=== PATIENT | male | born 1950 | race Caucasian/White ===

== ENCOUNTER 2023-08-11 09:40 | Outpatient (AMB) | payer MEDICARE, SELFPAY ==
--- NOTE | 2023-08-11 09:42 | MHC.PC.OV ---
Vital Signs 08/11/23 09:43 Height 5 ft 4 in Weight 174 lb BMI 29.9 BP 114/66 Blood Pressure Location Rt brachial Position Sitting Pulse 67 Pulse Source Pulse Oximeter Pulse Oximetry (%) 95 Oxygen Delivery Method Room Air Intake Visit Reasons: 3m follow up Intake Note: Pt is here today for 3 months follow up visit on lab results. Allergies No Known Allergies Allergy (Verified 08/11/23 09:54) Medication List - Last Reconciled 08/11/23 by Mónica Dawkins MD amlodipine 7.5 mg (1.5 x 5 mg) PO DAILY aspirin (Adult Aspirin Regimen) 81 mg PO DAILY blood sugar diagnostic (FreeStyle Lite Strips) test blood sugar once a day calcitriol 0 mcg PO cinacalcet 0 mg PO dulaglutide (Trulicity) 0.75 mg (0.5 mL) subcut QWEEK empagliflozin (Jardiance) 10 mg PO DAILY finasteride 5 mg PO DAILY furosemide 20 mg PO DAILY glipizide ER 5 mg PO BID hydrocortisone 2.5% (Proctosol HC) 1 appl [place] BID-QID PRN hydrocortisone acetate (Proctocort) 30 mg [place] BID lancets (FreeStyle Lancets) test blood sugar once a day metformin ER 750 mg PO QPM metoprolol tartrate 25 mg PO BID mycophenolate mofetil 500 mg PO BID omeprazole 40 mg PO DAILY pravastatin 40 mg PO DAILY tacrolimus 1 mg PO BID tacrolimus 0.5 mg PO 3 times a week at nighttime; tamsulosin 0.4 mg PO DAILY warfarin 4 mg PO DAILY warfarin 9 mg PO Q OTHER DAY PRN Tobacco use date assessed: 05/12/23 Dental Screening Dental Screen Date: 08/11/23 Did you have a dental visit in the last 12 months?: Yes Did you have a dental problem in the last 6 months where you did not have access to dental care?: No Was dental information given to patient?: Patient has dentist HPI 3m follow up HPI Details Pt presents for f/u DM 2, HTN, hyperlipid, stable on meds. Patient stays Jardiance massey is very high and he cannot afford it. [facility] Medical History (Updated 08/11/23 @ 10:35 by Mónica Dawkins MD) Tendinitis Vitamin D deficiency Carpal tunnel syndrome on both sides Diabetic eye exam Paroxysmal A-fib Osteoarthritis of knee BPH (benign prostatic hyperplasia) Polycystic kidney, unspecified type Diabetes (~12/22/20) HTN (hypertension) Surgical History (Updated 02/09/23 @ 10:36 by Mónica Dawkins MD) History of esophagogastroduodenoscopy (EGD) History of colonoscopy Status post parathyroidectomy S/P CABG x 2 Family History Father Prostate CA Mother Polycystic kidney disease Social History Housing: House Alcohol intake: current Alcohol intake frequency: does not drink Patient Tobacco Use Status: Never used Tobacco e-Cigarette/Vaping Use: Never Used Current occupational status: retired Cognitive needs: No Hearing needs: No Vision needs: No Questionnaire Thrive Questionnaire Date Thrive assessed: 01/10/23 TRISH-7 AMB Questionnaire TRISH-7 Date TRISH - 7 assessed: 01/10/23 Source: Developed by Drs. Everett Gorman, Chasity Nascimento, Narayan Garza and colleagues, with an educational jesus from [employer]. Review of Systems Const All systems reviewed & are unremarkable except as noted in HPI and below Reports no additional complaints Eyes Reports no additional complaints ENT Reports no additional complaints Card Reports no additional complaints Resp Reports no additional complaints GI Reports no additional complaints Reports no additional complaints Physical exam (Primary Care) Vital Signs: Last Vital Signs Pulse 67 08/11/23 09:43 BP 114/66 08/11/23 09:43 Pulse Ox 95 08/11/23 09:43 Oxygen Delivery Method Room Air 08/11/23 09:43 BMI result Body Mass Index 29.9 Tobacco/Smoking Status: Tobacco use Status Tobacco use date assessed 05/12/23 08/11/23 09:43 Patient Tobacco Use Status Never used Tobacco 08/11/23 09:43 e-Cigarette/Vaping Use Never Used 08/11/23 09:43 Thrive Assessment: Date of Thrive Assessment Date Thrive assessed 01/10/23 08/11/23 09:43 Const General: no acute distress HENMT Head: Yes normal to inspection Ears: hearing grossly normal bilaterally Mouth: Normal oral and palatal mucosa present Neck Neck: Yes supple Resp Effort & Inspection: normal respiratory effort Auscultation: clear to auscultation bilaterally Cardio Rhythm: regular rhythm Heart sounds: S1 normal heart sound present and S2 normal heart sound present GI Inspection: Yes normal to inspection Palpation (GI): Soft to palpation Percussion: Yes normal to percussion Auscultation: normal bowel sounds Assessment and Plan Assessment & Plan (1) Diabetes: Onset Date: ~12/22/20 Comment: goal A1C < 7.5, pt cannot afford Jardiance Code(s): E11.9 - Type 2 diabetes mellitus without complications Plan: A1C is 6.4, patient will stop Jardiance and increase Trulicity to 1.5 mg weekly. Patient will continue the rest of his medications, he diet increase physical activity weight loss discussed with the patient. (2) Paroxysmal A-fib: Comment: on Warfarin checks INR at [facility], [place] [facility] [place] Code(s): I48.0 - Paroxysmal atrial fibrillation Plan: Continue current medications (3) HTN (hypertension): Comment: BP < 130/80 Code(s): I10 - Essential (primary) hypertension Plan: Continue current medications , return in 4 months with a fasting labs before Orders: Orders Comprehensive [place]. Panel Fast 4 Months E11.9 - Type 2 diabetes mellitus without complications, I10 - Essential (primary) hypertension, I48.0 - Paroxysmal atrial fibrillation Lipid Panel 4 Months E11.9 - Type 2 diabetes mellitus without complications, I10 - Essential (primary) hypertension, I48.0 - Paroxysmal atrial fibrillation Hemoglobin A1c 4 Months E11.9 - Type 2 diabetes mellitus without complications, I10 - Essential (primary) hypertension, I48.0 - Paroxysmal atrial fibrillation Complete Blood Count Auto Diff 4 Months E11.9 - Type 2 diabetes mellitus without complications, I10 - Essential (primary) hypertension, I48.0 - Paroxysmal atrial fibrillation Microalbumin, Random (w Creat) 4 Months E11.9 - Type 2 diabetes mellitus without complications, I10 - Essential (primary) hypertension, I48.0 - Paroxysmal atrial fibrillation RT home sleep study Today G47.30 - Sleep apnea, unspecified Medications: New dulaglutide (Trulicity) 1.5 mg (0.5 mL) subcut QWEEK 6 mL 2RF Discontinued dulaglutide (Trulicity) Discontinued Reason: Doctor's Order 0.75 mg (0.5 mL) subcut QWEEK 2 mL 2RF Coding Level of Care Code Est Pt Level 4 (98385) Diagnoses Diabetes E11.9 Paroxysmal A-fib I48.0 HTN (hypertension) I10
[2023-08-11 09:43] VITALS: BP 114/66; PULSE 67; O2SAT 95; BMI 29.9
== END 2023-08-11 11:50 | disposition home or self-care (01) ==
PROVIDERS: PCP Internal Medicine; Visit Provider Internal Medicine
DX: E11.9 Type 2 diabetes mellitus without complications (principal); I48.0 Paroxysmal atrial fibrillation; I10 Essential (primary) hypertension
CPT/HCPCS: 99214

== ENCOUNTER 2023-12-14 10:22 | Outpatient (AMB) | payer MEDICARE, SELFPAY ==
[2023-12-14 10:23] VITALS: BP 110/68; PULSE 62; O2SAT 96
--- NOTE | 2023-12-14 10:23 | A.OFFVIS_ITS ---
Intake Vital Signs 12/14/23 10:23 Height 5 ft 4 in Weight 175 lb BMI 30.0 BP 110/68 Blood Pressure Location Rt brachial Position Sitting Pulse 62 Pulse Source Pulse Oximeter Pulse Oximetry (%) 96 Oxygen Delivery Method Room Air Intake Visit Reasons: SWV [id number] Allergies No Known Allergies Allergy (Verified 12/14/23 10:27) Medication List - Last Reconciled 12/14/23 by Mónica Dawkins MD amlodipine 7.5 mg (1.5 x 5 mg) PO DAILY aspirin (Adult Aspirin Regimen) 81 mg PO DAILY blood sugar diagnostic (FreeStyle Lite Strips) test blood sugar once a day calcitriol 0 mcg PO cinacalcet 0 mg PO dulaglutide (Trulicity) 1.5 mg (0.5 mL) subcut QWEEK empagliflozin (Jardiance) 10 mg PO DAILY finasteride 5 mg PO DAILY furosemide 20 mg PO DAILY glipizide ER 5 mg PO BID hydrocortisone 2.5% (Proctosol HC) 1 appl [place] BID-QID PRN hydrocortisone acetate (Proctocort) 30 mg [place] BID lancets (FreeStyle Lancets) test blood sugar once a day metformin ER 750 mg PO QPM metoprolol tartrate 25 mg PO BID mycophenolate mofetil 500 mg PO BID omeprazole 40 mg PO DAILY pravastatin 40 mg PO DAILY tacrolimus 1 mg PO BID tacrolimus 0.5 mg PO 3 times a week at nighttime; tamsulosin 0.4 mg PO DAILY warfarin 4 mg PO DAILY warfarin 9 mg PO Q OTHER DAY PRN HPI [facility] G0439 HPI Details Initiated the conversation about Advanced Directives. Advanced Directives help? patients prepare for current and future decisions about their medical treatment? and place of care. Discussed with patient that it is a process where a patients? current condition and prognosis are reviewed, their wishes for information? regarding their illness are elicited, and likely medical dilemmas are presented? and options discussed. The form can be amended as needed, reviewed yearly and? make changes as needed IPPE/AWV ? year old presents? for her ? Annual? Wellness Visit, initial visit.? Medical / Social History Reviewed? Past Medical History ?Yes? . ? [place]? of Care / Care Team list updated ?Yes . ? Surgical/Hospitalization? History ?Yes . ? Current Medications? (including OTC and supplements) ?Yes . ? Family History ?Yes? . ? Tobacco? Control form ?Yes . ? AUDIT-C (Alcohol use) form? ?Yes . ? Illicit drug use in Social? History ?Yes . ? Current diagnosis of? depression? ?No ? Appropriate PHQ2/PHQ9? completed ?Yes . ? Data entered by ?Medical? Public Policy Associate and reviewed by provider ? Fall Risk ? Fall? History? Have you had any falls with? injury in the past year? ?No . ? Have you had two or more? falls in the past year? ?No . ? Fall Risk Assessment: ?No? falls in the past year . ? HRA filled out by? the patient, reviewed by Provider and scanned. ? IPPE/AWV ? Balance? [place]? ?Yes . ? Tandem? walk ?Yes . ? Walk and? Turn ?Yes . ? Rise from? sit to stand ?Yes . ?Vision? Corrective? lens ?Yes ? Vision? screen ? Up-to-date, has an appointment [] for vision? screening and glaucoma screening ?Hearing? Whisper? test ?pass .? Initiated the conversation about Advanced Directives. Advanced Directives help? patients prepare for current and future decisions about their medical treatment? and place of care. Discussed with patient that it is a process where a patients? current condition and prognosis are reviewed, their wishes for inf ormation? regarding their illness are elicited, and likely medical dilemmas are presented? and options discussed. The form can be amended as needed, reviewed yearly and? make changes as needed Written? Plan?Completed. See Patient? Documents. [facility] Medical History (Updated 12/14/23 @ 11:13 by Mónica Dawkins MD) BPH (benign prostatic hyperplasia) Tendinitis Vitamin D deficiency Carpal tunnel syndrome on both sides Diabetic eye exam Paroxysmal A-fib Osteoarthritis of knee Polycystic kidney, unspecified type Diabetes (~12/22/20) HTN (hypertension) Surgical History (Updated 12/14/23 @ 11:19 by Mónica Dawkins MD) History of esophagogastroduodenoscopy (EGD) History of colonoscopy Status post parathyroidectomy S/P CABG x 2 Family History Father Prostate CA Mother Polycystic kidney disease Social History Housing: House Alcohol intake: current Alcohol intake frequency: does not drink Patient Tobacco Use Status: Never used Tobacco e-Cigarette/Vaping Use: Never Used Current occupational status: retired Cognitive needs: No Hearing needs: No Vision needs: No Questionnaire Medicare Wellness Checkup [age] What gender do you identify with?: male During the past 4 weeks, how much have you been bothered by emotional problems such as feeling anxious, depressed, irritable, sad or downhearted, and blue?: slightly During the past 4 weeks, has your physical & emotional health limited your social activities with family, friends, neighbors, or groups?: not at all During the past 4 weeks, how much bodily pain have you generally had?: very mild pain During the past 4 weeks, was someone available to help you if you needed & wanted help?: yes, quite a bit During the past 4 weeks, what was the hardest physical activity you could do for at least 2 minutes?: moderate Can you get to places out of walking distance without help? (For eg., can you travel alone on buses, taxis or drive your car?): Yes Can you go shopping for groceries or clothes without someone's help?: Yes Can you prepare your own meals?: Yes Can you do your housework without help?: Yes Because of any health problems, do you need the help of another person with your personal care needs such as eating, bathing, dressing or getting around the house?: No Can you handle your own money without help?: Yes During the past 4 weeks, how would you rate your health in general?: good During the past 4 weeks how have things been going for you?: pretty well Are you having difficulties driving your car?: yes, often Do you always fasten your seat belt when you are in a car?: yes, usually During past 4 weeks, have you been bothered by the following: never: Sexual prob lems?, Trouble eating well?, Teeth or denture problems? and Problems using the telephone? and sometimes: Falling or dizzy when standing up and Tiredness or fatigue? Have you fallen 2 or more times in the past year?: Yes Are you afraid of falling?: No Are you a smoker?: no During the past 4 weeks, how many drinks of wine, beer, or other alcoholic beverages did you have?: no alcohol at all Do you exercise for about 20 minutes 3 or more times a week?: yes, some of the time Have you been given information to help with the following?: yes: Keeping track of your medications? and no: Hazards in your house that might hurt you? How often do you have trouble taking medicines the way you have been told to take them?: I always take medicine as prescribed How confident are you that you can control & manage most of your health problems?: somewhat confident What is your race?: White Mini Mental State Exam (MMSE) Orientation What is the (year) (season) (date) (day) (month)?: year, season, date, day and month Where are we (state) (county) (town or city) (hospital) (floor)?: state, county, town or city, hospital/clinic and floor Registration Name of 3 unrelated objects clearly and slowly, then ask patient to repeat all 3 of them. (1st repeat determines score. Make sure they can repeat all three): object 1, object 2 and object 3 Attention & Calculation (CHOOSE ONE) Spell WORLD backwards (DLROW): 5 letters Recall Ask patient to repeat the 3 items from question #3.: object 1, object 2 and object 3 Language Show patient a wristwatch & ask what it is. Repeat for pencil.: watch and pencil Ask the patient to repeat the phrase 'No ifs, ands, or buts' after you.: correct Ask the patient to 'take a piece of paper with their right hand' 'fold paper in half' 'place paper on floor': take paper in right hand, fold paper in half and place paper on floor Print the sentence 'CLOSE YOUR EYES' on a piece. If patient actually closes eyes then score.: followed written direction Give patient a blank piece of paper & ask to write a sentence. Score if it contains a noun & verb.: sentence contains subject and verb Score Score: 29 Activity of Daily Living Bathing - sponge bath, tub bath or shower: receives no assistance (gets in/out by self, if usual bathing means Dressing - getting clothes from closets & drawers, including inner/outer garments & fasteners.: gets clothes & gets completely dressed without help Toileting - going to the 'toilet room' for urine/bowel elimination & cleaning self/arranging clothes: goes to toilet room, cleans self, arranges clothes without help Transfer: moves in & out of bed and chair without help (may use support object) Continence: controls urination/bowel movements completely by self Feeding: feeds self without help Total Score: 0 Information obtained from: patient Using telephone: independent Traveling: independent Shopping: independent Preparing meals: independent Housework: independent Taking medicine: independent Managing money: independent PHQ-9 Over the last 2 weeks, how often have you been bothered by any of the following problems? 1. Little interest or pleasure in doing things: several days 2. Feeling down, depressed, or hopeless: not at all 3. Trouble falling or staying asleep, or sleeping too much: not at all 4. Feeling tired or having little energy: several days 5. Poor appetite or overeating: several days 6. Feeling bad about yourself - or that you are a failure or have let yourself or your family down: not at all 7. Trouble concentrating on things, such as reading the newspaper or watching television: several days 8. Moving or speaking so slowly that other people could have noticed. Or the opposite - being so fidgety or restless that you have been moving around a lot more than usual: several days 9. Thoughts that you would be better off or of hurting yourself in some way: not at all Total score: 5 Depression Screening Interpretation: Negative Depression Screening Done: Yes Source: Developed by Drs. Everett Gorman, Chasity Nascimento, Narayan Garza and colleagues, with an educational jesus from [employer]. Physical Exam Vital Signs: Last Vital Signs Pulse 62 12/14/23 10:23 BP 110/68 12/14/23 10:23 Pulse Ox 96 12/14/23 10:23 Oxygen Delivery Method Room Air 12/14/23 10:23 BMI result Body Mass Index 30.0 Const General: no acute distress HEENT Head: Yes normal to inspection Ears: hearing grossly normal bilaterally Eyes General: appearance normal, both eyes and all related structures Neck Neck: Yes no lymphadenopathy and Yes supple Resp Effort & Inspection: normal respiratory effort Auscultation: clear to auscultation bilaterally Cardio Rhythm: regular rhythm Heart sounds: S1 normal heart sound present and S2 normal heart sound present GI Inspection: Yes normal to inspection Palpation (GI): Soft to palpation Percussion: Yes normal to percussion Extrem General: Yes no clubbing, cyanosis or edema Assessment & Plan Assessment & Plan (1) Paroxysmal A-fib: Comment: on Warfarin checks INR at [facility], regulated by [facility] [place] Code(s): I48.0 - Paroxysmal atrial fibrillation Plan: Continue Coumadin and Metoprolol (2) Diabetes: Onset Date: ~12/22/20 Comment: goal A1C < 7.5, pt cannot afford Jardiance Code(s): E11.9 - Type 2 diabetes mellitus without complications Plan: A1c is 6.4, continue current medications ADA diet increase physical activity and weight loss discussed with the patient. Follow-up in 4 months (3) HTN (hypertension): Comment: BP < 130/80 Code(s): I10 - Essential (primary) hypertension Plan: Continue current medications (4) BPH (benign prostatic hyperplasia): Comment: follow up urologist at [facility] [place] Code(s): N40.0 - Benign prostatic hyperplasia without lower urinary tract symptoms Plan: Monitor PSA (5) Sleep apnea: Comment: 09/18 moderate sleep apnea, referred to [facility] 12/20 Code(s): G47.30 - Sleep apnea, unspecified Plan: Patient was diagnosed with moderate sleep apnea and will be referred to [facility] to discuss starting CPAP. Weight loss discussed with the patient Orders: Orders Complete Blood Count Auto Diff 4 Months E11.9 - Type 2 diabetes mellitus without complications, I10 - Essential (primary) hypertension, I48.0 - Paroxysmal atrial fibrillation, N40.0 - Benign prostatic hyperplasia without lower urinary tract symptoms Microalbumin, Random (w Creat) 4 Months E11.9 - Type 2 diabetes mellitus without complications, I10 - Essential (primary) hypertension, I48.0 - Paroxysmal atrial fibrillation, N40.0 - Benign prostatic hyperplasia without lower urinary tract symptoms PSA,Total (Free>4and<10) 4 Months E11.9 - Type 2 diabetes mellitus without complications, I10 - Essential (primary) hypertension, I48.0 - Paroxysmal atrial fibrillation, N40.0 - Benign prostatic hyperplasia without lower urinary tract symptoms Comprehensive [place]. Panel Fast 4 Months E11.9 - Type 2 diabetes mellitus without complications, I10 - Essential (primary) hypertension, I48.0 - Paroxysmal atrial fibrillation, N40.0 - Benign prostatic hyperplasia without lower urinary tract symptoms Lipid Panel 4 Months E11.9 - Type 2 diabetes mellitus without complications, I10 - Essential (primary) hypertension, I48.0 - Paroxysmal atrial fibrillation, N40.0 - Benign prostatic hyperplasia without lower urinary tract symptoms Hemoglobin A1c 4 Months E11.9 - Type 2 diabetes mellitus without complications, I10 - Essential (primary) hypertension, I48.0 - Paroxysmal atrial fibrillation, N40.0 - Benign prostatic hyperplasia without lower urinary tract symptoms Referrals Sleep Medicine Referral G47.30 - Sleep apnea, unspecified Medications: Discontinued empagliflozin (Jardiance) Discontinued Reason: Doctor's Order 10 mg PO DAILY 90 tabs 0RF Quality Reporting (2019) Depression/Bipolar (159/160/161/177) PHQ-9: Total score: 5 Coding Level of Care Code Medicare Subsequent (G0439) Diagnoses Paroxysmal A-fib I48.0 Diabetes E11.9 HTN (hypertension) I10 BPH (benign prostatic hyperplasia) N40.0 Sleep apnea G47.30 CPT Codes Advance Care Planning - Time spent: 1-15 minutes, not on file ([id number]) Advance Care Planning Advance Care Planning discussion: Exists, not on file Forms completed: Health Care Proxy Time spent: 1-15 minutes, not on file
== END 2023-12-14 11:23 | disposition home or self-care (01) ==
PROVIDERS: PCP Internal Medicine; Visit Provider Internal Medicine
DX: I48.0 Paroxysmal atrial fibrillation (principal); E11.9 Type 2 diabetes mellitus without complications; I10 Essential (primary) hypertension; N40.0 Benign prostatic hyperplasia without lower urinary tract symptoms; G47.30 Sleep apnea, unspecified; Z00.00 Encounter for general adult medical examination without abnormal findings
CPT/HCPCS: 1124F; G0439

== ENCOUNTER 2024-04-19 09:28 | Outpatient (AMB) | payer MEDICARE, SELFPAY ==
[2024-04-19 09:39] VITALS: BP 120/66; PULSE 75; O2SAT 95; BMI 29.3
--- NOTE | 2024-04-19 09:39 | A.OFFPC_ITS ---
Vital Signs 04/19/24 09:39 Height 5 ft 4 in Weight 171 lb BMI 29.3 BP 120/66 Blood Pressure Location Rt brachial Position Sitting Pulse 75 Pulse Source Pulse Oximeter Pulse Oximetry (%) 95 Oxygen Delivery Method Room Air Intake Visit Reasons: 4 month fu Intake Note: Pt is here today for 4 months follow up visit. Allergies No Known Allergies Allergy (Verified 04/19/24 09:39) Medication List - Last Reconciled 04/19/24 by Mónica Dawkins MD amlodipine 7.5 mg (1.5 x 5 mg) PO DAILY aspirin (Adult Aspirin Regimen) 81 mg PO DAILY blood sugar diagnostic (FreeStyle Lite Strips) test blood sugar once a day calcitriol 0 mcg PO cinacalcet 0 mg PO dulaglutide (Trulicity) 1.5 mg (0.5 mL) subcut QWEEK finasteride 5 mg PO DAILY furosemide 20 mg PO DAILY glipizide ER 5 mg PO BID hydrocortisone 2.5% (Proctosol HC) 1 appl [place] BID-QID PRN hydrocortisone acetate (Proctocort) 30 mg [place] BID lancets (FreeStyle Lancets) test blood sugar once a day metformin ER 750 mg PO QPM metoprolol tartrate 25 mg PO BID mycophenolate mofetil 500 mg PO BID omeprazole 40 mg PO DAILY pravastatin 40 mg PO DAILY tacrolimus 1 mg PO BID tacrolimus 0.5 mg PO 3 times a week at nighttime; tamsulosin 0.4 mg PO DAILY warfarin 4 mg PO DAILY warfarin 9 mg PO Q OTHER DAY PRN Tobacco use date assessed: 04/19/24 Fall risk assessment: No Falls in past year Last assessed Fall Risk: 04/19/24 Dental Screening Dental Screen Date: 04/19/24 Did you have a dental visit in the last 12 months?: Yes Did you have a dental problem in the last 6 months where you did not have access to dental care?: No Was dental information given to patient?: Patient has dentist HPI 4 month fu HPI Details Patient presents for the follow-up of type 2 diabetes hypertension hyperlipidemia paroxysmal AFib status post renal transplant. [facility] Medical History BPH (benign prostatic hyperplasia) Tendinitis Vitamin D deficiency Carpal tunnel syndrome on both sides Diabetic eye exam Paroxysmal A-fib Osteoarthritis of knee Polycystic kidney, unspecified type Diabetes (~12/22/20) HTN (hypertension) Surgical History History of esophagogastroduodenoscopy (EGD) History of colonoscopy Status post parathyroidectomy S/P CABG x 2 Family History Father Prostate CA Mother Polycystic kidney disease Social History Housing: House Alcohol intake: current Alcohol intake frequency: does not drink Patient Tobacco Use Status: Never used Tobacco e-Cigarette/Vaping Use: Never Used service: No Current occupational status: retired Cognitive needs: No Hearing needs: No Vision needs: No Questionnaire Thrive Questionnaire Date Thrive assessed: 01/10/23 AUDIT C Alcohol Use Questionnaire (AUDIT-C) 1. How often do you have a drink containing alcohol?: Never 3. How often do you have six or more drinks on one occasion?: Never Total Score: 0 TRISH-7 AMB Questionnaire TRISH-7 Date TRISH - 7 assessed: 01/10/23 Source: Developed by Drs. Everett Gorman, Chasity Nascimento, Narayan Garza and colleagues, with an educational jesus from [facility] [employer]. Review of Systems Const All systems reviewed & are unremarkable except as noted in HPI and below Reports no additional complaints Eyes Reports no additional complaints ENT Reports no additional complaints Card Reports no additional complaints Resp Reports no additional complaints GI Reports no additional complaints Reports no additional complaints Physical exam (Primary Care) Vital Signs: Last Vital Signs Pulse 75 04/19/24 09:39 BP 120/66 04/19/24 09:39 Pulse Ox 95 04/19/24 09:39 Oxygen Delivery Method Room Air 04/19/24 09:39 BMI result Body Mass Index 29.3 Tobacco/Smoking Status: Tobacco use Status Tobacco use date assessed 04/19/24 04/19/24 09:45 Patient Tobacco Use Status Never used Tobacco 04/19/24 09:45 e-Cigarette/Vaping Use Never Used 04/19/24 09:39 Thrive Assessment: Date of Thrive Assessment Date Thrive assessed 01/10/23 04/19/24 09:39 Const General: no acute distress HENMT Head: Yes normal to inspection Face and sinus: Yes normal facial exam Eyes General: appearance normal, both eyes and all related structures Neck Neck: Yes supple Resp Effort & Inspection: normal respiratory effort Auscultation: clear to auscultation bilaterally Cardio Rhythm: regular rhythm Heart sounds: S1 normal heart sound present and S2 normal heart sound present GI Inspection: Yes normal to inspection Palpation (GI): Soft to palpation Percussion: Yes normal to percussion Auscultation: normal bowel sounds Assessment and Plan Assessment & Plan (1) Diabetes: Onset Date: ~12/22/20 Comment: goal A1C < 7.5, pt cannot afford Jardiance Code(s): E11.9 - Type 2 diabetes mellitus without complications Plan: A1c is 6.1, ADA diet regular physical activity discussed with the patient he was advised to decrease glipizide to 5 mg once a day only and continue Trulicity and metformin. Follow-up in 3 months with a fasting labs before (2) HTN (hypertension): Comment: BP < 130/80 Code(s): I10 - Essential (primary) hypertension Plan: Continue current medications (3) Paroxysmal A-fib: Comment: on Warfarin checks INR at [facility], regulated by [facility] [place]R 2-3 Code(s): I48.0 - Paroxysmal atrial fibrillation Plan: Controlled on metoprolol anticoagulated on warfarin (4) Polycystic kidney, unspecified type: Comment: s/p renal transplant F/u Dr. Jackson Martin, [facility] Code(s): Q61.3 - Polycystic kidney, unspecified Plan: Follow-up every 6 months with [facility], continue current medications Orders: Orders Comprehensive [place]. Panel Fast 3 Months E11.9 - Type 2 diabetes mellitus without complications, I10 - Essential (primary) hypertension, I48.0 - Paroxysmal atrial fibrillation Complete Blood Count Auto Diff 3 Months E11.9 - Type 2 diabetes mellitus without complications, I10 - Essential (primary) hypertension, I48.0 - Paroxysmal atrial fibrillation Hemoglobin A1c 3 Months E11.9 - Type 2 diabetes mellitus without complications, I10 - Essential (primary) hypertension, I48.0 - Paroxysmal atrial fibrillation Lipid Panel 3 Months E11.9 - Type 2 diabetes mellitus without complications, I10 - Essential (primary) hypertension, I48.0 - Paroxysmal atrial fibrillation Microalbumin, Random (w Creat) 3 Months E11.9 - Type 2 diabetes mellitus without complications, I10 - Essential (primary) hypertension, I48.0 - Paroxysmal atrial fibrillation Coding Level of Care Code Est Pt Level 4 (12897) Diagnoses Diabetes E11.9 HTN (hypertension) I10 Paroxysmal A-fib I48.0 Polycystic kidney, unspecified type Q61.3
== END 2024-04-19 10:27 | disposition home or self-care (01) ==
PROVIDERS: PCP Internal Medicine; Visit Provider Internal Medicine
DX: E11.9 Type 2 diabetes mellitus without complications (principal); I10 Essential (primary) hypertension; I48.0 Paroxysmal atrial fibrillation; Q61.3 Polycystic kidney, unspecified
CPT/HCPCS: 99214

== ENCOUNTER 2024-08-05 10:20 | Outpatient (AMB) | payer MEDICARE, SELFPAY ==
[2024-08-05 10:37] VITALS: BP 124/66; PULSE 66; O2SAT 95; BMI 29.7
--- NOTE | 2024-08-05 10:37 | MHC.PC.OV ---
Vital Signs 08/05/24 10:37 Height 5 ft 4 in Weight 173 lb BMI 29.7 BP 124/66 Blood Pressure Location Rt brachial Position Sitting Pulse 66 Pulse Source Pulse Oximeter Pulse Oximetry (%) 95 Oxygen Delivery Method Room Air Intake Visit Reasons: 4 month fu - see comments Allergies No Known Allergies Allergy (Verified 08/05/24 10:39) Medication List - Last Reconciled 08/05/24 by Mónica Dawkins MD amlodipine 7.5 mg (1.5 x 5 mg) PO DAILY aspirin (Adult Aspirin Regimen) 81 mg PO DAILY blood sugar diagnostic (FreeStyle Lite Strips) test blood sugar once a day calcitriol 0 mcg PO cinacalcet 0 mg PO dulaglutide (Trulicity) 1.5 mg (0.5 mL) subcut QWEEK finasteride 5 mg PO DAILY furosemide 20 mg PO DAILY glipizide ER 5 mg PO BID hydrocortisone 2.5% (Proctosol HC) 1 appl [place] BID-QID PRN hydrocortisone acetate (Proctocort) 30 mg [place] BID lancets (FreeStyle Lancets) test blood sugar once a day metformin ER 750 mg PO QPM metoprolol tartrate 25 mg PO BID mycophenolate mofetil 500 mg PO BID omeprazole 40 mg PO DAILY pravastatin 40 mg PO DAILY tacrolimus 1 mg PO BID tacrolimus 0.5 mg PO 3 times a week at nighttime; tamsulosin 0.4 mg PO DAILY warfarin 4 mg PO DAILY warfarin 9 mg PO Q OTHER DAY PRN Tobacco use date assessed: 04/19/24 Fall risk assessment: No Falls in past year Last assessed Fall Risk: 08/05/24 Dental Screening Dental Screen Date: 04/19/24 HPI 4 month fu - see comments HPI Details Patient presents for the follow-up on hypertension hyperlipidemia type 2 diabetes. He had an episode of gout of the right 1st toe for 2 weeks. [facility] Medical History BPH (benign prostatic hyperplasia) Tendinitis Vitamin D deficiency Carpal tunnel syndrome on both sides Diabetic eye exam Paroxysmal A-fib Osteoarthritis of knee Polycystic kidney, unspecified type Diabetes (~12/22/20) HTN (hypertension) Surgical History History of esophagogastroduodenoscopy (EGD) History of colonoscopy Status post parathyroidectomy S/P CABG x 2 Family History Father Prostate CA Mother Polycystic kidney disease Social History Housing: House Alcohol intake: current Alcohol intake frequency: does not drink Patient Tobacco Use Status: Never used Tobacco e-Cigarette/Vaping Use: Never Used service: No Current occupational status: retired Cognitive needs: No Hearing needs: No Vision needs: No Questionnaire Thrive Questionnaire Date Thrive assessed: 01/10/23 TRISH-7 AMB Questionnaire TRISH-7 Date TRISH - 7 assessed: 01/10/23 Source: Developed by Drs. Everett Gorman, Chasity Nascimento, Narayan Garza and colleagues, with an educational jesus from [employer]. Review of Systems Const All systems reviewed & are unremarkable except as noted in HPI and below Eyes Reports no additional complaints ENT Reports no additional complaints Card Reports no additional complaints Resp Reports no additional complaints GI Reports no additional complaints Reports no additional complaints Physical exam (Primary Care) Vital Signs: Last Vital Signs Pulse 66 08/05/24 10:37 BP 124/66 08/05/24 10:37 Pulse Ox 95 08/05/24 10:37 Oxygen Delivery Method Room Air 08/05/24 10:37 BMI result Body Mass Index 29.7 Tobacco/Smoking Status: Tobacco use Status Tobacco use date assessed 04/19/24 08/05/24 10:40 Patient Tobacco Use Status Never used Tobacco 08/05/24 10:40 e-Cigarette/Vaping Use Never Used 08/05/24 10:40 Thrive Assessment: Date of Thrive Assessment Date Thrive assessed 01/10/23 08/05/24 10:40 Const General: no acute distress HENMT Ears: hearing grossly normal bilaterally Eyes General: appearance normal, both eyes and all related structures Neck Neck: Yes supple Resp Effort & Inspection: normal respiratory effort Auscultation: clear to auscultation bilaterally Cardio Rhythm: regular rhythm Heart sounds: S1 normal heart sound present and S2 normal heart sound present GI Inspection: Yes normal to inspection Palpation (GI): Soft to palpation Percussion: Yes normal to percussion Auscultation: normal bowel sounds Assessment and Plan Assessment & Plan (1) HTN (hypertension): Comment: BP < 130/80 Code(s): I10 - Essential (primary) hypertension Plan: cont meds (2) Diabetes: Onset Date: ~12/22/20 Comment: goal A1C < 7.5, pt cannot afford Jardiance Code(s): E11.9 - Type 2 diabetes mellitus without complications Plan: A1C is 6.6, ADA diet increase exercise weight loss discussed with the patient. Trulicity will be increased to 3 mg weekly and patient will continue metformin follow-up in 4 months with a fasting labs before (3) Paroxysmal A-fib: Comment: on Warfarin checks INR at [facility], regulated by [facility] INR 2-3 Code(s): I48.0 - Paroxysmal atrial fibrillation Plan: Continue metoprolol and warfarin (4) Polycystic kidney, unspecified type: Comment: s/p renal transplant F/u Dr. Jackson Martin, [facility] Code(s): Q61.3 - Polycystic kidney, unspecified Plan: Follow-up with nephrology Orders: Orders Uric Acid 4 Months E11.9 - Type 2 diabetes mellitus without complications, I10 - Essential (primary) hypertension, I48.0 - Paroxysmal atrial fibrillation Lipid Panel 4 Months E11.9 - Type 2 diabetes mellitus without complications, I10 - Essential (primary) hypertension, I48.0 - Paroxysmal atrial fibrillation Comprehensive [place]. Panel Fast 4 Months E11.9 - Type 2 diabetes mellitus without complications, I10 - Essential (primary) hypertension, I48.0 - Paroxysmal atrial fibrillation Hemoglobin A1c 4 Months E11.9 - Type 2 diabetes mellitus without complications, I10 - Essential (primary) hypertension, I48.0 - Paroxysmal atrial fibrillation Microalbumin, Random (w Creat) 4 Months E11.9 - Type 2 diabetes mellitus without complications, I10 - Essential (primary) hypertension, I48.0 - Paroxysmal atrial fibrillation Complete Blood Count Auto Diff 4 Months E11.9 - Type 2 diabetes mellitus without complications, I10 - Essential (primary) hypertension, I48.0 - Paroxysmal atrial fibrillation Medications: New Trulicity (dulaglutide) 3 mg (0.5 mL) subcut QWEEK 6 mL 2RF NS Discontinued dulaglutide (Trulicity) Discontinued Reason: Doctor's Order 1.5 mg (0.5 mL) subcut QWEEK 6 mL 2RF Coding Level of Care Code Est Pt Level 4 (98351) Diagnoses HTN (hypertension) I10 Diabetes E11.9 Paroxysmal A-fib I48.0 Polycystic kidney, unspecified type Q61.3
== END 2024-08-05 11:12 | disposition home or self-care (01) ==
PROVIDERS: PCP Internal Medicine; Visit Provider Internal Medicine
DX: I10 Essential (primary) hypertension (principal); E11.9 Type 2 diabetes mellitus without complications; I48.0 Paroxysmal atrial fibrillation; Q61.3 Polycystic kidney, unspecified
CPT/HCPCS: 99214

== ENCOUNTER 2024-11-05 09:44 | Outpatient (AMB) | payer MEDICARE, SELFPAY ==
[2024-11-05 09:47] VITALS: BP 118/66; PULSE 70; O2SAT 96; BMI 29.7
--- NOTE | 2024-11-05 09:47 | MHC.PC.OV ---
Vital Signs 11/05/24 09:47 Height 5 ft 4 in Weight 173 lb BMI 29.7 BP 118/66 Blood Pressure Location Rt brachial Position Sitting Pulse 70 Pulse Source Pulse Oximeter Pulse Oximetry (%) 96 Oxygen Delivery Method Room Air Intake Visit Reasons: Office visit - see comments Intake Note: Pt is here today for a follow up visit on DM and labs. Pt states that he was at [facility] ER due to hemorrhoid problem. Allergies No Known Allergies Allergy (Verified 11/05/24 09:54) Medication List - Last Reconciled 11/05/24 by Mónica Dawkins MD amlodipine 7.5 mg (1.5 x 5 mg) PO DAILY aspirin (Adult Aspirin Regimen) 81 mg PO DAILY blood sugar diagnostic (FreeStyle Lite Strips) test blood sugar once a day calcitriol 0 mcg PO cinacalcet 0 mg PO finasteride 5 mg PO DAILY furosemide 20 mg PO DAILY glipizide ER 5 mg PO BID hydrocortisone 2.5% (Proctosol HC) 1 appl [place] BID-QID PRN hydrocortisone acetate (Proctocort) 30 mg [place] BID lancets (FreeStyle Lancets) test blood sugar once a day metformin ER 750 mg PO QPM metoprolol tartrate 25 mg PO BID mycophenolate mofetil 500 mg PO BID omeprazole 40 mg PO DAILY pravastatin 40 mg PO DAILY tacrolimus 1 mg PO BID tacrolimus 0.5 mg PO 3 times a week at nighttime; tamsulosin 0.4 mg PO DAILY Trulicity (dulaglutide) 3 mg (0.5 mL) subcut QWEEK NS warfarin 4 mg PO DAILY warfarin 9 mg PO Q OTHER DAY PRN Tobacco use date assessed: 11/05/24 Fall risk assessment: No Falls in past year Last assessed Fall Risk: 11/05/24 Dental Screening Dental Screen Date: 04/19/24 HPI Office visit - see comments HPI Details PATIENT PRESENTS FOR THE FOLLOW-UP ON HYPERTENSION HYPERLIPIDEMIA TYPE 2 DIABETES STABLE ON CURRENT MEDICATIONS [facility] Medical History BPH (benign prostatic hyperplasia) Tendinitis Vitamin D deficiency Carpal tunnel syndrome on both sides Diabetic eye exam Paroxysmal A-fib Osteoarthritis of knee Polycystic kidney, unspecified type Diabetes (~12/22/20) HTN (hypertension) Surgical History History of esophagogastroduodenoscopy (EGD) History of colonoscopy Status post parathyroidectomy S/P CABG x 2 Family History Father Prostate CA Mother Polycystic kidney disease Social History Housing: House Alcohol intake: current Alcohol intake frequency: does not drink Patient Tobacco Use Status: Never used Tobacco e-Cigarette/Vaping Use: Never Used service: No Current occupational status: retired Cognitive needs: No Hearing needs: No Vision needs: No Questionnaire Thrive Questionnaire Date Thrive assessed: 01/10/23 I am a: Patient What is your living situation today?: I choose not to answer this question Within the past 12 months, did the food you bought not last and you didn't have the money to get more?: I choose not to answer this question Within the past 12 months, did you worry whether your food would run out before you got money to buy more?: I choose not to answer this question Do you have trouble paying for medicines?: I choose not to answer this question Do you have trouble getting transportation to medical appointments?: I choose not to answer this question Do you have trouble paying your heating and electricity bill?: I choose not to answer this question Do you have trouble taking care of your child, family member or friend?: I choose not to answer this question Do you have trouble with day-to-day activities such as bathing, preparing meals, shopping, managing finances, etc.?: I choose not to answer this question Are you currently unemployed and looking for a job?: I choose not to answer this question Are you interested in more education?: I choose not to answer this question Please select the resources that you would like help with: None Currently or been in a relationship where the following occur: I choose not to answer THRIVE Score: 0 AUDIT C Alcohol Use Questionnaire (AUDIT-C) 1. How often do you have a drink containing alcohol?: Never Total Score: 0 TRISH-7 AMB Questionnaire TRISH-7 Date TRISH - 7 assessed: 01/10/23 Feeling nervous, anxious, or on edge: 0 = Not at all Not being able to stop or control worryin = Not at all Worrying too much about different things: 0 = Not at all Trouble relaxin = Not at all Source: Developed by Drs. Everett Gorman, Chasity Nascimento, Narayan Garza and colleagues, with an educational jesus from [employer]. Review of Systems Const All systems reviewed & are unremarkable except as noted in HPI and below Reports no additional complaints Eyes Reports no additional complaints ENT Reports no additional complaints Card Reports no additional complaints Resp Reports no additional complaints GI Reports no additional complaints Reports no additional complaints Physical exam (Primary Care) Vital Signs: Last Vital Signs Pulse 70 11/05/24 09:47 BP 118/66 11/05/24 09:47 Pulse Ox 96 11/05/24 09:47 Oxygen Delivery Method Room Air 11/05/24 09:47 BMI result Body Mass Index 29.7 Tobacco/Smoking Status: Tobacco use Status Tobacco use date assessed 11/05/24 11/05/24 09:55 Patient Tobacco Use Status Never used Tobacco 11/05/24 09:51 e-Cigarette/Vaping Use Never Used 11/05/24 09:51 Thrive Assessment: Date of Thrive Assessment Date Thrive assessed 01/10/23 11/05/24 09:51 Currently or been in a relationship where the following occur: I choose not to answer Const General: no acute distress HENMT Head: Yes normal to inspection Face and sinus: Yes normal facial exam Eyes General: appearance normal, both eyes and all related structures Resp Effort & Inspection: normal respiratory effort Auscultation: clear to auscultation bilaterally Cardio Rhythm: regular rhythm Heart sounds: S1 normal heart sound present and S2 normal heart sound present GI Inspection: Yes normal to inspection Palpation (GI): Soft to palpation Percussion: Yes normal to percussion Auscultation: normal bowel sounds Coding Level of Care Code Est Pt Level 4 (00365) Complex EM visit Add On [id number] Diagnoses HTN (hypertension) I10 Diabetes E11.9 Paroxysmal A-fib I48.0 Assessment & Plan Assessment & Plan (1) HTN (hypertension): Comment: BP < 130/80 Code(s): I10 - Essential (primary) hypertension Category: Medical Plan: Continue current medications (2) Diabetes: Onset Date: ~12/22/20 Comment: goal A1C < 7.5, pt cannot afford Jardiance Code(s): E11.9 - Type 2 diabetes mellitus without complications Category: Medical Plan: A1c is down to 6.4. ADA diet increase physical activity discussed with the patient continue current medications return in 4 months for physical (3) Paroxysmal A-fib: Comment: on Warfarin checks INR at [facility], regulated by [facility] [place]R 2-3 Code(s): I48.0 - Paroxysmal atrial fibrillation Category: Medical Plan: Continue current medications follow-up with Cardiology Orders: Orders Comprehensive [place]. Panel Fast 4 Months E11.9 - Type 2 diabetes mellitus without complications, I10 - Essential (primary) hypertension, I48.0 - Paroxysmal atrial fibrillation Hemoglobin A1c 4 Months E11.9 - Type 2 diabetes mellitus without complications, I10 - Essential (primary) hypertension, I48.0 - Paroxysmal atrial fibrillation Microalbumin, Random (w Creat) 4 Months E11.9 - Type 2 diabetes mellitus without complications, I10 - Essential (primary) hypertension, I48.0 - Paroxysmal atrial fibrillation Lipid Panel 4 Months E11.9 - Type 2 diabetes mellitus without complications, I10 - Essential (primary) hypertension, I48.0 - Paroxysmal atrial fibrillation Complete Blood Count Auto Diff 4 Months E11.9 - Type 2 diabetes mellitus without complications, I10 - Essential (primary) hypertension, I48.0 - Paroxysmal atrial fibrillation Medications: New metoprolol tartrate 25 mg PO BID 180 tabs 3RF finasteride 5 mg PO DAILY 90 tabs 3RF tamsulosin 0.4 mg PO DAILY 90 caps 3RF Refilled glipizide ER 5 mg PO BID 180 tabs 3RF metformin ER 750 mg PO QPM 90 tabs 3RF blood sugar diagnostic (FreeStyle Lite Strips) test blood sugar once a day 100 ea 3RF E11.9 - Type 2 diabetes mellitus without complications lancets (FreeStyle Lancets) test blood sugar once a day 100 ea 3RF E11.9 - Type 2 diabetes mellitus without complications Trulicity (dulaglutide) 3 mg (0.5 mL) subcut QWEEK 6 mL 3RF NS amlodipine 7.5 mg (1.5 x 5 mg) PO DAILY 135 tabs 3RF pravastatin 40 mg PO DAILY 30 tabs 3RF
== END 2024-11-05 11:06 | disposition home or self-care (01) ==
PROVIDERS: PCP Internal Medicine; Visit Provider Internal Medicine
DX: I10 Essential (primary) hypertension (principal); E11.9 Type 2 diabetes mellitus without complications; I48.0 Paroxysmal atrial fibrillation

== ENCOUNTER → 2024-11-05 09:44 | Outpatient (BNVA) | payer MEDICARE, SELFPAY | PROVIDERS: PCP Internal Medicine; Visit Provider Internal Medicine | DX: I10 Essential (primary) hypertension (principal); I48.0 Paroxysmal atrial fibrillation; E11.9 Type 2 diabetes mellitus without complications | CPT/HCPCS: 99212 ==

== ENCOUNTER 2025-03-25 11:09 | Outpatient (AMB) | payer MEDICARE, SELFPAY ==
--- NOTE | 2025-03-25 11:13 | A.OFFPC_ITS ---
Vital Signs 03/25/25 11:16 Height 5 ft 4 in Weight 174 lb BMI 29.9 BP 114/70 Blood Pressure Location Rt brachial Position Sitting Respiration 18 Pulse 65 Pulse Source Pulse Oximeter Temp 97.7 F Temp Source Oral Pulse Oximetry (%) 95 Oxygen Delivery Method Room Air Intake Visit Reasons: follow up Intake Note: Pt is here today for a follow up visit on DM. Allergies No Known Allergies Allergy (Verified 03/25/25 11:14) Medication List - Last Reconciled 03/25/25 by Mónica Dawkins MD amlodipine 7.5 mg (1.5 x 5 mg) PO DAILY aspirin (Adult Aspirin Regimen) 81 mg PO DAILY blood sugar diagnostic (FreeStyle Lite Strips) test blood sugar once a day calcitriol 0 mcg PO cinacalcet 0 mg PO finasteride 5 mg PO DAILY furosemide 20 mg PO DAILY glipizide ER 5 mg PO BID hydrocortisone 2.5% (Proctosol HC) 1 appl ME BID-QID PRN hydrocortisone acetate (Proctocort) 30 mg ME BID lancets (FreeStyle Lancets) test blood sugar once a day metformin ER 750 mg PO QPM metoprolol tartrate 25 mg PO BID mycophenolate mofetil 500 mg PO BID omeprazole 40 mg PO DAILY pravastatin 40 mg PO DAILY tacrolimus 1 mg PO BID tacrolimus 0.5 mg PO 3 times a week at nighttime; tamsulosin 0.4 mg PO DAILY Trulicity (dulaglutide) 3 mg (0.5 mL) subcut QWEEK NS warfarin 4 mg PO DAILY warfarin 9 mg PO Q OTHER DAY PRN Tobacco use date assessed: 03/25/25 Fall risk assessment: No Falls in past year Last assessed Fall Risk: 03/25/25 Dental Screening Dental Screen Date: 03/25/25 Did you have a dental visit in the last 12 months?: Yes Did you have a dental problem in the last 6 months where you did not have access to dental care?: No Was dental information given to patient?: Patient has dentist HPI follow up HPI Details Patient presents for the follow-up of type 2 diabetes hypertension hyperlipidemia paroxysmal AFib. Patient is established with nephrology at [facility] for status post renal transplant [facility] Medical History BPH (benign prostatic hyperplasia) Tendinitis Vitamin D deficiency Carpal tunnel syndrome on both sides Diabetic eye exam Paroxysmal A-fib Osteoarthritis of knee Polycystic kidney, unspecified type Diabetes (~12/22/20) HTN (hypertension) Surgical History History of esophagogastroduodenoscopy (EGD) History of colonoscopy Status post parathyroidectomy S/P CABG x 2 Family History Father Prostate CA Mother Polycystic kidney disease Social History Housing: House Alcohol intake: current Alcohol intake frequency: does not drink Patient Tobacco Use Status: Never used Tobacco e-Cigarette/Vaping Use: Never Used service: No Current occupational status: retired Cognitive needs: No Hearing needs: No Vision needs: No Questionnaire PHQ-9 Over the last 2 weeks, how often have you been bothered by any of the following problems? 1. Little interest or pleasure in doing things: several days 2. Feeling down, depressed, or hopeless: several days 3. Trouble falling or staying asleep, or sleeping too much: several days 4. Feeling tired or having little energy: several days 5. Poor appetite or overeating: not at all 6. Feeling bad about yourself - or that you are a failure or have let yourself or your family down: not at all 7. Trouble concentrating on things, such as reading the newspaper or watching television: not at all 8. Moving or speaking so slowly that other people could have noticed. Or the opposite - being so fidgety or restless that you have been moving around a lot more than usual: not at all 9. Thoughts that you would be better off or of hurting yourself in some way: not at all Total score: 4 Depression Screening Interpretation: Negative Depression Screening Done: Yes 68427 - PHQ-9 Billing: Yes Source: Developed by Drs. Everett Gorman, Chasity Nascimento, Narayan Garza and colleagues, with an educational jesus from [employer]. Thrive Questionnaire Date Thrive assessed: 03/25/25 I am a: Patient What is your living situation today?: I have a steady place to live Within the past 12 months, did the food you bought not last and you didn't have the money to get more?: Often true Within the past 12 months, did you worry whether your food would run out before you got money to buy more?: Often true Do you have trouble paying for medicines?: I choose not to answer this question Do you have trouble getting transportation to medical appointments?: Yes Do you have trouble paying your heating and electricity bill?: Yes Do you have trouble taking care of your child, family member or friend?: I choose not to answer this question Do you have trouble with day-to-day activities such as bathing, preparing meals, shopping, managing finances, etc.?: I choose not to answer this question Are you currently unemployed and looking for a job?: I choose not to answer this question Are you interested in more education?: I choose not to answer this question THRIVE Score: 4 AUDIT C Alcohol Use Questionnaire (AUDIT-C) 1. How often do you have a drink containing alcohol?: Never 3. How often do you have six or more drinks on one occasion?: Never Total Score: 0 TRISH-7 AMB Questionnaire TRISH-7 Date TRISH - 7 assessed: 03/25/25 Feeling nervous, anxious, or on edge: 0 = Not at all Not being able to stop or control worryin = Not at all Worrying too much about different things: 0 = Not at all Trouble relaxin = Not at all Being so restless that it is hard to sit still: 0 = Not at all Becoming easily annoyed or irritable: 0 = Not at all Feeling afraid as if something awful might happen: 0 = Not at all Total TRISH-7 score (0-4 normal; 5-9 mild; 10-14 moderate; 15-21 severe): 0 Source: Developed by Drs. Everett Gorman, Chasity Nascimento, Narayan Garza and colleagues, with an educational jesus from [employer]. TRISH-7 Assessment Billing TRISH-7 Assessment Tool: TRISH-7 Assessment 40015 Review of Systems Const All systems reviewed & are unremarkable except as noted in HPI and below Eyes Reports no additional complaints ENT Reports no additional complaints Card Reports no additional complaints Resp Reports no additional complaints GI Reports no additional complaints Reports no additional complaints Physical exam (Primary Care) Vital Signs: Last Vital Signs Temp 97.7 F 03/25/25 11:16 Pulse 65 03/25/25 11:16 Resp 18 03/25/25 11:16 BP 114/70 03/25/25 11:16 Pulse Ox 95 03/25/25 11:16 Oxygen Delivery Method Room Air 03/25/25 11:16 BMI result Body Mass Index 29.9 Tobacco/Smoking Status: Tobacco use Status Tobacco use date assessed 03/25/25 03/25/25 11:17 Patient Tobacco Use Status Never used Tobacco 03/25/25 11:17 e-Cigarette/Vaping Use Never Used 03/25/25 11:13 PHQ-9: PHQ-9 Score PHQ-9: Total score 4 03/25/25 11:48 Depression Screening Interpretation: Negative Thrive Assessment: Date of Thrive Assessment Date Thrive assessed 03/25/25 03/25/25 11:13 Const General: no acute distress HENMT Head: Yes normal to inspection Ears: TM's normal bilaterally Throat: Yes posterior oropharynx normal Neck Neck: Yes no lymphadenopathy and Yes supple Resp Effort & Inspection: normal respiratory effort Auscultation: clear to auscultation bilaterally Cardio Rhythm: regular rhythm Heart sounds: S1 normal heart sound present and S2 normal heart sound present GI Inspection: Yes normal to inspection Palpation (GI): Soft to palpation Percussion: Yes normal to percussion Auscultation: normal bowel sounds Extrem Other: 1+ pitting edema chronic venous stasis changes bilaterally Immunizations pneumoc 20-tracey conj-dip cr(PF) 0.5 mL IM syringe Performing Provider: Mónica Dawkins MD [place] [facility] [place] [facility] Administered by: ANNA Morejon on 03/25/25 11:51 Dose Route Admin Location Dispensed Lot Number Expiration Date [facility] Child Welfare Consultant 0.5 mL IM Left Deltoid 0.5 mL [id number] 01/24/26 7646-1182-47 WYETH/PFIZER VIS Given Date VIS Provided VIS Publication Date 03/25/25 Single Vaccine 21 Eligibility Eligibility Date Funding Source Not [facility] Eligible 03/25/25 Private Coding Level of Care Code Est Pt Level 4 (65992) Diagnoses HTN (hypertension) I10 Diabetes E11.9 Paroxysmal A-fib I48.0 Additional Codes TRISH-7 Assessment Billing - TRISH-7 Assessment Tool: TRISH-7 Assessment 58477 ([id number]) PHQ-9 - 64586 - PHQ-9 Billing: Yes ([id number]) Assessment & Plan Assessment & Plan (1) HTN (hypertension): Comment: BP < 130/80 Code(s): I10 - Essential (primary) hypertension Category: Medical Plan: Continue current medications (2) Diabetes: Onset Date: ~12/22/20 Comment: goal A1C < 7.5, pt cannot afford Jardiance Code(s): E11.9 - Type 2 diabetes mellitus without complications Category: Medical Plan: A1c is 6.7. ADA diet increase exercise weight loss discussed with the patient continue current medications. Patient has a three-month supply of Trulicity 3 mg. He will follow-up in 3 months (3) Paroxysmal A-fib: Comment: on Warfarin checks [facility]R at [facility], [place] [facility] Code(s): I48.0 - Paroxysmal atrial fibrillation Category: Medical Plan: Continue anticoagulation and beta nannette for rate control Orders: Orders Comprehensive [place]. Panel Fast 3 Months E11.9 - Type 2 diabetes mellitus without complications, I10 - Essential (primary) hypertension, I48.0 - Paroxysmal atrial fibrillation Complete Blood Count Auto Diff 3 Months E11.9 - Type 2 diabetes mellitus without complications, I10 - Essential (primary) hypertension, I48.0 - Paroxysmal atrial fibrillation Microalbumin, Random (w Creat) 3 Months E11.9 - Type 2 diabetes mellitus without complications, I10 - Essential (primary) hypertension, I48.0 - Paroxysmal atrial fibrillation Lipid Panel 3 Months E11.9 - Type 2 diabetes mellitus without complications, I10 - Essential (primary) hypertension, I48.0 - Paroxysmal atrial fibrillation Hemoglobin A1c 3 Months E11.9 - Type 2 diabetes mellitus without complications, I10 - Essential (primary) hypertension, I48.0 - Paroxysmal atrial fibrillation Pneumococcal 20 Immunization Today Z23 - Encounter for immunization Medications: On Hold Trulicity (dulaglutide) Hold Comment: Doctor's Order 3 mg (0.5 mL) subcut QWEEK 6 mL 3RF NS
[2025-03-25 11:16] VITALS: BP 114/70; PULSE 65; RESP 18; TEMP 36.5; O2SAT 95; BMI 29.9
--- OUTSIDE RECORDS SUMMARY | 2025-03-25 13:06 | XMS_ITS | Clinical Summary ---
Author Organization [address] Address [address] [place] [address] Phone Care Team Providers Care Mixer Helper Name Role Phone Mónica Dawkins MD Primary Care Provider [phone] Allergies Active Allergy Reactions Criticality Noted Date Comments Nitroglycerin Other 03/14/2019 Hypotension Sirolimus Headache,Rash 08/16/2012 Medications amLODIPine (NORVASC) 5 mg tablet Take 1 tablet (5 mg total) by mouth 1 (one) time each day. 8 Active amoxicillin (AMOXIL) 500 mg tablet Take 4 tablets (2,000 mg total) by mouth. 1 HOURS BEFORE THE DENTIST 4 Active aspirin 81 mg EC tablet Take 1 tablet (81 mg total) by mouth 1 (one) time each day. 9 Active calcitrioL (ROCALTROL) 0.25 mcg capsule 1 capsule (0.25 mcg total) 2 (two) times a day. 9 Active cholecalciferol (VITAMIN D-3) 50 mcg (2,000 unit) tablet Take 1 tablet (2,000 Units total) by mouth 1 (one) time each day. Active cinacalcet (SENSIPAR) 30 mg tablet Take 1 tablet (30 mg total) by mouth 2 (two) times a day. Active dulaglutide (Trulicity) 1.5 mg/0.5 mL pen injector injection Inject 0.5 mL (1.5 mg total) under the skin 1 (one) time per week. Active finasteride (PROSCAR) 5 mg tablet Take 1 tablet (5 mg total) by mouth 1 (one) time each day. 8 Active FREESTYLE LANCETS MISC 2 (two) times a day before meals. TO TEST BLOOD SUGAR BEFORE BREAKFAST AND DINNER 9 Active furosemide (LASIX) 20 mg tablet Take 1 tablet (20 mg total) by mouth 1 (one) time each day. 7 Active glipiZIDE (GLUCOTROL) 5 mg tablet Take 1 tablet (5 mg total) by mouth 1 (one) time each day. Active blood sugar diagnostic (FreeStyle Lite Strips) test strip 1 (one) time each day. 8 Active phosphorus (K PHOS NEUTRAL) tablet 1 tablet 2 (two) times a day. 9 Active magnesium oxide (MAG-OX) 400 mg (241.3 elemental magnesium) tablet Take 1 tablet (400 mg total) by mouth 2 (two) times a day. Active metFORMIN XR (GLUCOPHAGE-XR) 750 mg 24 hr tablet Take 1 tablet (750 mg total) by mouth 1 (one) time each day. 1 Active metoprolol tartrate (LOPRESSOR) 25 mg tablet Take 1 tablet (25 mg total) by mouth 2 (two) times a day. 4 Active mycophenolate (CELLCEPT) 250 mg capsule 2 capsules (500 mg total) 2 (two) times a day. 9 Active omeprazole (PriLOSEC) [address] capsule Take 1 capsule (40 mg total) by mouth 1 (one) time each day. 9 Active pravastatin (PRAVACHOL) 40 mg tablet 1 tablet (40 mg total) 1 (one) time each day. 9 Active predniSONE (DELTASONE) 5 mg tablet Take 1 tablet (5 mg total) by mouth 1 (one) time each day. Active tacrolimus (PROGRAF) 0.5 mg capsule Sig: M.W.F. .5mg at night mon-sun 1 mg daily Tu,th, mon, sun 1 mg at night 9 Active tamsulosin (FLOMAX) 0.4 mg 24 hr capsule Take 1 capsule (0.4 mg total) by mouth 1 (one) time each day. 9 Active warfarin (COUMADIN) 4 mg tablet Sig: Kidney doctor in [place] managing coumadin As directed 9 Active Active Problems Problem Noted Date Diagnosed Date Aortic valve disease 12/27/2023 Overview (11/01/2024): Last Assessment & Plan: Patient status post aortic valve replacement stable secondary to nonrheumatic aortic valve stenosis. Patient understands need for endocarditis prophylaxis which we provided. Patient remains chronically anticoagulated without bleeding issues. 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 Patient could try some topical diclofenac which should not be absorbed too much and should not interfere with his Coumadin. Patient started physical therapy for the pain. Carpal tunnel syndrome 09/21/2021 Overview (11/01/2024): Last Assessment & Plan: Patient has bilateral carpal tunnel and has been seeking surgical opinions as to intervention. From a cardiovascular standpoint there is no contraindication for planned carpal tunnel surgery. The issues are basically his anticoagulation which we can deal with with bridging if necessary and the risk of healing from his immunosuppressive therapy. 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 Patient remains chronically anticoagulated with Coumadin no bleeding issues. Patient has been provided amoxicillin for endocarditis prophylaxis. Type 2 diabetes mellitus wit h renal manifestations ([facility] V24, CMS/[facility] V28) 10/30/2018 Ataxia 08/13/2018 AV fistula ([facility] V24) 05/21/2018 Benign localized hyperplasia of prostate with urinary obstruction 05/21/2018 CAD (coronary artery disease) 05/21/2018 Overview (11/01/2024): Old IL; s/p Stent, CABG Last Assessment & Plan: Patient with history of episodic coronary disease asymptomatic. Right coronary cannot be bypassed at the time of his surgery. Otherwise has remained stable with no symptoms for over 12 years. Patient had a modification in place. We discussed the signs and symptoms of progressive coronary disease and his need to contact us if that develops Congestive heart failure ([facility] V24, [facility] V 28) 05/21/2018 -donor kidney transplant recipient 05/21 Overview (11/01/2024): Last Assessment & Plan: Patient is status post donor renal transplant GERD (gastroesophageal reflux disease) 8 Hyperlipidemia 05/21/2018 Overview (11/01/2024): Last Assessment & Plan: Lipids are under good medical management. Hyperparathyroidism ([facility] V24) 05/21/2018 Hypertension 05/21/2018 Diverticulosis 11/21/2017 Allergic rhinitis 12/05/2016 Overview (11/01/2024): Last Assessment & Plan: Patient status post aortic valve replaced mechanical remains stable good gradient 6-month follow-up on echo continue anticoagulation for mechanical valve. Endocarditis prophylaxis provided Vitamin D deficiency 09/19/2016 Cataract 09/22/2014 Encounters Date Type Department Care Team Description 01/27/2025 8:00 AM EST Ancillary Procedure [facility] [address] [facility] [address] [place] [address] Nonrheumatic aortic (valve) stenosis from Last 3 Months Immunizations Name Administration Dates Next Due Pneumococcal conjugate 13 va lent (Prevnar 13, PCV13) 2mo and older 10/19/2015 Pneumococcal polysaccharide 23 valent (Pneumovax 23) 2yo and older 10/08/2013 Tdap Tetanus diptheria acell ular pertussis (Boostrix; Adacel) 7yo and older 10/18/2013 Surgical History Surgery Date Site/Laterality Comments CORONARY ARTERY BYPASS GRAFT PROCEDURE: HISTORICAL CABG AORTIC VALVE REPLACEMENT PROCEDURE: HISTORICAL AORTIC VALVE REPL OTHER SURGICAL HISTORY PROCEDURE: HISTORY OTHER; COMMENT: AV fistula OTHER SURGICAL HISTORY PROCEDURE: HISTORICAL PARATHYROID SURGERY; COMMENT: subtotal resection OTHER SURGICAL HISTORY 06/16/2012 PROCEDURE: MS RENAL ALTRNSPLJ IMPLTJ GRF W/O DIRECTOR OF INSTITUTIONAL RESEARCH NEPHRECTOMY; COMMENT: 2nd donor transplant. (09/24/2004) APPENDECTOMY 1995 PROCEDURE: HISTORICAL APPENDECTOMY OTHER SURGICAL HISTORY 1988 Left PROCEDURE: INSERT URETERAL CATHETER/STENT; COMMENT: from nephrolithiasis Medical History Medical History Date Comments Allergic rhinitis 12/05/2016 DX:Allergic rh initis Aortic valve prosthesis present 05/21/2018 DX:Aortic valve prosthesis present; COMMENT: On anticoagulation Ataxia 08/13/2018 DX:Ataxia AV fistula ([facility] V24) 05/21/2018 DX:AV f istula ([facility]) Benign localized hyperplasia of prostate with urinary obstruction 05/21/2018 DX:Benign localized hyperplasia of prostate with urinary obstruction CAD (coronary artery disease) 05/21/2018 DX :CAD (coronary artery disease); COMMENT: Old [place]; s/p Stent, CABG Cataract 09/22/2014 DX:Cataract Congestive heart failure ( S/[facility] V24, [facility] V28) 05/21/2018 DX:Congestive heart failure ([facility]) -donor kidney transp lant recipient 05/21/2018 DX:-donor kidney tra nsplant recipient Diverticulosis 11/21/2017 DX:Diverticulosi s GERD (gastroesophageal reflux disease) 05/21/2018 DX:GERD (gastroesophageal reflux disease) History of herpes zoster 08/20/2013 DX:Hist ory of herpes zoster History of polycystic kidney disease 10/19/2015 DX:History of polycystic kidney disease Hyperlipidemia 05/21/2018 DX:Hyperlipidemi a Hyperparathyroidism ([facility] V24) 05/21/2018 DX:Hyperparathyroidism ([facility]) Hypertension 05/21/2018 DX:Hypertension Vitamin D deficiency 09/19/2016 DX:Vitamin D deficiency Type 2 diabetes mellitus wit h renal manifestations ([facility] V24, [facility] V28) 10/30/2018 DX:Type 2 diabetes mellitus with renal manifestations ([facility]) Family History Medical History Relation Name Comments Prostate cancer Father Other: Polycystic Kidney Disease Mother Other: Polycystic Kidney Disease Son Relation Name Status Comments Brother 1 Alive Brother 2 Alive Father Mother Son Social History Tobacco Use Types Packs/Day Years Used Date Smoking Tobacco: Never Smokeless Tobacco: Never Alcohol Use Standard Drinks/Week Comments No 0 (1 standard drink = 0.6 oz pur e alcohol) Sex and Gender Information Value Date Recorded Sex Assigned at Not on file Legal Sex Male 10:57 PM EST Gender Identity Not on file Sexual Orientation Not on file Obstetrics History Last Filed Vital Signs Vital Sign Reading Time Taken Comments Blood Pressure 120/76 01/27/2025 8:32 AM EST Pulse 63 08/20/2024 9:15 AM EDT Temperature - - Respiratory Rate - - Oxygen Saturation - - Inhaled Oxygen Concentration - - Weight 79.8 kg (176 lb) 01/27/2025 8:32 AM EST Height 160 cm (5' 3 ) 01/27/2025 8:32 AM EST Body Mass Index 31.18 01/27/2025 8:32 AM EST Plan of Treatment Upcoming Encounters Date Type Department Care Team (Late st Contact Info) Description 05/09/2025 7:50 AM EDT Office Visit [facility] [address] [place] [address] Mario Evans MD [address] [place] [address] [address] [place] [address] Health Maintenance Due Date Last Done Comments Diabetes: Annual Foot Exam 1962 Diabetes: Annual Retina Eye Exam 1962 Zoster Vaccines (1 of 2) 1971 RSV Immunization Adult Patients (1 - Risk 60-74 years 1-dose series) 2012 Pneumococcal Vaccine: 50+ Years (3 of 3 - PPSV23, PCV20 or PCV21) 10/08/2018 10/19/2015, 10/08/2013 Colorectal Cancer Screening: Colonoscopy 11/05/2022 Depression Screening 11/05/2022 Falls Risk Assessment 11/05/2022 Hepatitis C Screening 11/05/2022 Medicare Annual Wellness Visit 11/05/2022 Social Influencers of Health Screening 11/05/2022 DTaP,Tdap,and Td Vaccines (2 - Td or Tdap) 10/18/2023 10/18/2013 COVID-19 Vaccine (7 - Pfizer risk season) 2025 09/12/2024, 08/25/2023, 06/21/2022, Additional history exists Influenza Vaccine (Season Ended) 2025 09/18/2023, 09/19/2022, 09/21/2021, Additional history exists Diabetes: Blood Sugar Control Test (HGBA1C) 09/18/2025 03/19/2025, 02/10/2025, 11/04/2024 Diabetes: Annual Urine Albumin-Creatinine Ratio (uACR) 03/19/2026 03/19/2025, 02/10/2025, 12/17/2024, Additional history exists Diabetes: Annual GFR (Glomerular Filtration Rate) 03/19/2026 03/19/2025, 02/10/2025, 12/17/2024, Additional history exists Hypertension/CHF/CAD Annual BMP Blood Test 03/19/2026 03/19/2025, 02/10/2025, 12/17/2024, Additional history exists Cholesterol Screening (Lipid Panel) 03/19/2030 03/19/2025, 11/04/2024 HIB Vaccines Aged Out No longer eligi ble based on patient's age to complete this topic HPV Vaccines Aged Out No longer eligi ble based on patient's age to complete this topic Hepatitis A Vaccines Aged Out No long er eligible based on patient's age to complete this topic Hepatitis B Vaccines Aged Out No long er eligible based on patient's age to complete this topic IPV Vaccines Aged Out No longer eligi ble based on patient's age to complete this topic MMR Vaccines Aged Out No longer eligi ble based on patient's age to complete this topic Meningococcal ACWY Vaccine Aged Out N o longer eligible based on patient's age to complete this topic Meningococcal B Vaccine Aged Out No l onger eligible based on patient's age to complete this topic RSV Immunization Patients Under 20 months Aged Out No longer eligible based on patient's age to complete this topic Varicella Vaccines Aged Out No longer eligible based on patient's age to complete this topic Procedures Procedure Name Priority Date/Time Associated Diagnosis Comments HEMOGLOBIN A1C Routine 03/19/2025 8:41 AM EDT Essential hypertension, benign Diabetes mellitus ([facility] V24, [facility] V28) PAF (paroxysmal atrial fibrillation) ([facility] V24, [facility] V28) Encounter for long-term (current) use of medications Kidney replaced by transplant Encounter for aftercare following kidney transplant LIPID PANEL WITH REFLEX TO DIRECT LDL Routine 03/19/2025 8:41 AM EDT Essential hypertension, benign Diabetes mellitus ([facility]/HCC V24, [facility] V28) PAF (paroxysmal atrial fibrillation) (CMS/HCC V24, CMS/HCC V28) MICROALBUMIN CREATININE URINE RATIO Routine 03/19/2025 8:41 AM EDT Essential hypertension, benign Diabetes mellitus (CMS/HCC V24, CMS/HCC V28) PAF (paroxysmal atrial fibrillation) (CMS/HCC V24, CMS/HCC V28) COMPREHENSIVE METABOLIC PANEL Routine 03/19/2025 8:41 AM EDT Essential hypertension, benign Diabetes mellitus (CMS/HCC V24, CMS/HCC V28) PAF (paroxysmal atrial fibrillation) (CMS/HCC V24, CMS/HCC V28) BIRCH URINE CULTURE TUBE Routine 03/19/20 8:37 AM EDT Encounter for long-term (current) use of medications Kidney replaced by transplant Encounter for aftercare following kidney transplant URINALYSIS WITH REFLEX MICROSCOPIC Routine 02/10/2025 9:31 AM EDT Encounter for long-term (current) use of medications Kidney replaced by transplant Encounter for aftercare following kidney transplant MICROALBUMIN CREATININE URINE RATIO Routine 02/10/2025 9:31 AM EDT Encounter for long-term (current) use of medications Kidney replaced by transplant Encounter for aftercare following kidney transplant PROTEIN AND CREATININE WITH RATIO, URINE Routine 02/10/2025 9:31 AM EDT Encounter for long-term (current) use of medications Kidney replaced by transplant Encounter for aftercare following kidney transplant URINALYSIS WITH REFLEX MICROSCOPIC Routine 02/10/2025 9:31 AM EDT Encounter for long-term (current) use of medications Kidney replaced by transplant Encounter for aftercare following kidney transplant PARATHYROID HORMONE INTACT Routine 02/10/2025 9:24 AM EDT Encounter for long-term (current) use of medications Kidney replaced by transplant Encounter for aftercare following kidney transplant CBC WITH AUTO DIFFERENTIAL Routine 02/10/2025 9:24 AM EDT Encounter for long-term (current) use of medications Kidney replaced by transplant Encounter for aftercare following kidney transplant HEMOGLOBIN A1C Routine 02/10/2025 9:24 AM EDT Encounter for long-term (current) use of medications Kidney replaced by transplant Encounter for aftercare following kidney transplant TACROLIMUS LEVEL Routine 02/10/2025 9:24 AM EDT Encounter for long-term (current) use of medications Kidney replaced by transplant Encounter for aftercare following kidney transplant MAGNESIUM Routine 02/10/2025 9:24 AM EDT Encounter for long-term (current) use of medications Kidney replaced by transplant Encounter for aftercare following kidney transplant PHOSPHORUS Routine 02/10/2025 9:24 AM EDT Encounter for long-term (current) use of medications Kidney replaced by transplant Encounter for aftercare following kidney transplant BASIC METABOLIC PANEL Routine 02/10/2025 9:24 AM EDT Encounter for long-term (current) use of medications Kidney replaced by transplant Encounter for aftercare following kidney transplant CBC AND DIFFERENTIAL Routine 02/10/2025 9:24 AM EDT Encounter for long-term (current) use of medications Kidney replaced by transplant Encounter for aftercare following kidney transplant TRANSTHORACIC ECHOCARDIOGRAM (TTE) COMPLETE Routine 01/27/2025 8:37 AM EST Nonrheumatic aortic (valve) stenosis from Last 3 Months Results * (ABNORMAL) Lipid panel with reflex to direct LDL (03/19/2025 8:41 AM EDT) Cholesterol 147 0 - 200 mg/dL LAB CHEMISTRY METHOD 03/19/2025 10:25 AM EDT [facility] Triglycerides 212(H) 0 - 150 mg/dL LAB CHEMISTRY METHOD 03/19/2025 10:25 AM EDT [facility] HDL 38(L) >=40 mg/dL LAB CHEMISTRY METHOD 03/19/2025 10:25 AM EDT [facility] LDL Calculated 67 0 - 100 mg/dL LAB CHEMISTRY METHOD 03/19/2025 10:25 AM EDT [facility] VLDL Cholesterol Raj 42.4 mg/dL LAB CHEMISTRY METHOD 03/19/2025 10:25 AM EDT [facility] Non HDL Chol. (LDL+VLDL) 109 <145 mg/dL LAB CHEMISTRY METHOD 03/19/2025 10:25 AM EDT [facility] Chol/HDL Ratio 3.9 0.0 - 4.4 LAB CHE[facility]STR[facility]19[facility] Blood Venous blood specimen / Unknown Venipuncture / Unknown 03/19/2025 8:41 AM EDT 03/19/2025 9:28 AM EDT Mónica Dawkins MD LAB BLOOD ORDERABLES Final Resu lt [facility] [address] [place] [address], * (ABNORMAL) Microalbumin creatinine urine ratio (03/19/2025 8:41 AM EDT) Only the most recent of2 resultswithin the time period is included. Creatinine, Urine 40.0 mg/dL LAB CHEMISTRY METHOD 03/19/2025 10:41 AM EDT [facility] Microalb, Ur 32.1(H) 0.0 - 29.0 mg/L LAB CHEMISTRY METHOD 03/19/2025 10:[facility] Microalb/Crea t Ratio 80(H) <30 mg/g creat LAB CHEMISTRY METHOD 03/19/2025 10:41 AM [facility] Urine Urine specimen obtained by clean catch procedure / Unknown Non-blood Collection / Unknown 03/19/2025 8:41 AM EDT 03/19/2025 9:35 AM EDT Mónica Dawkins MD LAB URINE ORDERABLES Final Resu lt Performing Organization Address City/[facility]/ZIP Co de Phone Number [facility] [address] [place] [address], [place] [phone] * (ABNORMAL) Hemoglobin A1c (03/19/2025 8:41 AM EDT) Only the most recent of2 resultswithin the time period is included. Hemoglobin A1C 6.7(H) <6.5 % LAB CHEMISTRY METHOD 03/19/2025 12:53 PM EDT [facility] Mean Bld Glu Estim. 146 mg/dL LAB CHEMISTRY METHOD 03/19/2025 12:53 PM EDT [facility] Blood Venous blood specimen / Unknown Venipuncture / Unknown 03/19/2025 8:41 AM EDT 03/19/2025 9:33 AM EDT Mónica Dawkins MD LAB BLOOD ORDERABLES Final Resu lt Performing Organization Address City/[facility]/ZIP Co de Phone Number [facility] [address] [place] [address], [place] [phone] * (ABNORMAL) Comprehensive metabolic panel (03/19/2025 8:41 AM EDT) Pathologist [facility] Sodium 138 133 - 145 mmol/L LAB CHEMISTRY METHOD 03/19/2025 10:25 AM EDT [facility] Potassium 4.3 3.5 - 5.5 mmol/L LAB CHEMISTRY METHOD 03/19/2025 10:25 AM EDT [facility] Chloride 105 96 - 110 mmol/L LAB CHEMISTRY METHOD 03/19/2025 10:25 AM EDT [facility] CO2 27 21 - 32 mmol/L LAB CHEMISTRY METHOD 03/19/2025 10:25 AM EDT [facility] Anion Gap 6 3 - 11 LAB CHEMISTRY METHOD 03/19/2025 10:25 AM [facility] Glucose 120(H) 70 - 100 mg/dL LAB CHEMISTRY METHOD 03/19/2025 10:25 AM [facility] BUN 15 5 - 25 mg/dL LAB CHEMISTRY METHOD 03/19/2025 10:25 AM [facility] Creatinine 0.57(L) 0.70 - 1.30 mg/dL LAB CHEMISTRY METHOD 03/19/2025 10:25 AM [facility] eGFR 104 >=60 mL/min/1. 73m2 LAB CHEMISTRY METHOD 03/19/2025 10:25 AM [facility] Comment:Calculation based on the??Chronic Kidney Disease Epidemiology Collaboration (CKD-EPI) equation refit??without adjustment for race. BUN/Creatinine Ratio 26.3 LAB CHEMISTRY METHOD 03/19/2025 10:25 AM [facility] Calcium 8.4(L) 8.5 - 10.5 mg/dL LAB CHEMISTRY METHOD 03/19/2025 10:25 AM [facility] AST (SGOT) 17 10 - 42 unit/L LAB CHEMISTRY METHOD 03/19/2025 10:25 AM [facility] ALT (SGPT) 22 10 - 60 unit/L LAB CHEMISTRY METHOD 03/19/2025 10:25 AM [facility] Alkaline Phosphatase 89 42 - 121 unit/L LAB CHEMISTRY METHOD 03/19/2025 10:25 AM [facility] Total Protein 6.9 6.0 - 8.0 g/dL LAB CHEMISTRY METHOD 03/19/2025 10:25 AM [facility] Albumin 3.8 3.2 - 5.0 g/dL LAB CHEMISTRY METHOD 03/19/2025 10:25 AM [facility] Total Bilirubin 0.6 0.0 - 1.4 mg/dL LAB CHEMISTRY METHOD 03/19/2025 10:25 AM EDT [facility] Blood Venous blood specimen / Unknown Venipuncture / Unknown 03/19/2025 8:41 AM EDT 03/19/2025 9:28 AM EDT Mónica Dawkins MD LAB BLOOD ORDERABLES Final Resu lt Performing Organization Address City/[facility]/ZIP Co de Phone Number [facility] [address] [place] [address], [place] [phone] * Birch urine culture tube (03/19/2025 8:37 AM EDT) Pathologist [facility] Extra Tube Hold for add-ons. 03/20/2025 9:02 AM EDT [facility] Comment:Auto resulted. Urine Urine specimen obtained by clean catch procedure / Unknown Non-blood Collection / Unknown 03/19/2025 8:37 AM EDT 03/20/2025 7:33 AM EDT Park Sauer MD LAB URINE ORDERABLES Final Result Performing Organization Address [facility]/ZIP Co de Phone Number [facility] [address] [place] [address], [place] [phone] * Urinalysis with reflex microscopic (02/10/2025 9:31 AM EDT) [facility] Specific [place] Urine 1.011 1.003 - 1.030 LAB URINALYSIS - AUTOMATED METHOD 02/10/2025 11:32 AM EDT [facility] pH, Urine 8.0 5.0 - 8.0 pH LAB URINALYSIS - AUTOMATED METHOD 02/10/2025 11:32 AM EDT [facility] Leukocytes, Urine Negative Negative LAB URINALYSIS - AUTOMATED METHOD 02/10/2025 11:32 AM EDT [facility] Nitrite, Urine Negative Negative LAB URINALYSIS - AUTOMATED METHOD 02/10/2025 11:32 AM EDT [facility] Protein, Urine Negative <=Trace mg/dL LAB URINALYSIS - AUTOMATED METHOD 02/10/2025 11:32 AM [facility] Glucose, Urine Negative Negative mg/dL LAB URINALYSIS - AUTOMATED METHOD 02/10/2025 11:32 AM [facility] Ketones, Urine Negative Negative mg/dL LAB URINALYSIS - AUTOMATED METHOD 02/10/2025 11:32 AM [facility] Urobilinogen, Urine 0.2 0.2 - 1.0 mg/dL LAB URINALYSIS - AUTOMATED METHOD 02/10/2025 11:32 AM [facility] Bilirubin, Urine Negative Negative LAB URINALYSIS - AUTOMATED METHOD 02/10/2025 11:32 AM [facility] Blood, Urine Negative Negative LAB URINALYSIS - AUTOMATED METHOD 02/10/2025 11:32 AM [facility] Urine Urine specimen obtained by clean catch procedure / Unknown Non-blood Collection / Unknown 02/10/2025 9:31 AM EDT 02/10/2025 11:20 AM EDT us Park Sauer MD LAB URINE ORDERABLES Final Result [facility] [address] [place] [address], * (ABNORMAL) Protein and creatinine with ratio, urine (02/10/2025 9:31 AM EDT) Protein, Urine 13 mg/dL LAB CHEMISTRY METHOD 02/10/2025 1:20 PM [facility] Prot/Creat, Ur 0.31(H) <=0.20 mg/mg creat LAB CHEMISTRY METHOD 02/10/2025 1:20 PM [facility] Creatinine, Urine 42.0 mg/dL LAB CHEMISTRY METHOD 02/10/2025 1:20 PM EDT [facility] Urine Urine specimen obtained by clean catch procedure / Unknown Non-blood Collection / Unknown 02/10/2025 9:31 AM EDT 02/10/2025 11:21 AM EDT us Park Sauer MD LAB URINE ORDERABLES Final Result [facility] [address] [place] [address], [place] [phone] * (ABNORMAL) CBC auto differential (02/10/2025 9:24 AM EDT) WBC 5.6 4.8 - 10.8 K/mcL LAB HEMETOLOGY METHOD 02/10/2025 11:52 AM EDT [facility] RBC 5.50 4.50 - 5.50 M/mcL LAB HEMETOLOGY METHOD 02/10/2025 11:52 AM EDT [facility] Hemoglobin 15.3 13.5 - 17.5 g/dL LAB HEMETOLOGY METHOD 02/10/2025 11:52 AM EDT [facility] Hematocrit 48.0 42.0 - 54.0 % LAB HEMETOLOGY METHOD 02/10/2025 11:52 AM EDT [facility] MCV 87.4 79.0 - 98.0 FL LAB HEMETOLOGY METHOD 02/10/2025 11:52 AM EDT [facility] MCH 27.9 27.0 - 32.0 pcg LAB HEMETOLOGY METHOD 02/10/2025 11:52 AM EDT [facility] MCHC 31.9(L) 32.0 - 37.0 g/dL LAB HEMETOLOGY METHOD 02/10/2025 11:52 AM EDT [facility] RDW 13.7 11.0 - 15.0 % LAB HEMETOLOGY METHOD 02/10/2025 11:52 AM [facility] Platelets 119(L) 130 - 400 K/mcL LAB HEMETOLOGY METHOD 02/10/2025 11:52 AM [facility] MPV 11.6(H) 7.0 - 11.0 FL LAB HEMETOLOGY METHOD 02/10/2025 11:52 AM [facility] NRBC 0.0 <1.0 % LAB HEMETOLOGY METHOD 02/10/2025 11:52 AM [facility] NRBC Absolute 0.00 <0.10 K/mcL LAB HEMETOLOGY METHOD 02/10/2025 11:52 AM [facility] Neutrophils Relative 61.2 % LAB HEMETOLOGY METHOD 02/10/2025 11:52 AM [facility] Lymphocytes Relative 26.3 % LAB HEMETOLOGY METHOD 02/10/2025 11:52 AM [facility] Monocytes Relative 9.9 % LAB HEMETOLOGY METHOD 02/10/2025 11:52 AM [facility] Eosinophils Relative 2.2 % LAB HEMETOLOGY METHOD 02/10/2025 11:52 AM [facility] Basophils Relative 0.2 % LAB HEMETOLOGY METHOD 02/10/2025 11:52 AM [facility] Immature Granulocytes Relative 0.2 % LAB HEMETOLOGY METHOD 02/10/2025 11:52 AM [facility] Neutrophils Absolute 3.40 1.50 - 7.00 K/mcL LAB HEMETOLOGY METHOD 02/10/2025 11:52 AM [facility] Lymphocytes Absolute 1.46 1.00 - 5.00 K/mcL LAB HEMETOLOGY METHOD 02/10/2025 11:52 AM [facility] Monocytes Absolute 0.55 0.20 - 1.00 K/mcL LAB HEMETOLOGY METHOD 02/10/2025 11:52 AM EDT [facility] Eosinophils Absolute 0.12 0.00 - 0.50 K/[facility] LAB HEMETOLOGY METHOD 02/10/2025 11:52 AM EDT [facility] Basophils Absolute 0.01 0.00 - 0.20 K/[facility] LAB HEMETOLOGY METHOD 02/10/2025 11:52 AM EDT [facility] Immature Granulocytes Absolute 0.01 0.00 - 0.03 K/[facility] LAB HEMETOLOGY METHOD 02/10/2025 11:52 AM EDT [facility]) [facility] Blood Venous blood specimen / Unknown Venipuncture / Unknown 02/10/2025 9:24 AM EDT 02/10/2025 11:16 AM EDT Park Sauer MD LAB BLOOD ORDERABLES Final Result Performing Organization Address City/State/[facility] Co de Phone Number [facility]) [facility] [address] [place] [address], * Tacrolimus level (02/10/2025 9:24 AM EDT) Tacrolimus Level 5.1 5.0 - 20.0 ng/mL 02/12/2025 11:59 AM EDT [facility] Comment: Additional Information: Toxic Level ?> 26 ng/mL Organ ?Post Transp. (months) ?Trough Level (ng/mL) Kidney ? Up to 3 ?7.0 - 20.0 ? >3 ? 5.0 - 15.0 Heart ?Up to 3 ?10.0 - 20.0 ? >3 ? 5.0 - 15.0 Liver ?Up to 12 ? 5.0 - 20.0 Tacrolimus determined by a LC-MS/MS procedure. If applicable, any drug confirmation testing reported here was developed and the performance characteristics determined by [facility]. This confirmation testing has not been cleared or approved by the FDA. The laboratory is regulated under CLIA as qualified to perform high-complexity testing. This test is used for patient testing purposes. It should not be regarded as investigational or for research. Test performed at [facility], [address], [place], [place] ??[address] ? [phone] Rosie Grey MD, PhD - Photo Colorer Blood Venous blood specimen / Unknown Venipuncture / Unknown 02/10/2025 9:24 AM EDT 02/10/2025 11:16 AM EDT Park Sauer MD LAB BLOOD ORDERABLES Final Result [facility] [address] [place] [address] * (ABNORMAL) Phosphorus (02/10/2025 9:24 AM EDT) [facility] Signature Phosphorus 2.0(L) 2.5 - 4.5 mg/dL LAB CHEMISTRY METHOD 02/10/2025 12:03 PM EDT [facility] Blood Venous blood specimen / Unknown Venipuncture / Unknown 02/10/2025 9:24 AM EDT 02/10/2025 11:08 AM EDT Park Sauer MD LAB BLOOD ORDERABLES Final Result Performing Organization Address [facility]/ZIP Co de Phone Number [facility] [address] [place] [address], * (ABNORMAL) Parathyroid hormone intact (02/10/2025 9:24 AM EDT) PTH 201.0(H) 18.5 - 88.0 pcg/mL LAB CHEMISTRY METHOD 02/10/2025 12:17 PM EDT [facility] Blood Venous blood specimen / Unknown Venipuncture / Unknown 02/10/2025 9:24 AM EDT 02/10/2025 11:08 AM EDT Mónica Dawkins MD LAB BLOOD ORDERABLES Final Resu lt Performing Organization Address [facility]/ZIP Co de Phone Number [facility] [address] [place] [address], * Magnesium (02/10/2025 9:24 AM EDT) Pathologist [facility] Magnesium 2.0 1.9 - 2.6 mg/dL LAB CHEMISTRY METHOD 02/10/2025 12:00 PM EDT [facility] Blood Venous blood specimen / Unknown Venipuncture / Unknown 02/10/2025 9:24 AM EDT 02/10/2025 11:08 AM EDT Park Sauer MD LAB BLOOD ORDERABLES Final Result Performing Organization Address [facility]/ZIP Co de Phone Number [facility] [address] [place] [address], * (ABNORMAL) Basic metabolic panel (02/10/2025 9:24 AM EDT) Sodium 138 133 - 145 mmol/L LAB CHEMISTRY METHOD 02/10/2025 12:03 PM EDT [facility] Potassium 3.9 3.5 - 5.5 mmol/L LAB CHEMISTRY METHOD 02/10/2025 12:03 PM [facility] Chloride 102 96 - 110 mmol/L LAB CHEMISTRY METHOD 02/10/2025 12:03 PM [facility] CO2 27 21 - 32 mmol/L LAB CHEMISTRY METHOD 02/10/2025 12:03 PM [facility] Anion Gap 9 3 - 11 LAB CHEMISTRY METHOD 02/10/2025 12:03 PM [facility] Glucose 106(H) 70 - 100 mg/dL LAB CHEMISTRY METHOD 02/10/2025 12:03 PM [facility] BUN 14 5 - 25 mg/dL LAB CHEMISTRY METHOD 02/10/2025 12:03 PM [facility] Creatinine 0.58(L) 0.70 - 1.30 mg/dL LAB CHEMISTRY METHOD 02/10/2025 12:03 PM [facility] eGFR 104 >=60 mL/min/1. 73m2 LAB CHEMISTRY METHOD 02/10/2025 12:03 PM [facility] Comment:Calculation based on the??Chronic Kidney Disease Epidemiology Collaboration (CKD-EPI) equation refit??without adjustment for race. BUN/Creatinine Ratio 24.1 LAB CHEMISTRY METHOD 02/10/2025 12:03 PM [facility] Calcium 8.1(L) 8.5 - 10.5 mg/dL LAB CHEMISTRY METHOD 02/10/2025 12:03 PM [facility] Blood Venous blood specimen / Unknown Venipuncture / Unknown 02/10/2025 9:24 AM EDT 02/10/2025 11:08 AM EDT us Park Sauer MD LAB BLOOD ORDERABLES Final Result [facility] [address] [place] [address], [place] [phone] * (ABNORMAL) TRANSTHORACIC ECHOCARDIOGRAM (TTE) COMPLETE (01/27/2025 8:37 AM EST) Left Atrium Minor [place] 5.2 cm CV PACS Left Atrium Major [place] 5.6 cm CV PACS LA Area Sys (A2C) 21 cm2 CV PACS LA Area Sys (A4C) 17 cm2 CV PACS LA Volume (BP) 54 mL CV PACS RA Area 14.8 cm2 CV PACS RA 2D Volume 37 mL CV PACS AV Mean Gradient 11 mmHg CV PACS Ao VTI 48.0 cm CV PACS AV Peak Madan 2.3 m/s CV PACS AV Peak Gradient 22 mmHg CV PACS AV Area Continuity Equation 1.9 cm2 CV PACS AV Area Peak Velocity 1.6 cm2 CV PACS Aortic Sinus Valsalva 3.1 cm CV PACS Ascending Aorta 3.4 cm CV PACS IVC Proximal 1.5 cm CV PACS IVSD 1.1(A) 0.6 - 1.0 cm CV PACS LVIDD 4.6 4.2 - 5.8 cm CV PACS LVIDS 3.1 2.5 - 4.0 cm CV PACS LVOT Diameter 2.4 cm CV PACS LVOT Mean Madan 0.6 m/s CV PACS LVOT Mean Grad 2 mmHg CV PACS LVOT Peak VTI 20.0 cm CV PACS LVOT Peak Madan 0.8 m/s CV PACS LVOT Peak Gradient 3 mmHg CV PACS LVPWD 1.1(A) 0.6 - 1.0 cm CV PACS MV E' Tissue Velocity Lateral 8 cm/s CV PACS MV E' Tissue Velocity Septal 5 cm/s CV PACS LVOT Area 4.5 cm2 CV PACS LVOT Stroke Volume 90 mL CV PACS MV Deceleration Grayson 2.4 m/s2 CV PACS E Wave Deceleration Time 297(A) 119 - 242 ms CV PACS MV PHT 87 ms CV PACS MV Peak A Madan 1.13 m/s CV PACS MV Peak E Madan 0.71 m/s CV PACS MV Area PHT 2.5 cm2 CV PACS PV Acceleration Time 92 ms CV PACS PV Peak Velocity 1.3 m/s CV PACS PV Peak Gradient 7 mmHg CV PACS RV Diastolic Basal Dimension 3.4 2.5 - 4.1 cm CV PACS TAPSE 17 mm CV PACS TR Peak Velocity 2.66 m/s CV PACS TR Peak Gradient 28 mmHg CV PACS E/E' Ratio Septal 14 CV PACS E/E' Ratio Averaged 12 CV PACS LVOT Stroke Index 49 mL/m2 CV PACS Relative Wall Thickness ratio 0.48 CV PACS LVOT:AV VTI Index 0.42 CV PACS FS 33 % CV PACS LV Mass 2D 181 g CV PACS Ascending Aorta Index 1.86 cm/m2 CV PACS LVOT flow 271 mL/s CV PACS RA 2D Volume Index 20 mL/m2 CV PACS NANCY Index (VTI) 1.03 cm2/m2 CV PACS NANCY Index (Pk Madan) 0.87 cm2/m2 CV PACS LVIDD Index 2.51 cm/m2 CV PACS LVIDS Index 1.69 cm/m2 CV PACS AV Velocity Ratio 0.35 CV PACS E/A Ratio 0.6 CV PACS E/E' Ratio Lateral 9 CV PACS LA Volume Index (BP) 30 mL/m2 CV PACS LV Mass Index 2D 99 g/m2 CV PACS BSA 1.88 m2 CV PACS Right Ventricular Peak Systolic Pressure 31 mmHg CV PACS Est. RA Pressure 3 mmHg CV PACS Anatomical Region Laterality Modality Ultrasound Narrative 01/27/2025 5:15 PM EST ?Left ventricle cavity size is normal. Left ventricular systolic function is in the normal range with an ejection fraction of 60-65%. ?No regional LV wall motion abnormalities noted.Mild diastolic dysfunction ?Left ventricle mild hypertrophy. ?Right ventricle cavity is normal. Right ventricular systolic function is normal. ?A mechanical aortic valve is present. Prosthetic valve appears to be functioning normally. ?22 mmHg peak 11 mmHg mean gradient across the prosthetic aortic valve with trace aortic insufficiency Left Ventricle Left ventricle cavity size is normal. There is mild hypertrophy. Systolic function is normal with an ejection fraction of 60-65%. There are no regional LV wall motion abnormalities. Right Ventricle Right ventricle cavity appears normal. Systolic function is normal. Left Atrium Left atrium cavity size is normal. Right Atrium Right atrium cavity is normal. Mitral Valve The leaflets are mildly thickened. There is annular calcification. There is mild regurgitation. There is no evidence of mitral valve stenosis. Tricuspid Valve Tricuspid valve structure is normal. There is trace regurgitation. There is no evidence of tricuspid valve stenosis. Aortic Valve The valve has been surgically replaced. There is a #23 [address] [employer] mechanical valve. The prosthetic valve appears to be functioning normally. There is trace regurgitation. Pulmonic Valve Visualized portions of the pulmonic valve appear normal. No significant pulmonic valve regurgitation. There is no evidence of pulmonic valve stenosis. Ascending Aorta The aorta appears normal in size. Study Details Overall the study quality was adequate. us Mario Evans MD CV ECHO PROCEDURES Final Resul t from Last 3 Months Insurance MEDICARE [facility] Care Teams Mixer Helper Relationship Specialty Start Date End Date Mónica Dawkins MD [address] [place] [address] PCP - General Internal Medicine 12/17/24
--- OUTSIDE RECORDS SUMMARY | 2025-03-25 13:06 | XMS_ITS | Clinical Summary ---
Author Organization [facility] Facility Address [address] [address] Care Team Providers Care Edi Programmer Name Role Phone Unavailable Primary Care Provider Unavailabl e Social History Tobacco Use Types Packs/Day Years Used Date Smoking Tobacco: Never Alcohol Use Standard Drinks/Week Comments No 0 (1 standard drink = 0.6 oz pur e alcohol) Sex and Gender Information Value Date Recorded Sex Assigned at Not on file Legal Sex Male 4:59 PM EST Gender Identity Not on file Sexual Orientation Not on file Plan of Treatment Health Maintenance Due Date Last Done Comments Pneumococcal Vaccine: 50+ Ye ars (1 of 2 - PCV) 1971 Colorectal Cancer Screening: Annual FOBT 2001 Colorectal Cancer Screening: Colonoscopy 2001 Colorectal Cancer Screening: Sigmoidoscopy 2001 Influenza Vaccine (Season Ended) 2025 Hepatitis B Vaccine Aged Out No longe r eligible based on patient's age to complete this topic Insurance (Home) [address] [place] [address] Medicare [facility]
== END 2025-03-25 11:53 | disposition home or self-care (01) ==
LOC: HO.HMCC 11:10
PROVIDERS: PCP Internal Medicine; Visit Provider Internal Medicine
DX: I10 Essential (primary) hypertension (principal); E11.9 Type 2 diabetes mellitus without complications; I48.0 Paroxysmal atrial fibrillation; Z23 Encounter for immunization

== ENCOUNTER → 2025-03-25 11:09 | Outpatient (BNVA) | payer MEDICARE, SELFPAY | PROVIDERS: PCP Internal Medicine; Visit Provider Internal Medicine | DX: Z23 Encounter for immunization (principal); I10 Essential (primary) hypertension; E11.9 Type 2 diabetes mellitus without complications; I48.0 Paroxysmal atrial fibrillation | CPT/HCPCS: 90471; 90677; 96127; 99212 ==

== ENCOUNTER 2025-06-12 09:08 | Outpatient (AMB) | payer MEDICARE, SELFPAY ==
--- NOTE | 2025-06-12 09:18 | MHC.PC.OV ---
Vital Signs 06/12/25 09:22 Height 5 ft 4 in Weight 165 lb BMI 28.3 BP 118/74 Blood Pressure Location Rt brachial Position Sitting Respiration 18 Pulse 64 Pulse Source Pulse Oximeter Temp 97.6 F Temp Source Oral Pulse Oximetry (%) 96 Oxygen Delivery Method Room Air Intake Visit Reasons: 2m follow up Intake Note: Pt is here today for 2 months follow up visit. Allergies No Known Allergies Allergy (Verified 06/12/25 09:24) Medication List - Last Reconciled 06/12/25 by Mónica Dawkins MD amlodipine 7.5 mg (1.5 x 5 mg) PO DAILY aspirin (Adult Aspirin Regimen) 81 mg PO DAILY blood sugar diagnostic (FreeStyle Lite Strips) test blood sugar once a day calcitriol 0 mcg PO cinacalcet 0 mg PO empagliflozin (Jardiance) 10 mg PO DAILY finasteride 5 mg PO DAILY furosemide 20 mg PO DAILY glipizide ER 5 mg PO BID hydrocortisone 2.5% (Proctosol HC) 1 appl [place] BID-QID PRN hydrocortisone acetate (Proctocort) 30 mg [place] BID lancets (FreeStyle Lancets) test blood sugar once a day metformin ER 750 mg PO QPM metoprolol tartrate 25 mg PO BID mycophenolate mofetil 500 mg PO BID omeprazole 40 mg PO DAILY pravastatin 40 mg PO DAILY tacrolimus 1 mg PO BID tacrolimus 0.5 mg PO 3 times a week at nighttime; tamsulosin 0.4 mg PO DAILY Trulicity (dulaglutide) 3 mg (0.5 mL) subcut QWEEK NS warfarin 4 mg PO DAILY warfarin 9 mg PO Q OTHER DAY PRN Tobacco use date assessed: 06/12/25 Fall risk assessment: No Falls in past year Last assessed Fall Risk: 06/12/25 Dental Screening Dental Screen Date: 03/25/25 HPI 2m follow up HPI Details Patient presents for the follow-up of hypertension type 2 diabetes hyperlipidemia stable on current medications. Patient reports slight burning when urinating and increased urinary frequency but denies abdominal pelvic pain nausea vomiting fever chills. [facility] Medical History BPH (benign prostatic hyperplasia) Tendinitis Vitamin D deficiency Carpal tunnel syndrome on both sides Diabetic eye exam Paroxysmal A-fib Osteoarthritis of knee Polycystic kidney, unspecified type Diabetes (~12/22/20) HTN (hypertension) Surgical History History of esophagogastroduodenoscopy (EGD) History of colonoscopy Status post parathyroidectomy S/P CABG x 2 Family History Father Prostate CA Mother Polycystic kidney disease Social History Housing: House Alcohol intake: current Alcohol intake frequency: does not drink Patient Tobacco Use Status: Never used Tobacco e-Cigarette/Vaping Use: Never Used service: No Current occupational status: retired Cognitive needs: No Hearing needs: No Vision needs: No Questionnaire Thrive Questionnaire Date Thrive assessed: 03/25/25 I am a: Patient What is your living situation today?: I have a steady place to live Within the past 12 months, did the food you bought not last and you didn't have the money to get more?: Often true Within the past 12 months, did you worry whether your food would run out before you got money to buy more?: Often true Do you have trouble paying for medicines?: I choose not to answer this question Do you have trouble getting transportation to medical appointments?: Yes Do you have trouble paying your heating and electricity bill?: Yes Do you have trouble taking care of your child, family member or friend?: I choose not to answer this question Do you have trouble with day-to-day activities such as bathing, preparing meals, shopping, managing finances, etc.?: No Are you currently unemployed and looking for a job?: I choose not to answer this question Are you interested in more education?: I choose not to answer this question THRIVE Score: 4 TRISH-7 AMB Questionnaire TRISH-7 Date TRISH - 7 assessed: 03/25/25 Source: Developed by Drs. Everett Gorman, Chasity Nascimento, Narayan Garza and colleagues, with an educational jesus from [employer]. Review of Systems Const All systems reviewed & are unremarkable except as noted in HPI and below Eyes Reports no additional complaints ENT Reports no additional complaints Card Reports no additional complaints Resp Reports no additional complaints GI Reports no additional complaints Reports no additional complaints Physical exam (Primary Care) Vital Signs: Last Vital Signs Temp 97.6 F 06/12/25 09:22 Pulse 64 06/12/25 09:22 Resp 18 06/12/25 09:22 BP 118/74 06/12/25 09:22 Pulse Ox 96 06/12/25 09:22 Oxygen Delivery Method Room Air 06/12/25 09:22 BMI result Body Mass Index 28.3 Tobacco/Smoking Status: Tobacco use Status Tobacco use date assessed 06/12/25 06/12/25 09:29 Patient Tobacco Use Status Never used Tobacco 06/12/25 09:18 e-Cigarette/Vaping Use Never Used 06/12/25 09:18 Thrive Assessment: Date of Thrive Assessment Date Thrive assessed 03/25/25 06/12/25 09:18 Const General: no acute distress HENMT Head: Yes normal to inspection Mouth: Normal oral and palatal mucosa present Resp Effort & Inspection: normal respiratory effort Auscultation: clear to auscultation bilaterally Cardio Rhythm: regular rhythm Heart sounds: S1 normal heart sound present and S2 normal heart sound present GI Inspection: Yes normal to inspection Palpation (GI): Soft to palpation Percussion: Yes normal to percussion Auscultation: normal bowel sounds Results AMB Urinalysis, Automated UA Leukoctes 0 Nae/uL Last Edit by ANNA Morejon on 06/12/25 10:03 UA Nitrite Negative Last Edit by ANNA Morejon on 06/12/25 10:03 UA Urobilinogen 0.2 mg/dL Last Edit by ANNA Morejon on 06/12/25 10:03 UA Protein 0 mg/dL Last Edit by ANNA Morejon on 06/12/25 10:03 UA pH 6.0 Last Edit by ANNA Morejon on 06/12/25 10:03 UA Blood 0 Gilbert/uL Last Edit by NANA Morejon on 06/12/25 10:03 UA Specific Randolph 1.015 Last Edit by ANNA Morejon on 06/12/25 10:03 UA Ketone Negative Last Edit by ANNA Morejon on 06/12/25 10:03 UA Bilirubin 0 mg/dL Last Edit by ANNA Morejon on 06/12/25 10:03 UA Glucose 0 mg/dL Last Edit by ANNA Morejon on 06/12/25 10:03 Results Reviewed Results Reviewed: Laboratory Last Values Urine pH (Auto) 6.0 06/12/25 09:55 Specific Randolph (Auto) 1.015 06/12/25 09:55 Urine Protein (Auto) 0 mg/dL 06/12/25 09:55 Glucose (UA)(Auto) 0 mg/dL 06/12/25 09:55 Urine Ketones (Auto) Negative 06/12/25 09:55 Urine Blood (Auto) 0 Gilbert/uL 06/12/25 09:55 Urine Nitrite (Auto) Negative 06/12/25 09:55 Urine Bilirubin (Auto) 0 mg/dL 06/12/25 09:55 Urine Urobilinogen (Auto) 0.2 mg/dL 06/12/25 09:55 Leukocyte Esterase (Auto) 0 Nae/uL 06/12/25 09:55 Coding Level of Care Code Est Pt Level 4 (17537) Complex EM visit Add On G2211 Diagnoses BPH (benign prostatic hyperplasia) N40.0 HTN (hypertension) I10 Paroxysmal A-fib I48.0 Diabetes E11.9 Assessment & Plan Assessment & Plan (1) BPH (benign prostatic hyperplasia): Comment: follow up urologist at [facility] Code(s): N40.0 - Benign prostatic hyperplasia without lower urinary tract symptoms Category: Medical Plan: Patient would like to be referred to local urologist, UA is negative and urine culture will be checked. Bladder ultrasound will be obtained to rule out urinary retention continue finasteride (2) HTN (hypertension): Comment: BP < 130/80 Code(s): I10 - Essential (primary) hypertension Category: Medical Plan: Continue current medications (3) Paroxysmal A-fib: Comment: on Warfarin checks INR at [facility], regulated by [facility] INR 2-3 Code(s): I48.0 - Paroxysmal atrial fibrillation Category: Medical Plan: Follow-up with Cardiology (4) Diabetes: Onset Date: ~12/22/20 Comment: goal A1C < 7.5, pt cannot afford Jardiance Code(s): E11.9 - Type 2 diabetes mellitus without complications Category: Medical Plan: A1c is 6.4. Continue current medication at Jardiance 10 mg daily for better diabetes control and renal protection and microalbuminuria Orders: Orders Urine Culture Today N40.0 - Benign prostatic hyperplasia without lower urinary tract symptoms Comprehensive [place]. Panel Fast 3 Months E11.9 - Type 2 diabetes mellitus without complications, I10 - Essential (primary) hypertension, I48.0 - Paroxysmal atrial fibrillation Lipid Panel 3 Months E11.9 - Type 2 diabetes mellitus without complications, I10 - Essential (primary) hypertension, I48.0 - Paroxysmal atrial fibrillation Microalbumin, Random (w Creat) 3 Months E11.9 - Type 2 diabetes mellitus without complications, I10 - Essential (primary) hypertension, I48.0 - Paroxysmal atrial fibrillation UA w Microscopic Today N40.0 - Benign prostatic hyperplasia without lower urinary tract symptoms Hemoglobin A1c 3 Months E11.9 - Type 2 diabetes mellitus without complications, I10 - Essential (primary) hypertension, I48.0 - Paroxysmal atrial fibrillation Complete Blood Count Auto Diff 3 Months E11.9 - Type 2 diabetes mellitus without complications, I10 - Essential (primary) hypertension, I48.0 - Paroxysmal atrial fibrillation AMB Urinalysis Automated Today Z13.9 - Encounter for screening, unspecified US bladder Today N40.0 - Benign prostatic hyperplasia without lower urinary tract symptoms, R30.0 - Dysuria Referrals Urology Referral N40.0 - Benign prostatic hyperplasia without lower urinary tract symptoms Medications: New empagliflozin (Jardiance) 10 mg PO DAILY 90 tabs 3RF empagliflozin (Jardiance) 10 mg PO DAILY 90 tabs 3RF Resumed Trulicity (dulaglutide) 3 mg (0.5 mL) subcut QWEEK 6 mL 3RF NS
[2025-06-12 09:22] VITALS: BP 118/74; PULSE 64; RESP 18; TEMP 36.4; O2SAT 96; BMI 28.3
--- OUTSIDE RECORDS SUMMARY | 2025-06-12 09:30 | XMS_ITS | Clinical Summary ---
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 GEMUSE Q-T Interval 404 ms GEMUSE QTc 416 ms GEMUSE P Wave [place] -3 degrees GEMUSE R [place] 77 degrees GEMUSE T [place] -30 degrees GEMUSE ECG Interpretation Sinus rhythm with 1st degree A-V block T wave abnormality , consider inferior ischemia Abnormal ECG When compared with ECG of 18-JAN-2024 09:41, Criteria for Anterior infarct are no longer Present Confirmed by Vita EVANS, DELIA ([id number]) on 05/09/2025 12:43:14 PM GEM[facility] 05/09/2025 8:02 AM EDT 05/09/2025 12:43 PM EDT Delia Evans MD ECG ORDERABLES Final Result Performing Organization Address City/[facility]/ZIP Co de Phone Number GEMUSE * Tacrolimus level (04/25/2025 8:24 AM EDT) Only the most recent of2 resultswithin the time period is included. Tacrolimus Level 5.3 5.0 - 20.0 ng/mL 04/28/2025 11:56 AM EDT [facility] Comment: Additional Information: Toxic Level > 26 ng/mL Organ Post Transp. (months) Trough Level (ng/mL) Kidney Up to 3 7.0 - 20.0 >3 5.0 - 15.0 Heart Up to 3 10.0 - 20.0 >3 5.0 - 15.0 Liver Up to 12 5.0 - 20.0 Tacrolimus determined by a LC-MS/MS procedure. If applicable, any drug confirmation testing reported here was developed and the performance characteristics determined by [facility]. This confirmation testing has not been cleared or approved by the FDA. The laboratory is regulated under CLIA as qualified to perform high-complexity testing. This test is used for patient testing purposes. It should not be regarded as investigational or for research. Test performed at [facility], [address] , [place] [address] Rosie Grey MD, PhD - [employer] Blood Venous blood specimen / Unknown Venipuncture / Unknown 04/25/2025 8:24 AM EDT 04/25/2025 9:30 AM EDT Park Sauer MD LAB BLOOD ORDERABLES Final Result [facility] [address] [place] [address] * (ABNORMAL) Basic metabolic panel (04/14/2025 8:23 AM EDT) Sodium 136 133 - 145 mmol/L LAB CHEMISTRY METHOD 04/14/2025 11:07 AM [facility] Potassium 3.7 3.5 - 5.5 mmol/L LAB CHEMISTRY METHOD 04/14/2025 11:07 AM [facility] Chloride 101 96 - 110 mmol/L LAB CHEMISTRY METHOD 04/14/2025 11:07 AM [facility] CO2 28 21 - 32 mmol/L LAB CHEMISTRY METHOD 04/14/2025 11:07 AM [facility] Anion Gap 7 3 - 11 LAB CHEMISTRY METHOD 04/14/2025 11:07 AM [facility] Glucose 108(H) 70 - 100 mg/dL LAB CHEMISTRY METHOD 04/14/2025 11:07 AM EDT [facility] BUN 16 5 - 25 mg/dL LAB CHEMISTRY METHOD 04/14/2025 11:07 AM EDT [facility] Creatinine 0.62(L) 0.70 - 1.30 mg/dL LAB CHEMISTRY METHOD 04/14/2025 11:07 AM EDT [facility] eGFR 102 >=60 mL/min/1. 73m2 LAB CHEMISTRY METHOD 04/14/2025 11:07 AM EDT [facility] Comment:Calculation based on the Chronic Kidney Disease Epidemiology Collaboration (CKD-EPI) equation refit without adjustment for race. BUN/Creatinine Ratio 25.8 LAB CHEMISTRY METHOD 04/14/2025 11:07 AM T [facility] Calcium 8.0(L) 8.5 - 10.5 mg/dL LAB CHEMISTRY METHOD 04/14/2025 11:07 AM EDT [facility] Blood Venous blood specimen / Unknown Venipuncture / Unknown 04/14/2025 8:23 AM EDT 04/14/2025 9:51 AM EDT us Park Sauer MD LAB BLOOD ORDERABLES Final Result [facility] [address] [place] [address], from Last 3 Months Insurance MEDICARE [facility] [employer] - [place] MEDICARE ADVANTAGE Care Teams Facilities Maintenance Assistant Relationship Specialty Start Date End Date Mónica Dawkins MD [address] [place] [address] PCP - General Internal Medicine 12/17/24
--- OUTSIDE RECORDS SUMMARY | 2025-06-12 09:30 | XMS_ITS | Clinical Summary ---
Author Organization [facility] Facility Address [address] [address] Care Team Providers Care Finished Goods Stock Clerk Name Role Phone Unavailable Primary Care Provider [...] Colorectal Cancer Screening: Sigmoidoscopy 2001 Influenza Vaccine (#1) 2025 Hepatitis B Vaccine Aged Out No longe r eligible based on patient's age to complete this topic Insurance (Home) [address] [place] [address] Medicare [facility]
== END 2025-06-12 10:06 | disposition home or self-care (01) ==
LOC: HO.HMCC 09:09
PROVIDERS: PCP Internal Medicine; Visit Provider Internal Medicine
DX: N40.0 Benign prostatic hyperplasia without lower urinary tract symptoms (principal); I10 Essential (primary) hypertension; I48.0 Paroxysmal atrial fibrillation; E11.9 Type 2 diabetes mellitus without complications; Z13.9 Encounter for screening, unspecified

== ENCOUNTER 2025-06-12 09:08 | Outpatient (REF) | payer MEDICARE, SELFPAY ==
[2025-06-12 13:58] LABS: Appearance Urine Clear; Glucose Urine UA Negative (Negative); PH 7.0 (5.0-9.0); Specific Gravity - Urine 1.010 (1.005-1.025)
== END 2025-06-12 09:09 | disposition home or self-care (01) ==
LOC: HO.LAB 09:08
PROVIDERS: PCP Internal Medicine; Visit Provider Internal Medicine
DX: N40.0 Benign prostatic hyperplasia without lower urinary tract symptoms (principal); I10 Essential (primary) hypertension; I48.0 Paroxysmal atrial fibrillation; E11.9 Type 2 diabetes mellitus without complications; Z79.01 Long term (current) use of anticoagulants; Z79.84 Long term (current) use of oral hypoglycemic drugs
CPT/HCPCS: 81001; 81003; 87086; 87088; 87186; 99212

== ENCOUNTER 2025-09-22 09:45 | Outpatient (AMB) | payer MEDICARE, SELFPAY ==
--- NOTE | 2025-09-22 10:02 | MHC.PC.OV ---
Vital Signs 09/22/25 10:03 Height 5 ft 4 in Weight 164 lb BMI 28.1 BP 128/68 Blood Pressure Location Rt brachial Position Sitting Respiration 17 Pulse 67 Pulse Source Pulse Oximeter Temp 97.4 F Temp Source Oral Pulse Oximetry (%) 98 Oxygen Delivery Method Room Air Intake Visit Reasons: 3m follow up Intake Note: Pt is here today for 3 months follow up visit on DM. Pt states that she fell off the ladder about 3 weeks ago and broke his L arm. Allergies No Known Allergies Allergy (Verified 09/22/25 10:04) Medication List - Last Reconciled 09/22/25 by Mónica Dawkins MD amlodipine 7.5 mg (1.5 x 5 mg) PO DAILY aspirin (Adult Aspirin Regimen) 81 mg PO DAILY blood sugar diagnostic (FreeStyle Lite Strips) test blood sugar once a day calcitriol 0 mcg PO cefuroxime axetil 500 mg PO BID cinacalcet 0 mg PO empagliflozin (Jardiance) 10 mg PO DAILY finasteride 5 mg PO DAILY furosemide 20 mg PO DAILY glipizide ER 5 mg PO BID hydrocodone-acetaminophen 5-325 mg 1 tab PO BID PRN hydrocortisone 2.5% (Proctosol HC) 1 appl [place] BID-QID PRN hydrocortisone acetate (Proctocort) 30 mg [place] BID lancets (FreeStyle Lancets) test blood sugar once a day metformin ER 750 mg PO QPM metoprolol tartrate 25 mg PO BID mycophenolate mofetil 500 mg PO BID omeprazole 40 mg PO DAILY pravastatin 40 mg PO DAILY tacrolimus 1 mg PO BID tacrolimus 0.5 mg PO 3 times a week at nighttime; tamsulosin 0.4 mg PO DAILY Trulicity (dulaglutide) 3 mg (0.5 mL) subcut QWEEK NS warfarin 4 mg PO DAILY warfarin 9 mg PO Q OTHER DAY PRN Tobacco use date assessed: 09/22/25 Fall risk assessment: 1 Fall in past year Last assessed Fall Risk: 09/22/25 Dental Screening Dental Screen Date: 03/25/25 HPI 3m follow up HPI Details Pt presents for DM2, HTN, hyperlipidemia stable on current medications. he felt off the ladder and broke his left wrist 3 weeks ago. He was seen by orthopedic surgeon and a cast was placed. [facility] Medical History (Updated 09/22/25 @ 16:44 by Mónica Dawkins MD) Left wrist fracture BPH (benign prostatic hyperplasia) Tendinitis Vitamin D deficiency Carpal tunnel syndrome on both sides Diabetic eye exam Paroxysmal A-fib Osteoarthritis of knee Polycystic kidney, unspecified type Diabetes (~12/22/20) HTN (hypertension) Surgical History History of esophagogastroduodenoscopy (EGD) History of colonoscopy Status post parathyroidectomy S/P CABG x 2 Family History Father Prostate CA Mother Polycystic kidney disease Social History Housing: House Alcohol intake: current Alcohol intake frequency: does not drink Patient Tobacco Use Status: Never used Tobacco e-Cigarette/Vaping Use: Never Used service: No Current occupational status: retired Cognitive needs: No Hearing needs: No Vision needs: No Questionnaire PHQ-9 Over the last 2 weeks, how often have you been bothered by any of the following problems? 1. Little interest or pleasure in doing things: several days 2. Feeling down, depressed, or hopeless: several days 3. Trouble falling or staying asleep, or sleeping too much: several days 4. Feeling tired or having little energy: several days 5. Poor appetite or overeating: not at all 6. Feeling bad about yourself - or that you are a failure or have let yourself or your family down: not at all 7. Trouble concentrating on things, such as reading the newspaper or watching television: not at all 8. Moving or speaking so slowly that other people could have noticed. Or the opposite - being so fidgety or restless that you have been moving around a lot more than usual: not at all 9. Thoughts that you would be better off or of hurting yourself in some way: not at all Total score: 4 Depression Screening Interpretation: Negative Depression Screening Done: Yes Source: Developed by Drs. Everett Gorman, Chasity Nascimento, Narayan Garza and colleagues, with an educational jesus from [employer]. Thrive Questionnaire Date Thrive assessed: 03/25/25 I am a: Patient What is your living situation today?: I have a steady place to live Within the past 12 months, did the food you bought not last and you didn't have the money to get more?: Often true Within the past 12 months, did you worry whether your food would run out before you got money to buy more?: Often true Do you have trouble paying for medicines?: I choose not to answer this question Do you have trouble getting transportation to medical appointments?: Yes Do you have trouble paying your heating and electricity bill?: Yes Do you have trouble taking care of your child, family member or friend?: I choose not to answer this question Do you have trouble with day-to-day activities such as bathing, preparing meals, shopping, managing finances, etc.?: No Are you currently unemployed and looking for a job?: I choose not to answer this question Are you interested in more education?: I choose not to answer this question THRIVE Score: 4 TRISH-7 AMB Questionnaire TRISH-7 Date TRISH - 7 assessed: 03/25/25 Feeling nervous, anxious, or on edge: 0 = Not at all Not being able to stop or control worryin = Not at all Worrying too much about different things: 0 = Not at all Trouble relaxin = Not at all Being so restless that it is hard to sit still: 0 = Not at all Becoming easily annoyed or irritable: 0 = Not at all Feeling afraid as if something awful might happen: 0 = Not at all Total TRISH-7 score (0-4 normal; 5-9 mild; 10-14 moderate; 15-21 severe): 0 Source: Developed by Drs. Everett Gorman, Chasity Nascimento, Narayan Garza and colleagues, with an educational jesus from [employer]. Review of Systems Const All systems reviewed & are unremarkable except as noted in HPI and below ENT Reports no additional complaints Card Reports no additional complaints Resp Reports no additional complaints GI Reports no additional complaints Reports no additional complaints Physical exam (Primary Care) Vital Signs: Last Vital Signs Temp 97.4 F 09/22/25 10:03 Pulse 67 09/22/25 10:03 Resp 17 09/22/25 10:03 BP 128/68 09/22/25 10:03 Pulse Ox 98 09/22/25 10:03 Oxygen Delivery Method Room Air 09/22/25 10:03 BMI result Body Mass Index 28.1 Tobacco/Smoking Status: Tobacco use Status Tobacco use date assessed 09/22/25 09/22/25 10:08 Patient Tobacco Use Status Never used Tobacco 09/22/25 10:02 e-Cigarette/Vaping Use Never Used 09/22/25 10:02 PHQ-9: PHQ-9 Score PHQ-9: Total score 4 09/22/25 11:00 Depression Screening Interpretation: Negative Thrive Assessment: Date of Thrive Assessment Date Thrive assessed 03/25/25 09/22/25 10:02 Const General: no acute distress HENMT Head: Yes normal to inspection Mouth: Normal oral and palatal mucosa present Throat: Yes posterior oropharynx normal Resp Effort & Inspection: normal respiratory effort Auscultation: clear to auscultation bilaterally Cardio Rhythm: regular rhythm Heart sounds: S1 normal heart sound present and S2 normal heart sound present GI Inspection: Yes normal to inspection Palpation (GI): Soft to palpation Coding Level of Care Code Est Pt Level 4 (78783) Diagnoses HTN (hypertension) I10 Diabetes E11.9 Paroxysmal A-fib I48.0 Sleep apnea G47.30 Assessment & Plan Assessment & Plan (1) HTN (hypertension): Comment: BP < 130/80 Code(s): I10 - Essential (primary) hypertension Category: Medical Plan: Continue current medications (2) Diabetes: Onset Date: ~12/22/20 Comment: goal A1C < 7.5, pt cannot afford Jardiance Code(s): E11.9 - Type 2 diabetes mellitus without complications Category: Medical Plan: A1c is 6.3, ADA diet increase physical activity discussed with the patient. Continue the same medications follow-up in 4 months (3) Paroxysmal A-fib: Comment: on Warfarin, INR at [facility], regulated by [facility] INR 2-3 Code(s): I48.0 - Paroxysmal atrial fibrillation Category: Medical Plan: Continue current medications (4) Sleep apnea: Comment: 09/18 moderate sleep apnea, established with [facility] Code(s): G47.30 - Sleep apnea, unspecified Category: Medical Plan: Continue CPAP Orders: Orders Comprehensive [place]. Panel Fast 4 Months E11.9 - Type 2 diabetes mellitus without complications, I10 - Essential (primary) hypertension Microalbumin, Random (w Creat) 4 Months E11.9 - Type 2 diabetes mellitus without complications, I10 - Essential (primary) hypertension Hemoglobin A1c 4 Months E11.9 - Type 2 diabetes mellitus without complications, I10 - Essential (primary) hypertension Lipid Panel 4 Months E11.9 - Type 2 diabetes mellitus without complications, I10 - Essential (primary) hypertension
[2025-09-22 10:03] VITALS: BP 128/68; PULSE 67; RESP 17; TEMP 36.3; O2SAT 98; BMI 28.1
--- OUTSIDE RECORDS SUMMARY | 2025-09-22 11:07 | XMS_ITS | Encounter Summary ---
Author Organization [facility] Address [address] [place] [address] Phone Care Team Providers Care Supervisory Investigative Specialist Name Role Phone Mónica Dawkins MD Primary Care Provider [phone] Encounter Details Date Type Department Care Team ([facility] st Contact Info) Description 08/02/2023 Anti-coag visit [facility] [address] [facility] [address] [place] [address] Laura Chacon RN [address] [place] [address] [email or web address] Social History Tobacco Use Types Packs/Day Years Used Date Smoking Tobacco: Never Smokeless Tobacco: Never Alcohol Use Standard Drinks/Week Comments Not Currently 0 (1 standard drink = 0.6 oz pur e alcohol) Education Answer Date Recorded Are you interested in more education? Not on maury e 03/23/2023 Are you concerned about learning? Not on file 03/23/2023 No 03/23/2023 No 03/23/2023 Digital Access Answer Date Recorded No 04/23/2023 No 04/23/2023 Reliable internet access at home? Not on file 04/23/2023 Device with a working camera? Not on file Sex and Gender Information Value Date Recorded Sex Assigned at Not on file Legal Sex Male 5:21 PM EST Gender Identity Not on file Sexual Orientation Not on file documented as of this encounter Plan of Treatment Upcoming Encounters Date Type Department Care Team (Late st Contact Info) Description 10/06/2025 8:05 AM EST Blood Draw [facility] [address] [address] Park Sauer MD [address] [place] [phone] [email or web address] 10/13/2025 8:00 AM EST Office Visit [facility] [address] [address] Park Sauer MD [address] [place] [phone] [email or web address] documented as of this encounter Visit Diagnoses Not on filedocumented in this encounter Care Teams Supervisory Investigative Specialist Relationship Specialty Start Date End Date Mónica Dawkins MD [address] [place] [address] PCP - General Internal Medicine 11/11/19 documented as of this encounter Additional Source Comments The information contained in this document represents components of the legal health record. It is not the complete legal health record.[facility]
--- OUTSIDE RECORDS SUMMARY | 2025-09-22 11:07 | XMS_ITS | Encounter Summary ---
Author Organization [facility] Address [address] [place] [address] Phone Care Team Providers Care Manganese Wheeler Name Role Phone Mónica Dawkins MD Primary Care Provider Encounter Details Date Type Department Care Team ([facility] st Contact Info) Description 10/07/2024 Anti-coag visit [facility] [address] [facility] [address] [place] [address] Teodora Menendez, RN [address] [place] [address] [email or web address] Social History Tobacco Use Types Packs/Day Years [...] Description 10/06/2025 8:05 AM EST Blood Draw [facility] [address] [address] Park Sauer MD [address] [place] [phone] [email or web address] 10/13/2025 8:00 AM EST Office Visit [facility] [address] [address] Park Sauer MD [address] [place] [phone] [email or web address] documented as of this encounter Visit Diagnoses Not on filedocumented in this encounter Care Teams Manganese Wheeler Relationship Specialty Start Date End Date Mónica Dawkins MD [facility] [address] PCP - General Internal Medicine 11/11/19 documented as of this encounter Additional Source Comments The information contained in this document represents components of the legal health record. It is not the complete legal health record.[facility]
--- OUTSIDE RECORDS SUMMARY | 2025-09-22 11:07 | XMS_ITS | Encounter Summary ---
Author Organization [facility] Address [address] [place] [address] Phone Care Team Providers Care Tea Taster Name Role Phone Mónica Dawkins MD Primary Care Provider [phone] Encounter Details Date Type Department Care Team ([facility] st Contact Info) Description 10/11/2024 Anti-coag visit [facility] [address] [facility] [address] [place] [address] Teodora Menendez, RN [address] [place] [address] [email or web address] Social History Tobacco Use Types Packs/Day Years [...] Description 10/06/2025 8:05 AM EST Blood Draw [facility] [address] [address] Park Sauer MD [address] [place] [phone] [email or web address] 10/13/2025 8:00 AM EST Office Visit [facility] [address] [address] Park Sauer MD [address] [place] [address] [email or web address] documented as of this encounter Visit Diagnoses Not on filedocumented in this encounter Care Teams Tea Taster Relationship Specialty Start Date End Date Mónica Dawkins MD [facility] [place] [address] PCP - General Internal Medicine 11/11/19 documented as of this encounter Additional Source Comments The information contained in this document represents components of the legal health record. It is not the complete legal health record.[facility]
--- OUTSIDE RECORDS SUMMARY | 2025-09-22 11:07 | XMS_ITS | Encounter Summary ---
Author Organization [facility] Address [address] [facility] [address] [place] [address] Phone Care Team Providers Care Transmission And Protection Engineer Name Role Phone Mónica Dawkins MD Primary Care Provider [phone] Encounter Details Date Type Department Care Team (Late st Contact Info) Description 06/05/2023 [place] [facility] [place] [address] [place] [address] Stephanie Rojas NP [address] [place] [phone] [email or web address] Social History Tobacco Use Types Packs/Day [...] Description 10/06/2025 8:05 AM EST Blood Draw [facility] [address] [address] Park Sauer MD [address] [place] [address] [place] [phone] [email or web address] 10/13/2025 8:00 AM EST Office Visit [facility] [place] [address] [address] Park Sauer MD [address] [place] [address] [place] [phone] [email or web address] documented as of this encounter Visit Diagnoses Not on filedocumented in this encounter Care Teams Transmission And Protection Engineer Relationship Specialty Start Date End Date Mónica Dawkins MD [facility] [place] [address] PCP - General Internal Medicine 11/11/19 documented as of this encounter Additional Source Comments The information contained in this document represents components of the legal health record. It is not the complete legal health record.[facility]
--- OUTSIDE RECORDS SUMMARY | 2025-09-22 11:07 | XMS_ITS | Encounter Summary ---
Author Organization [facility] Address [address] [facility] [address] [place] [address] Phone Care Team Providers Care Founder And President Name Role Phone Mónica Dawkins MD Primary Care Provider [phone] Encounter Details Date Type Department Care Team (Late Contact Info) Description 02/16/2022 Anti-coag visit [facility] Anticoagulation Management Service 125 [facility] 765 [place] [address] Jenny Spears RN 125 [place] [address] [email or web address] Social History Tobacco Use Types Packs/Day Years [...] Encounters Date Type Department Care Team (Late Contact Info) Description 10/06/2025 8:05 AM EST Blood Draw [facility] Transplant Clinic [address] [facility] [address] [place] [address] Park Sauer MD [address] [facility] [address] [place] [address] [email or web address] 10/13/2025 8:00 AM EST Office Visit [facility] Transplant Clinic [address] [place] [address] Park Sauer MD [address] [place] [address] [address] [place] [address] [email or web address] documented as of this encounter Visit Diagnoses Not on filedocumented in this encounter Care Teams Founder And President Relationship Specialty Start Date End Date Mónica Dawkins MD [address] [place] [address] PCP - General Internal Medicine 11/11/19 documented as of this encounter Additional Source Comments The information contained in this document represents components of the legal health record. It is not the complete legal health record.[facility]
--- OUTSIDE RECORDS SUMMARY | 2025-09-22 11:07 | XMS_ITS | Encounter Summary ---
Author Organization [facility] Address [address] [facility] [address] [place] [address] Phone Care Team Providers Care First Aid Instructor Name Role Phone Mónica Dawkins MD Primary Care Provider [phone] Encounter Details Date Type Department Care Team (Late Contact Info) Description 04/03/2023 Anti-coag visit [facility] [address] [facility] [address] [place] [address] Beata Seay RN [email or web address] Social History Tobacco Use Types Packs/Day Years Used Date Smoking Tobacco: Never Smokeless Tobacco: Never Alcohol Use Standard Drinks/Week Comments Not Currently 0 (1 standard drink = 0.6 oz pur e alcohol) Education Answer Date Recorded Are you interested in more education? Not on maury e 03/23/2023 Are you concerned about learning? Not on file 03/23/2023 No 03/23/2023 No 03/23/2023 Sex and Gender Information Value Date Recorded Sex Assigned at Not on file Legal Sex Male 5:21 PM EST Gender Identity Not on file Sexual Orientation Not on file documented as of this encounter Plan of Treatment Upcoming Encounters Date Type Department Care Team (Late st Contact Info) Description 10/06/2025 8:05 AM EST Blood Draw [facility] Trans[facility] [address] [facility] [address] [place] [address] Park Sauer MD 55 [facility] [address] [place] [address] [email or web address] 10/13/2025 8:00 AM EST Office Visit [facility] Trans[facility] [address] [facility] [address] [place] [address] Park Sauer MD 55 [facility] [address] [place] [address] [email or web address] documented as of this encounter Visit Diagnoses Not on filedocumented in this encounter Care Teams First Aid Instructor Relationship Specialty Start Date End Date Mónica Dawkins MD [address] [place] [address] PCP - General Internal Medicine 11/11/19 documented as of this encounter Additional Source Comments The information contained in this document represents components of the legal health record. It is not the complete legal health record.[facility]
--- OUTSIDE RECORDS SUMMARY | 2025-09-22 11:07 | XMS_ITS | Encounter Summary ---
Author Organization [facility] Address [address] [facility] [address] [place] [address] Phone Care Team Providers Care Moving Picture Producer Name Role Phone Mónica Dawkins MD Primary Care Provider [phone] Encounter Details Date Type Department Care Team (Late st Contact Info) Description 03/13/2023 Anti-coag visit [facility] Anticoagulation Management Service [address] [facility] [address] [place] [address] Beata Seay RN [email or web address] Social History Tobacco Use [...] Description 10/06/2025 8:05 AM EST Blood Draw [facility] Transplant Clinic [address] [place] [address] Park Sauer MD 55 [facility] [address] [place] [address] [email or web address] 10/13/2025 8:00 AM EST Office Visit [facility] Transplant Clinic [address] [place] [address] Park Sauer MD 55 [facility] [address] [place] [address] [email or web address] documented as of this encounter Visit Diagnoses Not on filedocumented in this encounter Care Teams Moving Picture Producer Relationship Specialty Start Date End Date Mónica Dawkins MD [address] [place] [address] PCP - General Internal Medicine 11/11/19 documented as of this encounter Additional Source Comments The information contained in this document represents components of the legal health record. It is not the complete legal health record.[facility]
--- OUTSIDE RECORDS SUMMARY | 2025-09-22 11:07 | XMS_ITS | Encounter Summary ---
Author Organization [facility] Address [address] [place] [address] Phone Care Team Providers Care Packaging Specialist Name Role Phone Mónica Dawkins MD Primary Care Provider [phone] Encounter Details Date Type Department Care Team ([facility] st Contact Info) Description 09/11/2024 Anti-coag [place] [facility] [address] [facility] [address] [place] [address] Jenny Spears RN 125 [place] [address] [email or web address] Social History Tobacco Use [...] Description 10/06/2025 8:05 AM EST Blood Draw [facility] [address] [address] Park Sauer MD [address] [place] [address] [email or web address] 10/13/2025 8:00 AM EST Office Visit [facility] [address] [address] Park Sauer MD [address] [place] [address] [email or web address] documented as of this encounter Visit Diagnoses Not on filedocumented in this encounter Care Teams Packaging Specialist Relationship Specialty Start Date End Date Mónica Dawkins MD [place] [address] PCP - General Internal Medicine 11/11/19 documented as of this encounter Additional Source Comments The information contained in this document represents components of the legal health record. It is not the complete legal health record.[facility]
--- OUTSIDE RECORDS SUMMARY | 2025-09-22 11:07 | XMS_ITS | Encounter Summary ---
Author Organization [facility] Address [address] [employer] [facility] [address] [place] [address] Phone Care Team Providers Care Web Applications Architect Name Role Phone Mónica Dawkins MD Primary Care Provider [phone] Encounter Details Date Type Department Care Team (Late st Contact Info) Description 01/30/2023 Anti-coag visit [facility] 125 [facility] [address] [place] [address] Josefa Oliva, RN 125 [place] [address] [email or web address] Social History Tobacco Use Types Packs/Day Years [...] 8:05 AM EST Blood Draw [facility] 165 [facility] [address] [place] [address] Park Sauer MD [address] [facility] [place] [address] [email or web address] 10/13/2025 8:00 AM EST Office Visit [facility] [address] [facility] [address] [place] [address] Park Sauer MD [address] [place] [address] [address] [place] [address] [email or web address] documented as of this encounter Visit Diagnoses Not on filedocumented in this encounter Care Teams Web Applications Architect Relationship Specialty Start Date End Date Mónica Dawkins MD [address] [place] [address] PCP - General Internal Medicine 11/11/19 documented as of this encounter Additional Source Comments The information contained in this document represents components of the legal health record. It is not the complete legal health record.[facility]
--- OUTSIDE RECORDS SUMMARY | 2025-09-22 11:07 | XMS_ITS | Encounter Summary ---
Author Organization [facility] Address [address] [place] [address] Phone Care Team Providers Care Section Hand Name Role Phone Mónica Dawkins MD Primary Care Provider [phone] Encounter Details Date Type Department Care Team ([facility] st Contact Info) Description 10/10/2024 Anti-coag visit [facility] Anticoagulation Management Service 125 [facility] [address] [place] [address] Teodora Menendez, RN 125 [place] [address] [email or web address] Social History Tobacco Use [...] 8:05 AM EST Blood Draw [facility] Transplant Clinic [address] [address] Park Sauer MD [address] [place] [address] [email or web address] 10/13/2025 8:00 AM EST Office Visit [facility] Transplant Clinic [address] [address] Park Sauer MD [address] [place] [address] [email or web address] documented as of this encounter Visit Diagnoses Not on filedocumented in this encounter Care Teams Section Hand Relationship Specialty Start Date End Date Mónica Dawkins MD [facility] [place] [address] PCP - General Internal Medicine 11/11/19 documented as of this encounter Additional Source Comments The information contained in this document represents components of the legal health record. It is not the complete legal health record.[facility]
--- OUTSIDE RECORDS SUMMARY | 2025-09-22 11:07 | XMS_ITS | Encounter Summary ---
Author Organization [facility] Address [address] [facility] [address] [place] [address] Phone Care Team Providers Care Mba Internship Name Role Phone Mónica Dawkins MD Primary Care Provider [phone] Encounter Details Date Type Department Care Team (Late st Contact Info) Description 04/04/2022 Anti-coag visit [facility]tico[facility] Management Service [address] [facility] [address] [place] [address] Beata Seay RN [email or web address] Social History Tobacco Use Types Packs/Day Years [...] Description 10/06/2025 8:05 AM EST Blood Draw [facility] Transplant Clinic [address] [place] [address] Park Sauer MD 55 [facility] [address] [place] [address] [email or web address] 10/13/2025 8:00 AM EST Office Visit [facility] Trans[facility] Clinic [address] [place] [address] Park Sauer MD 55 [facility] [address] [place] [address] [email or web address] documented as of this encounter Visit Diagnoses Not on filedocumented in this encounter Care Teams Mba Internship Relationship Specialty Start Date End Date Mónica Dawkins MD [address] [place] [address] PCP - General Internal Medicine 11/11/19 documented as of this encounter Additional Source Comments The information contained in this document represents components of the legal health record. It is not the complete legal health record.[facility]
--- OUTSIDE RECORDS SUMMARY | 2025-09-22 11:07 | XMS_ITS | Encounter Summary ---
Author Organization [facility] Address [address] [place] [address] Phone Care Team Providers Care Campus Safety Officer Name Role Phone Mónica Dawkins MD Primary Care Provider [phone] Encounter Details Date Type Department Care Team (Late Contact Info) Description 06/29/2023 Anti-coag visit [facility] [address] [place] [address] Beata Seay RN [email or web address] Social History Tobacco Use Types Packs/Day Years [...] AM EST Blood Draw [facility] [address] [address] Park Sauer MD [address] [place] [address] [place] [address] [email or web address] 10/13/2025 8:00 AM EST Office Visit [facility] [address] [address] Park Sauer MD [address] [place] [address] [place] [address] [email or web address] documented as of this encounter Visit Diagnoses Not on filedocumented in this encounter Care Teams Campus Safety Officer Relationship Specialty Start Date End Date Mónica Dawkins MD [place] [address] PCP - General Internal Medicine 11/11/19 documented as of this encounter Additional Source Comments The information contained in this document represents components of the legal health record. It is not the complete legal health record.[facility]
--- OUTSIDE RECORDS SUMMARY | 2025-09-22 11:07 | XMS_ITS | Encounter Summary ---
Author Organization [facility] Address [address] [facility] [address] [place] [address] Phone Care Team Providers Care Bindery Technician Name Role Phone Mónica Dawkins MD Primary Care Provider [phone] Encounter Details Date Type Department Care Team (Late st Contact Info) Description 03/29/2022 Procedure Pass [facility] PERIOPERATIVE DEPT [address] [place] [phone] Social History Tobacco Use Types Packs/Day Years [...] Description 10/06/2025 8:05 AM EST Blood Draw [facility] Transplant Clinic [address] [address] Park Sauer MD 55 [facility] [address] [place] [address] [email or web address] 10/13/2025 8:00 AM EST Office Visit [facility] Transplant Clinic [address] [address] Park Sauer MD [address] [place] [address] [email or web address] documented as of this encounter Visit Diagnoses Not on filedocumented in this encounter Care Teams Bindery Technician Relationship Specialty Start Date End Date Mónica Dawkins MD [address] [place] [address] PCP - General Internal Medicine 11/11/19 documented as of this encounter Additional Source Comments The information contained in this document represents components of the legal health record. It is not the complete legal health record.[facility]
--- OUTSIDE RECORDS SUMMARY | 2025-09-22 11:07 | XMS_ITS | Encounter Summary ---
Author Organization [facility] Address [address] [place] [address] Phone Care Team Providers Care Art History Instructor Name Role Phone Mónica Dawkins MD Primary Care Provider [phone] Encounter Details Date Type Department Care Team ([facility] st Contact Info) Description 09/25/2024 Anti-coag visit [facility] Anticoagulation Management Service 125 [facility] [address] [place] [address] Teodora Menendez, RN 125 [place] [address] [email or web address] Social History Tobacco Use Types Packs/Day Years [...] 10/06/2025 8:05 AM EST Blood Draw [facility] Transplant Clinic [address] [address] Park Sauer MD [address] [place] [address] [email or web address] 10/13/2025 8:00 AM EST Office Visit [facility] Transplant Clinic [address] [address] Park Sauer MD [address] [place] [address] [email or web address] documented as of this encounter Visit Diagnoses Not on filedocumented in this encounter Care Teams Art History Instructor Relationship Specialty Start Date End Date Mónica Dawkins MD [facility] [place] [address] PCP - General Internal Medicine 11/11/19 documented as of this encounter Additional Source Comments The information contained in this document represents components of the legal health record. It is not the complete legal health record.[facility]
--- OUTSIDE RECORDS SUMMARY | 2025-09-22 11:07 | XMS_ITS | Encounter Summary ---
Author Organization [facility] Address [address] [facility] [address] [place] [address] Phone Care Team Providers Care Mechanical Car Checker Name Role Phone Mónica Dawkins MD Primary Care Provider [phone] Encounter Details Date Type Department Care Team (Late st Contact Info) Description 04/27/2022 Anti-coag [place] [facility] [place] [place] [facility] [address] [facility] [address] [place] [address] Beata Seay RN [email or web address] Social History Tobacco Use Types Packs/Day Years [...] Description 10/06/2025 8:05 AM EST Blood Draw [facility] [place] [address] [place] [address] Park Sauer MD 55 [facility] [address] [place] [address] [email or web address] 10/13/2025 8:00 AM EST Office Visit [facility] [place] [address] [place] [address] Park Sauer MD 55 [facility] [address] [place] [address] REMEDIOSJOVANYTONEY@[email or web address] documented as of this encounter Visit Diagnoses Not on filedocumented in this encounter Care Teams Mechanical Car Checker Relationship Specialty Start Date End Date Mónica Dawkins MD [address] [place] [address] PCP - General Internal Medicine 11/11/19 documented as of this encounter Additional Source Comments The information contained in this document represents components of the legal health record. It is not the complete legal health record.[facility]
--- OUTSIDE RECORDS SUMMARY | 2025-09-22 11:07 | XMS_ITS | Encounter Summary ---
Author Organization [facility] Address [address] [place] [address] Phone Care Team Providers Care Water Valve Repairer Name Role Phone Mónica Dawkins MD Primary Care Provider [phone] Encounter Details Date Type Department Care Team ([facility] st Contact Info) Description 05/01/2023 Anti-coag visit [facility] Anticoagulation Management Service [address] [facility] [address] [place] [address] Josefa Oliva, RN 125 [place] [address] [email or web address] Social History Tobacco Use Types Packs/Day Years [...] Description 10/06/2025 8:05 AM EST Blood Draw [facility] Transplant Clinic [address] [address] Park Sauer MD [address] [place] [address] [email or web address] 10/13/2025 8:00 AM EST Office Visit [facility] Transplant Clinic [address] [address] Park Sauer MD [address] [place] [address] [email or web address] documented as of this encounter Visit Diagnoses Not on filedocumented in this encounter Care Teams Water Valve Repairer Relationship Specialty Start Date End Date Mónica Dawkins MD [place] [address] PCP - General Internal Medicine 11/11/19 documented as of this encounter Additional Source Comments The information contained in this document represents components of the legal health record. It is not the complete legal health record.[facility]
--- OUTSIDE RECORDS SUMMARY | 2025-09-22 11:07 | XMS_ITS | Encounter Summary ---
Author Organization [facility] Address [address] [facility] [address] [place] [address] Phone Care Team Providers Care Inner Layer Scrubber Tender Name Role Phone Mónica Dawkins MD Primary Care Provider [phone] Encounter Details Date Type Department Care Team (Late st Contact Info) Description 05/11/2022 Anti-coag visit [facility] Antico[facility] Management Service [address] [facility] [address] [place] [address] Beata Seay RN [email or web address] Social History Tobacco Use Types Packs/Day Years [...] Description 10/06/2025 8:05 AM EST Blood Draw [facility] Transplant Clinic [address] [place] [address] Park Sauer MD 55 [facility] [address] [place] [address] [email or web address]@[email or web address] 10/13/2025 8:00 AM EST Office Visit [facility] Transplant Clinic [address] [place] [address] Park Sauer MD 55 [facility] [address] [place] [address] REMEDIOSJOVANYTONEY@[email or web address] documented as of this encounter Visit Diagnoses Not on filedocumented in this encounter Care Teams Inner Layer Scrubber Tender Relationship Specialty Start Date End Date Mónica Dawkins MD [address] [place] [address] PCP - General Internal Medicine 11/11/19 documented as of this encounter Additional Source Comments The information contained in this document represents components of the legal health record. It is not the complete legal health record.[facility]
--- OUTSIDE RECORDS SUMMARY | 2025-09-22 11:07 | XMS_ITS | Encounter Summary ---
Author Organization [facility] Address [address] [facility] [address] [place] [address] Phone Care Team Providers Care Acquisition Consultant Name Role Phone Mónica Dawkins MD Primary Care Provider Encounter Details Date Type Department Care Team (Late st Contact Info) Description 03/16/2022 Anti-coag visit [facility]tico[facility] Management Service 125 [facility] 7[address] [place] [address] Anjana Diana RN 125 [place] [address] [email or web address] Social History Tobacco Use Types Packs/Day Years [...] 10/06/2025 8:05 AM EST Blood Draw [facility] [address] [facility] [address] [place] [address] Park Sauer MD 55 [facility] [address] [place] [address] [email or web address] 10/13/2025 8:00 AM EST Office Visit [facility] [address] [facility] [address] [place] [address] Park Sauer MD [address] [place] [address] [address] [place] [address] [email or web address] documented as of this encounter Visit Diagnoses Not on filedocumented in this encounter Care Teams Acquisition Consultant Relationship Specialty Start Date End Date Mónica Dawkins MD [address] [place] [address] PCP - General Internal Medicine 11/11/19 documented as of this encounter Additional Source Comments The information contained in this document represents components of the legal health record. It is not the complete legal health record.[facility]
--- OUTSIDE RECORDS SUMMARY | 2025-09-22 11:07 | XMS_ITS | Encounter Summary ---
Author Organization [facility] Address [address] [employer] [facility] [address] [place] [address] Phone Care Team Providers Care Cdl Company Flatbed Driver Name Role Phone Mónica Dawkins MD Primary Care Provider [phone] Encounter Details Date Type Department Care Team (Late st Contact Info) Description 02/13/2023 Anti-coag visit [facility]tico[facility] 125 [facility] [address] [place] [address] Beata Seay RN [email or web address] Social History Tobacco Use Types [...] Description 10/06/2025 8:05 AM EST Blood Draw [facility] Trans[facility] [address] [place] [address] Pakr Sauer MD 55 [facility] [address] [place] [address] [email or web address] 10/13/2025 8:00 AM EST Office Visit [facility] Trans[facility] [address] [place] [address] Park Sauer MD 55 [facility] [address] [place] [address] [email or web address]@[email or web address] documented as of this encounter Visit Diagnoses Not on filedocumented in this encounter Care Teams Cdl Company Flatbed Driver Relationship Specialty Start Date End Date Mónica Dawkins MD [address] [place] [address] PCP - General Internal Medicine 11/11/19 documented as of this encounter Additional Source Comments The information contained in this document represents components of the legal health record. It is not the complete legal health record.[facility]
--- OUTSIDE RECORDS SUMMARY | 2025-09-22 11:07 | XMS_ITS | Encounter Summary ---
Author Organization [facility] Address [address] [employer] [address] [place] [address] Phone Care Team Providers Care Edger Tailer Name Role Phone Mónica Dawkins MD Primary Care Provider [phone] Encounter Details Date Type Department Care Team (Late Contact Info) Description 05/08/[address] [facility] Anticoagulation Management Service [address] [place] [address] Beata Seay RN [email or web address] Social History Tobacco Use Types Packs/Day Years [...] Description 10/06/2025 8:[address] [facility] Trans[facility] Clinic [address] [address] Park Sauer MD [address] [place] [address] [place] [address] [email or web address] 10/13/2025 8:00 AM EST Office Visit [facility] Trans[facility] [address] [address] Park Sauer MD [address] [place] [address] [place] [address] [email or web address] documented as of this encounter Visit Diagnoses Not on filedocumented in this encounter Care Teams Edger Tailer Relationship Specialty Start Date End Date Mónica Dawkins MD [facility] [place] [address] PCP - General Internal Medicine 11/11/19 documented as of this encounter Additional Source Comments The information contained in this document represents components of the legal health record. It is not the complete legal health record.[facility]
--- OUTSIDE RECORDS SUMMARY | 2025-09-22 11:08 | XMS_ITS | Encounter Summary ---
Author Organization [facility] Address [address] [facility] [address] [place] [address] Phone Care Team Providers Care Plant Operations Coordinator Name Role Phone Mónica Dawkins MD Primary Care Provider [phone] Encounter Details Date Type Department Care Team (Late st Contact Info) Description 06/07/2022 Anti-coag visit [facility] Anticoagulation Management Service [address] [facility] [address] [place] [address] Beata Seay RN [email or web address] [...] Description 10/06/2025 8:05 AM EST Blood Draw [facility] Transplant Clinic [address] [place] [address] Park Sauer MD 55 [facility] [address] [place] [address] [email or web address] 10/13/2025 8:00 AM EST Office Visit [facility] Transplant Clinic [address] [place] [address] Park Sauer MD 55 [facility] [address] [place] [address] [email or web address] documented as of this encounter Visit Diagnoses Not on filedocumented in this encounter Care Teams Plant Operations Coordinator Relationship Specialty Start Date End Date Mónica Dawkins MD [address] [place] [address] PCP - General Internal Medicine 11/11/19 documented as of this encounter Additional Source Comments The information contained in this document represents components of the legal health record. It is not the complete legal health record.[facility]
--- OUTSIDE RECORDS SUMMARY | 2025-09-22 11:08 | XMS_ITS | Encounter Summary ---
Author Organization [facility] Address [address] [employer] [address] [place] [address] Phone Care Team Providers Care Customs Entry Writer Name Role Phone Mónica Dawkins MD Primary Care Provider [phone] Encounter Details Date Type Department Care Team ([facility] st Contact Info) Description 08/28/2023 Anti-coag visit [facility] Antico[facility] Management Service [address] [facility] [address] [place] [address] Laura Chacon RN 125 [place] [address] [email or web address] Social History Tobacco Use Types Packs/Day [...] Description 10/06/2025 8:05 AM EST Blood Draw [facility] Trans[facility] [address] [address] Park Sauer MD [address] [place] [address] [email or web address] 10/13/2025 8:00 AM EST Office Visit [facility] [address] [address] Park Sauer MD [address] [place] [address] JYOTI@[email or web address] documented as of this encounter Visit Diagnoses Not on filedocumented in this encounter Care Teams Customs Entry Writer Relationship Specialty Start Date End Date Mónica Dawkins MD [address] [place] [address] PCP - General Internal Medicine 11/11/19 documented as of this encounter Additional Source Comments The information contained in this document represents components of the legal health record. It is not the complete legal health record.[facility]
--- OUTSIDE RECORDS SUMMARY | 2025-09-22 11:08 | XMS_ITS | Encounter Summary ---
Author Organization [facility] Address [address] [employer] [address] [place] [address] Phone Care Team Providers Care Airframe And Power Plant Mechanic Name Role Phone Mónica Dawkins MD Primary Care Provider [phone] Encounter Details Date Type Department Care Team ([facility] st Contact Info) Description 12/11/2023 Anti-coag visit [facility] Antico[facility] Management Service 125 [facility] [address] [place] [address] Teodora Menendez, RN 125 [place] [address] [email or web address] Social History Tobacco Use Types Packs/Day Years [...] Description 10/06/2025 8:05 AM EST Blood Draw [facility] Trans[facility] Clinic [address] [address] Park Sauer MD [address] [place] [address] [email or web address] 10/13/2025 8:00 AM EST Office Visit [facility] Trans[facility] Clinic [address] [address] Park Sauer MD [address] [place] [address] [email or web address] documented as of this encounter Visit Diagnoses Not on filedocumented in this encounter Care Teams Airframe And Power Plant Mechanic Relationship Specialty Start Date End Date Mónica Dawkins MD [place] [address] PCP - General Internal Medicine 11/11/19 documented as of this encounter Additional Source Comments The information contained in this document represents components of the legal health record. It is not the complete legal health record.[facility]
--- OUTSIDE RECORDS SUMMARY | 2025-09-22 11:08 | XMS_ITS | Encounter Summary ---
Author Organization [facility] Address [address] [employer] [facility] [address] [place] [address] Phone Care Team Providers Care Airline Mechanic Name Role Phone Mónica Dawkins MD Primary Care Provider [phone] Encounter Details Date Type Department Care Team (Late st Contact Info) Description 08/29/2022 Anti-coag visit [facility]tico[facility] Service 125 [facility] [address] [place] [address] Beata Seay RN [email or web address] Social History Tobacco Use Types Packs/Day Years [...] Description 10/06/2025 8:05 AM EST Blood Draw [facility] [address] [place] [address] Park Sauer MD 55 [facility] [address] [place] [address] [email or web address]@[facility] 10/13/2025 8:00 AM EST Office Visit [facility] [address] [place] [address] Park Sauer MD 55 [facility] [address] [place] [address] [email or web address] documented as of this encounter Visit Diagnoses Not on filedocumented in this encounter Care Teams Airline Mechanic Relationship Specialty Start Date End Date Mónica Dawkins MD [address] [place] [address] PCP - General Internal Medicine 11/11/19 documented as of this encounter Additional Source Comments The information contained in this document represents components of the legal health record. It is not the complete legal health record.[facility]
--- OUTSIDE RECORDS SUMMARY | 2025-09-22 11:08 | XMS_ITS | Encounter Summary ---
Author Organization [facility] Address [address] [employer] [address] [place] [address] Phone Care Team Providers Care Shell Reprint Operator Name Role Phone Mónica Dawkins MD Primary Care Provider [phone] Encounter Details Date Type Department Care Team ([facility] Contact Info) Description 10/23/2024 Anti-coag visit [facility]tico[facility] Management Service 125 [facility] [address] [place] [address] Teodora Menendez, RN 125 [place] [address] [email or web address] Social History [...] Description 10/06/2025 8:05 AM EST Blood Draw [facility] Trans[facility] Clinic [address] [address] Park Sauer MD [address] [place] [address] [email or web address] 10/13/2025 8:00 AM EST Office Visit [facility] Trans[facility] Clinic [address] [address] Park Sauer MD [address] [place] [address] JYOTI@[facility] documented as of this encounter Visit Diagnoses Not on filedocumented in this encounter Care Teams Shell Reprint Operator Relationship Specialty Start Date End Date Mónica Dawkins MD [facility] [place] [address] PCP - General Internal Medicine 11/11/19 documented as of this encounter Additional Source Comments The information contained in this document represents components of the legal health record. It is not the complete legal health record.[facility]
--- OUTSIDE RECORDS SUMMARY | 2025-09-22 11:08 | XMS_ITS | Encounter Summary ---
Author Organization [facility] Address [address] [employer] [address] [place] [address] Phone Care Team Providers Care Facilities Custodian Name Role Phone Mónica Dawkins MD Primary Care Provider [phone] Encounter Details Date Type Department Care Team ([facility] st Contact Info) Description 10/15/2024 Anti-coag visit [facility] Service [address] [facility] [address] [place] [address] Teodora Menendez, RN 125 [place] [address] [email or web address] Social History Tobacco Use Types [...] Description 10/06/2025 8:05 AM EST Blood Draw [facility] [address] [address] Park Sauer MD [address] [place] [address] [email or web address] 10/13/2025 8:00 AM EST Office Visit [facility] [address] [address] Park Sauer MD [address] [place] [address] [email or web address] documented as of this encounter Visit Diagnoses Not on filedocumented in this encounter Care Teams Facilities Custodian Relationship Specialty Start Date End Date Mónica Dawikns MD [facility] [place] [address] PCP - General Internal Medicine 11/11/19 documented as of this encounter Additional Source Comments The information contained in this document represents components of the legal health record. It is not the complete legal health record.[facility]
--- OUTSIDE RECORDS SUMMARY | 2025-09-22 11:08 | XMS_ITS | Encounter Summary ---
Author Organization [facility] Address [address] [employer] [facility] [address] [place] [address] Phone Care Team Providers Care Baggage Agent Supervisor Name Role Phone Mónica Dawkins MD Primary Care Provider [phone] Encounter Details Date Type Department Care Team ([facility] Contact Info) Description 09/04/2023 Anti-coag visit [facility] 125 [facility] [address]65 [place] [address] Khushi Hooks, CAMILLA 125 [place] [address] [email or web address] Social History Tobacco Use Types Packs/Day Years [...] Description 10/06/2025 8:05 AM EST Blood Draw [facility] [address] [address] Park Sauer MD [address] [place] [address] [place] [address] JYOTI@[facility] 10/13/2025 8:00 AM EST Office Visit [facility] [address] [address] Park Sauer MD [address] [place] [address] JYOTI@[facility] documented as of this encounter Visit Diagnoses Not on filedocumented in this encounter Care Teams Baggage Agent Supervisor Relationship Specialty Start Date End Date Mónica Dawkins MD [address] [place] [address] PCP - General Internal Medicine 11/11/19 documented as of this encounter Additional Source Comments The information contained in this document represents components of the legal health record. It is not the complete legal health record.[facility]
--- OUTSIDE RECORDS SUMMARY | 2025-09-22 11:08 | XMS_ITS | Encounter Summary ---
Author Organization [facility] Address [address] [employer] [address] [place] [address] Phone Care Team Providers Care Clinical Documentation Nurse Name Role Phone Mónica Dawkins MD Primary Care Provider [phone] Encounter Details Date Type Department Care Team ([facility] st Contact Info) Description 10/23/2023 Anti-coag visit [facility]tico[facility] Management Service 125 [facility] [address] [place] [address] Teodora Menendez, RN 125 [place] [address] [email or web address] Social History Tobacco Use Types Packs/Day Years [...] 10/06/2025 8:05 AM EST Blood Draw [facility] Transplant Clinic [address] [address] Park Sauer MD [address] [place] [address] JYOTI@[facility] 10/13/2025 8:00 AM EST Office Visit [facility] Trans[facility] Clinic [address] [address] Park Sauer MD [address] [place] [address] [email or web address] documented as of this encounter Visit Diagnoses Not on filedocumented in this encounter Care Teams Clinical Documentation Nurse Relationship Specialty Start Date End Date Mónica Dawkins MD [facility] [place] [address] PCP - General Internal Medicine 11/11/19 documented as of this encounter Additional Source Comments The information contained in this document represents components of the legal health record. It is not the complete legal health record.[facility]
--- OUTSIDE RECORDS SUMMARY | 2025-09-22 11:08 | XMS_ITS | Encounter Summary ---
Author Organization [facility] Address [address] [employer] [address] [place] [address] Phone Care Team Providers Care Planning Associate Name Role Phone Mónica Dawkins MD Primary Care Provider [phone] Encounter Details Date Type Department Care Team ([facility] st Contact Info) Description 11/07/2023 [place]ag [place] [facility] 125 [facility] [address] [place] [address] Teodora Menendez, RN 125 [place] [address] [email or web address] [...] 10/06/2025 8:05 AM EST Blood Draw [facility] [address] [address] Park Sauer MD [address] [place] [address] [email or web address] 10/13/2025 8:00 AM EST Office Visit [facility] [address] [address] Park Sauer MD [address] [place] [address] [email or web address] documented as of this encounter Visit Diagnoses Not on filedocumented in this encounter Care Teams Planning Associate Relationship Specialty Start Date End Date Mónica Dawkins MD [facility] [place] [address] PCP - General Internal Medicine 11/11/19 documented as of this encounter Additional Source Comments The information contained in this document represents components of the legal health record. It is not the complete legal health record.[facility]
--- OUTSIDE RECORDS SUMMARY | 2025-09-22 11:08 | XMS_ITS | Encounter Summary ---
Author Organization [facility] Address [address] [employer] [address] [place] [address] Phone Care Team Providers Care Justice Court Judge Name Role Phone Mónica Dawkins MD Primary Care Provider [phone] Encounter Details Date Type Department Care Team ([facility] st Contact Info) Description 10/29/2024 [place]coag [place] [facility] [place] [place] 125 [facility] [address] [place] [address] Teodora Menendez, RN 125 [place] [address] [email or web address] Social History Tobacco Use Types [place] [facility] [place] [address] [address] Park Sauer MD [address] [place] [address] [email or web address] 10/13/2025 8:00 AM EST Office Visit [facility] [address] [address] Park Sauer MD [address] [place] [address] [email or web address] documented as of this encounter Visit Diagnoses Not on filedocumented in this encounter Care Teams Justice Court Judge Relationship Specialty Start Date End Date Mónica Dawkins MD [facility] [place] [address] PCP - General Internal Medicine 11/11/19 documented as of this encounter Additional Source Comments The information contained in this document represents components of the legal health record. It is not the complete legal health record.[facility]
--- OUTSIDE RECORDS SUMMARY | 2025-09-22 11:08 | XMS_ITS | Encounter Summary ---
Author Organization [facility] Address [address] [place] [address] Phone Care Team Providers Care Semi Driver Name Role Phone Mónica Dawkins MD Primary Care Provider Encounter Details Date Type Department Care Team ([facility] st Contact Info) Description 10/15/2023 Anti-coag visit [facility] 125 [facility] [address] [place] [address] Teodora Menendez, RN 125 [place] [address] [email or web address] Social History Tobacco Use Types Packs/Day Years [...] [facility] [address] [address] Park Sauer MD [address] [place] [address] JYOTI@[facility] 10/13/2025 8:00 AM EST Office Visit [facility] [address] [address] Park Sauer MD [address] [place] [address] JYOTI@[email or web address] documented as of this encounter Visit Diagnoses Not on filedocumented in this encounter Care Teams Semi Driver Relationship Specialty Start Date End Date Mónica Dawkins MD [facility] [place] [address] PCP - General Internal Medicine 11/11/19 documented as of this encounter Additional Source Comments The information contained in this document represents components of the legal health record. It is not the complete legal health record.[facility]
--- OUTSIDE RECORDS SUMMARY | 2025-09-22 11:08 | XMS_ITS | Encounter Summary ---
Author Organization [facility] Address [address] [place] [address] Phone Care Team Providers Care Pile Driving Setter Name Role Phone Mónica Dawkins MD Primary Care Provider [phone] Encounter Details Date Type Department Care Team ([facility] st Contact Info) Description 12/12/2023 Anti-coag visit [facility] Anticoagulation Management Service 125 [facility] [address] [place] [address] Teodora Menendez, RN 125 [place] [address] [email or web address] Social History Tobacco Use Types Packs/Day Years [...] Description 10/06/2025 8:05 AM EST Blood Draw [facility] Transplant Clinic [address] [address] Park Sauer MD [address] [place] [address] [email or web address] 10/13/2025 8:00 AM EST Office Visit [facility] Transplant Clinic [address] [address] Park Sauer MD [address] [place] [address] [email or web address] documented as of this encounter Visit Diagnoses Not on filedocumented in this encounter Care Teams Pile Driving Setter Relationship Specialty Start Date End Date Mónica Dawkins MD [facility] [place] [address] PCP - General Internal Medicine 11/11/19 documented as of this encounter Additional Source Comments The information contained in this document represents components of the legal health record. It is not the complete legal health record.[facility]
--- OUTSIDE RECORDS SUMMARY | 2025-09-22 11:08 | XMS_ITS | Encounter Summary ---
Author Organization [facility] Address [address] [employer] [facility] [address] [place] [address] Phone Care Team Providers Care Vehicle Dismantler Name Role Phone Mónica Dawkins MD Primary Care Provider [phone] Encounter Details Date Type Department Care Team (Late st Contact Info) Description 09/07/2022 Anti-coag visit [facility] Antico[facility] Service 125 [facility] [address] [place] [address] Beata Seay RN [email or web address] Social History Tobacco Use Types Packs/Day Years [...] 8:05 AM EST Blood Draw [facility] Trans[facility] [address] [place] [address] Park Sauer MD [address] [facility] [address] [place] [address] [email or web address].count includes the [facility] 10/13/2025 8:00 AM EST Office Visit [facility] Trans[facility] [address] [place] [address] Park Sauer MD 55 [facility] [address] [place] [address] [email or web address] documented as of this encounter Visit Diagnoses Not on filedocumented in this encounter Care Teams Vehicle Dismantler Relationship Specialty Start Date End Date Mónica Dawkins MD [address] [place] [address] PCP - General Internal Medicine 11/11/19 documented as of this encounter Additional Source Comments The information contained in this document represents components of the legal health record. It is not the complete legal health record.[facility]
--- OUTSIDE RECORDS SUMMARY | 2025-09-22 11:08 | XMS_ITS | Encounter Summary ---
Author Organization [facility] Address [address] [place] [address] Phone Care Team Providers Care Supervisor Ornamental Ironworking Name Role Phone Mónica Dawkins MD Primary Care Provider [phone] Encounter Details Date Type Department Care Team ([facility] st Contact Info) Description 12/26/2023 Anti-coag visit [facility] Anticoagulation Management Service 125 [facility] [address] [place] [address] Teodora Menendez, RN 125 [place] [address] [email or web address] Social History Tobacco Use Types [...] Description 10/06/2025 8:05 AM EST Blood Draw [facility] Transplant Clinic [address] [address] Park Sauer MD [address] [place] [address] [email or web address] 10/13/2025 8:00 AM EST Office Visit [facility] Transplant Clinic [address] [address] Park Sauer MD [address] [place] [address] [email or web address] documented as of this encounter Visit Diagnoses Not on filedocumented in this encounter Care Teams Supervisor Ornamental Ironworking Relationship Specialty Start Date End Date Mónica Dawkins MD [facility] [place] [address] PCP - General Internal Medicine 11/11/19 documented as of this encounter Additional Source Comments The information contained in this document represents components of the legal health record. It is not the complete legal health record.[facility]
--- OUTSIDE RECORDS SUMMARY | 2025-09-22 11:08 | XMS_ITS | Encounter Summary ---
Author Organization [facility] Address [address] [address] [place] [address] Phone Care Team Providers Care Anchorer Name Role Phone Mónica Dawkins MD Primary Care Provider Encounter Details Date Type Department Care Team ([facility] st Contact Info) Description 10/17/2024 Anti-coag visit [facility] Anticoagulation Management Service 125 [facility] [address] [place] [address] Jenny Spears RN 125 [place] [address] [email or web address] Social [...] Description 10/06/2025 8:05 AM EST Blood Draw [facility] Transplant Clinic [address] [address] Park Sauer MD [address] [place] [address] [email or web address] 10/13/2025 8:00 AM EST Office Visit [facility] Transplant Clinic [address] [address] Park Sauer MD [address] [place] [address] [email or web address] documented as of this encounter Visit Diagnoses Not on filedocumented in this encounter Care Teams Anchorer Relationship Specialty Start Date End Date Mónica Dawkins MD [facility] [place] [address] PCP - General Internal Medicine 11/11/19 documented as of this encounter Additional Source Comments The information contained in this document represents components of the legal health record. It is not the complete legal health record.[facility]
--- OUTSIDE RECORDS SUMMARY | 2025-09-22 11:08 | XMS_ITS | Encounter Summary ---
Author Organization [facility] Address [address] [employer] [employer] [facility] [address] [place] [address] Phone Care Team Providers Care Environmental Assistant Name Role Phone Mónica Dawkins MD Primary Care Provider [phone] Encounter Details Date Type Department Care Team (Late st Contact Info) Description 09/26/2022 Anti-coag visit [facility] Anticoagulation Management Service 125 [facility] [address] [place] [address] Beata Seay RN [email or web address] Social History Tobacco Use Types [...] Description 10/06/2025 8:05 AM EST Blood Draw [facility] Transplant Clinic [address] [place] [address] Park Sauer MD 55 [facility] [address] [place] [address] [email or web address] 10/13/2025 8:00 AM EST Office Visit [facility] Transplant Clinic [address] [place] [address] Park Sauer MD 55 [facility] [address] [place] [address] [email or web address] documented as of this encounter Visit Diagnoses Not on filedocumented in this encounter Care Teams Environmental Assistant Relationship Specialty Start Date End Date Mónica Dawkins MD [address] [place] [address] PCP - General Internal Medicine 11/11/19 documented as of this encounter Additional Source Comments The information contained in this document represents components of the legal health record. It is not the complete legal health record.[facility]
--- OUTSIDE RECORDS SUMMARY | 2025-09-22 11:08 | XMS_ITS | Encounter Summary ---
Author Organization [facility] Address [address] [employer] [address] [place] [address] Phone Care Team Providers Care Satellite Dish Technician Name Role Phone Mónica Dawkins MD Primary Care Provider [phone] Encounter Details Date Type Department Care Team ([facility] st Contact Info) Description 10/14/2024 Anti-coag visit [facility] Antico[facility] Management Service 125 [facility] [address] [place] [address] Teodora Menendez, RN 125 [place] [address] [email or web address] Social History Tobacco Use Types Packs/Day Years [...] [facility] [address] [address] Park Sauer MD [address] [place] [address] [email or web address] 10/13/2025 8:00 AM EST Office Visit [facility] [address] [address] Park Sauer MD [address] [place] [address] [email or web address] documented as of this encounter Visit Diagnoses Not on filedocumented in this encounter Care Teams Satellite Dish Technician Relationship Specialty Start Date End Date Mónica Dawkins MD [facility] [place] [address] PCP - General Internal Medicine 11/11/19 documented as of this encounter Additional Source Comments The information contained in this document represents components of the legal health record. It is not the complete legal health record.[facility]
--- OUTSIDE RECORDS SUMMARY | 2025-09-22 11:08 | XMS_ITS | Encounter Summary ---
Author Organization [facility] Address [address] [place] [address] Phone Care Team Providers Care Eyelet Cutter Name Role Phone Mónica Dawkins MD Primary Care Provider [phone] Encounter Details Date Type Department Care Team ([facility] st Contact Info) Description 08/18/2023 Anti-coag visit [facility] Anticoagulation Management Service 125 [facility] [address] [place] [address] Laura Chacon RN 125 [place] [address] [email or web address] Social History Tobacco Use Types Packs/Day [...] Description 10/06/2025 8:05 AM EST Blood Draw [facility] Transplant Clinic [address] [address] Park Sauer MD [address] [place] [address] [email or web address] 10/13/2025 8:00 AM EST Office Visit [facility] Transplant Clinic [address] [address] Park Sauer MD [address] [place] [address] [email or web address] documented as of this encounter Visit Diagnoses Not on filedocumented in this encounter Care Teams Eyelet Cutter Relationship Specialty Start Date End Date Mónica Dawkins MD [address] [place] [address] PCP - General Internal Medicine 11/11/19 documented as of this encounter Additional Source Comments The information contained in this document represents components of the legal health record. It is not the complete legal health record.[facility]
--- OUTSIDE RECORDS SUMMARY | 2025-09-22 11:08 | XMS_ITS | Encounter Summary ---
Author Organization [facility] Address [address] [employer] [address] [place] [address] Phone Care Team Providers Care Social Research Assistant Name Role Phone Mónica Dawkins MD Primary Care Provider [phone] Encounter Details Date Type Department Care Team ([facility] st Contact Info) Description 11/01/2023 Anti-coag visit [facility]tico[facility] Service 125 [facility] [address] [place] [address] Teodora Menendez, RN 125 [place] [address] [email or web address] Social History [...] Description 10/06/2025 8:05 AM EST Blood Draw [facility] [address] [address] Park Sauer MD [address] [place] [address] [email or web address] 10/13/2025 8:00 AM EST Office Visit [facility] [address] [address] Park Sauer MD [address] [place] [address] [email or web address] documented as of this encounter Visit Diagnoses Not on filedocumented in this encounter Care Teams Social Research Assistant Relationship Specialty Start Date End Date Mónica Dawkins MD [place] [address] PCP - General Internal Medicine 11/11/19 documented as of this encounter Additional Source Comments The information contained in this document represents components of the legal health record. It is not the complete legal health record.[facility]
--- OUTSIDE RECORDS SUMMARY | 2025-09-22 11:08 | XMS_ITS | Encounter Summary ---
Author Organization [facility] Address [address] [employer] [address] [place] [address] Phone Care Team Providers Care Industrial Relations Commissioner Name Role Phone Mónica Dawkins MD Primary Care Provider [phone] Encounter Details Date Type Department Care Team ([facility] st Contact Info) Description 11/21/2023 Anti-coag visit [facility] Anticoagulation Management Service 125 [facility] [address] [place] [address] Teodora Menendez, RN 125 [place] [address] [email or web address] Social History Tobacco Use Types Packs/Day Years [...] Description 10/06/2025 8:05 AM EST Blood Draw [facility] Transplant Clinic [address] [address] Park Sauer MD [address] [place] [address] [email or web address] 10/13/2025 8:00 AM EST Office Visit [facility] Transplant Clinic [address] [address] Park Sauer MD [address] [place] [address] [email or web address] documented as of this encounter Visit Diagnoses Not on filedocumented in this encounter Care Teams Industrial Relations Commissioner Relationship Specialty Start Date End Date Mónica Dawkins MD [facility] [place] [address] PCP - General Internal Medicine 11/11/19 documented as of this encounter Additional Source Comments The information contained in this document represents components of the legal health record. It is not the complete legal health record.[facility]
--- OUTSIDE RECORDS SUMMARY | 2025-09-22 11:08 | XMS_ITS | Encounter Summary ---
Author Organization [facility] Address [address] [employer] [facility] [address] [place] [address] Phone Care Team Providers Care Clinic Physician Name Role Phone Mónica Dawkins MD Primary Care Provider [phone] Encounter Details Date Type Department Care Team ([facility] st Contact Info) Description 08/24/2023 Anti-coag visit [facility]tico[facility] 125 [facility] [address] [place] [address] Shanda Suero, RN 125 [place] [address] [email or web address] Social History Tobacco Use Types Packs/Day Years [...] [facility] [address] [address] Park Sauer MD [address] [place] [address], [place] [address] [email or web address] 10/13/2025 8:00 AM EST Office Visit [facility] [address] [address] Park Sauer MD [address] [place] [address] [place] [address] [email or web address] documented as of this encounter Visit Diagnoses Not on filedocumented in this encounter Care Teams Clinic Physician Relationship Specialty Start Date End Date Mónica Dawkins MD [address] [place] [address] PCP - General Internal Medicine 11/11/19 documented as of this encounter Additional Source Comments The information contained in this document represents components of the legal health record. It is not the complete legal health record.[facility]
--- OUTSIDE RECORDS SUMMARY | 2025-09-22 11:09 | XMS_ITS | Encounter Summary ---
Author Organization [facility] Address [address] [employer] [address] [place] [address] Phone Care Team Providers Care Exhibit Preparator Name Role Phone Mónica Dawkins MD Primary Care Provider [phone] Encounter Details Date Type Department Care Team ([facility] st Contact Info) Description 08/31/2023 Anti-coag visit [facility]tico[facility] Management Service 125 [facility] [address] [place] [address] Eliana Guy, RN 125 [place] [address] [email or web address] Social History Tobacco Use Types Packs/Day Years [...] Blood Draw [facility] [address] [address] Park Sauer MD [address] [place] [address] [email or web address] 10/13/2025 8:00 AM EST Office Visit [facility] [address] [address] Park Sauer MD [address] [place] [address] [email or web address] documented as of this encounter Visit Diagnoses Not on filedocumented in this encounter Care Teams Exhibit Preparator Relationship Specialty Start Date End Date Mónica Dawkins MD [facility] [place] [address] PCP - General Internal Medicine 11/11/19 documented as of this encounter Additional Source Comments The information contained in this document represents components of the legal health record. It is not the complete legal health record.[facility]
--- OUTSIDE RECORDS SUMMARY | 2025-09-22 11:09 | XMS_ITS | Clinical Summary ---
Author Organization [facility] Address [address] [employer] [facility] [address] [place] [address] Phone Care Team Providers Care [employer] Spacelift Name Role Phone Mónica Dawkins MD Primary Care Provider [phone] Allergies Active Allergy Reactions Criticality Noted Date Comments Nitroglycerin Other (See Comments) 03/25/2003 hyypotension; Sirolimus Rash,Headaches 05/23/2011 Medications blood sugar diagnostic Strp stripsIndications:Josephine betes 1.5, managed as type 2 1 each by Miscellaneous route every morning. 120 strip 3 2016 Active magnesium oxide 500 mg TabIndications:Kidney replaced by transplant,Kidney transplanted,Immunosu ppressive management encounter following kidney transplant,Secondary hyperparathyroidism,S /P AVR (aortic valve replacement),Polycyst ic kidney disease,Hypertension secondary to other renal disorders Take 500 mg by mouth 2 (two) times a day. 180 each 3 2016 Active metoprolol tartrate (LOPRESSOR) 25 MG tabletIndications:Imm unosuppressive management encounter following kidney transplant,Diabetes 1.5, managed as type 2,Kidney replaced by transplant,Secondary hyperparathyroidism of renal origin,Polycystic kidney disease,S/P AVR (aortic valve replacement),Hyperten sohail secondary to other renal disorders,Secondary hyperparathyroidism Take 1 tablet (25 mg total) by mouth 2 (two) times a day. 180 tablet 4 2017 Active blood-glucose meter kitIndications:Kidney replaced by transplant Use as instructed 1 each 1 2018 Active blood sugar diagnostic Strp stripsIndications:Liudmila rodriguez replaced by transplant 1 each by Miscellaneous route as needed. 60 strip 11 2018 Active FREESTYLE 28 gauge lancetsIndications:Sarmad hartmann replaced by transplant USE TO TEST BLOOD SUGAR TWICE DAILY BEFORE BREAKFAST AND DINNER 100 each 4 2018 Active cholecalciferol (VITAMIN D3) 2,000 unit capsule Take by mouth daily. Active FREESTYLE LITE Strp strips USE TO TEST BLOOD GLUCOSE LEVELS TWICE DAILY AT BREAKFAST AND DINNER 100 strip 2019 Active furosemide (LASIX) 40 MG tabletIndications:Imm unosuppressive management encounter following kidney transplant,Polycystic kidney disease,S/P AVR (aortic valve replacement),Hyperten sohail secondary to other renal disorders,Kidney transplant status, cadaveric,Secondary hyperparathyroidism,S tatus post kidney transplant Take 0.25 tablets (10 mg total) by mouth daily. 90 tablet 3 2020 Active amLODIPine (NORVASC) 5 MG tabletIndications:Liudmila rodriguez replaced by transplant Take 1.5 tablets (7.5 mg total) by mouth daily. 90 tablet 3 2020 Active metFORMIN (GLUCOPHAGE-XR) 750 MG 24 hr tablet Take 750 mg by mouth nightly at bedtime. 2020 Active Medication-Free TextIndications:Pt reported Inject 0.75 mg under the skin once a week. Dulaglutide Indications: Pt reported Active glipiZIDE (GLUCOTROL XL) 5 MG 24 hr tabletIndications:Typ e 2 diabetes mellitus with hyperglycemia, without long-term current use of insulin Take 1 tablet (5 mg total) by mouth 2 (two) times a day. 180 tablet 3 2021 Active tamsulosin (FLOMAX) 0.4 mg CapIndications:Kidney replaced by transplant TAKE 1 CAPSULE DAILY 90 capsule 3 2022 Active finasteride (PROSCAR) 5 mg tabletIndications:BPH (benign prostatic hyperplasia) take 1 tablet daily 90 tablet 3 2023 Active cinacalcet (SENSIPAR) 30 mg tabletIndications:Ter tiary hyperparathyroidism take 2 tablets by mouth daily 60 tablet 11 2023 Active magnesium oxide (MAG-OX) 400 mg (241.3 mg elemental) tabletIndications:Kid jennifer replaced by transplant Take 1 tablet (400 mg total) by mouth 2 (two) times a day. 180 tablet 3 2023 Active pravastatin (PRAVACHOL) 40 MG tabletIndications:Hyp erlipidemia TAKE 1 TABLET NIGHTLY 90 tablet 3 2023 Active warfarin (COUMADIN) 3 MG tabletIndications:Chr onic anticoagulation TAKE UP TO ONE AND ONE-HALF TABLETS EVERY MORNING 135 tablet 3 2023 Active omeprazole (PRILOSEC) 40 MG capsuleIndications:GE RD (gastroesophageal reflux disease) TAKE 1 CAPSULE DAILY 1 HOUR BEFORE THE FIRST MEAL OF THE DAY 90 capsule 3 2024 Active sodium je-akwcmbjpfixlf-V phosphate (PHOSPHA 250 NEUTRAL) 250 mg elemental phosphorus TabIndications:Status post kidney transplant,Kidney transplant status, cadaveric,Immunosuppr essive management encounter following kidney transplant,Polycystic kidney disease,S/P AVR (aortic valve replacement),Secondar y hyperparathyroidism,H ypertension secondary to other renal disorders Take 1 tablet (250 mg of phosphate total) by mouth 2 (two) times a day. 180 tablet 3 2024 Active calcitriol (ROCALTROL) 0.25 MCG capsuleIndications:Ki dney replaced by transplant TAKE 2 CAPSULES DAILY 180 capsule 3 2024 Active mycophenolate mofetil (CELLCEPT) 250 mg capsuleIndications:Ki dney replaced by transplant TAKE TWO CAPSULES BY MOUTH TWICE A DAY 360 capsule 3 2024 Active tacrolimus (PROGRAF) 0.5 MG capsuleIndications:Ki dney transplanted TAKE 1 CAPSULE BY MOUTH 3 NIGHTS A WEEK 36 capsule 2 2024 Active dulaglutide (TRULICITY) 3 mg/0.5 mL subcutaneous injectionIndications: Type 2 diabetes mellitus with hyperglycemia, without long-term current use of insulin Inject 0.5 mL (3 mg total) under the skin every 7 days. 2024 Active predniSONE (DELTASONE) 5 MG tabletIndications:Kid jennifer replaced by transplant TAKE 1 TABLET DAILY WITH BREAKFAST 90 tablet 3 2024 Active predniSONE (DELTASONE) 5 MG tabletIndications:Kid jennifer replaced by transplant Take 1 tablet (5 mg total) by mouth daily with breakfast. 90 tablet 3 2024 Active tacrolimus (PROGRAF) 1 MG capsuleIndications:Sarmad hartmann transplanted TAKE ONE CAPSULE BY MOUTH EVERY MORNING AND TAKE ONE CAPSULE BY MOUTH EVERY EVENING 4 NIGHTS A WEEK. (TAKE EVENING DOSE OPPOSITE DAYS 0.5MG) 44 capsule 2 2024 Active aspirin 81 MG EC tabletIndications:Liudmila jennifer replaced by transplant TAKE 1 TABLET BY MOUTH EVERY MORNING 90 tablet 2024 Active aspirin 81 MG EC tabletIndications:Liudmila jennifer replaced by transplant TAKE 1 TABLET BY MOUTH EVERY MORNING 90 tablet 09/02 Discontinued Active Problems Problem Noted Date Diagnosed Date Encounter for aftercare following kidney transpl ant 03/20/2023 Chronic anticoagulation 03/20/2023 Coronary artery disease 03/29/2022 Bilateral carpal tunnel syndrome 03/07/2022 Pain in right hand 08/24/2021 Type 2 diabetes mellitus wit h hyperglycemia, without long-term current use of insulin 12/24/2018 Benign paroxysmal positional vertigo due to bilateral vestibular disorder 08/20/2018 Hypoparathyroidism 04/16/2018 Hyperparathyroidism 04/16/2018 Hypertension secondary to other renal disorders 12/18/2017 Diabetes 1.5, managed as type 2 08/15/2017 Immunosuppressive management encounter following kidney transplant 08/15/2017 Kidney replaced by transplant 08/15/2017 Secondary hyperparathyroidism 08/15/2017 Polycystic kidney disease 08/15/2017 S/P AVR (aortic valve replacement) 08/15/2017 Hypertension 08/15/2017 Hypertensive disorder 10/17/2012 Overview (01/17/2015): Hypertensive disorder Hoarse 10/17/2012 Overview (01/17/2015): Hoarseness Chronic renal impairment 06/15/2012 Overview (01/17/2015): Chronic renal impairment Encounters Date Type Department Care Team Description 09/19/2025 Anti-coag visit [facility] Anticoagulation Management Service [address] [address] Teodora Menendez, CAMILLA 09/06/2025 Anti-coag visit [facility] Anticoagulation Management Service [address] [address] Josefa Oliva, CAMILLA 09/01/2025 Refill [facility] Transplant Clinic [address] [address] Park Beck MD Medication Refill 08/22/2025 Anti-coag visit [facility] Anticoagulation Management Service [address] [address] Teodora Menendez RN 08/18/2025 Refill [facility] Transplant Clinic [address] [address] Park Beck MD Medication Refill 08/08/2025 Anti-coag visit [facility] Anticoagulation Management Service [address] [address] Teodora Menendez RN 07/29/2025 Refill [facility] Transplant Clinic [address] [place] [address] Park Beck MD Medication Refill 07/29/2025 Orders Only [facility] DIALYSIS VIRTUAL DEPARTMENT [address] [place] [address] Park Beck MD Kidney replaced by transplant; Hyperlipidemia 07/24/2025 Anti-coag visit [facility] Anticoagulation Management Service [address] [address] Teodora Menendez, CAMILLA 07/08/2025 Anti-coag visit [facility] Anticoagulation Management Service [address] [place] [address] Teodora Menendez, CAMILLA 07/01/2025 Orders Only [facility] Transplant Clinic [address] [place] [address] ProviderJah MD 06/24/2025 Anti-coag visit [facility] Anticoagulation Management Service [address] [place] [address] Josefa Oliva, CAMILLA 06/23/2025 8:20 AM EDT Office Visit [facility] Transplant Clinic [address] [place] [address] Park Beck MD Kidney replaced by transplant (Primary Dx); Immunosuppressive management encounter following kidney transplant; Type 2 diabetes mellitus with hyperglycemia, without long-term current use of insulin; Hyperparathyroidism; Polycystic kidney disease; S/P AVR (aortic valve replacement); Hypertension secondary to other renal disorders; Bilateral carpal tunnel syndrome; Chronic anticoagulation from Last 3 Months Immunizations Immunization Administration Dates Next Due INFLUENZA, SPLIT VIRUS, TRIVALENT PF 09/10/2012 Influenza, Unspecified Formulation 08/27(Deferred: Other - pt WBC 1.5),09/10/2007,09/11/2006,09/26/2005,1 Pneumococcal polysaccharide PPSV23 10/18(Deferred: Other),08/27/2012(Deferred: Other - pt's WBC 1.5),06/16/2012(Deferred: Other) Social History Tobacco Use Types Packs/Day Years [...] on file Sexual Orientation Not on file Last Filed Vital Signs Vital Sign Reading Time Taken Comments Blood Pressure 130/67 06/23/2025 7:53 AM EDT Pulse 64 06/23/2025 7:53 AM EDT Temperature 36.3 C (97.3 F) 06/23/2025 7:53 AM EDT Respiratory Rate 14 03/29/2022 3:30 PM EDT Oxygen Saturation 97% 06/23/2025 7:53 AM EDT Inhaled Oxygen Concentration - - Weight 73.9 kg (163 lb) 06/23/2025 7:53 AM EDT Height 160 cm (5' 3 ) 03/22/2022 8:34 AM EDT Body Mass Index 28.87 03/22/2022 8:34 AM EDT Plan of Treatment Upcoming Encounters Date Type Department Care Team (Late st Contact Info) Description 10/06/2025 8:05 AM EST Blood Draw [facility] Transplant Clinic [address] [address] Park Sauer MD [address] [place] [address] [email or web address] 10/13/2025 8:00 AM EST Office Visit [facility] Transplant Clinic [address] [address] Park Sauer MD [address] [place] [address] [email or web address] Health Maintenance Due Date Last Done Comments DEPRESSION SCREENING 1964 ZOSTER VACCINES (1 of 2) 1971 COLOGUARD 1997 COLONOSCOPY 1997 COLORECTAL CANCER SCREENING 1997 FIT TEST 1997 FOBT 1997 SIGMOIDOSCOPY 1997 VIRTUAL COLONOSCOPY 1997 RSV VACCINE (1 - Risk 50-74 years 1-dose series) 2002 DIABETIC EYE EXAM 08/14/2017 Adult Td,Tdap Booster 10/18/2023 10/18/2013 INFLUENZA VACCINE (#1) 2025 , 09/19/2022, 09/21/2021, Additional history exists COVID-19 VACCINE (2024- season) 2025 09/12/2024, 08/25/2023, 06/21/2022, Additional history exists HEMOGLOBIN A1C 12/10/2025 06/09/2025, 02/26, 02/10/2025, Additional history exists BLOOD PRESSURE 12/24/2025 06/23/2025 LIPID PANEL 06/09/2026 06/09/2025, 02/26, 11/04/2024, Additional history exists CREATININE LEVEL 08/11/2026 08/11/2025, , 06/09/2025, Additional history exists HEPATITIS C SCREENING Completed 06/15/2012 , 11/29/2011, 08/05/2005, Additional history exists PNEUMOCOCCAL VACCINES (50+ years) Completed 03/25/2025 SMOKING STATUS SCREENING (Once After 26 Yrs) Completed 06/23/2025 HIB VACCINES Aged Out No longer eligi ble based on patient's age to complete this topic MENINGOCOCCAL VACCINES (ACWY) Aged Out No longer eligible based on patient's age to complete this topic MENINGOCOCCAL VACCINES (B) Aged Out N o longer eligible based on patient's age to complete this topic Medical Devices Implanted Type Area Pig Conveyor Operator Device Identifier Shelf Expiration Date Model / Serial / Lot Prosthetic Valve Prosthetic Valve Heart Stent Stent Heart Procedures Procedure Name Priority Date/Time Associated Diagnosis Comments INR (HOME TEST) Routine 09/19/2025 12:00 AM EDT INR (HOME TEST) Routine 09/06/2025 12:00 AM EDT INR (HOME TEST) Routine 08/22/2025 12:00 AM EDT URINALYSIS Routine 08/11/2025 8:56 AM EDT MICROALBUMIN/CREATINI NE RATIO, RANDOM URINE Routine 08/11/2025 8:56 AM EDT TOTAL PROTEIN CREATININE RATIO, RANDOM URINE Routine 08/11/2025 8:56 AM EDT TACROLIMUS LEVEL Routine 08/11/2025 8:45 AM EDT CBC AND DIFFERENTIAL Routine 08/11/2025 8:45 AM EDT BASIC METABOLIC PANEL Routine 08/11/2025 8:45 AM EDT MAGNESIUM Routine 08/11/2025 8:45 AM EDT PHOSPHORUS Routine 08/11/2025 8:45 AM EDT INR (HOME TEST) Routine 08/08/2025 12:00 AM EDT INR (HOME TEST) Routine 07/24/2025 12:00 AM EDT INR (HOME TEST) Routine 07/08/2025 12:00 AM EDT INR (HOME TEST) Routine 06/24/2025 12:00 AM EDT HEMOGLOBIN A1C Routine 08/02/2023 8:11 AM EDT LIPID PANEL Routine 05/08/2023 8:37 AM EDT HISTORICAL LAB Routine 06/15/2012 3:40 PM EDT from Last 3 Months or Most Recently Relevant to Health Maintenance Results * INR (Home Test) (09/19/2025 12:00 AM EDT) Only the most recent of7 resultswithin the time period is included. INR (Home Test) 2.0 2.000 - 3.000 [facility] 09/19/2025 us Hubert Davey MD LAB BLOOD ORDERABLES Final Resul t [facility] * Total protein creatinine ratio, random urine (08/11/2025 8:56 AM EDT) Protein, urine - External 10 Creatinine, urine - External 48.0 Protein/Creatin ine ratio, urine - External 0.21 Urine 08/11/2025 8:56 AM EDT us Park Sauer MD URINE ORDERABLES [facility] al Result * Microalbumin/creatinine ratio, random urine (08/11/2025 8:56 AM EDT) Microalbumin, urine - External 28.3 Creatinine, urine - External 48.0 Urine Microalbumin/Cr eatinine Ratio - External 59 Urine 08/11/2025 8:56 AM EDT Park Sauer MD URINE ORDERABLES Fin al Result * Urinalysis (08/11/2025 8:56 AM EDT) Pathologist [facility] Glucose - External Negative Bilirubin - External Negative Ketones - External Negative Specific Allyn - External 1.012 Blood - External Negative pH - External 7.5 Protein - External Negative Urobilinogen - External 1.0 Nitrites - External Negative Urine 08/11/2025 8:56 AM EDT Park Sauer MD URINE ORDERABLES Fin al Result * Tacrolimus level (08/11/2025 8:45 AM EDT) Pathologist [facility] Tacrolimus level - External 6.3 08/11/2025 8:45 AM EDT Park Sauer MD LAB BLOOD ORDERABLES Final Result * CBC and differential (08/11/2025 8:45 AM EDT) Pathologist [facility] WBC - External 5.2 RBC - External 5.70 HGB - External 16.1 HCT - External 49.0 Platelets - External 94 Absolute Neuts - External 3.34 Absolute Lymphs - External 1.28 Absolute Monos - External 0.51 Absolute Eos - External 0.09 Absolute Basos - External 0.01 Abs Immature Grans - External 0.01 Blood 08/11/2025 8:45 AM EDT Park Sauer MD LAB BLOOD ORDERABLES Final Result * Phosphorus (08/11/2025 8:45 AM EDT) Phosphorus - External 2.5 08/11/2025 8:45 AM EDT Park Sauer MD LAB BLOOD ORDERABLES Final Result * Magnesium (08/11/2025 8:45 AM EDT) Pathologist [facility] Magnesium - External 1.6 08/11/2025 8:45 AM EDT Park Sauer MD LAB BLOOD ORDERABLES Final Result * Basic metabolic panel (08/11/2025 8:45 AM EDT) Pathologist [facility] Sodium - External 138 Chloride - External 104 Potassium - External 4.1 CO2 - External 29 BUN - External 15 Creatinine - External 0.54 Glucose - External 103 Calcium - External 7.4 eGFR - External 106 Anion Gap - External 5 08/11/2025 8:45 AM EDT Park Sauer MD LAB BLOOD ORDERABLES Final Result * Hemoglobin A1c (08/02/2023 8:11 AM EDT) Pathologist [facility] Hemoglobin A1c - External 6.4 08/02/2023 8:11 AM EDT Park Sauer MD LAB BLOOD ORDERABLES Final Result * Lipid panel (05/08/2023 8:37 AM EDT) Pathologist [facility] HDL - External 39 Cholesterol, Total - External 143 Triglycerides - External 132 LDL, calculated - External 78 05/08/2023 8:37 AM EDT Park Sauer MD LAB BLOOD ORDERABLES Final Result * (ABNORMAL) Historical Lab (06/15/2012 3:40 PM EDT) HBV Surface AB,Quant >1000.00 mIU/mL [facility] Comment: Note: New normal range Results less than 10.00 mIU/mL are not consistent with protective immunity. Results of 10.00 mIU/mL or more indicate protective immunity. HBV Surface Ab,Qual Positive [facility] HBV SURFACE ANTIGEN Negative [facility] Iron 69 45 - 160 mcg/dl [facility] Iron Binding Capacity 164(Abnorma lly L) 230 - 404 mcg/dl [facility] Ferritin 700(Abnorma lly H) 30 - 300 ng/ml [facility] HEP B CORE AB, TOT Negative NEG [facility] HCV Antibody Negative [facility] Lactic Dehydrogenase 335(Abnorma lly H) 110 - 210 U/L [facility] Parathyroid Hormone 415(Abnorma lly H) 10 - 60 pg/ml [facility] Uric Acid 7.9 3.6 - 8.5 mg/dl [facility] 25(OH) Vitamin D Total 39 33 - 100 ng/mL [facility] Comment: Desired: > 32 ng/ml . Chemistry Comments Pre dialysis [facility] 06/15/2012 3:40 PM EDT 06/15/2012 4:12 PM EDT Comment:BLOOD Airam Leal MD LAB BLOOD ORDERABLES Final Resul t [address] [address] from Last 3 Months or Most Recently Relevant to Health Maintenance Insurance MEDICARE PART A & B The Online 401 MEDEX SUPPLEMENT MEDICARE PART A & B The Online 401 MEDEX SUPPLEMENT MEDICARE PART A & B The Online 401 MEDEX SUPPLEMENT MEDICARE PART A & B The Online 401 MEDEX SUPPLEMENT MEDICARE PART A & B The Online 401 MEDEX SUPPLEMENT MEDICARE PART A & B The Online 401 MEDEX SUPPLEMENT MEDICARE PART A & B The Online 401 MEDEX SUPPLEMENT MEDICARE PART A & B The Online 401 MEDEX SUPPLEMENT MEDICARE PART A & B The Online 401 MEDEX SUPPLEMENT Advance Directives For more information, please contact: [phone] (9AM - 5PM [facility], Monday-Monday) Documents on File Type Date Recorded Patient Jelly Filter Tender Expl anation Advance Directive - Non Epic LMR 09/05/2012 12:00 AM Care Teams [employer] Spacelift Relationship Specialty Start Date End Date Mónica Dawkins MD [address] [place] [id number] PCP - General Internal Medicine 11/11/19 Additional Source Comments The information contained in this document represents components of the legal health record. It is not the complete legal health record.[facility]
--- OUTSIDE RECORDS SUMMARY | 2025-09-22 11:09 | XMS_ITS | Encounter Summary ---
Author Organization [facility] Address [address] [place] [address] Phone Care Team Providers Care Endband Cutter Hand Name Role Phone Mónica Dawkins MD Primary Care Provider [phone] Encounter Details Date Type Department Care Team ([facility] st Contact Info) Description 09/14/2023 Anti-coag visit [facility] Antico[place] Management Service 125 [facility] [address] [place] [address] Teodora Menendez, RN [address] [place] [address] [email or web address] Social [...] Description 10/06/2025 8:05 AM EST Blood Draw [facility] [place] [facility] [address] [address] Park Sauer MD [address] [place] [phone] [email or web address] 10/13/2025 8:00 AM EST Office Visit [facility] Trans[facility] [address] [address] Park Sauer MD [address] [place] [address] [email or web address] documented as of this encounter Visit Diagnoses Not on filedocumented in this encounter Care Teams Endband Cutter Hand Relationship Specialty Start Date End Date Mónica Dawkins MD [facility] [place] [address] PCP - General Internal Medicine 11/11/19 documented as of this encounter Additional Source Comments The information contained in this document represents components of the legal health record. It is not the complete legal health record.[facility]
--- OUTSIDE RECORDS SUMMARY | 2025-09-22 11:09 | XMS_ITS | Encounter Summary ---
Author Organization [facility] Address [address] [facility] [address] [place] [phone] Phone Care Team Providers Care Senior Sustainability Consultant Name Role Phone Mónica Dawkins MD Primary Care Provider [phone] Encounter Details Date Type Department Care Team (Latest Contact Info) Description 10/02/2020 Ancillary Orders [facility] [place] [facility] [address] [address] Park Sauer MD [address] [place] [address] [email or web address] Immunosuppressive management encounter following kidney transplant; Encounter for aftercare following kidney transplant Social History Tobacco Use Types Packs/Day Years Used Date Smoking Tobacco: Never Smokeless Tobacco: Never Sex and Gender Information Value Date Recorded Sex Assigned at Not on file Legal Sex Male 5:21 PM EST Gender Identity Not on file Sexual Orientation Not on file documented as of this encounter Plan of Treatment Upcoming Encounters Date Type Department Care Team (Late st Contact Info) Description 10/06/2025 8:05 AM EST Blood Draw [facility] [place] [facility] [address] [address] Park Sauer MD [address] [place] [address] [place] [address] [email or web address] 10/13/2025 8:00 AM EST Office Visit [facility] [place] 165 [facility] [address] [place] [address] Park Sauer MD [address] [place] [address], [place] [address] [email or web address] documented as of this encounter Visit Diagnoses Diagnosis Immunosuppressive management encounter following kidney transplant Encounter for long-term (current) use of other medications Encounter for aftercare following kidney transplant documented in this encounter Care Teams Senior Sustainability Consultant Relationship Specialty Start Date End Date Mónica Dawkins MD [address] [place] [phone] PCP - General Internal Medicine 11/11/19 documented as of this encounter Additional Source Comments The information contained in this document represents components of the legal health record. It is not the complete legal health record.[facility]
--- OUTSIDE RECORDS SUMMARY | 2025-09-22 11:09 | XMS_ITS | Encounter Summary ---
Author Organization [facility] Address [address] [facility] [address] [place] [address] Phone Care Team Providers Care Script Girl Name Role Phone Mónica Dawkins MD Primary Care Provider [phone] Reason for Referral * Consultation (Within 3 days (urgent)) - Closed Specialty Diagnoses / Procedures Referred By Estela rowland Referred To Contact Park Sauer MD Phone: tel: fax: mailto:[email or web address].[address] [address] Phone: tel: Referral ID Status Reason Start Date Expiration Date Visits Re quested Visits Authorized [id number] Closed 06/15/2019 06/15/2020 1 1 Scheduling Instructions Please review AMS icon for current therapy plan. Encounter Details Date Type Department Care Team (Late st Contact Info) Description 06/15/2019 Documentation [facility] [address] [place] [address] Park Sauer MD [address] [place] [address] [address] [place] [address] [email or web address] Social History Tobacco Use Types Packs/Day Years [...] 10/06/2025 8:05 AM EST Blood Draw [facility] [address] [address] Park Sauer MD [address] [place] [address] [place] [address] [email or web address] 10/13/2025 8:00 AM EST Office Visit [facility] [address] [address] Park Sauer MD [address] [place] [address] [email or web address] Scheduled Referrals Name Type Priority Associated Diagnoses Order Schedule Ambulatory Renewal Order to [facility] Anticoagulation Service Outpatient Referral Routine Ordered: 06/15/2019 documented as of this encounter Visit Diagnoses Not on filedocumented in this encounter Care Teams Script Girl Relationship Specialty Start Date End Date Mónica Dawkins MD [facility] [place] [address] PCP - General Internal Medicine 11/11/19 documented as of this encounter Additional Source Comments The information contained in this document represents components of the legal health record. It is not the complete legal health record.[facility]
--- OUTSIDE RECORDS SUMMARY | 2025-09-22 11:09 | XMS_ITS | Encounter Summary ---
Author Organization [facility] Address [address] [facility] [address] [place] [address] Phone Care Team Providers Care Exhibit Technician Name Role Phone Mónica Dawkins MD Primary Care Provider [phone] Encounter Details Date Type Department Care Team (Late st Contact Info) Description 08/19/2022 Anti-coag visit [facility] Anticoagulation Management Service [address] [facility] [address] [place] [address] Beata Seay RN [email or web address] Social History [...] Description 10/06/2025 8:05 AM EST Blood Draw [facility] Transplant Clinic [address] [place] [address] Park Sauer MD [address] [facility] [address] [place] [address] [email or web address] 10/13/2025 8:00 AM EST Office Visit [facility] Transplant Clinic [address] [place] [address] Park Sauer MD [address] [facility] [address] [place] [address] [email or web address] documented as of this encounter Visit Diagnoses Not on filedocumented in this encounter Care Teams Exhibit Technician Relationship Specialty Start Date End Date Mónica Dawkins MD [address] [place] [address] PCP - General Internal Medicine 11/11/19 documented as of this encounter Additional Source Comments The information contained in this document represents components of the legal health record. It is not the complete legal health record.[facility]
--- OUTSIDE RECORDS SUMMARY | 2025-09-22 11:09 | XMS_ITS | Encounter Summary ---
Author Organization [facility] Address [address] [facility] [address] [place] [address] Phone Care Team Providers Care Packing House Supervisor Name Role Phone Mónica Dawkins MD Primary Care Provider Encounter Details Date Type Department Care Team (Latest Contact Info) Description 10/06/2020 Ancillary Orders [facility] [place] [address] [address] Park Sauer MD [address] [place] [address] [email or web address] Immunosuppressive management encounter following kidney transplant; Encounter [...] 10/06/2025 8:05 AM EST Blood Draw [facility] [address] [address] Park Sauer MD [address] [place] [address] [place] [address] [email or web address] 10/13/2025 8:00 AM EST Office Visit [facility] [address] [facility] [address] [place] [address] Park Sauer MD [address] [place] [address] [address], [place] [address] [email or web address] documented as of this encounter Visit Diagnoses Diagnosis Immunosuppressive management encounter following kidney transplant Encounter for long-term (current) use of other medications Encounter for aftercare following kidney transplant documented in this encounter Care Teams Packing House Supervisor Relationship Specialty Start Date End Date Mónica Dawkins MD [address] [place] [address] PCP - General Internal Medicine 11/11/19 documented as of this encounter Additional Source Comments The information contained in this document represents components of the legal health record. It is not the complete legal health record.[facility]
--- OUTSIDE RECORDS SUMMARY | 2025-09-22 11:09 | XMS_ITS | Encounter Summary ---
Author Organization [facility] Address [address] [facility] [address] [place] [address] Phone Care Team Providers Care Customer Leader Name Role Phone Mónica Dawkins MD Primary Care Provider [phone] Encounter Details Date Type Department Care Team (Late st Contact Info) Description 07/13/2022 Anti-coag visit [facility] [address] [facility] [address] [place] [address] Beata Seay RN [email or web address] [...] Description 10/06/2025 8:05 AM EST Blood Draw [facility] [address] [place] [address] Park Sauer MD [facility] [address] [place] [address] [email or web address] 10/13/2025 8:00 AM EST Office Visit [facility] [address] [place] [address] Park Sauer MD 55 [facility] [address] [place] [address] [email or web address] documented as of this encounter Visit Diagnoses Not on filedocumented in this encounter Care Teams Customer Leader Relationship Specialty Start Date End Date Mónica Dawkins MD [address] [place] [address] PCP - General Internal Medicine 11/11/19 documented as of this encounter Additional Source Comments The information contained in this document represents components of the legal health record. It is not the complete legal health record.[facility]
--- OUTSIDE RECORDS SUMMARY | 2025-09-22 11:09 | XMS_ITS | Encounter Summary ---
Author Organization [facility] Address [address] [facility] [address] [place] [address] Phone Care Team Providers Care Pulp Refiner Operator Name Role Phone Mónica Dawkins MD Primary Care Provider [phone] Encounter Details Date Type Department Care Team (Latest Contact Info) Description 10/01/2020 Ancillary Orders [facility] [address] [address] Park Sauer MD [address] [place] [address] [email or web address] Immunosuppressive management encounter following kidney transplant; Encounter [...] Description 10/06/2025 8:05 AM EST Blood Draw [facility] [address] [address] Park Sauer MD [address] [place] [address] [place] [address] JYOTI@[facility] 10/13/2025 8:00 AM EST Office Visit [facility] [address] [facility] [address] [place] [address] Park Sauer MD [address] [place] [address], [place] [address] JYOTI@[facility] documented as of this encounter Visit Diagnoses Diagnosis Immunosuppressive management encounter following kidney transplant Encounter for long-term (current) use of other medications Encounter for aftercare following kidney transplant documented in this encounter Care Teams Pulp Refiner Operator Relationship Specialty Start Date End Date Mónica Dawkins MD [address] [place] [address] PCP - General Internal Medicine 11/11/19 documented as of this encounter Additional Source Comments The information contained in this document represents components of the legal health record. It is not the complete legal health record.[facility]
--- OUTSIDE RECORDS SUMMARY | 2025-09-22 11:09 | XMS_ITS | Encounter Summary ---
Author Organization [facility] Address [address] [employer] [address] [facility] [address] [place] [address] Phone Care Team Providers Care Flame Hardening Machine Operator Name Role Phone Mónica Dawkins MD Primary Care Provider [phone] Encounter Details Date Type Department Care Team ([facility] st Contact Info) Description 09/11/2023 Anti-coag visit [facility] Antico[facility] Management Service 125 [facility] [address] [place] [address] Swathi Snyder RN 125 [place] [address] [email or web address] Social History Tobacco [...] [facility] [address] [address] Park Sauer MD [address] [place] [address] [email or web address] 10/13/2025 8:00 AM EST Office Visit [facility] [address] [address] Park Sauer MD [address] [place] [address] [email or web address] documented as of this encounter Visit Diagnoses Not on filedocumented in this encounter Care Teams Flame Hardening Machine Operator Relationship Specialty Start Date End Date Mónica Dawkins MD [address] [place] [address] PCP - General Internal Medicine 11/11/19 documented as of this encounter Additional Source Comments The information contained in this document represents components of the legal health record. It is not the complete legal health record.[facility]
--- OUTSIDE RECORDS SUMMARY | 2025-09-22 11:09 | XMS_ITS | Encounter Summary ---
Author Organization [facility] Address [address] [facility] [address] [place] [address] Phone Care Team Providers Care Building Maintenance Repairer Name Role Phone Mónica Dawkins MD Primary Care Provider [phone] Encounter Details Date Type Department Care Team (Late st Contact Info) Description 08/22/2022 Anti-coag visit [facility]tico[facility] Service 125 [facility] [address] [place] [address] Beata Seay RN [email or web address] Social History Tobacco Use [...] Description 10/06/2025 8:05 AM EST Blood Draw [facility] [address] [place] [address] Park Sauer MD 55 [facility] [address] [place] [address] JYOTI@[email or web address] 10/13/2025 8:00 AM EST Office Visit [facility] [address] [place] [address] Park Sauer MD 55 [facility] [address] [place] [address] [email or web address]@[email or web address] documented as of this encounter Visit Diagnoses Not on filedocumented in this encounter Care Teams Building Maintenance Repairer Relationship Specialty Start Date End Date Mónica Dawkins MD [address] [place] [address] PCP - General Internal Medicine 11/11/19 documented as of this encounter Additional Source Comments The information contained in this document represents components of the legal health record. It is not the complete legal health record.[facility]
--- OUTSIDE RECORDS SUMMARY | 2025-09-22 11:09 | XMS_ITS | Encounter Summary ---
Author Organization [facility] Address [address] [facility] [address] [place] [address] Phone Care Team Providers Care Journeyman Powerhouse Operator Name Role Phone Mónica Dawkins MD Primary Care Provider [phone] Encounter Details Date Type Department Care Team (Latest Contact Info) Description 09/30/2020 Ancillary Orders [facility] [address] [address] Park Sauer MD [address] [place] [address] [email or web address] Immunosuppressive management encounter following kidney transplant; Encounter [...] Description 10/06/2025 8:05 AM EST Blood Draw [facility] [address] [address] Park Sauer MD [address] [place] [address] [place] [address] JYOTI@[facility] 10/13/2025 8:00 AM EST Office Visit [facility] [address] [facility] [address] [place] [address] Park Sauer MD [address] [place] [address], [place] [address] JYOTI@[facility] documented as of this encounter Visit Diagnoses Diagnosis Immunosuppressive management encounter following kidney transplant Encounter for long-term (current) use of other medications Encounter for aftercare following kidney transplant documented in this encounter Care Teams Journeyman Powerhouse Operator Relationship Specialty Start Date End Date Mónica Dawkins MD [address] [place] [address] PCP - General Internal Medicine 11/11/19 documented as of this encounter Additional Source Comments The information contained in this document represents components of the legal health record. It is not the complete legal health record.[facility]
--- OUTSIDE RECORDS SUMMARY | 2025-09-22 11:09 | XMS_ITS | Encounter Summary ---
Author Organization [facility] Address [address] [employer] [address] [place] [address] Phone Care Team Providers Care Supervisor Claims Name Role Phone Mónica Dawkins MD Primary Care Provider [phone] Encounter Details Date Type Department Care Team ([facility] st Contact Info) Description 09/18/2023 Anti-coag visit [facility] 125 [facility] [address] [place] [address] Teodora Menendez, RN 125 [place] [address] [email or web address] Social [...] [facility] [address] [address] Park Sauer MD [address] [place] [address] [email or web address] 10/13/2025 8:00 AM EST Office Visit [facility] [address] [address] Park Sauer MD [address] [place] [address] [email or web address] documented as of this encounter Visit Diagnoses Not on filedocumented in this encounter Care Teams Supervisor Claims Relationship Specialty Start Date End Date Mónica Dawkins MD [facility] [place] [address] PCP - General Internal Medicine 11/11/19 documented as of this encounter Additional Source Comments The information contained in this document represents components of the legal health record. It is not the complete legal health record.[facility]
--- OUTSIDE RECORDS SUMMARY | 2025-09-22 11:09 | XMS_ITS | Encounter Summary ---
Author Organization [facility] Address [address] [employer] [facility] [address] [place] [address] Phone Care Team Providers Care Dope Worker Name Role Phone Mónica Dawkins MD Primary Care Provider [phone] Encounter Details Date Type Department Care Team (Late st Contact Info) Description 07/27/2022 Anti-coag visit [facility] Service 125 [facility] [address] [place] [address] Edie Zapata RN 125 [place] [address] [email or web address] Social History Tobacco Use Types Packs/Day Years [...] [facility] [place] [facility] 165 [facility] 301 [place] [address] Park Sauer MD 55 [facility] [address] [place] [address] JYOTI@[email or web address] 10/13/2025 8:00 AM EST Office Visit [facility] Clinic [address] [place] [address] Park Sauer MD [address] [place] [address] [address] [place] [address] JYOTI@[facility] documented as of this encounter Visit Diagnoses Not on filedocumented in this encounter Care Teams Dope Worker Relationship Specialty Start Date End Date Mónica Dawkins MD [address] [place] [address] PCP - General Internal Medicine 11/11/19 documented as of this encounter Additional Source Comments The information contained in this document represents components of the legal health record. It is not the complete legal health record.[facility]
--- OUTSIDE RECORDS SUMMARY | 2025-09-22 11:09 | XMS_ITS | Encounter Summary ---
Author Organization [facility] Address [address] [facility] [address] [place] [address] Phone Care Team Providers Care Sand Shoveler Name Role Phone Mónica Dawkins MD Primary Care Provider [phone] Encounter Details Date Type Department Care Team (Latest Contact Info) Description 10/05/2020 Ancillary Orders [facility] Trans[facility] [address] [address] Park Sauer MD [address] [place] [address] [email or web address] Immunosuppressive management encounter following kidney transplant; [...] [facility] [address] [address] Park Sauer MD [address] [place] [address] [place] [address] [email or web address] 10/13/2025 8:00 AM EST Office Visit [facility] 165 [facility] [address] [place] [address] Park Sauer MD [address] [place] [address] [address] JYOTI@[facility] documented as of this encounter Visit Diagnoses Diagnosis Immunosuppressive management encounter following kidney transplant Encounter for long-term (current) use of other medications Encounter for aftercare following kidney transplant documented in this encounter Care Teams Sand Shoveler Relationship Specialty Start Date End Date Mónica Dawkins MD [address] [place] [address] PCP - General Internal Medicine 11/11/19 documented as of this encounter Additional Source Comments The information contained in this document represents components of the legal health record. It is not the complete legal health record.[facility]
--- OUTSIDE RECORDS SUMMARY | 2025-09-22 11:09 | XMS_ITS | Encounter Summary ---
Author Organization [facility] Address [address] [employer] [address] [place] [address] Phone Care Team Providers Care Ladies Suit Operator Name Role Phone Mónica Dawkins MD Primary Care Provider [phone] Encounter Details Date Type Department Care Team ([facility] st Contact Info) Description 09/25/2023 Anti-coag visit [facility] Anticoagulation Management Service 125 [facility] [address] [place] [address] Teodora Menendez, RN 125 [place] [address] [email or web address] Social History Tobacco [...] Description 10/06/2025 8:05 AM EST Blood Draw [facility] Trans[facility] Clinic [address] [address] Park Sauer MD [address] [place] [address] [email or web address]@[email or web address] 10/13/2025 8:00 AM EST Office Visit [facility] Trans[facility] [address] [address] Park Sauer MD [address] [place] [address] [email or web address] documented as of this encounter Visit Diagnoses Not on filedocumented in this encounter Care Teams Ladies Suit Operator Relationship Specialty Start Date End Date Mónica Dawkins MD [facility] [place] [address] PCP - General Internal Medicine 11/11/19 documented as of this encounter Additional Source Comments The information contained in this document represents components of the legal health record. It is not the complete legal health record.[facility]
--- OUTSIDE RECORDS SUMMARY | 2025-09-22 11:09 | XMS_ITS | Encounter Summary ---
Author Organization [facility] Address [address] [place] [address] Phone Care Team Providers Care Laserist Name Role Phone Mónica Dawkins MD Primary Care Provider [phone] Encounter Details Date Type Department Care Team ([facility] st Contact Info) Description 09/30/2023 Anti-coag visit [facility] 125 [facility] [address] [place] [address] Teodora Menendez, RN 125 [place] [address] [email or web address] Social History Tobacco Use Types Packs/Day Years [...] [facility] [address] [address] Park Sauer MD [address] [place] [address] [email or web address] 10/13/2025 8:00 AM EST Office Visit [facility] [address] [address] Park Sauer MD [address] [place] [address] JYOTI@[facility] documented as of this encounter Visit Diagnoses Not on filedocumented in this encounter Care Teams Laserist Relationship Specialty Start Date End Date Mónica Dawkins MD [facility] [place] [address] PCP - General Internal Medicine 11/11/19 documented as of this encounter Additional Source Comments The information contained in this document represents components of the legal health record. It is not the complete legal health record.[facility]
--- OUTSIDE RECORDS SUMMARY | 2025-09-22 11:10 | XMS_ITS | Encounter Summary ---
Author Organization [facility] Address 399 [facility] [address] [place] [address] Phone Care Team Providers Care Photographic Double Name Role Phone Mónica Dawkins MD Primary Care Provider [phone] Encounter Details Date Type Department Care Team (Latest Contact Info) Description 10/14/2020 Ancillary Orders [facility] [address] [address] Park Sauer MD [address] [place] [address] [email or web address] Immunosuppressive management encounter following kidney [place]; [place] [facility] [place] [facility] [address] [address] Park Sauer MD [address] [place] [address] [place] [address] JYOTI@[facility] 10/13/2025 8:00 AM EST Office Visit [facility] 165 [facility] [address] [place] [address] Park Sauer MD [address] [place] [address], [place] [address] YJOTI@[email or web address] documented as of this encounter Visit Diagnoses Diagnosis Immunosuppressive management encounter following kidney transplant Encounter for long-term (current) use of other medications Encounter for aftercare following kidney transplant documented in this encounter Care Teams Photographic Double Relationship Specialty Start Date End Date Mónica Dawkins MD [address] [place] [address] PCP - General Internal Medicine 11/11/19 documented as of this encounter Additional Source Comments The information contained in this document represents components of the legal health record. It is not the complete legal health record.[facility]
--- OUTSIDE RECORDS SUMMARY | 2025-09-22 11:10 | XMS_ITS | Encounter Summary ---
Author Organization [facility] Address 399 [employer] [facility] [address] [place] [address] Phone Care Team Providers Care Physical Biochemist Name Role Phone Mónica Dawkins MD Primary Care Provider [phone] Encounter Details Date Type Department Care Team ([facility] st Contact Info) Description 05/25/2024 Anti-coag visit [facility] 125 [facility] 765 [place] [address] Khushi Hooks, CAMILLA 125 [place] [address] [email or web address] [email or web address] Social History Tobacco Use Types Packs/Day Years [...] [facility] [address] [address] Park Sauer MD [address] [place] [address] [place] [address] [email or web address] 10/13/2025 8:00 AM EST Office Visit [facility] [address] [address] Park Sauer MD [address] [place] [address] JYOTI@[email or web address] documented as of this encounter Visit Diagnoses Not on filedocumented in this encounter Care Teams Physical Biochemist Relationship Specialty Start Date End Date Mónica Dawkins MD [address] [place] [address] PCP - General Internal Medicine 11/11/19 documented as of this encounter Additional Source Comments The information contained in this document represents components of the legal health record. It is not the complete legal health record.[facility]
--- OUTSIDE RECORDS SUMMARY | 2025-09-22 11:10 | XMS_ITS | Encounter Summary ---
Author Organization [facility] Address [address] [employer] [address] [place] [address] Phone Care Team Providers Care Pediatric Nurse Name Role Phone Mónica Dawkins MD Primary Care Provider [phone] Encounter Details Date Type Department Care Team ([facility] st Contact Info) Description 07/10/2024 Anti-coag visit [facility] 125 [facility] [address] [place] [address] Teodora Menendez, RN 125 [place] [address] [email or web address] Social History Tobacco Use Types Packs/Day Years [...] Description 10/06/2025 8:05 AM EST Blood Draw [facility] [address] [address] Park Sauer MD [address] [place] [address] [email or web address] 10/13/2025 8:00 AM EST Office Visit [facility] [address] [address] Park Sauer MD [address] [place] [address] JYOTI@[facility] documented as of this encounter Visit Diagnoses Not on filedocumented in this encounter Care Teams Pediatric Nurse Relationship Specialty Start Date End Date Mónica Dawkins MD [place] [address] PCP - General Internal Medicine 11/11/19 documented as of this encounter Additional Source Comments The information contained in this document represents components of the legal health record. It is not the complete legal health record.[facility]
--- OUTSIDE RECORDS SUMMARY | 2025-09-22 11:10 | XMS_ITS | Encounter Summary ---
Author Organization [facility] Address 399 [facility] [address] [place] [address] Phone Care Team Providers Care Outsole Tacker Name Role Phone Mónica Dawkins MD Primary Care Provider [phone] Encounter Details Date Type Department Care Team (Latest Contact Info) Description 10/09/2020 Ancillary Orders [facility] [address] [address] Park Sauer MD [address] [place] [address] JYTOI@[facility] Immunosuppressive management encounter following kidney transplant; Encounter [...] [place] [facility] [address] [address] Park Sauer MD [address] [place] [address] [place] [address] JYOTI@[facility] 10/13/2025 8:00 AM EST Office Visit [facility] [place] [facility] 165 [facility] [address] [place] [address] Park Sauer MD [address] [place] [address], [place] [address] JYOTI@[facility] documented as of this encounter Visit Diagnoses Diagnosis Immunosuppressive management encounter following kidney transplant Encounter for long-term (current) use of other medications Encounter for aftercare following kidney transplant documented in this encounter Care Teams Outsole Tacker Relationship Specialty Start Date End Date Mónica Dawkins MD [address] [place] [address] PCP - General Internal Medicine 11/11/19 documented as of this encounter Additional Source Comments The information contained in this document represents components of the legal health record. It is not the complete legal health record.[facility]
--- OUTSIDE RECORDS SUMMARY | 2025-09-22 11:10 | XMS_ITS | Encounter Summary ---
Author Organization [facility] Address 399 [employer] [facility] [address] [place] [address] Phone Care Team Providers Care Hand Molder Meat Name Role Phone Mónica Dawkins MD Primary Care Provider [phone] Encounter Details Date Type Department Care Team (Late st Contact Info) Description 07/26/2024 Anti-coag visit [facility] [address] [place] [address] Gilma Brannon, RN 55 [place] [address] [email or web address] Social History Tobacco Use Types Packs/Day Years [...] Description 10/06/2025 8:05 AM EST Blood Draw [facility] [address] [address] Park Sauer MD [address] [place] [address] [place] [address] [email or web address] 10/13/2025 8:00 AM EST Office Visit [facility] [address] [address] Park Sauer MD [address] [place] [address] JYOTI@[email or web address] documented as of this encounter Visit Diagnoses Not on filedocumented in this encounter Care Teams Hand Molder Meat Relationship Specialty Start Date End Date Mónica Dawkins MD [address] [place] [address] PCP - General Internal Medicine 11/11/19 documented as of this encounter Additional Source Comments The information contained in this document represents components of the legal health record. It is not the complete legal health record.[facility]
--- OUTSIDE RECORDS SUMMARY | 2025-09-22 11:10 | XMS_ITS | Encounter Summary ---
Author Organization [facility] Address [address] [place] [address] Phone Care Team Providers Care Communications Representative Name Role Phone Mónica Dawkins MD Primary Care Provider Encounter Details Date Type Department Care Team ([facility] st Contact Info) Description 04/10/2024 Anti-coag visit [facility] [place] [facility] 125 [facility] [address] [place] [address] Teodora Menendez, RN 125 [place] [address] [email or web address] Social History Tobacco Use Types Packs/Day Years [...] [place] [facility] [address] [address] Park Sauer MD [address] [place] [address] [email or web address]@[facility] 10/13/2025 8:00 AM EST Office Visit [facility] [address] [address] Park Sauer MD [address] [place] [address] JYOTI@[facility] documented as of this encounter Visit Diagnoses Not on filedocumented in this encounter Care Teams Communications Representative Relationship Specialty Start Date End Date Mónica Dawkins MD [facility] [place] [address] PCP - General Internal Medicine 11/11/19 documented as of this encounter Additional Source Comments The information contained in this document represents components of the legal health record. It is not the complete legal health record.[facility]
--- OUTSIDE RECORDS SUMMARY | 2025-09-22 11:10 | XMS_ITS | Encounter Summary ---
Author Organization [facility] Address [address] [employer] [address] [place] [address] Phone Care Team Providers Care Blanket Weaver Name Role Phone Mónica Dawkins MD Primary Care Provider [phone] Encounter Details Date Type Department Care Team ([facility] st Contact Info) Description 02/07/2024 Anti-coag visit [facility] 125 [facility] [address] [place] [address] Teodora Menendez, RN 125 [place] [address] [email or web address] Social History Tobacco Use Types Packs/Day Years [...] Description 10/06/2025 8:05 AM EST Blood Draw [facility] [address] [address] Park Sauer MD [address] [place] [address] JYOTI@[facility] 10/13/2025 8:00 AM EST Office Visit [facility] [address] [address] Park Sauer MD [address] [place] [address] JYOTI@[email or web address] documented as of this encounter Visit Diagnoses Not on filedocumented in this encounter Care Teams Blanket Weaver Relationship Specialty Start Date End Date Mónica Dawkins MD [facility] [address] PCP - General Internal Medicine 11/11/19 documented as of this encounter Additional Source Comments The information contained in this document represents components of the legal health record. It is not the complete legal health record.[facility]
--- OUTSIDE RECORDS SUMMARY | 2025-09-22 11:10 | XMS_ITS | Encounter Summary ---
Author Organization [facility] Address 399 [facility] [address] [place] [address] Phone Care Team Providers Care Thermodynamics Teacher Name Role Phone Mónica Dawkins MD Primary Care Provider [phone] Encounter Details Date Type Department Care Team (Latest Contact Info) Description 10/12/2020 Ancillary Orders [facility] [address] [address] Park Sauer MD [address] [place] [address] JYOTI@[email or web address] Immunosuppressive management encounter following kidney [...] Description 10/06/2025 8:05 AM EST Blood Draw [facility] [address] [address] Park Sauer MD [address] [place] [address] [place] [address] JYOTI@[facility] 10/13/2025 8:00 AM EST Office Visit [facility] 165 [facility] [address] [place] [address] Park Sauer MD [address] [place] [address], [place] [address] JYOTI@[facility] documented as of this encounter Visit Diagnoses Diagnosis Immunosuppressive management encounter following kidney transplant Encounter for long-term (current) use of other medications Encounter for aftercare following kidney transplant documented in this encounter Care Teams Thermodynamics Teacher Relationship Specialty Start Date End Date Mónica Dawkins MD [address] [place] [address] PCP - General Internal Medicine 11/11/19 documented as of this encounter Additional Source Comments The information contained in this document represents components of the legal health record. It is not the complete legal health record.[facility]
--- OUTSIDE RECORDS SUMMARY | 2025-09-22 11:10 | XMS_ITS | Encounter Summary ---
Author Organization [facility] Address [address] [place] [address] Phone Care Team Providers Care School Laboratory Technician Name Role Phone Mónica Dawkins MD Primary Care Provider [phone] Encounter Details Date Type Department Care Team ([facility] st Contact Info) Description 06/10/2024 Anti-coag visit [facility]tico[facility] Service 125 [facility] [address] [place] [address] Teodora Menendez, RN 125 [place] [address] [email or web address] Social History Tobacco Use Types Packs/Day Years [...] Description 10/06/2025 8:05 AM EST Blood Draw [facility] [address] [address] Park Sauer MD [address] [place] [address] [email or web address]@[facility] 10/13/2025 8:00 AM EST Office Visit [facility] [address] [address] Park Sauer MD [address] [place] [address] JYOTI@[facility] documented as of this encounter Visit Diagnoses Not on filedocumented in this encounter Care Teams School Laboratory Technician Relationship Specialty Start Date End Date Mónica Dawkins MD [place] [address] PCP - General Internal Medicine 11/11/19 documented as of this encounter Additional Source Comments The information contained in this document represents components of the legal health record. It is not the complete legal health record.[facility]
--- OUTSIDE RECORDS SUMMARY | 2025-09-22 11:10 | XMS_ITS | Encounter Summary ---
Author Organization [facility] Address [address] [employer] [address] [place] [address] Phone Care Team Providers Care Concession Cashier Name Role Phone Mónica Dawkins MD Primary Care Provider [phone] Encounter Details Date Type Department Care Team ([facility] st Contact Info) Description 04/24/2024 Anti-coag visit [facility] 125 [facility] [address] [place] [address] Teodora Menendez, RN 125 [place] [address] [email or web address] Social [...] [facility] [address] [address] Park Sauer MD [address] [place] [address] JYOTI@[facility] 10/13/2025 8:00 AM EST Office Visit [facility] [address] [address] Park Sauer MD [address] [place] [address] JYOTI@[facility] documented as of this encounter Visit Diagnoses Not on filedocumented in this encounter Care Teams Concession Cashier Relationship Specialty Start Date End Date Mónica Dawkins MD [facility] [place] [address] PCP - General Internal Medicine 11/11/19 documented as of this encounter Additional Source Comments The information contained in this document represents components of the legal health record. It is not the complete legal health record.[facility]
--- OUTSIDE RECORDS SUMMARY | 2025-09-22 11:10 | XMS_ITS | Encounter Summary ---
Author Organization [facility] Address 399 [facility] [address] [place] [address] Phone Care Team Providers Care Telephone Assembler Name Role Phone Mónica Dawkins MD Primary Care Provider [phone] Encounter Details Date Type Department Care Team (Latest Contact Info) Description 10/07/[address] [facility] [address] [address] Park Sauer MD [address] [place] [address] JYOTI@[facility] Immunosuppressive management encounter following kidney transplant; Encounter [...] 10/06/2025 8:05 AM EST [address] [facility] [address] [address] Park Sauer MD [address] [place] [address] [place] [address] JYOTI@[facility] 10/13/2025 8:00 AM EST Office Visit [facility] 165 [facility] [address] [place] [address] Park Sauer MD [address] [place] [address] [address] JYOTI@[facility] documented as of this encounter Visit Diagnoses Diagnosis Immunosuppressive management encounter following kidney transplant Encounter for long-term (current) use of other medications Encounter for aftercare following kidney transplant documented in this encounter Care Teams Telephone Assembler Relationship Specialty Start Date End Date Mónica Dawkins MD [address] [place] [address] PCP - General Internal Medicine 11/11/19 documented as of this encounter Additional Source Comments The information contained in this document represents components of the legal health record. It is not the complete legal health record.[facility]
--- OUTSIDE RECORDS SUMMARY | 2025-09-22 11:10 | XMS_ITS | Encounter Summary ---
Author Organization [facility] Address [address] [employer] [address] [place] [address] Phone Care Team Providers Care Tool Coordinator Name Role Phone Mónica Dawkins MD Primary Care Provider [phone] Encounter Details Date Type Department Care Team ([facility] st Contact Info) Description 01/10/2024 Anti-coag visit [facility] 125 [facility] [address] [place] [address] Teodora Menendez, RN 125 [place] [address] [email or web address] Social History [...] 10/06/2025 8:05 AM EST Blood Draw [facility] [address] [address] Park Sauer MD [address] [place] [address] JYOTI@[facility] 10/13/2025 8:00 AM EST Office Visit [facility] [address] [address] Park Sauer MD [address] [place] [address] JYOTI@[facility] documented as of this encounter Visit Diagnoses Not on filedocumented in this encounter Care Teams Tool Coordinator Relationship Specialty Start Date End Date Mónica Dawkins MD [facility] [place] [address] PCP - General Internal Medicine 11/11/19 documented as of this encounter Additional Source Comments The information contained in this document represents components of the legal health record. It is not the complete legal health record.[facility]
--- OUTSIDE RECORDS SUMMARY | 2025-09-22 11:10 | XMS_ITS | Encounter Summary ---
Author Organization [facility] Address [address] [employer] [facility] [address] [place] [address] Phone Care Team Providers Care Cherry Picker Operator Name Role Phone Mónica Dawkins MD Primary Care Provider [phone] Encounter Details Date Type Department Care Team (Late Contact Info) Description 12/20/2022 Anti-coag visit [facility] 125 [facility] 765 [place] [address] Shanda Suero, RN 125 [place] [address] [email or web address] Social History Tobacco Use Types Packs/Day [...] [facility] 165 [facility] [address] [place] [address] Park Sauer MD [address] [facility] [address] [place] [address] JYOTI@[facility] 10/13/2025 8:00 AM EST Office Visit [facility] [address] [place] [address] Park Sauer MD [address] [place] [address]E [place] [address] JYOTI@[facility] documented as of this encounter Visit Diagnoses Not on filedocumented in this encounter Care Teams Cherry Picker Operator Relationship Specialty Start Date End Date Mónica Dawkins MD [address] [place] [address] PCP - General Internal Medicine 11/11/19 documented as of this encounter Additional Source Comments The information contained in this document represents components of the legal health record. It is not the complete legal health record.[facility]
--- OUTSIDE RECORDS SUMMARY | 2025-09-22 11:10 | XMS_ITS | Encounter Summary ---
Author Organization [facility] Address [address] [facility] [address] [place] [address] Phone Care Team Providers Care Suction Operator Name Role Phone Mónica Dawkins MD Primary Care Provider [phone] Encounter Details Date Type Department Care Team (Late st Contact Info) Description 01/12/2023 Anti-coag visit [facility] [address] [facility] [address] [place] [address] Beata Seay RN [email or web address] Social History Tobacco Use [...] 10/06/2025 8:05 AM EST Blood Draw [facility] [address] [place] [address] Park Sauer MD [address] [facility] [address] [place] [address] [email or web address] 10/13/2025 8:00 AM EST Office Visit [facility] [address] [place] [address] Park Sauer MD 55 [facility] [address] [place] [address] [email or web address] documented as of this encounter Visit Diagnoses Not on filedocumented in this encounter Care Teams Suction Operator Relationship Specialty Start Date End Date Mónica Dawkins MD [address] [place] [address] PCP - General Internal Medicine 11/11/19 documented as of this encounter Additional Source Comments The information contained in this document represents components of the legal health record. It is not the complete legal health record.[facility]
--- OUTSIDE RECORDS SUMMARY | 2025-09-22 11:10 | XMS_ITS | Encounter Summary ---
Author Organization [facility] Address [address] [place] [address] Phone Care Team Providers Care Principal Biostatistician Name Role Phone Mónica Dawkins MD Primary Care Provider [phone] Encounter Details Date Type Department Care Team ([facility] st Contact Info) Description 06/24/2024 Anti-coag visit [facility]tico[facility] 125 [facility] [address] [place] [address] Teodora Menendez, RN 125 [place] [address] [email or web address] Social History Tobacco [...] 10/06/2025 8:05 AM EST Blood Draw [facility] [address] [address] Park Sauer MD [address] [place] [address] [email or web address] 10/13/2025 8:00 AM EST Office Visit [facility] [address] [address] Park Sauer MD [address] [place] [address] [email or web address] documented as of this encounter Visit Diagnoses Not on filedocumented in this encounter Care Teams Principal Biostatistician Relationship Specialty Start Date End Date Mónica Dawkins MD [facility] [place] [address] PCP - General Internal Medicine 11/11/19 documented as of this encounter Additional Source Comments The information contained in this document represents components of the legal health record. It is not the complete legal health record.[facility]
--- OUTSIDE RECORDS SUMMARY | 2025-09-22 11:10 | XMS_ITS | Encounter Summary ---
Author Organization [facility] Address [address] [facility] [place] [address] [place] [address] Phone Care Team Providers Care Federal District Clerk Name Role Phone Mónica Dawkins MD Primary Care Provider [phone] Encounter Details Date Type Department Care Team ([facility] st Contact Info) Description 05/11/2024 Anti-coag visit [facility] Antico[facility] Management Service [address] [facility] [address] [place] [address] Shanda Suero, RN 125 [place] [address] [email or web address] Social History [...] 10/06/2025 8:05 AM EST Blood Draw [facility] Trans[facility] [address] [address] Park Sauer MD [address] [place] [address] [address] [email or web address] 10/13/2025 8:00 AM EST Office Visit [facility] [address] [address] Park Sauer MD [address] [place] [address] [place] [address] [email or web address] documented as of this encounter Visit Diagnoses Not on filedocumented in this encounter Care Teams Federal District Clerk Relationship Specialty Start Date End Date Mónica Dawkins MD [address] [place] [address] PCP - General Internal Medicine 11/11/19 documented as of this encounter Additional Source Comments The information contained in this document represents components of the legal health record. It is not the complete legal health record.[facility]
--- OUTSIDE RECORDS SUMMARY | 2025-09-22 11:10 | XMS_ITS | Encounter Summary ---
Author Organization [facility] Address [address] [facility] [address] [place] [address] Phone Care Team Providers Care Employment Director Name Role Phone Mónica Dawkins MD Primary Care Provider Encounter Details Date Type Department Care Team (Late st Contact Info) Description 12/28/2022 [place]-coag [place] [facility] [address] [facility] [address] [place] [address] Beata Seay RN [email or web address] Social History Tobacco Use Types Packs/Day Years [...] [facility] [address] [place] [address] Park Sauer MD [address] [facility] [address] [place] [address] [email or web address] 10/13/2025 8:00 AM EST Office Visit [facility] [address] [place] [address] Park Sauer MD 55 [facility] [address] [place] [address] [email or web address] documented as of this encounter Visit Diagnoses Not on filedocumented in this encounter Care Teams Employment Director Relationship Specialty Start Date End Date Mónica Dawkins MD [address] [place] [address] PCP - General Internal Medicine 11/11/19 documented as of this encounter Additional Source Comments The information contained in this document represents components of the legal health record. It is not the complete legal health record.[facility]
--- OUTSIDE RECORDS SUMMARY | 2025-09-22 11:10 | XMS_ITS | Encounter Summary ---
Author Organization [facility] Address [address] [address] [place] [address] Phone Care Team Providers Care Woods Laborer Name Role Phone Mónica Dawkins MD Primary Care Provider [phone] Encounter Details Date Type Department Care Team ([facility] st Contact Info) Description 03/28/2024 Anti-coag visit [facility] Anticoagulation Management Service 125 [facility] [address] [place] [address] Teodora Menendez, RN 125 [place] [address] [email or web address] Social History Tobacco Use [...] Description 10/06/2025 8:05 AM EST Blood Draw [facility] Trans[facility] Clinic [address] [address] Park Sauer MD [address] [place] [address] [email or web address] 10/13/2025 8:00 AM EST Office Visit [facility] Trans[facility] [address] [address] Park Sauer MD [address] [place] [address] [email or web address] documented as of this encounter Visit Diagnoses Not on filedocumented in this encounter Care Teams Woods Laborer Relationship Specialty Start Date End Date Mónica Dawkins MD [place] [address] PCP - General Internal Medicine 11/11/19 documented as of this encounter Additional Source Comments The information contained in this document represents components of the legal health record. It is not the complete legal health record.[facility]
--- OUTSIDE RECORDS SUMMARY | 2025-09-22 11:10 | XMS_ITS | Encounter Summary ---
Author Organization [facility] Address [address] [facility] [address] [place] [address] Phone Care Team Providers Care Purchasing And Claims Supervisor Name Role Phone Mónica Dawkins MD Primary Care Provider [phone] Encounter Details Date Type Department Care Team (Latest Contact Info) Description 10/08/2020 Ancillary Orders [facility] Trans[facility] [address] [address] Park Sauer MD [address] [place] [address] JYOTI@[facility] Immunosuppressive management encounter following kidney [...] Description 10/06/2025 8:05 AM EST Blood Draw [facility] Trans[facility] [address] [address] Park Sauer MD [address] [place] [address] [place] [address] [email or web address] 10/13/2025 8:00 AM EST Office Visit [facility] [address] [facility] [address] [place] [address] Park Sauer MD [address] [place] [address], [place] [address] JYOTI@[facility] documented as of this encounter Visit Diagnoses Diagnosis Immunosuppressive management encounter following kidney transplant Encounter for long-term (current) use of other medications Encounter for aftercare following kidney transplant documented in this encounter Care Teams Purchasing And Claims Supervisor Relationship Specialty Start Date End Date Mónica Dawkins MD [address] [place] [address] PCP - General Internal Medicine 11/11/19 documented as of this encounter Additional Source Comments The information contained in this document represents components of the legal health record. It is not the complete legal health record.[facility]
--- OUTSIDE RECORDS SUMMARY | 2025-09-22 11:10 | XMS_ITS | Encounter Summary ---
Author Organization [facility] Address [address] [place] [address] Phone Care Team Providers Care Cat Driver Name Role Phone Mónica Dawkins MD Primary Care Provider [phone] Encounter Details Date Type Department Care Team ([facility] st Contact Info) Description 08/28/2024 Anti-coag visit [facility] Antico[facility] Management Service 125 [facility] [address] [place] [address] Teodora Menendez, RN 125 [place] [address] [email or web address] Social History Tobacco Use [...] Description 10/06/2025 8:05 AM EST Blood Draw [facility] Trans[facility] Clinic [address] [address] Park Sauer MD [address] [place] [address] JYOTI@[facility] 10/13/2025 8:00 AM EST Office Visit [facility] [address] [address] Park Sauer MD [address] [place] [address] JYOTI@[email or web address] documented as of this encounter Visit Diagnoses Not on filedocumented in this encounter Care Teams Cat Driver Relationship Specialty Start Date End Date Mónica Dawkins MD [facility] [address] PCP - General Internal Medicine 11/11/19 documented as of this encounter Additional Source Comments The information contained in this document represents components of the legal health record. It is not the complete legal health record.[facility]
--- OUTSIDE RECORDS SUMMARY | 2025-09-22 11:10 | XMS_ITS | Encounter Summary ---
Author Organization [facility] Address [address] [place] [address] Phone Care Team Providers Care Engine Cleaner Name Role Phone Mónica Dawkins MD Primary Care Provider [phone] Encounter Details Date Type Department Care Team ([facility] st Contact Info) Description 08/09/2024 Anti-coag visit [facility] Antico[facility] Management Service 125 [facility] [address] [place] [address] Teodora Menendez, RN 125 [place] [address] [email or web address] [...] [facility] [address] [address] Park Sauer MD [address] [place] [address] [email or web address]@[facility] 10/13/2025 8:00 AM EST Office Visit [facility] [address] [address] Park Sauer MD [address] [place] [address] JYOTI@[facility] documented as of this encounter Visit Diagnoses Not on filedocumented in this encounter Care Teams Engine Cleaner Relationship Specialty Start Date End Date Mónica Dawkins MD [facility] [place] [address] PCP - General Internal Medicine 11/11/19 documented as of this encounter Additional Source Comments The information contained in this document represents components of the legal health record. It is not the complete legal health record.[facility]
--- OUTSIDE RECORDS SUMMARY | 2025-09-22 11:10 | XMS_ITS | Encounter Summary ---
Author Organization [facility] Address [address] [facility] [address] [place] [address] Phone Care Team Providers Care Mortgage Loan Officer Name Role Phone Mónica Dawkins MD Primary Care Provider [phone] Encounter Details Date Type Department Care Team (Latest Contact Info) Description 10/13/2020 Ancillary Orders [facility] [address] [address] Park Sauer MD [address] [place] [address] JYOTI@[facility] Immunosuppressive management encounter following kidney transplant; Encounter [...] Description 10/06/2025 8:05 AM EST Blood Draw [facility] [address] [address] Park Sauer MD [address] [place] [address] [place] [address] JYOTI@[facility] 10/13/2025 8:00 AM EST Office Visit [facility] [address] [facility] [address] [place] [address] Park Sauer MD [address] [place] [address] [address] JYOTI@[facility] documented as of this encounter Visit Diagnoses Diagnosis Immunosuppressive management encounter following kidney transplant Encounter for long-term (current) use of other medications Encounter for aftercare following kidney transplant documented in this encounter Care Teams Mortgage Loan Officer Relationship Specialty Start Date End Date Mónica Dawkins MD [address] [place] [address] PCP - General Internal Medicine 11/11/19 documented as of this encounter Additional Source Comments The information contained in this document represents components of the legal health record. It is not the complete legal health record.[facility]
--- OUTSIDE RECORDS SUMMARY | 2025-09-22 11:11 | XMS_ITS | Encounter Summary ---
Author Organization [facility] Address [address] [employer] [address] [place] [address] Phone Care Team Providers Care Production Control Technologist Name Role Phone Mónica Dawkins MD Primary Care Provider [phone] Encounter Details Date Type Department Care Team ([facility] st Contact Info) Description 03/14/[address] [facility] Antico[facility] Management Service 125 [facility] [address] [place] [address] Teodora Menendez, RN 125 [place] [address] [email or web address] [...] 10/06/2025 8:[address] [facility] [address] [address] Park Sauer MD [address] [place] [address] JYOTI@[facility] 10/13/2025 8:00 AM EST Office Visit [facility] [address] [phone] Park Sauer MD [address] [place] [address] JYOTI@[facility] documented as of this encounter Visit Diagnoses Not on filedocumented in this encounter Care Teams Production Control Technologist Relationship Specialty Start Date End Date Mónica Dawkins MD [facility] [place] [address] PCP - General Internal Medicine 11/11/19 documented as of this encounter Additional Source Comments The information contained in this document represents components of the legal health record. It is not the complete legal health record.[facility]
--- OUTSIDE RECORDS SUMMARY | 2025-09-22 11:11 | XMS_ITS | Encounter Summary ---
Author Organization [facility] Address [address] [place] [address] Phone Care Team Providers Care Plant Associate Name Role Phone Mónica Dawkins MD Primary Care Provider [phone] Encounter Details Date Type Department Care Team ([facility] st Contact Info) Description 02/28/2024 Anti-coag visit [facility]tico[facility] Service 125 [facility] [address] [place] [address] Teodora Menendez, RN 125 [place] [address] [email or web address] Social History Tobacco [...] [facility] [address] [address] Park Sauer MD [address] [place] [address] [email or web address] 10/13/2025 8:00 AM EST Office Visit [facility] [address] [address] Park Sauer MD [address] [place] [address] [email or web address] documented as of this encounter Visit Diagnoses Not on filedocumented in this encounter Care Teams Plant Associate Relationship Specialty Start Date End Date Mónica Dawkins MD [facility] [place] [address] PCP - General Internal Medicine 11/11/19 documented as of this encounter Additional Source Comments The information contained in this document represents components of the legal health record. It is not the complete legal health record.[facility]
--- OUTSIDE RECORDS SUMMARY | 2025-09-22 11:11 | XMS_ITS | Encounter Summary ---
Author Organization [facility] Address [address] [facility] [address] [place] [address] Phone Care Team Providers Care Yard Pilot Name Role Phone Mónica Dawkins MD Primary Care Provider [phone] Encounter Details Date Type Department Care Team (Latest Contact Info) Description 11/27/2020 Ancillary Orders [facility] [address] [address] Park Sauer MD [address] [place] [address] JYOTI@[email or web address] Immunosuppressive management encounter following kidney transplant; Encounter [...] [place] [facility] [address] [address] Park Sauer MD [address] [place] [address] [place] [address] JYOTI@[facility] 10/13/2025 8:00 AM EST Office Visit [facility] 165 [facility] [address] [place] [address] Park Sauer MD [address] [place] [address] [address] [place] [address] JYOTI@[facility] documented as of this encounter Visit Diagnoses Diagnosis Immunosuppressive management encounter following kidney transplant Encounter for long-term (current) use of other medications Encounter for aftercare following kidney transplant documented in this encounter Care Teams Yard Pilot Relationship Specialty Start Date End Date Mónica Dawkins MD [address] [place] [address] PCP - General Internal Medicine 11/11/19 documented as of this encounter Additional Source Comments The information contained in this document represents components of the legal health record. It is not the complete legal health record.[facility]
--- OUTSIDE RECORDS SUMMARY | 2025-09-22 11:11 | XMS_ITS | Encounter Summary ---
Author Organization [facility] Address [address] [facility] [address] [place] [address] Phone Care Team Providers Care Mother Helper Name Role Phone Mónica Dawkins MD Primary Care Provider [phone] Encounter Details Date Type Department Care Team (Latest Contact Info) Description 11/26/2020 Ancillary Orders [facility] Transplant Clinic [address] [address] Park Sauer MD [address] [place] [address] JYOTI@[email or web address] Immunosuppressive management encounter following kidney transplant; [...] Description 10/06/2025 8:05 AM EST Blood Draw [facility] Transplant Clinic [address] [address] Park Sauer MD [address] [place] [address] [place] [address] JYOTI@[facility] 10/13/2025 8:00 AM EST Office Visit [facility] Trans[facility] Clinic 165 [facility] [address] [place] [address] Park Sauer MD [address] [place] [address], [place] [address] JYOTI@[facility] documented as of this encounter Visit Diagnoses Diagnosis Immunosuppressive management encounter following kidney transplant Encounter for long-term (current) use of other medications Encounter for aftercare following kidney transplant documented in this encounter Care Teams Mother Helper Relationship Specialty Start Date End Date Mónica Dawkins MD [address] [place] [address] PCP - General Internal Medicine 11/11/19 documented as of this encounter Additional Source Comments The information contained in this document represents components of the legal health record. It is not the complete legal health record.[facility]
--- OUTSIDE RECORDS SUMMARY | 2025-09-22 11:11 | XMS_ITS | Encounter Summary ---
Author Organization [facility] Address [address] [employer] [address] [place] [address] Phone Care Team Providers Care Braiding Machine Operator Name Role Phone Mónica Dawkins MD Primary Care Provider [phone] Encounter Details Date Type Department Care Team ([facility] st Contact Info) Description 08/22/2025 Anti-coag visit [facility] 125 [facility] [address] [place] [address] Teodora Menendez, RN 125 [place] [address] [email or web address] Social History Tobacco Use Types Packs/Day Years [place] [facility] [address] [address] Park Sauer MD [address] [place] [address] [email or web address] 10/13/2025 8:00 AM EST Office Visit [facility] [address] [address] Park Sauer MD [address] [place] [address] [email or web address] documented as of this encounter Visit Diagnoses Not on filedocumented in this encounter Care Teams Braiding Machine Operator Relationship Specialty Start Date End Date Mónica Dawkins MD [facility] [address] PCP - General Internal Medicine 11/11/19 documented as of this encounter Additional Source Comments The information contained in this document represents components of the legal health record. It is not the complete legal health record.[facility]
--- OUTSIDE RECORDS SUMMARY | 2025-09-22 11:11 | XMS_ITS | Encounter Summary ---
Author Organization [facility] Address [address] [facility] [address] [place] [address] Phone Care Team Providers Care News Copy Editor Name Role Phone Mónica Dawkins MD Primary Care Provider [phone] Encounter Details Date Type Department Care Team (Late st Contact Info) Description 10/11/2021 Anti-coag visit [facility]tico[facility] Management Service 125 [facility] 765 [place] [address] Edie Zapata RN 125 [place] [address] [email or web address] Social History [...] Description 10/06/2025 8:05 AM EST Blood Draw [facility] 165 [facility] 301 [place] [address] Park Sauer MD [facility] [address] [place] [address] [email or web address] 10/13/2025 8:00 AM EST Office Visit [facility] Trans[facility] [address] [place] [address] Park Sauer MD [address] [place] [address] [address] [place] [address] [email or web address] documented as of this encounter Visit Diagnoses Not on filedocumented in this encounter Care Teams News Copy Editor Relationship Specialty Start Date End Date Mónica Dawkins MD [address] [place] [address] PCP - General Internal Medicine 11/11/19 documented as of this encounter Additional Source Comments The information contained in this document represents components of the legal health record. It is not the complete legal health record.[facility]
--- OUTSIDE RECORDS SUMMARY | 2025-09-22 11:11 | XMS_ITS | Encounter Summary ---
Author Organization [facility] Address [address] [facility] [address] [place] [address] Phone Care Team Providers Care Set Up Person Name Role Phone Móncia Dawkins MD Primary Care Provider [phone] Encounter Details Date Type Department Care Team (Latest Contact Info) Description 12/04/2020 Ancillary Orders [facility] Trans[facility] Clinic [address] [address] Park Sauer MD [address] [place] [address] [email or web address] Immunosuppressive management encounter following kidney [...] Description 10/06/2025 8:05 AM EST Blood Draw [facility] Trans[facility] Clinic [address] [address] Park Sauer MD [address] [place] [address] [place] [address] [email or web address] 10/13/2025 8:00 AM EST Office Visit [facility] Transplant Clinic [address] [facility] [employer] [facility] [address] [place] [address] Park Sauer MD [address] [place] [address] [address] [place] [address] [email or web address] documented as of this encounter Visit Diagnoses Diagnosis Immunosuppressive management encounter following kidney transplant Encounter for long-term (current) use of other medications Encounter for aftercare following kidney transplant documented in this encounter Care Teams Set Up Person Relationship Specialty Start Date End Date Mónica Dawkins MD [address] [place] [address] PCP - General Internal Medicine 11/11/19 documented as of this encounter Additional Source Comments The information contained in this document represents components of the legal health record. It is not the complete legal health record.[facility]
--- OUTSIDE RECORDS SUMMARY | 2025-09-22 11:11 | XMS_ITS | Encounter Summary ---
Author Organization [facility] Address [address] [employer] [address] [place] [address] Phone Care Team Providers Care Pediatric Licensed Practical Nurse Name Role Phone Mónica Dawkins MD Primary Care Provider [phone] Encounter Details Date Type Department Care Team ([facility] st Contact Info) Description 09/19/2025 Anti-coag visit [facility] 125 [facility] [address] [place] [address] Teodora Menendez, RN 125 [place] [address] [email or web address] Social History Tobacco Use Types Packs/Day Years [...] Description 10/06/2025 8:05 AM EST Blood Draw [facility] [address] [address] Park Sauer MD [address] [place] [address] [email or web address]@[email or web address] 10/13/2025 8:00 AM EST Office Visit [facility] [address] [address] Park Sauer MD [address] [place] [address] [email or web address] documented as of this encounter Visit Diagnoses Not on filedocumented in this encounter Care Teams Pediatric Licensed Practical Nurse Relationship Specialty Start Date End Date Mónica Dawkins MD [facility] [place] [address] PCP - General Internal Medicine 11/11/19 documented as of this encounter Additional Source Comments The information contained in this document represents components of the legal health record. It is not the complete legal health record.[facility]
--- OUTSIDE RECORDS SUMMARY | 2025-09-22 11:11 | XMS_ITS | Encounter Summary ---
Author Organization [facility] Address [address] [facility] [address] [place] [address] Phone Care Team Providers Care Coin Purse Assembler Name Role Phone Mónica Dawkins MD Primary Care Provider [phone] Encounter Details Date Type Department Care Team (Late st Contact Info) Description 10/05/2021 Procedure Pass [facility] PERIOPERATIVE DEPT 55 [place] [id number] Social History Tobacco Use Types Packs/Day Years [...] Description 10/06/2025 8:05 AM EST Blood Draw [facility] Trans[facility] Clinic [address] [address] Park Sauer MD 55 [facility] [address] [place] [address] [email or web address] 10/13/2025 8:00 AM EST Office Visit [facility] Trans[facility] [address] [address] Park Sauer MD [address] [place] [address] [email or web address]@[email or web address] documented as of this encounter Visit Diagnoses Not on filedocumented in this encounter Care Teams Coin Purse Assembler Relationship Specialty Start Date End Date Mónica Dawkins MD [address] [place] [address] PCP - General Internal Medicine 11/11/19 documented as of this encounter Additional Source Comments The information contained in this document represents components of the legal health record. It is not the complete legal health record.[facility]
--- OUTSIDE RECORDS SUMMARY | 2025-09-22 11:11 | XMS_ITS | Encounter Summary ---
Author Organization [facility] Address [address] [employer] [address] [place] [address] Phone Care Team Providers Care Ice Guard Inspector Name Role Phone Mónica Dawkins MD Primary Care Provider [phone] Encounter Details Date Type Department Care Team (Latest Contact Info) Description 11/30/2020 Ancillary Orders [facility] Trans[facility] Clinic [address] [address] Park Sauer MD [address] [place] [address] [email or web address] Immunosuppressive management encounter following kidney transplant; [...] Description 10/06/2025 8:05 AM EST Blood Draw [facility] Transplant Clinic [address] [address] Park Sauer MD [address] [place] [address] [place] [address] JYOTI@[facility] [place] [facility] 10/13/2025 8:00 AM EST Office Visit [facility] Trans[facility] Clinic 165 [facility] [address] [place] [address] Park Sauer MD [address] [place] [address] [address] [place] [address] JYOTI@[facility] documented as of this encounter Visit Diagnoses Diagnosis Immunosuppressive management encounter following kidney transplant Encounter for long-term (current) use of other medications Encounter for aftercare following kidney transplant documented in this encounter Care Teams Ice Guard Inspector Relationship Specialty Start Date End Date Mónica Dawkins MD [address] [place] [address] PCP - General Internal Medicine 11/11/19 documented as of this encounter Additional Source Comments The information contained in this document represents components of the legal health record. It is not the complete legal health record.[facility]
--- OUTSIDE RECORDS SUMMARY | 2025-09-22 11:11 | XMS_ITS | Encounter Summary ---
Author Organization [facility] Address [address] [facility] [address] [place] [address] Phone Care Team Providers Care Facility Mechanic Name Role Phone Mónica Dawkins MD Primary Care Provider [phone] Encounter Details Date Type Department Care Team (Latest Contact Info) Description 12/08/2020 Ancillary Orders [facility] Trans[facility] [address] [address] Park Sauer MD [address] [place] [address] [email or web address] Immunosuppressive management encounter following kidney transplant; [...] 8:05 AM EST Blood Draw [facility] Transplant Clinic [address] [address] Park Sauer MD [address] [place] [address] [place] [address] JYOTI@[email or web address] 10/13/2025 8:00 AM EST Office Visit [facility] Trans[facility] 165 [facility] [address] [place] [address] Park Sauer MD [address] [place] [address] [address] [place] [address] [email or web address]@[email or web address] documented as of this encounter Visit Diagnoses Diagnosis Immunosuppressive management encounter following kidney transplant Encounter for long-term (current) use of other medications Encounter for aftercare following kidney transplant documented in this encounter Care Teams Facility Mechanic Relationship Specialty Start Date End Date Mónica Dawkins MD [address] [place] [address] PCP - General Internal Medicine 11/11/19 documented as of this encounter Additional Source Comments The information contained in this document represents components of the legal health record. It is not the complete legal health record.[facility]
--- OUTSIDE RECORDS SUMMARY | 2025-09-22 11:11 | XMS_ITS | Encounter Summary ---
Author Organization [facility] Address [address] [facility] [address] [place] [address] Phone Care Team Providers Care Hotel Assistant General Manager Name Role Phone Mónica Dawkins MD Primary Care Provider [phone] Encounter Details Date Type Department Care Team (Latest Contact Info) Description 12/03/2020 Ancillary Orders [facility] Transplant Clinic [address] [address] Park Sauer MD [address] [place] [address] [email or web address] Immunosuppressive management encounter following kidney transplant; Encounter [...] Description 10/06/2025 8:05 AM EST Blood Draw [facility] Transplant Clinic [address] [address] Park Sauer MD [address] [place] [address] [place] [address] [email or web address] 10/13/2025 8:00 AM EST Office Visit [facility] Trans[facility] Clinic 165 [facility] [address] [place] [address] Park Sauer MD [address] [place] [address] [address] [place] [address] JYOTI@[email or web address] documented as of this encounter Visit Diagnoses Diagnosis Immunosuppressive management encounter following kidney transplant Encounter for long-term (current) use of other medications Encounter for aftercare following kidney transplant documented in this encounter Care Teams Hotel Assistant General Manager Relationship Specialty Start Date End Date Mónica Dawkins MD [address] [place] [address] PCP - General Internal Medicine 11/11/19 documented as of this encounter Additional Source Comments The information contained in this document represents components of the legal health record. It is not the complete legal health record.[facility]
--- OUTSIDE RECORDS SUMMARY | 2025-09-22 11:11 | XMS_ITS | Encounter Summary ---
Author Organization [facility] Address [address] [place] [address] Phone Care Team Providers Care Architect In Training Name Role Phone Mónica Dawkins MD Primary Care Provider [phone] Encounter Details Date Type Department Care Team ([facility] st Contact Info) Description 02/12/2024 Anti-coag visit [facility] Antico[facility] Management Service 125 [facility] [address] [place] [address] Teodora Menendez, RN 125 [place] [address] [email or web address] Social History [...] [facility] [place] [facility] [address] [address] Park Sauer MD [address] [place] [address] [email or web address]@[email or web address] 10/13/2025 8:00 AM EST Office Visit [facility] [address] [address] Park Sauer MD [address] [place] [address] JYOTI@[email or web address] documented as of this encounter Visit Diagnoses Not on filedocumented in this encounter Care Teams Architect In Training Relationship Specialty Start Date End Date Mónica Dawkins MD [facility] [place] [address] PCP - General Internal Medicine 11/11/19 documented as of this encounter Additional Source Comments The information contained in this document represents components of the legal health record. It is not the complete legal health record.[facility]
--- OUTSIDE RECORDS SUMMARY | 2025-09-22 11:11 | XMS_ITS | Encounter Summary ---
Author Organization [facility] Address [address] [facility] [address] [place] [address] Phone Care Team Providers Care Inside Account Representative Name Role Phone Mónica Dawkins MD Primary Care Provider [phone] Encounter Details Date Type Department Care Team (Latest Contact Info) Description 12/07/2020 Ancillary Orders [facility] [place] [facility] [address] [address] Park Sauer MD [address] [place] [address] [email or web address] Immunosuppressive management encounter following kidney [...] [place] [facility] [place] [facility] [address] [address] Park Sauer MD [address] [place] [address] [place] [address] [email or web address] 10/13/2025 8:00 AM EST Office Visit [facility] 165 [facility] [address] [place] [address] Park Saeur MD [address] [place] [address] [address] [place] [address] JYOTI@[facility] documented as of this encounter Visit Diagnoses Diagnosis Immunosuppressive management encounter following kidney transplant Encounter for long-term (current) use of other medications Encounter for aftercare following kidney transplant documented in this encounter Care Teams Inside Account Representative Relationship Specialty Start Date End Date Mónica Dawkins MD [address] [place] [address] PCP - General Internal Medicine 11/11/19 documented as of this encounter Additional Source Comments The information contained in this document represents components of the legal health record. It is not the complete legal health record.[facility]
--- OUTSIDE RECORDS SUMMARY | 2025-09-22 11:11 | XMS_ITS | Encounter Summary ---
Author Organization [facility] Address [address] [facility] [address] [place] [address] Phone Care Team Providers Care Traveling Buyer Name Role Phone Mónica Dawkins MD Primary Care Provider [phone] Encounter Details Date Type Department Care Team (Latest Contact Info) Description 12/10/2020 Ancillary Orders [facility] Trans[facility] Clinic [address] [address] Park Sauer MD [address] [place] [address] [email or web address] Immunosuppressive management encounter following kidney [...] AM EST Blood Draw [facility] [address] [address] Park Sauer MD [address] [place] [address] [place] [address] [email or web address] 10/13/2025 8:00 AM EST Office Visit [facility] 165 [facility] [address] [place] [address] Park Sauer MD [address] [place] [address] [address] [place] [address] [email or web address] documented as of this encounter Visit Diagnoses Diagnosis Immunosuppressive management encounter following kidney transplant Encounter for long-term (current) use of other medications Encounter for aftercare following kidney transplant documented in this encounter Care Teams Traveling Buyer Relationship Specialty Start Date End Date Mónica Dawkins MD [address] [place] [address] PCP - General Internal Medicine 11/11/19 documented as of this encounter Additional Source Comments The information contained in this document represents components of the legal health record. It is not the complete legal health record.[facility]
--- OUTSIDE RECORDS SUMMARY | 2025-09-22 11:11 | XMS_ITS | Encounter Summary ---
Author Organization [facility] Address [address] [place] [address] Phone Care Team Providers Care Manager Operations Research Name Role Phone Mónica Dawkins MD Primary Care Provider [phone] Encounter Details Date Type Department Care Team ([facility] st Contact Info) Description 01/27/2024 Anti-coag visit [facility] Anticoagulation Management Service [address] [facility] [address] [place] [address] Teodora Menendez, RN 125 [place] [address] [email or web address] Social History [...] Description 10/06/2025 8:05 AM EST Blood Draw [facility] Trans[facility] Clinic [address] [address] Park Sauer MD [address] [place] [address] [email or web address] 10/13/2025 8:00 AM EST Office Visit [facility] Trans[facility] Clinic [address] [address] Park Sauer MD [address] [place] [address] [email or web address] documented as of this encounter Visit Diagnoses Not on filedocumented in this encounter Care Teams Manager Operations Research Relationship Specialty Start Date End Date Mónica Dawkins MD [facility] [place] [address] PCP - General Internal Medicine 11/11/19 documented as of this encounter Additional Source Comments The information contained in this document represents components of the legal health record. It is not the complete legal health record.[facility]
--- OUTSIDE RECORDS SUMMARY | 2025-09-22 11:11 | XMS_ITS | Encounter Summary ---
Author Organization [facility] Address [address] [facility] [address] [place] [address] Phone Care Team Providers Care Moving Picture Producer Name Role Phone Mónica Dawkins MD Primary Care Provider [phone] Encounter Details Date Type Department Care Team (Latest Contact Info) Description 12/01/2020 Ancillary Orders [facility] [address] [address] Park Sauer MD [address] [place] [address] [email or web address] Immunosuppressive management encounter following kidney transplant; Encounter [...] 10/06/2025 8:05 AM EST Blood Draw [facility] [address] [address] Park Sauer MD [address] [place] [address] [place] [address] JYOTI@[facility] 10/13/2025 8:00 AM EST Office Visit [facility] 165 [facility] [address] [place] [address] Park Sauer MD [address] [place] [address] [address] [place] [address] JYOTI@[facility] documented as of this encounter Visit Diagnoses Diagnosis Immunosuppressive management encounter following kidney transplant Encounter for long-term (current) use of other medications Encounter for aftercare following kidney transplant documented in this encounter Care Teams Moving Picture Producer Relationship Specialty Start Date End Date Mónica Dawkins MD [address] [place] [address] PCP - General Internal Medicine 11/11/19 documented as of this encounter Additional Source Comments The information contained in this document represents components of the legal health record. It is not the complete legal health record.[facility]
--- OUTSIDE RECORDS SUMMARY | 2025-09-22 11:11 | XMS_ITS | Encounter Summary ---
Author Organization [facility] Address [address] [facility] [address] [place] [address] Phone Care Team Providers Care Social Service Worker Name Role Phone Mónica Dawkins MD Primary Care Provider [phone] Encounter Details Date Type Department Care Team (Latest Contact Info) Description 12/09/2020 Ancillary Orders [facility] [address] [address] Park Sauer MD [address] [place] [address] [email or web address] Immunosuppressive management encounter following kidney transplant; [...] Description 10/06/2025 8:05 AM EST Blood Draw [facility] [address] [address] Park Sauer MD [address] [place] [address] [place] [address] [email or web address] 10/13/2025 8:00 AM EST Office Visit [facility] [address] [facility] [address] [place] [address] Park Sauer MD [address] [place] [address] [address] [place] [address] [email or web address] documented as of this encounter Visit Diagnoses Diagnosis Immunosuppressive management encounter following kidney transplant Encounter for long-term (current) use of other medications Encounter for aftercare following kidney transplant documented in this encounter Care Teams Social Service Worker Relationship Specialty Start Date End Date Mónica Dawkins MD [address] [place] [address] PCP - General Internal Medicine 11/11/19 documented as of this encounter Additional Source Comments The information contained in this document represents components of the legal health record. It is not the complete legal health record.[facility]
--- OUTSIDE RECORDS SUMMARY | 2025-09-22 11:11 | XMS_ITS | Encounter Summary ---
Author Organization [facility] Address [address] [facility] [address] [place] [address] Phone Care Team Providers Care Political Science Professor Name Role Phone Mónica Dawkins MD Primary Care Provider [phone] Encounter Details Date Type Department Care Team (Late st Contact Info) Description 10/01/2021 Anti-coag visit [facility] Anticoagulation Management Service [address] [place] [address] Anjana Diana, CAMILLA [address] [place] [address] [email or web address] Social History Tobacco Use Types [...] [facility] [place] [facility] 165 [facility] [address] [place] [address] Park Sauer MD [address] [facility] [address] [place] [address] [email or web address] 10/13/2025 8:00 AM EST Office Visit [facility] [address] [place] [address] Park Sauer MD [address] [facility] [address] [place] [address] [email or web address] documented as of this encounter Visit Diagnoses Not on filedocumented in this encounter Care Teams Political Science Professor Relationship Specialty Start Date End Date Mónica Dawkins MD [address] [place] [address] PCP - General Internal Medicine 11/11/19 documented as of this encounter Additional Source Comments The information contained in this document represents components of the legal health record. It is not the complete legal health record.[facility]
--- OUTSIDE RECORDS SUMMARY | 2025-09-22 11:11 | XMS_ITS | Encounter Summary ---
Author Organization [facility] Address [address] [employer] [address] [place] [address] Phone Care Team Providers Care Art Studio Teacher Name Role Phone Mónica Dawkins MD Primary Care Provider [phone] Encounter Details Date Type Department Care Team ([facility] st Contact Info) Description 09/06/2025 Anti-coag visit [facility] Anticoagulation Management Service [address] [facility] [address] [place] [address] Josefa Oliva, RN 125 [place] [address] [email or web address] Social History Tobacco Use Types [...] [facility] [place] [facility] [address] [address] Park Sauer MD [address] [place] [address] [email or web address] 10/13/2025 8:00 AM EST Office Visit [facility] [address] [address] Park Sauer MD [address] [place] [address] [email or web address] documented as of this encounter Visit Diagnoses Not on filedocumented in this encounter Care Teams Art Studio Teacher Relationship Specialty Start Date End Date Mónica Dawkins MD [facility] [place] [address] PCP - General Internal Medicine 11/11/19 documented as of this encounter Additional Source Comments The information contained in this document represents components of the legal health record. It is not the complete legal health record.[facility]
--- OUTSIDE RECORDS SUMMARY | 2025-09-22 11:11 | XMS_ITS | Encounter Summary ---
Author Organization [facility] Address [address] [facility] [address] [place] [address] Phone Care Team Providers Care Glass Cutter Helper Name Role Phone Mónica Dawkins MD Primary Care Provider [phone] Encounter Details Date Type Department Care Team (Latest Contact Info) Description 12/02/2020 Ancillary Orders [facility] Trans[facility] [address] [address] Park Sauer MD [address] [place] [address] [email or web address] Immunosuppressive management encounter following kidney transplant; Encounter [...] Description 10/06/2025 8:05 AM EST Blood Draw [facility] [address] [address] Park Sauer MD [address] [place] [address] [place] [address] [email or web address] 10/13/2025 8:00 AM EST Office Visit [facility] [address] [facility] [address] [place] [address] Park Sauer MD [address] [place] [address] [address] [place] [address] [email or web address] documented as of this encounter Visit Diagnoses Diagnosis Immunosuppressive management encounter following kidney transplant Encounter for long-term (current) use of other medications Encounter for aftercare following kidney transplant documented in this encounter Care Teams Glass Cutter Helper Relationship Specialty Start Date End Date Mónica Dawkins MD [address] [place] [address] PCP - General Internal Medicine 11/11/19 documented as of this encounter Additional Source Comments The information contained in this document represents components of the legal health record. It is not the complete legal health record.[facility]
--- OUTSIDE RECORDS SUMMARY | 2025-09-22 11:12 | XMS_ITS | Encounter Summary ---
Author Organization [facility] Address [address] [facility] [address] [place] [address] Phone Care Team Providers Care Wool Sorter Name Role Phone Mónica Dawkins MD Primary Care Provider [phone] Encounter Details Date Type Department Care Team (Latest Contact Info) Description 11/13/2020 Ancillary Orders [facility] [address] [address] Park Sauer MD [address] [place] [address] [email or web address] Immunosuppressive management encounter following kidney transplant; Encounter [...] AM EST Blood Draw [facility] [address] [address] Park Sauer MD [address] [place] [address] [place] [address] JYOTI@[facility] 10/13/2025 8:00 AM EST Office Visit [facility] [address] [employer] [address] [place] [address] Park Sauer MD [address] [place] [address] [address] [place] [address] JYOTI@[facility] documented as of this encounter Visit Diagnoses Diagnosis Immunosuppressive management encounter following kidney transplant Encounter for long-term (current) use of other medications Encounter for aftercare following kidney transplant documented in this encounter Care Teams Wool Sorter Relationship Specialty Start Date End Date Mónica Dawkins MD [address] [place] [address] PCP - General Internal Medicine 11/11/19 documented as of this encounter Additional Source Comments The information contained in this document represents components of the legal health record. It is not the complete legal health record.[facility]
--- OUTSIDE RECORDS SUMMARY | 2025-09-22 11:12 | XMS_ITS | Encounter Summary ---
Author Organization [facility] Address [address] [facility] [address] [place] [address] Phone Care Team Providers Care Clocksmith Name Role Phone Mónica Dawkins MD Primary Care Provider [phone] Encounter Details Date Type Department Care Team (Latest Contact Info) Description 11/25/2020 Ancillary Orders [facility] [address] [address] Park Sauer MD [address] [place] [address] [email or web address] Immunosuppressive management encounter following [...] [facility] [place] [facility] [address] [address] Park Sauer MD [address] [place] [address] [place] [address] JYOTI@[facility] 10/13/2025 8:00 AM EST Office Visit [facility] Trans[facility] 165 [facility] [address] [place] [address] Park Sauer MD [address] [place] [address] [address] [address] JYOIT@[facility] documented as of this encounter Visit Diagnoses Diagnosis Immunosuppressive management encounter following kidney transplant Encounter for long-term (current) use of other medications Encounter for aftercare following kidney transplant documented in this encounter Care Teams Clocksmith Relationship Specialty Start Date End Date Mónica Dawkins MD [address] [place] [address] PCP - General Internal Medicine 11/11/19 documented as of this encounter Additional Source Comments The information contained in this document represents components of the legal health record. It is not the complete legal health record.[facility]
--- OUTSIDE RECORDS SUMMARY | 2025-09-22 11:12 | XMS_ITS | Encounter Summary ---
Author Organization [facility] Address [address] [facility] [address] [place] [address] Phone Care Team Providers Care Bilingual [employer] Teacher Name Role Phone Mónica Dawkins MD Primary Care Provider [phone] Encounter Details Date Type Department Care Team (Latest Contact Info) Description 12/11/2020 Ancillary Orders [facility] Trans[facility] [address] [address] Park Sauer MD [address] [place] [address] [email or web address] Immunosuppressive management encounter following kidney transplant; Encounter [...] [facility] [address] [address] Park aSuer MD [address] [place] [address] [place] [address] JYOTI@[facility] 10/13/2025 8:00 AM EST Office Visit [facility] [address] [facility] [address] [place] [address] Park Sauer MD [address] [place] [address] [address] [place] [address] JYOTI@[facility] documented as of this encounter Visit Diagnoses Diagnosis Immunosuppressive management encounter following kidney transplant Encounter for long-term (current) use of other medications Encounter for aftercare following kidney transplant documented in this encounter Care Teams [employer] Teacher Relationship Specialty Start Date End Date Mónica Dawkins MD [address] [place] [address] PCP - General Internal Medicine 11/11/19 documented as of this encounter Additional Source Comments The information contained in this document represents components of the legal health record. It is not the complete legal health record.[facility]
--- OUTSIDE RECORDS SUMMARY | 2025-09-22 11:12 | XMS_ITS | Encounter Summary ---
Author Organization [facility] Address [address] [facility] [address] [place] [address] Phone Care Team Providers Care Casino Floor Runner Name Role Phone Mónica Dawkins MD Primary Care Provider [phone] Encounter Details Date Type Department Care Team (Latest Contact Info) Description 12/14/2020 Ancillary Orders [facility] [address] [address] Park Sauer MD [address] [place] [address] JYOTI@[facility] Immunosuppressive management encounter following kidney transplant; Encounter [...] AM EST Blood Draw [facility] [address] [address] Park Sauer MD [address] [place] [address] [place] [address] JYOTI@[facility] 10/13/2025 8:00 AM EST Office Visit [facility] 165 [facility] [address] [place] [address] Park Sauer MD [address] [place] [address] [address] [place] [address] JYOTI@[facility] documented as of this encounter Visit Diagnoses Diagnosis Immunosuppressive management encounter following kidney transplant Encounter for long-term (current) use of other medications Encounter for aftercare following kidney transplant documented in this encounter Care Teams Casino Floor Runner Relationship Specialty Start Date End Date Mónica Dawkins MD [address] [place] [address] PCP - General Internal Medicine 11/11/19 documented as of this encounter Additional Source Comments The information contained in this document represents components of the legal health record. It is not the complete legal health record.[facility]
--- OUTSIDE RECORDS SUMMARY | 2025-09-22 11:12 | XMS_ITS | Encounter Summary ---
Author Organization [facility] Address [address] [facility] [address] [place] [address] Phone Care Team Providers Care Freight Elevator Operator Name Role Phone Mónica Dawkins MD Primary Care Provider [phone] Encounter Details Date Type Department Care Team (Latest Contact Info) Description 11/12/2020 Ancillary Orders [facility] [address] [place] [address] [address] Park Sauer MD [address] [place] [address] [email or web address] Immunosuppressive management encounter following [...] [facility] [address] [place] [address] [address] Park Sauer MD [address] [place] [address] [place] [address] JYOTI@[facility] 10/13/2025 8:00 AM EST Office Visit [facility] 165 [facility] [address] [place] [address] Park Sauer MD [address] [place] [address] [address] JYOTI@[facility] documented as of this encounter Visit Diagnoses Diagnosis Immunosuppressive management encounter following kidney transplant Encounter for long-term (current) use of other medications Encounter for aftercare following kidney transplant documented in this encounter Care Teams Freight Elevator Operator Relationship Specialty Start Date End Date Mónica Dawkins MD [address] [place] [address] PCP - General Internal Medicine 11/11/19 documented as of this encounter Additional Source Comments The information contained in this document represents components of the legal health record. It is not the complete legal health record.[facility]
--- OUTSIDE RECORDS SUMMARY | 2025-09-22 11:12 | XMS_ITS | Encounter Summary ---
Author Organization [facility] Address [address] [facility] [address] [place] [address] Phone Care Team Providers Care Track Repairer Helper Name Role Phone Mónica Dawkins MD Primary Care Provider [phone] Encounter Details Date Type Department Care Team (Late st Contact Info) Description 07/02/2021 Anti-coag [place] [facility] [place] 125 [facility] 765 [place] [address] Edie Zapata RN 125 [place] [address] [email or web address] Social History Tobacco Use Types Packs/Day Years [facility] 165 [facility] [address] [place] [address] Park Sauer MD 55 [facility] [address] [place] [address] JYOTI@[facility] 10/13/2025 8:00 AM EST Office Visit [facility] [address] [place] [address] Park Sauer MD [address] [place] [address] [address] [place] [address] [email or web address] documented as of this encounter Visit Diagnoses Not on filedocumented in this encounter Care Teams Track Repairer Helper Relationship Specialty Start Date End Date Mónica Dawkins MD [address] [place] [address] PCP - General Internal Medicine 11/11/19 documented as of this encounter Additional Source Comments The information contained in this document represents components of the legal health record. It is not the complete legal health record.[facility]
--- OUTSIDE RECORDS SUMMARY | 2025-09-22 11:12 | XMS_ITS | Encounter Summary ---
Author Organization [facility] Address [address] [facility] [address] [place] [address] Phone Care Team Providers Care Brick Cleaner Name Role Phone Mónica Dawkins MD Primary Care Provider [phone] Encounter Details Date Type Department Care Team (Latest Contact Info) Description 11/18/2020 Ancillary Orders [facility] Trans[facility] [address] [address] Park Sauer MD [address] [place] [address] [email or web address] Immunosuppressive management encounter following [...] Description 10/06/2025 8:05 AM EST Blood Draw [facility] Trans[facility] [address] [address] Park Sauer MD [address] [place] [address] [place] [address] JYOTI@[email or web address] 10/13/2025 8:00 AM EST Office Visit [facility] 165 [facility] [address] [place] [address] Park Sauer MD [address] [place] [address] [address] JYOTI@[email or web address] documented as of this encounter Visit Diagnoses Diagnosis Immunosuppressive management encounter following kidney transplant Encounter for long-term (current) use of other medications Encounter for aftercare following kidney transplant documented in this encounter Care Teams Brick Cleaner Relationship Specialty Start Date End Date Mónica Dawkins MD [address] [place] [address] PCP - General Internal Medicine 11/11/19 documented as of this encounter Additional Source Comments The information contained in this document represents components of the legal health record. It is not the complete legal health record.[facility]
--- OUTSIDE RECORDS SUMMARY | 2025-09-22 11:12 | XMS_ITS | Encounter Summary ---
Author Organization [facility] Address [address] [employer] [facility] [address] [place] [address] Phone Care Team Providers Care Public Address Systems Mechanic Name Role Phone Mónica Dawkins MD Primary Care Provider [phone] Encounter Details Date Type Department Care Team (Late st Contact Info) Description 09/06/2021 Anti-coag [place] [facility] [place] [facility] 125 [facility] 765 [place] [address] Edie Zapata RN 125 [place] [address] [email or web address] Social History Tobacco Use Types Packs/Day Years [...] Description 10/06/2025 8:05 AM EST Blood Draw [facility] 165 [facility] [address] [place] [address] Park Sauer MD 55 [facility] [address] [place] [address] JYOTI@[facility] 10/13/2025 8:00 AM EST Office Visit [facility] [address] [place] [address] Park Sauer MD [address] [place] [address] [address] [place] [address] [email or web address] documented as of this encounter Visit Diagnoses Not on filedocumented in this encounter Care Teams Public Address Systems Mechanic Relationship Specialty Start Date End Date Mónica Dawkins MD [address] [place] [address] PCP - General Internal Medicine 11/11/19 documented as of this encounter Additional Source Comments The information contained in this document represents components of the legal health record. It is not the complete legal health record.[facility]
--- OUTSIDE RECORDS SUMMARY | 2025-09-22 11:12 | XMS_ITS | Encounter Summary ---
Author Organization [facility] Address [address] [facility] [address] [place] [address] Phone Care Team Providers Care Fishing Manager Name Role Phone Mónica Dawkins MD Primary Care Provider [phone] Encounter Details Date Type Department Care Team (Latest Contact Info) Description 11/16/2020 Ancillary Orders [facility] [address] [address] Park Sauer MD [address] [place] [address] [email or web address] Immunosuppressive management encounter following kidney transplant; [...] Description 10/06/2025 8:05 AM EST Blood Draw [facility] [address] [address] Park Sauer MD [address] [place] [address] [place] [address] JYOTI@[facility] 10/13/2025 8:00 AM EST Office Visit [facility] 165 [facility] [address] [place] [address] Park Sauer MD [address] [place] [address] [address] JYOTI@[facility] documented as of this encounter Visit Diagnoses Diagnosis Immunosuppressive management encounter following kidney transplant Encounter for long-term (current) use of other medications Encounter for aftercare following kidney transplant documented in this encounter Care Teams Fishing Manager Relationship Specialty Start Date End Date Mónica Dawkins MD [address] [place] [address] PCP - General Internal Medicine 11/11/19 documented as of this encounter Additional Source Comments The information contained in this document represents components of the legal health record. It is not the complete legal health record.[facility]
--- OUTSIDE RECORDS SUMMARY | 2025-09-22 11:12 | XMS_ITS | Encounter Summary ---
Author Organization [facility] Address [address] [facility] [address] [place] [address] Phone Care Team Providers Care General Adjuster Name Role Phone Mónica Dawkins MD Primary Care Provider [phone] Encounter Details Date Type Department Care Team (Latest Contact Info) Description 11/11/2020 Ancillary Orders [facility] [address] [address] Park Sauer MD [address] [place] [address] [email or web address] Immunosuppressive management encounter following kidney transplant; [...] [facility] [address] [address] Park Sauer MD [address] [place] [address] [place] [address] [email or web address] 10/13/2025 8:00 AM EST Office Visit [facility] 165 [facility] [address] [place] [address] Park Sauer MD [address] [place] [address] [address] [email or web address] documented as of this encounter Visit Diagnoses Diagnosis Immunosuppressive management encounter following kidney transplant Encounter for long-term (current) use of other medications Encounter for aftercare following kidney transplant documented in this encounter Care Teams General Adjuster Relationship Specialty Start Date End Date Mónica Dawkins MD [address] [place] [address] PCP - General Internal Medicine 11/11/19 documented as of this encounter Additional Source Comments The information contained in this document represents components of the legal health record. It is not the complete legal health record.[facility]
--- OUTSIDE RECORDS SUMMARY | 2025-09-22 11:12 | XMS_ITS | Encounter Summary ---
Author Organization [facility] Address [address] [facility] [address] [place] [address] Phone Care Team Providers Care Retouching Operator Name Role Phone Mónica Dawkins MD Primary Care Provider [phone] Encounter Details Date Type Department Care Team (Latest Contact Info) Description 11/19/2020 Ancillary Orders [facility] [address] [address] Park Sauer MD [address] [place] [address] [email or web address] Immunosuppressive management encounter following kidney transplant; [...] Description 10/06/2025 8:05 AM EST Blood Draw [facility] [address] [address] Park Sauer MD [address] [place] [address] [place] [address] JYOTI@[facility] 10/13/2025 8:00 AM EST Office Visit [facility] 165 [facility] [address] [place] [address] Park Sauer MD [address] [place] [address] [address] JYOTI@[facility] documented as of this encounter Visit Diagnoses Diagnosis Immunosuppressive management encounter following kidney transplant Encounter for long-term (current) use of other medications Encounter for aftercare following kidney transplant documented in this encounter Care Teams Retouching Operator Relationship Specialty Start Date End Date Mónica Dawkins MD [address] [place] [address] PCP - General Internal Medicine 11/11/19 documented as of this encounter Additional Source Comments The information contained in this document represents components of the legal health record. It is not the complete legal health record.[facility]
--- OUTSIDE RECORDS SUMMARY | 2025-09-22 11:12 | XMS_ITS | Encounter Summary ---
Author Organization [facility] Address [address] [facility] [address] [place] [address] Phone Care Team Providers Care Client Technical Professional Name Role Phone Mónica Dawkins MD Primary Care Provider [phone] Encounter Details Date Type Department Care Team (Latest Contact Info) Description 11/17/2020 Ancillary Orders [facility] [address] [address] Park Sauer MD [address] [place] [address] [email or web address] Immunosuppressive management encounter following kidney [...] [facility] [address] [address] Park Sauer MD [address] [place] [address] [place] [address] JYOTI@[email or web address] 10/13/2025 8:00 AM EST Office Visit [facility] [address] [facility] [address] [place] [address] Pakr Sauer MD [address] [place] [address], [place] [address] JYOTI@[facility] documented as of this encounter Visit Diagnoses Diagnosis Immunosuppressive management encounter following kidney transplant Encounter for long-term (current) use of other medications Encounter for aftercare following kidney transplant documented in this encounter Care Teams Client Technical Professional Relationship Specialty Start Date End Date Mónica Dawkins MD [address] [place] [address] PCP - General Internal Medicine 11/11/19 documented as of this encounter Additional Source Comments The information contained in this document represents components of the legal health record. It is not the complete legal health record.[facility]
--- OUTSIDE RECORDS SUMMARY | 2025-09-22 11:12 | XMS_ITS | Encounter Summary ---
Author Organization [facility] Address [address] [facility] [address] [place] [address] Phone Care Team Providers Care House Wirer Name Role Phone Mónica Dawkins MD Primary Care Provider [phone] Encounter Details Date Type Department Care Team (Late st Contact Info) Description 08/09/2021 Anti-coag visit [facility] 125 [facility] 765 [place] [address] Josefa Oliva, RN 125 [place] [address] [email or web address] Social History Tobacco Use Types Packs/Day [...] 10/06/2025 8:05 AM EST Blood Draw [facility] 165 [facility] [address] [place] [address] Park Sauer MD 55 [facility] [address] [place] [address] [email or web address] 10/13/2025 8:00 AM EST Office Visit [facility] [address] [place] [address] Park Sauer MD 55 [facility] [address] [place] [address] [email or web address] documented as of this encounter Visit Diagnoses Not on filedocumented in this encounter Care Teams House Wirer Relationship Specialty Start Date End Date Mónica Dawkins MD [address] [place] [address] PCP - General Internal Medicine 11/11/19 documented as of this encounter Additional Source Comments The information contained in this document represents components of the legal health record. It is not the complete legal health record.[facility]
--- OUTSIDE RECORDS SUMMARY | 2025-09-22 11:12 | XMS_ITS | Encounter Summary ---
Author Organization [facility] Address [address] [facility] [address] [place] [address] Phone Care Team Providers Care Director Transportation Name Role Phone Mónica Dawkins MD Primary Care Provider [phone] Encounter Details Date Type Department Care Team (Late st Contact Info) Description 12/16/2020 Anti-coag visit [facility] 125 [facility] 765 [place] [address] Edie Zapata RN 125 [place] [address] [email or web address] Social History Tobacco Use Types Packs/Day Years [...] Description 10/06/2025 8:05 AM EST Blood Draw [facility] 165 [facility] [address] [place] [address] Park Sauer MD 55 [facility] [address] [place] [address] JYOTI@[email or web address] 10/13/2025 8:00 AM EST Office Visit [facility] [address] [place] [address] Park Sauer MD [address] [place] [address] [address] [place] [address] [email or web address] documented as of this encounter Visit Diagnoses Not on filedocumented in this encounter Care Teams Director Transportation Relationship Specialty Start Date End Date Mónica Dawkins MD [address] [place] [address] PCP - General Internal Medicine 11/11/19 documented as of this encounter Additional Source Comments The information contained in this document represents components of the legal health record. It is not the complete legal health record.[facility]
--- OUTSIDE RECORDS SUMMARY | 2025-09-22 11:12 | XMS_ITS | Encounter Summary ---
Author Organization [facility] Address [address] [employer] [address] [facility] [address] [place] [address] Phone Care Team Providers Care Nursing Service Director Name Role Phone Mónica Dawkins MD Primary Care Provider [phone] Encounter Details Date Type Department Care Team (Late st Contact Info) Description 10/25/2021 Anti-coag visit [facility] 125 [facility] 765 [place] [address] Edie Zapata RN 125 [place] [address] [email or web address] Social History [...] Description 10/06/2025 8:05 AM EST Blood Draw [facility] 165 [facility] 301 [place] [address] Park Sauer MD [facility] [address] [place] [address] JYOTI@[facility] 10/13/2025 8:00 AM EST Office Visit [facility] [address] [place] [address] Park Sauer MD [address] [place] [address] [address] [place] [address] JYOTI@[facility] documented as of this encounter Visit Diagnoses Not on filedocumented in this encounter Care Teams Nursing Service Director Relationship Specialty Start Date End Date Mónica Dawkins MD [address] [place] [address] PCP - General Internal Medicine 11/11/19 documented as of this encounter Additional Source Comments The information contained in this document represents components of the legal health record. It is not the complete legal health record.[facility]
--- OUTSIDE RECORDS SUMMARY | 2025-09-22 11:12 | XMS_ITS | Encounter Summary ---
Author Organization [facility] Address [address] [facility] [address] [place] [address] Phone Care Team Providers Care Raw Material Planner Name Role Phone Mónica Dawkins MD Primary Care Provider [phone] Encounter Details Date Type Department Care Team (Late Contact Info) Description 07/12/2021 Anti-coag visit [facility] 125 [facility] 765 [place] [address] Swathi Snyder RN 125 [place] [address] [email or web address] Social History Tobacco Use Types [...] [facility] 165 [facility] 301 [place] [address] Park Sauer MD 55 [facility] [address] [place] [address] JYOTI@[email or web address] 10/13/2025 8:00 AM EST Office Visit [facility] [address] [place] [address] Park Sauer MD [address] [place] [address] [address] [place] [address] JYOTI@[email or web address] documented as of this encounter Visit Diagnoses Not on filedocumented in this encounter Care Teams Raw Material Planner Relationship Specialty Start Date End Date Mónica Dawkins MD [address] [place] [address] PCP - General Internal Medicine 11/11/19 documented as of this encounter Additional Source Comments The information contained in this document represents components of the legal health record. It is not the complete legal health record.[facility]
--- OUTSIDE RECORDS SUMMARY | 2025-09-22 11:12 | XMS_ITS | Encounter Summary ---
Author Organization [facility] Address [address] [facility] [address] [place] [address] Phone Care Team Providers Care Geriatric Physical Therapist Name Role Phone Mónica Dawkins MD Primary Care Provider [phone] Encounter Details Date Type Department Care Team (Latest Contact Info) Description 12/16/2020 Ancillary Orders [facility] [address] [address] Park Sauer MD [address] [place] [address] [email or web address] Immunosuppressive management encounter following kidney transplant; [...] [facility] [address] [address] Park Sauer MD [address] [place] [address] [place] [address] JYOTI@[facility] 10/13/2025 8:00 AM EST Office Visit [facility] 165 [facility] [address] [place] [address] Park Sauer MD [address] [place] [address] [address] [place] [address] JYOTI@[facility] documented as of this encounter Visit Diagnoses Diagnosis Immunosuppressive management encounter following kidney transplant Encounter for long-term (current) use of other medications Encounter for aftercare following kidney transplant documented in this encounter Care Teams Geriatric Physical Therapist Relationship Specialty Start Date End Date Mónica Dawkins MD [address] [place] [address] PCP - General Internal Medicine 11/11/19 documented as of this encounter Additional Source Comments The information contained in this document represents components of the legal health record. It is not the complete legal health record.[facility]
--- OUTSIDE RECORDS SUMMARY | 2025-09-22 11:12 | XMS_ITS | Encounter Summary ---
Author Organization [facility] Address [address] [facility] [address] [place] [address] Phone Care Team Providers Care Certified Forklift Operator Name Role Phone Mónica Dawkins MD Primary Care Provider [phone] Encounter Details Date Type Department Care Team (Latest Contact Info) Description 2020 Ancillary Orders [facility] [address] [address] Park Sauer MD [address] [place] [address] [email or web address] Immunosuppressive management encounter following kidney transplant; Encounter [...] 10/06/2025 8:05 AM EST Blood Draw [facility] [address] [address] Park Sauer MD [address] [place] [address] [place] [address] JYOTI@[facility] 10/13/2025 8:00 AM EST Office Visit [facility] 165 [facility] [address] [place] [address] Park Sauer MD [address] [place] [address] [address] JYOTI@[facility] documented as of this encounter Visit Diagnoses Diagnosis Immunosuppressive management encounter following kidney transplant Encounter for long-term (current) use of other medications Encounter for aftercare following kidney transplant documented in this encounter Care Teams Certified Forklift Operator Relationship Specialty Start Date End Date Mónica Dawkins MD [address] [place] [address] PCP - General Internal Medicine 11/11/19 documented as of this encounter Additional Source Comments The information contained in this document represents components of the legal health record. It is not the complete legal health record.[facility]
--- OUTSIDE RECORDS SUMMARY | 2025-09-22 11:12 | XMS_ITS | Encounter Summary ---
Author Organization [facility] Address [address] [facility] [address] [place] [address] Phone Care Team Providers Care Doctor Osteopathic Name Role Phone Mónica Dawkins MD Primary Care Provider [phone] Encounter Details Date Type Department Care Team (Latest Contact Info) Description 12/17/2020 Ancillary Orders [facility] [address] [address] Park Sauer MD [address] [place] [address] [email or web address] Immunosuppressive management encounter following kidney transplant; Encounter [...] [facility] [address] [address] Park Sauer MD [address] [place] [address] [place] [address] JYOTI@[facility] 10/13/2025 8:00 AM EST Office Visit [facility] 165 [facility] [address] [place] [address] Park Sauer MD [address] [place] [address] [address] [place] [address] JYOTI@[facility] documented as of this encounter Visit Diagnoses Diagnosis Immunosuppressive management encounter following kidney transplant Encounter for long-term (current) use of other medications Encounter for aftercare following kidney transplant documented in this encounter Care Teams Doctor Osteopathic Relationship Specialty Start Date End Date Mónica Dawkins MD [address] [place] [address] PCP - General Internal Medicine 11/11/19 documented as of this encounter Additional Source Comments The information contained in this document represents components of the legal health record. It is not the complete legal health record.[facility]
--- OUTSIDE RECORDS SUMMARY | 2025-09-22 11:12 | XMS_ITS | Encounter Summary ---
Author Organization [facility] Address [address] [employer] [facility] [address] [place] [address] Phone Care Team Providers Care Crown Wheel Assembler Name Role Phone Mónica Dawkins MD Primary Care Provider [phone] Encounter Details Date Type Department Care Team (Late st Contact Info) Description 01/11/2021 Anti-coag visit [facility] 125 [facility] 765 [place] [address] Edie Zapata RN 125 [place] [address] [email or web address] Social History Tobacco Use Types Packs/Day [...] Description 10/06/2025 8:05 AM EST Blood Draw [facility] 165 [facility] [address] [place] [address] Park Sauer MD 55 [facility] [address] [place] [address] JYOTI@[email or web address] 10/13/2025 8:00 AM EST Office Visit [facility] [address] [place] [address] Park Sauer MD [address] [place] [address] [address] [place] [address] JYOTI@[facility] documented as of this encounter Visit Diagnoses Not on filedocumented in this encounter Care Teams Crown Wheel Assembler Relationship Specialty Start Date End Date Mónica Dawkins MD [address] [place] [address] PCP - General Internal Medicine 11/11/19 documented as of this encounter Additional Source Comments The information contained in this document represents components of the legal health record. It is not the complete legal health record.[facility]
--- OUTSIDE RECORDS SUMMARY | 2025-09-22 11:12 | XMS_ITS | Encounter Summary ---
Author Organization [facility] Address [address] [facility] [place] [address] [place] [address] Phone Care Team Providers Care Storage Wharfage Clerk Name Role Phone Mónica Dawkins MD Primary Care Provider [phone] Encounter Details Date Type Department Care Team (Late st Contact Info) Description 06/14/2021 Anti-coag visit [facility] Anticoagulation Management Service 125 [facility] 765 [place] [address] Edie Zapata RN 125 [place] [address] [email or web address] Social History Tobacco Use Types Packs/Day [...] [facility] 165 [facility] [address] [place] [address] Park Sauer MD 55 [facility] [address] [place] [address] [email or web address] 10/13/2025 8:00 AM EST Office Visit [facility] Transplant Clinic [address] [place] [address] Park Sauer MD [address] [place] [address] [address] [place] [address] JYOTI@[email or web address] documented as of this encounter Visit Diagnoses Not on filedocumented in this encounter Care Teams Storage Wharfage Clerk Relationship Specialty Start Date End Date Mónica Dawkins MD [address] [place] [address] PCP - General Internal Medicine 11/11/19 documented as of this encounter Additional Source Comments The information contained in this document represents components of the legal health record. It is not the complete legal health record.[facility]
--- OUTSIDE RECORDS SUMMARY | 2025-09-22 11:12 | XMS_ITS | Encounter Summary ---
Author Organization [facility] Address [address] [facility] [address] [place] [address] Phone Care Team Providers Care Backend Tester Name Role Phone Mónica Dawkins MD Primary Care Provider [phone] Encounter Details Date Type Department Care Team (Late st Contact Info) Description 06/17/2021 Anti-coag [place] [facility] [place] 125 [facility] [address] [place] [address] Stephanie Rojas NP 24 [place] [address] [email or web address] Social History Tobacco Use Types Packs/Day [...] AM EST Blood Draw [facility] 165 [facility] [address] [place] [address] Park Sauer MD 55 [facility] [address] [place] [address] [email or web address] 10/13/2025 8:00 AM EST Office Visit [facility] [address] [place] [address] Park Sauer MD [address] [place] [address] [address] [place] [address] [email or web address] documented as of this encounter Visit Diagnoses Not on filedocumented in this encounter Care Teams Backend Tester Relationship Specialty Start Date End Date Mónica Dawkins MD [address] [place] [address] PCP - General Internal Medicine 11/11/19 documented as of this encounter Additional Source Comments The information contained in this document represents components of the legal health record. It is not the complete legal health record.[facility]
--- OUTSIDE RECORDS SUMMARY | 2025-09-22 11:12 | XMS_ITS | Encounter Summary ---
Author Organization [facility] Address [address] [employer] [address] [place] [address] Phone Care Team Providers Care Psychological Operations Name Role Phone Mónica Dawkins MD Primary Care Provider [phone] Encounter Details Date Type Department Care Team (Latest Contact Info) Description 12/15/2020 Ancillary Orders [facility] Trans[facility] Clinic [address] [address] Park Sauer MD [address] [place] [address] [email or web address] Immunosuppressive management encounter following kidney transplant; Encounter [...] Description 10/06/2025 8:05 AM EST Blood Draw [facility] [address] [address] Park Sauer MD [address] [place] [address] [place] [address] [email or web address] 10/13/2025 8:00 AM EST Office Visit [facility] 165 [facility] [address] [place] [address] Park Sauer MD [address] [place] [address] [address] [place] [address] [email or web address] documented as of this encounter Visit Diagnoses Diagnosis Immunosuppressive management encounter following kidney transplant Encounter for long-term (current) use of other medications Encounter for aftercare following kidney transplant documented in this encounter Care Teams Psychological Operations Relationship Specialty Start Date End Date Mónica Dawkins MD [address] [place] [address] PCP - General Internal Medicine 11/11/19 documented as of this encounter Additional Source Comments The information contained in this document represents components of the legal health record. It is not the complete legal health record.[facility]
--- OUTSIDE RECORDS SUMMARY | 2025-09-22 11:12 | XMS_ITS | Encounter Summary ---
Author Organization [facility] Address [address] [facility] [address] [place] [address] Phone Care Team Providers Care Roll Contour Grinder Name Role Phone Mónica Dawkins MD Primary Care Provider [phone] Encounter Details Date Type Department Care Team (Latest Contact Info) Description 01/11/2021 Ancillary Orders [facility] [place] [address] [address] Park Sauer MD [address] [place] [address] [email or web address] Immunosuppressive management encounter following kidney transplant; [...] 10/06/2025 8:05 AM EST Blood Draw [facility] [place] [address] [address] Park Sauer MD [address] [place] [address] [place] [address] [email or web address] 10/13/2025 8:00 AM EST Office Visit [facility] 165 [facility] [address] [place] [address] Park Sauer MD [address] [place] [address] [address] [place] [address] JYOTI@[email or web address] documented as of this encounter Visit Diagnoses Diagnosis Immunosuppressive management encounter following kidney transplant Encounter for long-term (current) use of other medications Encounter for aftercare following kidney transplant documented in this encounter Care Teams Roll Contour Grinder Relationship Specialty Start Date End Date Mónica Dawkins MD [address] [place] [address] PCP - General Internal Medicine 11/11/19 documented as of this encounter Additional Source Comments The information contained in this document represents components of the legal health record. It is not the complete legal health record.[facility]
--- OUTSIDE RECORDS SUMMARY | 2025-09-22 11:12 | XMS_ITS | Encounter Summary ---
Author Organization [facility] Address [address] [facility] [address] [place] [address] Phone Care Team Providers Care Senior Business Development Analyst Name Role Phone Mónica Dawkins MD Primary Care Provider Encounter Details Date Type Department Care Team (Latest Contact Info) Description 11/24/[address] [facility] Trans[facility] [address] [address] Park Sauer MD [address] [place] [address] [email or web address] Immunosuppressive management encounter following kidney [...] [facility] [address] [address] Park Sauer MD [address] [place] [address] [place] [address] [email or web address] 10/13/2025 8:00 AM EST Office Visit [facility] 165 [facility] [address] [place] [address] Park Sauer MD [address] [place] [address], [place] [address] [email or web address] documented as of this encounter Visit Diagnoses Diagnosis Immunosuppressive management encounter following kidney transplant Encounter for long-term (current) use of other medications Encounter for aftercare following kidney transplant documented in this encounter Care Teams Senior Business Development Analyst Relationship Specialty Start Date End Date Mónica Dawkins MD [address] [place] [address] PCP - General Internal Medicine 11/11/19 documented as of this encounter Additional Source Comments The information contained in this document represents components of the legal health record. It is not the complete legal health record.[facility]
--- OUTSIDE RECORDS SUMMARY | 2025-09-22 11:12 | XMS_ITS | Encounter Summary ---
Author Organization [facility] Address [address] [employer] [address] [place] [address] Phone Care Team Providers Care Bottle Washing Machine Operator Name Role Phone Mónica Dawkins MD Primary Care Provider [phone] Encounter Details Date Type Department Care Team ([facility] st Contact Info) Description 11/29/2024 Anti-coag visit [facility] [place]tico[facility] Service 125 [facility] [address] [place] [address] Teodora Menendez, RN 125 [place] [address] [email or web address] Social History Tobacco [...] [facility] [address] [address] Park Sauer MD [address] [place] [address] [email or web address]@[email or web address] 10/13/2025 8:00 AM EST Office Visit [facility] [address] [address] Park Sauer MD [address] [place] [address] [email or web address] documented as of this encounter Visit Diagnoses Not on filedocumented in this encounter Care Teams Bottle Washing Machine Operator Relationship Specialty Start Date End Date Mónica Dawkins MD [facility] [place] [address] PCP - General Internal Medicine 11/11/19 documented as of this encounter Additional Source Comments The information contained in this document represents components of the legal health record. It is not the complete legal health record.[facility]
--- OUTSIDE RECORDS SUMMARY | 2025-09-22 11:12 | XMS_ITS | Encounter Summary ---
Author Organization [facility] Address [address] [facility] [address] [place] [address] Phone Care Team Providers Care Structural Steel Erection Supervisor Name Role Phone Mónica Dawkins MD Primary Care Provider [phone] Encounter Details Date Type Department Care Team (Latest Contact Info) Description 11/10/2020 Ancillary Orders [facility] Transplant Clinic [address] [address] Park Sauer MD [address] [place] [address] [email or web address] Immunosuppressive management encounter following kidney [...] [facility] [address] [address] Park Sauer MD [address] [place] [address] [place] [address] JYOTI@[facility] 10/13/2025 8:00 AM EST Office Visit [facility] Trans[facility] Clinic 165 [facility] [address] [place] [address] Park Sauer MD [address] [place] [address] [address] JYOTI@[facility] documented as of this encounter Visit Diagnoses Diagnosis Immunosuppressive management encounter following kidney transplant Encounter for long-term (current) use of other medications Encounter for aftercare following kidney transplant documented in this encounter Care Teams Structural Steel Erection Supervisor Relationship Specialty Start Date End Date Mónica Dawkins MD [address] [place] [address] PCP - General Internal Medicine 11/11/19 documented as of this encounter Additional Source Comments The information contained in this document represents components of the legal health record. It is not the complete legal health record.[facility]
--- OUTSIDE RECORDS SUMMARY | 2025-09-22 11:12 | XMS_ITS | Encounter Summary ---
Author Organization [facility] Address [address] [facility] [address] [place] [address] Phone Care Team Providers Care Corporate Bond Trader Name Role Phone Mónica Dawkins MD Primary Care Provider [phone] Encounter Details Date Type Department Care Team (Late st Contact Info) Description 08/16/2021 Anti-coag visit [facility] Anticoagulation Management Service 125 [facility] 765 [place] [address] Edie Zapata RN 125 [place] [address] [email or web address] Social History Tobacco Use Types Packs/Day [...] Description 10/06/2025 8:05 AM EST Blood Draw [facility] Transplant Clinic 165 [facility] [address] [place] [address] Park Sauer MD 55 [facility] [address] [place] [address] JYOTI@[facility] 10/13/2025 8:00 AM EST Office Visit [facility] Transplant Clinic [address] [place] [address] Park Sauer MD [address] [place] [address] [address] [place] [address] JYOTI@[facility] documented as of this encounter Visit Diagnoses Not on filedocumented in this encounter Care Teams Corporate Bond Trader Relationship Specialty Start Date End Date Mónica Dawkins MD [address] [place] [address] PCP - General Internal Medicine 11/11/19 documented as of this encounter Additional Source Comments The information contained in this document represents components of the legal health record. It is not the complete legal health record.[facility]
--- OUTSIDE RECORDS SUMMARY | 2025-09-22 11:12 | XMS_ITS | Encounter Summary ---
Author Organization [facility] Address [address] [facility] [address] [place] [address] Phone Care Team Providers Care Environmental Health Safety Manager Name Role Phone Mónica Dawkins MD Primary Care Provider [phone] Encounter Details Date Type Department Care Team (Latest Contact Info) Description 11/23/2020 Ancillary Orders [facility] Trans[facility] Clinic [address] [address] Park Sauer MD [address] [place] [address] [email or web address] Immunosuppressive management encounter following kidney transplant; [...] [facility] [place] [address] [address] Park Sauer MD [address] [place] [address] [place] [address] JYOTI@[email or web address] 10/13/2025 8:00 AM EST Office Visit [facility] 165 [facility] [address] [place] [address] Park Sauer MD [address] [place] [address], [place] [address] JYOTI@[facility] documented as of this encounter Visit Diagnoses Diagnosis Immunosuppressive management encounter following kidney transplant Encounter for long-term (current) use of other medications Encounter for aftercare following kidney transplant documented in this encounter Care Teams Environmental Health Safety Manager Relationship Specialty Start Date End Date Mónica Dawkins MD [address] [place] [address] PCP - General Internal Medicine 11/11/19 documented as of this encounter Additional Source Comments The information contained in this document represents components of the legal health record. It is not the complete legal health record.[facility]
--- OUTSIDE RECORDS SUMMARY | 2025-09-22 11:12 | XMS_ITS | Encounter Summary ---
Author Organization [facility] Address [address] [employer] [address] [place] [address] Phone Care Team Providers Care Forklift Truck Operator Name Role Phone Mónica Dawkins MD Primary Care Provider [phone] Encounter Details Date Type Department Care Team ([facility] st Contact Info) Description 11/14/2024 Anti-coag visit [facility]tico[facility] Management Service 125 [facility] [address] [place] [address] Teodora Mneendez, RN 125 [place] [address] [email or web address] Social History [...] [facility] [address] [address] Park Sauer MD [address] [place] [address] [email or web address]@[email or web address] 10/13/2025 8:00 AM EST Office Visit [facility] [address] [address] Park Sauer MD [address] [place] [address] [email or web address] documented as of this encounter Visit Diagnoses Not on filedocumented in this encounter Care Teams Forklift Truck Operator Relationship Specialty Start Date End Date Mónica Dawkins MD [facility] [place] [address] PCP - General Internal Medicine 11/11/19 documented as of this encounter Additional Source Comments The information contained in this document represents components of the legal health record. It is not the complete legal health record.[facility]
--- OUTSIDE RECORDS SUMMARY | 2025-09-22 11:13 | XMS_ITS | Encounter Summary ---
Author Organization [facility] Address [address] [facility] [address] [place] [address] Phone Care Team Providers Care Dexigraph Operator Name Role Phone Mónica Dawkins MD Primary Care Provider [phone] Encounter Details Date Type Department Care Team (Latest Contact Info) Description 09/21/2020 Ancillary Orders [facility] [address] [address] Park Sauer MD [address] [place] [address] [email or web address] Immunosuppressive management encounter following kidney transplant; Encounter [...] Description 10/06/2025 8:05 AM EST Blood Draw [facility] [address] [address] Park Sauer MD [address] [place] [address] [place] [address] JYOTI@[facility] 10/13/2025 8:00 AM EST Office Visit [facility] 165 [facility] [address] [place] [address] Park Sauer MD [address] [place] [address] [address] JYOTI@[facility] documented as of this encounter Visit Diagnoses Diagnosis Immunosuppressive management encounter following kidney transplant Encounter for long-term (current) use of other medications Encounter for aftercare following kidney transplant documented in this encounter Care Teams Dexigraph Operator Relationship Specialty Start Date End Date Mónica Dawkins MD [address] [place] [address] PCP - General Internal Medicine 11/11/19 documented as of this encounter Additional Source Comments The information contained in this document represents components of the legal health record. It is not the complete legal health record.[facility]
--- OUTSIDE RECORDS SUMMARY | 2025-09-22 11:13 | XMS_ITS | Encounter Summary ---
Author Organization [facility] Address [address] [facility] [address] [place] [address] Phone Care Team Providers Care Rig Hand Name Role Phone Mónica Dawkins MD Primary Care Provider [phone] Encounter Details Date Type Department Care Team (Latest Contact Info) Description 01/15/2021 Ancillary Orders [facility] Trans[facility] Clinic [address] [address] Park Sauer MD [address] [place] [address] [email or web address] Immunosuppressive management encounter following kidney transplant; [...] Description 10/06/2025 8:05 AM EST Blood Draw [facility] Transplant Clinic [address] [address] Park Sauer MD [address] [place] [address] [place] [address] [email or web address] 10/13/2025 8:00 AM EST Office Visit [facility] Transplant Clinic 165 [facility] [address] [place] [address] Park Sauer MD [address] [place] [address] [address] [place] [address] JYOTI@[email or web address] documented as of this encounter Visit Diagnoses Diagnosis Immunosuppressive management encounter following kidney transplant Encounter for long-term (current) use of other medications Encounter for aftercare following kidney transplant documented in this encounter Care Teams Rig Hand Relationship Specialty Start Date End Date Mónica Dawkins MD [address] [place] [address] PCP - General Internal Medicine 11/11/19 documented as of this encounter Additional Source Comments The information contained in this document represents components of the legal health record. It is not the complete legal health record.[facility]
--- OUTSIDE RECORDS SUMMARY | 2025-09-22 11:13 | XMS_ITS | Encounter Summary ---
Author Organization [facility] Address [address] [facility] [address] [place] [address] Phone Care Team Providers Care Hydraulic Chair Assembler Name Role Phone Mónica Dawkins MD Primary Care Provider [phone] Encounter Details Date Type Department Care Team (Latest Contact Info) Description 01/19/2021 Ancillary Orders [facility] [address] [address] Park Sauer MD [address] [place] [address] [email or web address] Immunosuppressive management encounter following kidney [...] [facility] [address] [address] Park Sauer MD [address] [place] [address] [place] [address] [email or web address] 10/13/2025 8:00 AM EST Office Visit [facility] 165 [facility] [address] [place] [address] Park Sauer MD [address] [place] [address] [address] [place] [address] [email or web address] documented as of this encounter Visit Diagnoses Diagnosis Immunosuppressive management encounter following kidney transplant Encounter for long-term (current) use of other medications Encounter for aftercare following kidney transplant documented in this encounter Care Teams Hydraulic Chair Assembler Relationship Specialty Start Date End Date Mónica Dawkins MD [address] [place] [address] PCP - General Internal Medicine 11/11/19 documented as of this encounter Additional Source Comments The information contained in this document represents components of the legal health record. It is not the complete legal health record.[facility]
--- OUTSIDE RECORDS SUMMARY | 2025-09-22 11:13 | XMS_ITS | Encounter Summary ---
Author Organization [facility] Address [address] [facility] [address] [place] [address] Phone Care Team Providers Care Dance Choreographer Name Role Phone Mónica Dawkins MD Primary Care Provider Encounter Details Date Type Department Care Team (Latest Contact Info) Description 09/28/2020 Ancillary Orders [facility] [address] [address] Park Sauer MD [address] [place] [address] [email or web address] Immunosuppressive management encounter following kidney transplant; [...] [facility] [address] [address] Park Sauer MD [address] [place] [address] [place] [address] [email or web address] 10/13/2025 8:00 AM EST Office Visit [facility] 165 [facility] [address] [place] [address] Park Sauer MD [address] [place] [address] [address], [place] [address] JYOTI@[email or web address] documented as of this encounter Visit Diagnoses Diagnosis Immunosuppressive management encounter following kidney transplant Encounter for long-term (current) use of other medications Encounter for aftercare following kidney transplant documented in this encounter Care Teams Dance Choreographer Relationship Specialty Start Date End Date Mónica Dawkins MD [address] [place] [address] PCP - General Internal Medicine 11/11/19 documented as of this encounter Additional Source Comments The information contained in this document represents components of the legal health record. It is not the complete legal health record.[facility]
--- OUTSIDE RECORDS SUMMARY | 2025-09-22 11:13 | XMS_ITS | Encounter Summary ---
Author Organization [facility] Address [address] [facility] [address] [place] [address] Phone Care Team Providers Care Mandrel Press Hand Name Role Phone Mónica Dawkins MD Primary Care Provider [phone] Encounter Details Date Type Department Care Team (Latest Contact Info) Description 01/14/2021 Ancillary Orders [facility] [address] [address] Park Sauer MD [address] [place] [address] JYOTI@[facility] Immunosuppressive management encounter following kidney [...] Description 10/06/2025 8:05 AM EST Blood Draw [facility] [address] [address] Park Sauer MD [address] [place] [address] [place] [address] [email or web address]@[facility] 10/13/2025 8:00 AM EST Office Visit [facility] 165 [facility] [address] [place] [address] Park Sauer MD [address] [place] [address] [address] [place] [address] JYOTI@[facility] documented as of this encounter Visit Diagnoses Diagnosis Immunosuppressive management encounter following kidney transplant Encounter for long-term (current) use of other medications Encounter for aftercare following kidney transplant documented in this encounter Care Teams Mandrel Press Hand Relationship Specialty Start Date End Date Mónica Dawkins MD [address] [place] [address] PCP - General Internal Medicine 11/11/19 documented as of this encounter Additional Source Comments The information contained in this document represents components of the legal health record. It is not the complete legal health record.[facility]
--- OUTSIDE RECORDS SUMMARY | 2025-09-22 11:13 | XMS_ITS | Encounter Summary ---
Author Organization [facility] Address [address] [employer] [address] [place] [address] Phone Care Team Providers Care Pantry Cook Name Role Phone Mónica Dawkins MD Primary Care Provider [phone] Encounter Details Date Type Department Care Team ([facility] st Contact Info) Description 12/23/2024 Anti-coag visit [facility] Antico[facility] Management Service 125 [facility] [address] [place] [address] Teodora Menendez, RN [address] [place] [address] [email or web address] Social History Tobacco Use Types Packs/Day Years [...] [facility] [address] [address] Park Sauer MD [address] [place] [address] [email or web address]@[email or web address] 10/13/2025 8:00 AM EST Office Visit [facility] [address] [address] Park Sauer MD [address] [place] [address] JYOTI@[facility] documented as of this encounter Visit Diagnoses Not on filedocumented in this encounter Care Teams Pantry Cook Relationship Specialty Start Date End Date Mónica Dawkins MD [facility] [place] [address] PCP - General Internal Medicine 11/11/19 documented as of this encounter Additional Source Comments The information contained in this document represents components of the legal health record. It is not the complete legal health record.[facility]
--- OUTSIDE RECORDS SUMMARY | 2025-09-22 11:13 | XMS_ITS | Encounter Summary ---
Author Organization [facility] Address [address] [facility] [address] [place] [address] Phone Care Team Providers Care Mobility Architect Name Role Phone Mónica Dawkins MD Primary Care Provider [phone] Encounter Details Date Type Department Care Team (Latest Contact Info) Description 01/21/2021 Ancillary Orders [facility] [address] [address] Park Sauer MD [address] [place] [address] [email or web address] Immunosuppressive management encounter following kidney transplant; Encounter [...] [facility] [address] [address] Park Sauer MD [address] [place] [address] [place] [address] JYOTI@[facility] 10/13/2025 8:00 AM EST Office Visit [facility] 165 [facility] [address] [place] [address] Park Sauer MD [address] [place] [address] [address] [place] [address] JYOTI@[facility] documented as of this encounter Visit Diagnoses Diagnosis Immunosuppressive management encounter following kidney transplant Encounter for long-term (current) use of other medications Encounter for aftercare following kidney transplant documented in this encounter Care Teams Mobility Architect Relationship Specialty Start Date End Date Mónica Dawkins MD [address] [place] [address] PCP - General Internal Medicine 11/11/19 documented as of this encounter Additional Source Comments The information contained in this document represents components of the legal health record. It is not the complete legal health record.[facility]
--- OUTSIDE RECORDS SUMMARY | 2025-09-22 11:13 | XMS_ITS | Encounter Summary ---
Author Organization [facility] Address [address] [facility] [address] [place] [address] Phone Care Team Providers Care Assembler Convertible Top Name Role Phone Mónica Dawkins MD Primary Care Provider Encounter Details Date Type Department Care Team (Latest Contact Info) Description 09/29/2020 Ancillary Orders [facility] [address] [address] Park Saure MD [address] [place] [address] JYOTI@[facility] Immunosuppressive management encounter following kidney transplant; [...] Description 10/06/2025 8:05 AM EST Blood Draw [facility] Trans[facility] [address] [address] Park Sauer MD [address] [place] [address] [place] [address] JYOTI@[facility] 10/13/2025 8:00 AM EST Office Visit [facility] 165 [facility] [address] [place] [address] Park Sauer MD [address] [place] [address], [place] [address] JYOTI@[facility] documented as of this encounter Visit Diagnoses Diagnosis Immunosuppressive management encounter following kidney transplant Encounter for long-term (current) use of other medications Encounter for aftercare following kidney transplant documented in this encounter Care Teams Assembler Convertible Top Relationship Specialty Start Date End Date Mónica Dawkins MD [address] [place] [address] PCP - General Internal Medicine 11/11/19 documented as of this encounter Additional Source Comments The information contained in this document represents components of the legal health record. It is not the complete legal health record.[facility]
--- OUTSIDE RECORDS SUMMARY | 2025-09-22 11:13 | XMS_ITS | Encounter Summary ---
Author Organization [facility] Address [address] [facility] [address] [place] [address] Phone Care Team Providers Care Environmental Attorney Name Role Phone Mónica Dawkins MD Primary Care Provider [phone] Encounter Details Date Type Department Care Team (Latest Contact Info) Description 09/17/[address] [facility] [address] [address] Park Sauer MD [address] [place] [address] JYOTI@[email or web address] Immunosuppressive management encounter following kidney transplant; [...] AM EST Blood Draw [facility] [address] [address] Park Sauer MD [address] [place] [address] [place] [address] JYOTI@[facility] 10/13/2025 8:00 AM EST Office [facility] 165 [facility] [address] [place] [address] Park Sauer MD [address] [place] [address] [address], [place] [address] JYOTI@[facility] documented as of this encounter Visit Diagnoses Diagnosis Immunosuppressive management encounter following kidney transplant Encounter for long-term (current) use of other medications Encounter for aftercare following kidney transplant documented in this encounter Care Teams Environmental Attorney Relationship Specialty Start Date End Date Mónica Dawkins MD [address] [place] [address] PCP - General Internal Medicine 11/11/19 documented as of this encounter Additional Source Comments The information contained in this document represents components of the legal health record. It is not the complete legal health record.[facility]
--- OUTSIDE RECORDS SUMMARY | 2025-09-22 11:13 | XMS_ITS | Encounter Summary ---
Author Organization [facility] Address [address] [employer] [facility] [address] [place] [address] Phone Care Team Providers Care Heating Equipment Repairer Name Role Phone Mónica Dawkins MD Primary Care Provider [phone] Encounter Details Date Type Department Care Team ([facility] st Contact Info) Description 02/07/2025 Anti-coag [place] [facility] [address] [place] [address] Khushi Hooks, CAMILLA [address] [place] [address] [email or web address] Social History Tobacco Use Types Packs/Day [facility] [address] [address] Park Sauer MD [address] [place] [address] [place] [address] JYOTI@[facility] 10/13/2025 8:00 AM EST Office Visit [facility] [address] [address] Park Sauer MD [address] [place] [address] JYOTI@[facility] documented as of this encounter Visit Diagnoses Not on filedocumented in this encounter Care Teams Heating Equipment Repairer Relationship Specialty Start Date End Date Mónica Dawkins MD [address] [place] [address] PCP - General Internal Medicine 11/11/19 documented as of this encounter Additional Source Comments The information contained in this document represents components of the legal health record. It is not the complete legal health record.[facility]
--- OUTSIDE RECORDS SUMMARY | 2025-09-22 11:13 | XMS_ITS | Encounter Summary ---
Author Organization [facility] Address [address] [facility] [address] [place] [address] Phone Care Team Providers Care Police Chief Name Role Phone Mónica Dawkins MD Primary Care Provider [phone] Encounter Details Date Type Department Care Team (Latest Contact Info) Description 01/13/[address] [facility] [address] [address] Park Sauer MD [address] [place] [address] [email or web address] Immunosuppressive management encounter following kidney [...] Description 10/06/2025 8:05 AM EST Blood Draw [facility] [address] [address] Park Sauer MD [address] [place] [address] [place] [address] JYOTI@[facility] 10/13/2025 8:00 AM EST Office Visit [facility] 165 [facility] [address] [place] [address] Park Sauer MD [address] [place] [address] [address] [place] [address] JYOTI@[facility] documented as of this encounter Visit Diagnoses Diagnosis Immunosuppressive management encounter following kidney transplant Encounter for long-term (current) use of other medications Encounter for aftercare following kidney transplant documented in this encounter Care Teams Police Chief Relationship Specialty Start Date End Date Mónica Dawkins MD [address] [place] [address] PCP - General Internal Medicine 11/11/19 documented as of this encounter Additional Source Comments The information contained in this document represents components of the legal health record. It is not the complete legal health record.[facility]
--- OUTSIDE RECORDS SUMMARY | 2025-09-22 11:13 | XMS_ITS | Encounter Summary ---
Author Organization [facility] Address [address] [facility] [address] [place] [address] Phone Care Team Providers Care Retail Gift Card Merchandising Name Role Phone Mónica Dawkins MD Primary Care Provider [phone] Encounter Details Date Type Department Care Team (Latest Contact Info) Description 09/16/2020 Ancillary Orders [facility] [address] [address] Park Sauer MD [address] [place] [address] JYOTI@[facility] Immunosuppressive management encounter following kidney transplant; [...] [facility] [address] [address] Park Sauer MD [address] [place] [address] [place] [address] JYOTI@[facility] 10/13/2025 8:00 AM EST Office Visit [facility] 165 [facility] [address] [place] [address] Park Sauer MD [address] [place] [address] [address], [place] [address] JYOTI@[facility] documented as of this encounter Visit Diagnoses Diagnosis Immunosuppressive management encounter following kidney transplant Encounter for long-term (current) use of other medications Encounter for aftercare following kidney transplant documented in this encounter Care Teams Retail Gift Card Merchandising Relationship Specialty Start Date End Date Mónica Dawkins MD [address] [place] [address] PCP - General Internal Medicine 11/11/19 documented as of this encounter Additional Source Comments The information contained in this document represents components of the legal health record. It is not the complete legal health record.[facility]
--- OUTSIDE RECORDS SUMMARY | 2025-09-22 11:13 | XMS_ITS | Encounter Summary ---
Author Organization [facility] Address [address] [facility] [address] [place] [address] Phone Care Team Providers Care Casting Finisher Name Role Phone Mónica Dawkins MD Primary Care Provider [phone] Encounter Details Date Type Department Care Team (Latest Contact Info) Description 09/23/2020 Ancillary Orders [facility] [address] [address] Park Sauer MD [address] [place] [address] [email or web address] Immunosuppressive management encounter following kidney [...] [facility] [address] [address] Park Sauer MD [address] [place] [address] [place] [address] JYOTI@[email or web address] 10/13/2025 8:00 AM EST Office Visit [facility] 165 [facility] [address] [place] [address] Park Sauer MD [address] [place] [address] [address], [place] [address] JYOTI@[facility] documented as of this encounter Visit Diagnoses Diagnosis Immunosuppressive management encounter following kidney transplant Encounter for long-term (current) use of other medications Encounter for aftercare following kidney transplant documented in this encounter Care Teams Casting Finisher Relationship Specialty Start Date End Date Mónica Dawkins MD [address] [place] [address] PCP - General Internal Medicine 11/11/19 documented as of this encounter Additional Source Comments The information contained in this document represents components of the legal health record. It is not the complete legal health record.[facility]
--- OUTSIDE RECORDS SUMMARY | 2025-09-22 11:13 | XMS_ITS | Encounter Summary ---
Author Organization [facility] Address [address] [facility] [address] [place] [address] Phone Care Team Providers Care Flight Operations Specialist Name Role Phone Mónica Dawkins MD Primary Care Provider [phone] Encounter Details Date Type Department Care Team (Latest Contact Info) Description 01/22/2021 Ancillary Orders [facility] [address] [address] Park Sauer MD [address] [place] [address] [email or web address] Immunosuppressive management encounter following kidney transplant; [...] [facility] [address] [address] Park Sauer MD [address] [place] [address] [place] [address] JYOTI@[facility] 10/13/2025 8:00 AM EST Office Visit [facility] 165 [facility] [address] [place] [address] Park Sauer MD [address] [place] [address] [address] [place] [address] JYOTI@[facility] documented as of this encounter Visit Diagnoses Diagnosis Immunosuppressive management encounter following kidney transplant Encounter for long-term (current) use of other medications Encounter for aftercare following kidney transplant documented in this encounter Care Teams Flight Operations Specialist Relationship Specialty Start Date End Date Mónica Dawkins MD [address] [place] [address] PCP - General Internal Medicine 11/11/19 documented as of this encounter Additional Source Comments The information contained in this document represents components of the legal health record. It is not the complete legal health record.[facility]
--- OUTSIDE RECORDS SUMMARY | 2025-09-22 11:13 | XMS_ITS | Encounter Summary ---
Author Organization [facility] Address 399 [facility] [address] [place] [address] Phone Care Team Providers Care Oil Field Worker Name Role Phone Mónica Dawkins MD Primary Care Provider [phone] Encounter Details Date Type Department Care Team (Latest Contact Info) Description 09/18/2020 Ancillary Orders [facility] [address] [address] Park Sauer MD [address] [place] [address] [email or web address] Immunosuppressive management encounter following kidney [...] [facility] [address] [address] Park Sauer MD [address] [place] [address] [place] [address] JYOTI@[facility] 10/13/2025 8:00 AM EST Office Visit [facility] 165 [facility] [address] [place] [address] Park Sauer MD [address] [place] [address], [place] [address] JYOTI@[email or web address] documented as of this encounter Visit Diagnoses Diagnosis Immunosuppressive management encounter following kidney transplant Encounter for long-term (current) use of other medications Encounter for aftercare following kidney transplant documented in this encounter Care Teams Oil Field Worker Relationship Specialty Start Date End Date Mónica Dawkins MD [address] [place] [address] PCP - General Internal Medicine 11/11/19 documented as of this encounter Additional Source Comments The information contained in this document represents components of the legal health record. It is not the complete legal health record.[facility]
--- OUTSIDE RECORDS SUMMARY | 2025-09-22 11:13 | XMS_ITS | Encounter Summary ---
Author Organization [facility] Address 399 [facility] [address] [place] [address] Phone Care Team Providers Care Purchasing Contracting Clerk Name Role Phone Mónica Dawkins MD Primary Care Provider Encounter Details Date Type Department Care Team (Latest Contact Info) Description 09/22/2020 Ancillary Orders [facility] [address] [address] Park Sauer MD [address] [place] [address] [email or web address] Immunosuppressive management encounter following kidney transplant; Encounter [...] 10/06/2025 8:05 AM EST Blood Draw [facility] [address] [address] Park Sauer MD [address] [place] [address] [place] [address] [email or web address] 10/13/2025 8:00 AM EST Office Visit [facility] 165 [facility] [address] [place] [address] Park Sauer MD [address] [place] [address], [place] [address] [email or web address] documented as of this encounter Visit Diagnoses Diagnosis Immunosuppressive management encounter following kidney transplant Encounter for long-term (current) use of other medications Encounter for aftercare following kidney transplant documented in this encounter Care Teams Purchasing Contracting Clerk Relationship Specialty Start Date End Date Mónica Dawkins MD [address] [place] [address] PCP - General Internal Medicine 11/11/19 documented as of this encounter Additional Source Comments The information contained in this document represents components of the legal health record. It is not the complete legal health record.[facility]
--- OUTSIDE RECORDS SUMMARY | 2025-09-22 11:13 | XMS_ITS | Encounter Summary ---
Author Organization [facility] Address 399 [facility] [address] [place] [address] Phone Care Team Providers Care Architect Manager Name Role Phone Mónica Dawkins MD Primary Care Provider [phone] Encounter Details Date Type Department Care Team (Latest Contact Info) Description 09/15/2020 Ancillary Orders [facility] [address] [address] Park Sauer MD [address] [place] [address] JYOTI@[facility] [address] [address] Park Sauer MD [address] [place] [address] [place] [address] JYOTI@[facility] 10/13/2025 8:00 AM EST Office Visit [facility] 165 [facility] [address] [place] [address] Park Sauer MD [address] [place] [address], [place] [address] JYOTI@[facility] documented as of this encounter Visit Diagnoses Diagnosis Immunosuppressive management encounter following kidney transplant Encounter for long-term (current) use of other medications Encounter for aftercare following kidney transplant documented in this encounter Care Teams Architect Manager Relationship Specialty Start Date End Date Mónica Dawkins MD [address] [place] [address] PCP - General Internal Medicine 11/11/19 documented as of this encounter Additional Source Comments The information contained in this document represents components of the legal health record. It is not the complete legal health record.[facility]
--- OUTSIDE RECORDS SUMMARY | 2025-09-22 11:13 | XMS_ITS | Encounter Summary ---
Author Organization [facility] Address 399 [facility] [address] [place] [address] Phone Care Team Providers Care Voice Over Artist Name Role Phone Mónica Dawkins MD Primary Care Provider Encounter Details Date Type Department Care Team (Latest Contact Info) Description 01/18/2021 Ancillary Orders [facility] Transplant Clinic [address] [address] Park Sauer MD [address] [place] [address] [email or web address] Immunosuppressive management encounter following kidney transplant; [...] Description 10/06/2025 8:05 AM EST Blood Draw [facility] Transplant Clinic [address] [address] Park Sauer MD [address] [place] [address] [place] [address] JYOTI@[email or web address] 10/13/2025 8:00 AM EST Office Visit [facility] Trans[facility] 165 [facility] [address] [place] [address] Park Sauer MD [address] [place] [address] [address] [place] [address] JYOTI@[facility] documented as of this encounter Visit Diagnoses Diagnosis Immunosuppressive management encounter following kidney transplant Encounter for long-term (current) use of other medications Encounter for aftercare following kidney transplant documented in this encounter Care Teams Voice Over Artist Relationship Specialty Start Date End Date Mónica Dawkins MD [address] [place] [address] PCP - General Internal Medicine 11/11/19 documented as of this encounter Additional Source Comments The information contained in this document represents components of the legal health record. It is not the complete legal health record.[facility]
--- OUTSIDE RECORDS SUMMARY | 2025-09-22 11:13 | XMS_ITS | Encounter Summary ---
Author Organization [facility] Address [address] [facility] [address] [place] [address] Phone Care Team Providers Care Ship'S Captain Name Role Phone Mónica Dawkins MD Primary Care Provider [phone] Encounter Details Date Type Department Care Team (Latest Contact Info) Description 09/14/2020 Ancillary Orders [facility] [address] [address] Park Sauer MD [address] [place] [address] JYOTI@[email or web address] Immunosuppressive management encounter following kidney transplant; Encounter [...] Description 10/06/2025 8:05 AM EST Blood Draw [facility] [address] [address] Park Sauer MD [address] [place] [address] [place] [address] JYOTI@[facility] 10/13/2025 8:00 AM EST Office Visit [facility] 165 [facility] [address] [place] [address] Park Sauer MD [address] [place] [address] [address] [address] JYOTI@[facility] documented as of this encounter Visit Diagnoses Diagnosis Immunosuppressive management encounter following kidney transplant Encounter for long-term (current) use of other medications Encounter for aftercare following kidney transplant documented in this encounter Care Teams Ship'S Captain Relationship Specialty Start Date End Date Mónica Dawkins MD [address] [place] [address] PCP - General Internal Medicine 11/11/19 documented as of this encounter Additional Source Comments The information contained in this document represents components of the legal health record. It is not the complete legal health record.[facility]
--- OUTSIDE RECORDS SUMMARY | 2025-09-22 11:13 | XMS_ITS | Encounter Summary ---
Author Organization [facility] Address [address] [facility] [address] [place] [address] Phone Care Team Providers Care Architectural Practice Manager Name Role Phone Mónica Dawkins MD Primary Care Provider [phone] Encounter Details Date Type Department Care Team (Latest Contact Info) Description 09/24/2020 Ancillary Orders [facility] [address] [address] Park Sauer MD [address] [place] [address] JYOTI@[email or web address] Immunosuppressive management encounter following kidney transplant; [...] [facility] [address] [address] Park Sauer MD [address] [place] [address] [place] [address] JYOTI@[email or web address] 10/13/2025 8:00 AM EST Office Visit [facility] 165 [facility] [address] [place] [address] Park Sauer MD [address] [place] [address] [address] JYOTI@[facility] documented as of this encounter Visit Diagnoses Diagnosis Immunosuppressive management encounter following kidney transplant Encounter for long-term (current) use of other medications Encounter for aftercare following kidney transplant documented in this encounter Care Teams Architectural Practice Manager Relationship Specialty Start Date End Date Mónica Dawkins MD [address] [place] [address] PCP - General Internal Medicine 11/11/19 documented as of this encounter Additional Source Comments The information contained in this document represents components of the legal health record. It is not the complete legal health record.[facility]
--- OUTSIDE RECORDS SUMMARY | 2025-09-22 11:13 | XMS_ITS | Encounter Summary ---
Author Organization [facility] Address [address] [employer] [address] [place] [address] Phone Care Team Providers Care Food Mixer Repairer Name Role Phone Mónica Dawkins MD Primary Care Provider [phone] Encounter Details Date Type Department Care Team ([facility] st Contact Info) Description 01/25/2025 Anti-coag [place] [facility] 125 [facility] [address] [place] [address] Teodora Menendez, RN [address] [place] [address] [email or web address] Social History Tobacco Use Types Packs/Day Years [...] 10/06/2025 8:05 AM EST Blood Draw [facility] [address] [address] Park Sauer MD [address] [place] [address] JYOTI@[facility] 10/13/2025 8:00 AM EST Office Visit [facility] [address] [address] Park Sauer MD [address] [place] [address] JYOTI@[facility] documented as of this encounter Visit Diagnoses Not on filedocumented in this encounter Care Teams Food Mixer Repairer Relationship Specialty Start Date End Date Mónica Dawkins MD [facility] [place] [address] PCP - General Internal Medicine 11/11/19 documented as of this encounter Additional Source Comments The information contained in this document represents components of the legal health record. It is not the complete legal health record.[facility]
--- OUTSIDE RECORDS SUMMARY | 2025-09-22 11:13 | XMS_ITS | Encounter Summary ---
Author Organization [facility] Address 399 [facility] [address] [place] [address] Phone Care Team Providers Care Product Safety Professional Name Role Phone Mónica Dawkins MD Primary Care Provider [phone] Encounter Details Date Type Department Care Team (Latest Contact Info) Description 01/12/2021 Ancillary Orders [facility] [place] [facility] [address] [address] Park Sauer MD [address] [place] [address] JYOTI@[facility] Immunosuppressive management encounter following kidney transplant; Encounter [...] [facility] [place] [facility] [address] [address] Park Sauer MD [address] [place] [address] [place] [address] JYOTI@[facility] 10/13/2025 8:00 AM EST Office Visit [facility] 165 [facility] [address] [place] [address] Park Sauer MD [address] [place] [address] [address] [address] JYOTI@[facility] documented as of this encounter Visit Diagnoses Diagnosis Immunosuppressive management encounter following kidney transplant Encounter for long-term (current) use of other medications Encounter for aftercare following kidney transplant documented in this encounter Care Teams Product Safety Professional Relationship Specialty Start Date End Date Mónica Dawkins MD [address] [place] [address] PCP - General Internal Medicine 11/11/19 documented as of this encounter Additional Source Comments The information contained in this document represents components of the legal health record. It is not the complete legal health record.[facility]
--- OUTSIDE RECORDS SUMMARY | 2025-09-22 11:13 | XMS_ITS | Encounter Summary ---
Author Organization [facility] Address 399 [facility] [address] [place] [address] Phone Care Team Providers Care Translator Deaf Name Role Phone Mónica Dawkins MD Primary Care Provider [phone] Encounter Details Date Type Department Care Team (Latest Contact Info) Description 01/20/[address] [facility] [address] [address] Park Saeur MD [address] [place] [address] [email or web address] Immunosuppressive management encounter following [...] [facility] [place] [address] [address] Park Saure MD [address] [place] [address] [place] [address] JYOTI@[facility] 10/13/2025 8:00 AM EST Office Visit [facility] 165 [facility] [address] [place] [address] Park Sauer MD [address] [place] [address] 100[address] [place] [address] JYOTI@[facility] documented as of this encounter Visit Diagnoses Diagnosis Immunosuppressive management encounter following kidney transplant Encounter for long-term (current) use of other medications Encounter for aftercare following kidney transplant documented in this encounter Care Teams Translator Deaf Relationship Specialty Start Date End Date Mónica Dawkins MD [address] [place] [address] PCP - General Internal Medicine 11/11/19 documented as of this encounter Additional Source Comments The information contained in this document represents components of the legal health record. It is not the complete legal health record.[facility]
--- OUTSIDE RECORDS SUMMARY | 2025-09-22 11:13 | XMS_ITS | Encounter Summary ---
Author Organization [facility] Address 399 [facility] [address] [place] [address] Phone Care Team Providers Care Automotive Parts Counter Person Name Role Phone Mónica Dawkins MD Primary Care Provider [phone] Encounter Details Date Type Department Care Team ([facility] st Contact Info) Description 01/09/2025 [place]coag [place] [facility] 125 [facility] [address] [place] [address] Teodora Menendez, RN 125 [place] [address] [email or web address] Social History Tobacco Use Types [...] [facility] [place] [facility] [address] [address] Park Sauer MD [address] [place] [address] [email or web address] 10/13/2025 8:00 AM EST Office Visit [facility] [address] [address] Park Sauer MD [address] [place] [address] JYOTI@[facility] documented as of this encounter Visit Diagnoses Not on filedocumented in this encounter Care Teams Automotive Parts Counter Person Relationship Specialty Start Date End Date Mónica Dawkins MD [place] [address] PCP - General Internal Medicine 11/11/19 documented as of this encounter Additional Source Comments The information contained in this document represents components of the legal health record. It is not the complete legal health record.[facility]
--- OUTSIDE RECORDS SUMMARY | 2025-09-22 11:13 | XMS_ITS | Encounter Summary ---
Author Organization [facility] Address [address] [place] [address] Phone Care Team Providers Care Spring Coiler Hand Name Role Phone Mónica Dawkins MD Primary Care Provider [phone] Encounter Details Date Type Department Care Team ([facility] st Contact Info) Description 12/13/2024 Anti-coag visit [facility] 125 [facility] [address] [place] [address] Teodora Menendez, RN 125 [place] [address] [email or web address] Social History Tobacco [...] [facility] [place] [facility] [address] [address] Park Sauer MD [address] [place] [address] JYOTI@[facility] 10/13/2025 8:00 AM EST Office Visit [facility] [address] [address] Park Sauer MD [address] [place] [address] JYOTI@[facility] documented as of this encounter Visit Diagnoses Not on filedocumented in this encounter Care Teams Spring Coiler Hand Relationship Specialty Start Date End Date Mónica Dawkins MD [facility] [place] [address] PCP - General Internal Medicine 11/11/19 documented as of this encounter Additional Source Comments The information contained in this document represents components of the legal health record. It is not the complete legal health record.[facility]
--- OUTSIDE RECORDS SUMMARY | 2025-09-22 11:14 | XMS_ITS | Encounter Summary ---
Author Organization [facility] Address [address] [employer] [address] [place] [address] Phone Care Team Providers Care Information Technology Intern Name Role Phone Mónica Dawkins MD Primary Care Provider [phone] Encounter Details Date Type Department Care Team ([facility] st Contact Info) Description 06/05/2025 Anti-coag visit [facility] 125 [facility] [address] [place] [address] Teodora Menendez, RN 125 [place] [address] [email or web address] [...] Description 10/06/2025 8:05 AM EST Blood Draw [facility] [address] [address] Park Sauer MD [address] [place] [address] JYOTI@[facility] 10/13/2025 8:00 AM EST Office Visit [facility] [address] [address] Park Sauer MD [address] [place] [address] [email or web address] documented as of this encounter Visit Diagnoses Not on filedocumented in this encounter Care Teams Information Technology Intern Relationship Specialty Start Date End Date Mónica Dawkins MD [facility] [place] [address] PCP - General Internal Medicine 11/11/19 documented as of this encounter Additional Source Comments The information contained in this document represents components of the legal health record. It is not the complete legal health record.[facility]
--- OUTSIDE RECORDS SUMMARY | 2025-09-22 11:14 | XMS_ITS | Encounter Summary ---
Author Organization [facility] Address 399 [facility] [address] [place] [address] Phone Care Team Providers Care Barrer And Tacker Name Role Phone Mónica Dawkins MD Primary Care Provider [phone] Encounter Details Date Type Department Care Team (Latest Contact Info) Description 12/30/2020 Ancillary Orders [facility] [address] [address] Park Sauer MD [address] [place] [address] [email or web address] Immunosuppressive management encounter following kidney transplant; [...] [facility] [address] [address] Park Sauer MD [address] [place] [address] [place] [address] JYOTI@[facility] 10/13/2025 8:00 AM EST Office Visit [facility] 165 [facility] [address] [place] [address] Park Sauer MD [address] [place] [address] [address] [place] [address] JYOTI@[facility] documented as of this encounter Visit Diagnoses Diagnosis Immunosuppressive management encounter following kidney transplant Encounter for long-term (current) use of other medications Encounter for aftercare following kidney transplant documented in this encounter Care Teams Barrer And Tacker Relationship Specialty Start Date End Date Mónica Dawkins MD [address] [place] [address] PCP - General Internal Medicine 11/11/19 documented as of this encounter Additional Source Comments The information contained in this document represents components of the legal health record. It is not the complete legal health record.[facility]
--- OUTSIDE RECORDS SUMMARY | 2025-09-22 11:14 | XMS_ITS | Encounter Summary ---
Author Organization [facility] Address [address] [place] [address] Phone Care Team Providers Care Acid Wash Operator Name Role Phone Mónica Dawkins MD Primary Care Provider [phone] Encounter Details Date Type Department Care Team ([facility] st Contact Info) Description 03/10/2025 Anti-coag visit [facility]tico[facility] Service 125 [facility] [address] [place] [address] Teodora Menendez, RN 125 [place] [address] [email or web address] Social History Tobacco [...] [facility] [address] [address] Park Sauer MD [address] [place] [address] [email or web address] 10/13/2025 8:00 AM EST Office Visit [facility] [address] [address] Park Sauer MD [address] [place] [address] JYOTI@[email or web address] documented as of this encounter Visit Diagnoses Not on filedocumented in this encounter Care Teams Acid Wash Operator Relationship Specialty Start Date End Date Mónica Dawkins MD [facility] [place] [address] PCP - General Internal Medicine 11/11/19 documented as of this encounter Additional Source Comments The information contained in this document represents components of the legal health record. It is not the complete legal health record.[facility]
--- OUTSIDE RECORDS SUMMARY | 2025-09-22 11:14 | XMS_ITS | Encounter Summary ---
Author Organization [facility] Address 399 [facility] [address] [place] [address] Phone Care Team Providers Care Carbon Brush Maker Name Role Phone Mónica Dawkins MD Primary Care Provider [phone] Encounter Details Date Type Department Care Team (Latest Contact Info) Description 12/31/2020 Ancillary Orders [facility] [address] [address] Park Sauer MD [address] [place] [address] JYOTI@[email or web address] Immunosuppressive management encounter following kidney [...] 10/06/2025 8:05 AM EST Blood Draw [facility] [address] [address] Park Sauer MD [address] [place] [address] [place] [address] JYOTI@[email or web address] 10/13/2025 8:00 AM EST Office Visit [facility] [address] [facility] [address] [place] [address] Park Sauer MD [address] [place] [address] [address] [place] [address] JYOTI@[email or web address] documented as of this encounter Visit Diagnoses Diagnosis Immunosuppressive management encounter following kidney transplant Encounter for long-term (current) use of other medications Encounter for aftercare following kidney transplant documented in this encounter Care Teams Carbon Brush Maker Relationship Specialty Start Date End Date Mónica Dakwins MD [address] [place] [address] PCP - General Internal Medicine 11/11/19 documented as of this encounter Additional Source Comments The information contained in this document represents components of the legal health record. It is not the complete legal health record.[facility]
--- OUTSIDE RECORDS SUMMARY | 2025-09-22 11:14 | XMS_ITS | Encounter Summary ---
Author Organization [facility] Address 399 [facility] [address] [place] [address] Phone Care Team Providers Care Tube Bender Hand Name Role Phone Mónica Dawkins MD Primary Care Provider [phone] Encounter Details Date Type Department Care Team (Latest Contact Info) Description 12/21/2020 Ancillary Orders [facility] [address] [address] Park Sauer MD [address] [place] [address] [email or web address] Immunosuppressive management encounter following [...] [facility] [address] [address] Park Sauer MD [address] [place] [address] [place] [address] [email or web address] 10/13/2025 8:00 AM EST Office Visit [facility] 165 [facility] [address] [place] [address] Park Sauer MD [address] [place] [address] [address] [place] [address] [email or web address] documented as of this encounter Visit Diagnoses Diagnosis Immunosuppressive management encounter following kidney transplant Encounter for long-term (current) use of other medications Encounter for aftercare following kidney transplant documented in this encounter Care Teams Tube Bender Hand Relationship Specialty Start Date End Date Mónica Dawkins MD [address] [place] [address] PCP - General Internal Medicine 11/11/19 documented as of this encounter Additional Source Comments The information contained in this document represents components of the legal health record. It is not the complete legal health record.[facility]
--- OUTSIDE RECORDS SUMMARY | 2025-09-22 11:14 | XMS_ITS | Encounter Summary ---
Author Organization [facility] Address 399 [facility] [address] [place] [address] Phone Care Team Providers Care Journeyman Pipefitter Name Role Phone Mónica Dawkins MD Primary Care Provider [phone] Encounter Details Date Type Department Care Team (Latest Contact Info) Description 12/24/2020 Ancillary Orders [facility] [address] [address] Park Sauer MD [address] [place] [address] [email or web address] Immunosuppressive management encounter following kidney transplant; [...] Description 10/06/2025 8:05 AM EST Blood Draw [facility] [address] [address] Park Sauer MD [address] [place] [address] [place] [address] [email or web address] 10/13/2025 8:00 AM EST Office Visit [facility] 165 [facility] [address] [place] [address] Park Sauer MD [address] [place] [address] [address] [place] [address] JYOTI@[facility] documented as of this encounter Visit Diagnoses Diagnosis Immunosuppressive management encounter following kidney transplant Encounter for long-term (current) use of other medications Encounter for aftercare following kidney transplant documented in this encounter Care Teams Journeyman Pipefitter Relationship Specialty Start Date End Date Mónica Dawkins MD [address] [place] [address] PCP - General Internal Medicine 11/11/19 documented as of this encounter Additional Source Comments The information contained in this document represents components of the legal health record. It is not the complete legal health record.[facility]
--- OUTSIDE RECORDS SUMMARY | 2025-09-22 11:14 | XMS_ITS ---
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 Marked as Active Follow-up on 06/16/2012 Kidney CoordinatorCat Nascimento RN Fax: N/A Email: [email or web address] [place] Organ Diagnosis Organ Primary Contributory Kidney Polycystic Kidneys Donor Information Organ ABO Source Meets Risk Criteria HLA Match Mismatches Cross Match Left Kidney Transplanted A1 DBD No A: B: DR: T cell (Negative) B cell (Negative) T cell (Negative) B cell (Positive) Left Kidney Donor Serology Results Anti-CMV CMV IgG: Positive EBV IgG EBV VCA IgG: Positive Anti-HBcAb HBC Total: Negative Anti-HIV I/II HIV Ab: Negative Anti-HTLV I/II HTLV: Not Done RPR/VDRL RPR: Negative HBsAb No results on file EBNA No results on file Anti-HCV HCV Ab: Negative HBsAg HBsAg: Negative HBV DNA No results on file EBV IgM EBV VCA IgM: Negative Toxoplasma No results on file Anti-Tetan us No results on file Varicella Zoster No results on file Measles No results on file Mumps No results on file Quantiferon TB No results on file HSV 1 No results on file HSV 2 No results on file HSV RNA No results on file EBV (historical ) No results on file HCV DIRK No results on file HIV DIRK No results on file HBV DIRK No results on file SARS CoV-2 No results on file Care Team Name Role Phone Fax Email Cat Nascimento RN Kidney Coordinator [phone] N/A [email or web address] Ricardo Juárez MD Transplant Surgeon [phone] [email or web address] Park Sauer MD Post-Transplant Physician Referring Physician Transplant Medical Physician [phone] [email or web address] Events Post-Transplant Pre-Transplant Admitted: 06/15/2012 Referred: 10/10/2011 Transplanted: 06/16/2012 Evaluation began: 2 Discharged: 06/25/2012 Center waitlisted: 2 Appointments (08/23/2025 - 10/23/2025) When With Visit Type Description 10/06/2025 Transplant Blood Check Late Post Transplant 10/13/2025 Transplant - Lore Sauer RD Follow Up Visit
--- OUTSIDE RECORDS SUMMARY | 2025-09-22 11:14 | XMS_ITS | Encounter Summary ---
Author Organization [facility] Address [address] [employer] [address] [place] [address] Phone Care Team Providers Care Extrusion Press Supervisor Name Role Phone Mónica Dawkins MD Primary Care Provider [phone] Encounter Details Date Type Department Care Team ([facility] st Contact Info) Description 02/24/2025 Anti-coag visit [facility]tico[facility] 125 [facility] [address] [place] [address] Teodora Menendez, RN 125 [place] [address] [email or web address] [...] 10/06/2025 8:05 AM EST Blood Draw [facility] [address] [address] Park Sauer MD [address] [place] [address] [email or web address] 10/13/2025 8:00 AM EST Office Visit [facility] [address] [address] Park Sauer MD [address] [place] [address] JYOTI@[facility] documented as of this encounter Visit Diagnoses Not on filedocumented in this encounter Care Teams Extrusion Press Supervisor Relationship Specialty Start Date End Date Mónica Dawkins MD [facility] [place] [address] PCP - General Internal Medicine 11/11/19 documented as of this encounter Additional Source Comments The information contained in this document represents components of the legal health record. It is not the complete legal health record.[facility]
--- OUTSIDE RECORDS SUMMARY | 2025-09-22 11:14 | XMS_ITS | Encounter Summary ---
Author Organization [facility] Address [address] [place] [address] Phone Care Team Providers Care Records Technician Name Role Phone Mónica Dawkins MD Primary Care Provider [phone] Encounter Details Date Type Department Care Team ([facility] st Contact Info) Description 04/23/2025 Anti-coag visit [facility] Antico[facility] Management Service 125 [facility] [address] [place] [address] Teodora Menendez, RN 125 [place] [address] [email or web address] Social History Tobacco Use Types Packs/Day Years [...] [facility] [address] [address] Park Sauer MD [address] [place] [address] [email or web address]@[facility] 10/13/2025 8:00 AM EST Office Visit [facility] [address] [address] Park Sauer MD [address] [place] [address] [email or web address] documented as of this encounter Visit Diagnoses Not on filedocumented in this encounter Care Teams Records Technician Relationship Specialty Start Date End Date Mónica Dawkins MD [facility] [place] [address] PCP - General Internal Medicine 11/11/19 documented as of this encounter Additional Source Comments The information contained in this document represents components of the legal health record. It is not the complete legal health record.[facility]
--- OUTSIDE RECORDS SUMMARY | 2025-09-22 11:14 | XMS_ITS | Encounter Summary ---
Author Organization [facility] Address [address] [facility] [facility] [address] [place] [address] Phone Care Team Providers Care Veterinary Practitioner Name Role Phone Mónica Dawkins MD Primary Care Provider [phone] Encounter Details Date Type Department Care Team (Late st Contact Info) Description 02/02/2022 Anti-coag visit [facility] 125 [facility] [address] [place] [address] Beata Seay RN [email or web address] Social History Tobacco [...] [facility] [address] [place] [address] Park Sauer MD 55 [facility] [address] [place] [address] JYOTI@[facility] 10/13/2025 8:00 AM EST Office Visit [facility] [address] [place] [address] Park Sauer MD 55 [facility] [address] [place] [address] [email or web address] documented as of this encounter Visit Diagnoses Not on filedocumented in this encounter Care Teams Veterinary Practitioner Relationship Specialty Start Date End Date Mónica Dawkins MD [address] [place] [address] PCP - General Internal Medicine 11/11/19 documented as of this encounter Additional Source Comments The information contained in this document represents components of the legal health record. It is not the complete legal health record.[facility]
--- OUTSIDE RECORDS SUMMARY | 2025-09-22 11:14 | XMS_ITS | Encounter Summary ---
Author Organization [facility] Address [address] [facility] [address] [place] [address] Phone Care Team Providers Care Assistant Spa Manager Name Role Phone Mónica Dawkins MD Primary Care Provider [phone] Encounter Details Date Type Department Care Team (Latest Contact Info) Description 12/18/2020 Ancillary Orders [facility] [address] [address] Park Sauer MD [address] [place] [address] [email or web address] Immunosuppressive management encounter following kidney transplant; [...] [facility] [address] [address] Park Sauer MD [address] [place] [address] [place] [address] JYOTI@[email or web address] 10/13/2025 8:00 AM EST Office Visit [facility] 165 [facility] [address] [place] [address] Pakr Sauer MD [address] [place] [address] [address] [place] [address] JYOTI@[facility] documented as of this encounter Visit Diagnoses Diagnosis Immunosuppressive management encounter following kidney transplant Encounter for long-term (current) use of other medications Encounter for aftercare following kidney transplant documented in this encounter Care Teams Assistant Spa Manager Relationship Specialty Start Date End Date Mónica Dawkins MD [address] [place] [address] PCP - General Internal Medicine 11/11/19 documented as of this encounter Additional Source Comments The information contained in this document represents components of the legal health record. It is not the complete legal health record.[facility]
--- OUTSIDE RECORDS SUMMARY | 2025-09-22 11:14 | XMS_ITS | Encounter Summary ---
Author Organization [facility] Address [address] [facility] [address] [place] [address] Phone Care Team Providers Care Cage Tender Name Role Phone Mónica Dawkins MD Primary Care Provider [phone] Encounter Details Date Type Department Care Team (Latest Contact Info) Description 01/04/2021 Ancillary Orders [facility] [address] [address] Park Sauer MD [address] [place] [address] JYOTI@[email or web address] Immunosuppressive management encounter following kidney [...] [facility] [address] [address] Park Sauer MD [address] [place] [address] [place] [address] JYOTI@[facility] 10/13/2025 8:00 AM EST Office Visit [facility] 165 [facility] [address] [place] [address] Park Sauer MD [address] [place] [address] [address] [place] [address] JYOTI@[facility] documented as of this encounter Visit Diagnoses Diagnosis Immunosuppressive management encounter following kidney transplant Encounter for long-term (current) use of other medications Encounter for aftercare following kidney transplant documented in this encounter Care Teams Cage Tender Relationship Specialty Start Date End Date Mónica Dawkins MD [address] [place] [address] PCP - General Internal Medicine 11/11/19 documented as of this encounter Additional Source Comments The information contained in this document represents components of the legal health record. It is not the complete legal health record.[facility]
--- OUTSIDE RECORDS SUMMARY | 2025-09-22 11:14 | XMS_ITS | Encounter Summary ---
Author Organization [facility] Address [address] [facility] [address] [place] [address] Phone Care Team Providers Care Bookstore Clerk Name Role Phone Mónica Dawkins MD Primary Care Provider [phone] Encounter Details Date Type Department Care Team (Latest Contact Info) Description 01/07/2021 Ancillary Orders [facility] [address] [address] Park Sauer MD [address] [place] [address] JYOTI@[facility] Immunosuppressive management encounter following kidney [...] [facility] [address] [address] Park Sauer MD [address] [place] [address] [place] [address] JYOTI@[email or web address] 10/13/2025 8:00 AM EST Office Visit [facility] 165 [facility] [address] [place] [address] Park Sauer MD [address] [place] [address] [address] [place] [address] JYOTI@[email or web address] documented as of this encounter Visit Diagnoses Diagnosis Immunosuppressive management encounter following kidney transplant Encounter for long-term (current) use of other medications Encounter for aftercare following kidney transplant documented in this encounter Care Teams Bookstore Clerk Relationship Specialty Start Date End Date Mónica Dawkins MD [address] [place] [address] PCP - General Internal Medicine 11/11/19 documented as of this encounter Additional Source Comments The information contained in this document represents components of the legal health record. It is not the complete legal health record.[facility]
--- OUTSIDE RECORDS SUMMARY | 2025-09-22 11:14 | XMS_ITS | Encounter Summary ---
Author Organization [facility] Address [address] [employer] [address] [place] [address] Phone Care Team Providers Care Diabetes Clinical Manager Name Role Phone Mónica Dawkins MD Primary Care Provider [phone] Encounter Details Date Type Department Care Team ([facility] st Contact Info) Description 04/09/2025 Anti-coag visit [facility] [address] [place] [address] Teodora Menendez, RN 125 [place] [address] [email or web address] Social History Tobacco [...] [facility] [address] [address] Park Sauer MD [address] [place] [address] [email or web address] 10/13/2025 8:00 AM EST Office Visit [facility] [address] [address] Park Sauer MD [address] [place] [address] [email or web address] documented as of this encounter Visit Diagnoses Not on filedocumented in this encounter Care Teams Diabetes Clinical Manager Relationship Specialty Start Date End Date Mónica Dawkins MD [place] [address] PCP - General Internal Medicine 11/11/19 documented as of this encounter Additional Source Comments The information contained in this document represents components of the legal health record. It is not the complete legal health record.[facility]
--- OUTSIDE RECORDS SUMMARY | 2025-09-22 11:14 | XMS_ITS | Encounter Summary ---
Author Organization [facility] Address [address] [facility] [address] [place] [address] Phone Care Team Providers Care Crew Lead Name Role Phone Mónica Dawkins MD Primary Care Provider [phone] Encounter Details Date Type Department Care Team (Latest Contact Info) Description 12/28/2020 Ancillary Orders [facility] [address] [address] Park Sauer MD [address] [place] [address] [email or web address] Immunosuppressive management encounter following kidney [...] AM EST Blood Draw [facility] [address] [address] Park Sauer MD [address] [place] [address] [place] [address] [email or web address] 10/13/2025 8:00 AM EST Office Visit [facility] 165 [facility] [address] [place] [address] Park Sauer MD [address] [place] [address] [address] [place] [address] [email or web address] documented as of this encounter Visit Diagnoses Diagnosis Immunosuppressive management encounter following kidney transplant Encounter for long-term (current) use of other medications Encounter for aftercare following kidney transplant documented in this encounter Care Teams Crew Lead Relationship Specialty Start Date End Date Mónica Dawkins MD [address] [place] [address] PCP - General Internal Medicine 11/11/19 documented as of this encounter Additional Source Comments The information contained in this document represents components of the legal health record. It is not the complete legal health record.[facility]
--- OUTSIDE RECORDS SUMMARY | 2025-09-22 11:14 | XMS_ITS | Encounter Summary ---
Author Organization [facility] Address [address] [place] [address] Phone Care Team Providers Care Rn Case Manager Name Role Phone Mónica Dawkins MD Primary Care Provider [phone] Encounter Details Date Type Department Care Team ([facility] st Contact Info) Description 05/21/2025 Anti-coag visit [facility] Antico[facility] Management Service [address] [facility] [address] [place] [address] Teodora Menendez, RN 125 [place] [address] [email or web address] Social History Tobacco Use Types [...] [facility] [address] [address] Park Sauer MD [address] [place] [address] JYOTI@[facility] 10/13/2025 8:00 AM EST Office Visit [facility] Trans[facility] [address] [address] Park Sauer MD [address] [place] [address] [email or web address] documented as of this encounter Visit Diagnoses Not on filedocumented in this encounter Care Teams Rn Case Manager Relationship Specialty Start Date End Date Mónica Dawkins MD [facility] [place] [address] PCP - General Internal Medicine 11/11/19 documented as of this encounter Additional Source Comments The information contained in this document represents components of the legal health record. It is not the complete legal health record.[facility]
--- OUTSIDE RECORDS SUMMARY | 2025-09-22 11:14 | XMS_ITS | Encounter Summary ---
Author Organization [facility] Address [address] [facility] [address] [place] [address] Phone Care Team Providers Care Criminal Justice Faculty Name Role Phone Mónica Dawkins MD Primary Care Provider [phone] Encounter Details Date Type Department Care Team (Latest Contact Info) Description 09/25/2020 Ancillary Orders [facility] [address] [address] Park Sauer MD [address] [place] [address] [email or web address] Immunosuppressive management encounter following kidney transplant; [...] [facility] [address] [address] Park Sauer MD [address] [place] [address] [place] [address] [email or web address] 10/13/2025 8:00 AM EST Office Visit [facility] 165 [facility] [address] [place] [address] Park Sauer MD [address] [place] [address] [address] [email or web address] documented as of this encounter Visit Diagnoses Diagnosis Immunosuppressive management encounter following kidney transplant Encounter for long-term (current) use of other medications Encounter for aftercare following kidney transplant documented in this encounter Care Teams Criminal Justice Faculty Relationship Specialty Start Date End Date Mónica Dawkins MD [address] [place] [address] PCP - General Internal Medicine 11/11/19 documented as of this encounter Additional Source Comments The information contained in this document represents components of the legal health record. It is not the complete legal health record.[facility]
--- OUTSIDE RECORDS SUMMARY | 2025-09-22 11:14 | XMS_ITS | Encounter Summary ---
Author Organization [facility] Address [address] [employer] [address] [place] [address] Phone Care Team Providers Care Instructor Apparel Manufacture Name Role Phone Mónica Dawkins MD Primary Care Provider [phone] Encounter Details Date Type Department Care Team ([facility] st Contact Info) Description 03/24/2025 Anti-coag visit [facility]tico[facility] Service 125 [facility] [address] [place] [address] Teodora Menendez, RN 125 [place] [address] [email or web address] Social History Tobacco Use Types Packs/Day Years [...] [facility] [address] [address] Park Sauer MD [address] [place] [address] [email or web address]@[facility] 10/13/2025 8:00 AM EST Office Visit [facility] [address] [address] Park Sauer MD [address] [place] [address] [email or web address] documented as of this encounter Visit Diagnoses Not on filedocumented in this encounter Care Teams Instructor Apparel Manufacture Relationship Specialty Start Date End Date Mónica Dawkins MD [place] [address] PCP - General Internal Medicine 11/11/19 documented as of this encounter Additional Source Comments The information contained in this document represents components of the legal health record. It is not the complete legal health record.[facility]
--- OUTSIDE RECORDS SUMMARY | 2025-09-22 11:14 | XMS_ITS | Encounter Summary ---
Author Organization [facility] Address [address] [employer] [address] [place] [address] Phone Care Team Providers Care Announcer Name Role Phone Mónica Dawkins MD Primary Care Provider [phone] Encounter Details Date Type Department Care Team ([facility] st Contact Info) Description 06/24/2025 Anti-coag visit [facility] [address] [facility] [address] [place] [address] Josefa Oliva, RN 125 [place] [address] [email or web address] Social History Tobacco Use Types Packs/Day Years [...] [facility] [address] [address] Park Sauer MD [address] [place] [address] [email or web address]@[email or web address] 10/13/2025 8:00 AM EST Office Visit [facility] [address] [address] Park Sauer MD [address] [place] [address] JYOTI@[email or web address] documented as of this encounter Visit Diagnoses Not on filedocumented in this encounter Care Teams Announcer Relationship Specialty Start Date End Date Mónica Dawkins MD [facility] [address] PCP - General Internal Medicine 11/11/19 documented as of this encounter Additional Source Comments The information contained in this document represents components of the legal health record. It is not the complete legal health record.[facility]
--- OUTSIDE RECORDS SUMMARY | 2025-09-22 11:14 | XMS_ITS | Encounter Summary ---
Author Organization [facility] Address [address] [facility] [address] [place] [address] Phone Care Team Providers Care Mine Technician Name Role Phone Mónica Dawkins MD Primary Care Provider [phone] Encounter Details Date Type Department Care Team (Latest Contact Info) Description 12/23/2020 Ancillary Orders [facility] Trans[facility] [address] [address] Park Sauer MD [address] [place] [address] JYOTI@[facility] [address] [address] Park Sauer MD [address] [place] [address] [place] [address] JYOTI@[facility] 10/13/2025 8:00 AM EST Office Visit [facility] Trans[facility] Clinic 165 [facility] [address] [place] [address] Park Sauer MD [address] [place] [address] 1008E [place] [address] JYOTI@[facility] documented as of this encounter Visit Diagnoses Diagnosis Immunosuppressive management encounter following kidney transplant Encounter for long-term (current) use of other medications Encounter for aftercare following kidney transplant documented in this encounter Care Teams Mine Technician Relationship Specialty Start Date End Date Mónica Dawkins MD [address] [place] [address] PCP - General Internal Medicine 11/11/19 documented as of this encounter Additional Source Comments The information contained in this document represents components of the legal health record. It is not the complete legal health record.[facility]
--- OUTSIDE RECORDS SUMMARY | 2025-09-22 11:14 | XMS_ITS | Encounter Summary ---
Author Organization [facility] Address [address] [facility] [address] [facility] [address] [place] [address] Phone Care Team Providers Care Skein Spooler Name Role Phone Mónica Dawkins MD Primary Care Provider [phone] Encounter Details Date Type Department Care Team (Late st Contact Info) Description 11/15/2021 Anti-coag visit [facility] 125 [facility] 765 [place] [address] Kiara Johnson, CAMILLA 125 [place] [address] [email or web address] Social History Tobacco Use Types Packs/Day Years [...] [facility] 165 [facility] [address] [place] [address] Park Sauer MD [address] [facility] [address] [place] [address] JYOTI@[facility] 10/13/2025 8:00 AM EST Office Visit [facility] [address] [place] [address] Park Sauer MD [address] [place] [address] [address]E [place] [address] JYOTI@[facility] documented as of this encounter Visit Diagnoses Not on filedocumented in this encounter Care Teams Skein Spooler Relationship Specialty Start Date End Date Mónica Dawkins MD [address] [place] [address] PCP - General Internal Medicine 11/11/19 documented as of this encounter Additional Source Comments The information contained in this document represents components of the legal health record. It is not the complete legal health record.[facility]
--- OUTSIDE RECORDS SUMMARY | 2025-09-22 11:14 | XMS_ITS | Encounter Summary ---
Author Organization [facility] Address [address] [facility] [address] [place] [address] Phone Care Team Providers Care Student Life Coordinator Name Role Phone Mónica Dawkins MD Primary Care Provider [phone] Encounter Details Date Type Department Care Team (Latest Contact Info) Description 01/06/2021 Ancillary Orders [facility] [address] [place] [address] [address] Park Sauer MD [address] [place] [address] [email or web address] Immunosuppressive management encounter following kidney [...] [facility] [address] [place] [address] [address] Park Sauer MD [address] [place] [address] [place] [address] JYOTI@[facility] 10/13/2025 8:00 AM EST Office Visit [facility] 165 [facility] [address] [place] [address] Park Sauer MD [address] [place] [address] 100[address]E [place] [address] JYOTI@[facility] documented as of this encounter Visit Diagnoses Diagnosis Immunosuppressive management encounter following kidney transplant Encounter for long-term (current) use of other medications Encounter for aftercare following kidney transplant documented in this encounter Care Teams Student Life Coordinator Relationship Specialty Start Date End Date Mónica Dawkins MD [address] [place] [address] PCP - General Internal Medicine 11/11/19 documented as of this encounter Additional Source Comments The information contained in this document represents components of the legal health record. It is not the complete legal health record.[facility]
--- OUTSIDE RECORDS SUMMARY | 2025-09-22 11:14 | XMS_ITS | Encounter Summary ---
Author Organization [facility] Address [address] [employer] [address] [place] [address] Phone Care Team Providers Care Parts Sales Manager Name Role Phone Mónica Dawkins MD Primary Care Provider [phone] Encounter Details Date Type Department Care Team ([facility] st Contact Info) Description 05/06/2025 Anti-coag visit [facility]tico[facility] Management Service 125 [facility] [address] [place] [address] Teodora Menendez, RN 125 [place] [address] [email or web address] Social History Tobacco Use [...] [facility] [address] [address] Park Sauer MD [address] [place] [address] JYOTI@[facility] 10/13/2025 8:00 AM EST Office Visit [facility] [address] [address] Park Sauer MD [address] [place] [address] JYOTI@[email or web address] documented as of this encounter Visit Diagnoses Not on filedocumented in this encounter Care Teams Parts Sales Manager Relationship Specialty Start Date End Date Mónica Dawkins MD [facility] [place] [address] PCP - General Internal Medicine 11/11/19 documented as of this encounter Additional Source Comments The information contained in this document represents components of the legal health record. It is not the complete legal health record.[facility]
--- OUTSIDE RECORDS SUMMARY | 2025-09-22 11:14 | XMS_ITS | Encounter Summary ---
Author Organization [facility] Address [address] [facility] [address] [place] [address] Phone Care Team Providers Care Ladle Repairman Name Role Phone Mónica Dawkins MD Primary Care Provider [phone] Encounter Details Date Type Department Care Team (Latest Contact Info) Description 12/25/2020 Ancillary Orders [facility] Trans[facility] [address] [address] Park Sauer MD [address] [place] [address] JYOTI@[email or web address] Immunosuppressive management encounter following [...] [facility] [address] [address] Park Sauer MD [address] [place] [address] [place] [address] [email or web address] 10/13/2025 8:00 AM EST Office Visit [facility] [address] [facility] [address] [place] [address] Park Sauer MD [address] [place] [address] 100[address]E [place] [address] JYOTI@[email or web address] documented as of this encounter Visit Diagnoses Diagnosis Immunosuppressive management encounter following kidney transplant Encounter for long-term (current) use of other medications Encounter for aftercare following kidney transplant documented in this encounter Care Teams Ladle Repairman Relationship Specialty Start Date End Date Mónica Dawkins MD [address] [place] [address] PCP - General Internal Medicine 11/11/19 documented as of this encounter Additional Source Comments The information contained in this document represents components of the legal health record. It is not the complete legal health record.[facility]
--- OUTSIDE RECORDS SUMMARY | 2025-09-22 11:14 | XMS_ITS | Encounter Summary ---
Author Organization [facility] Address [address] [facility] [address] [place] [address] Phone Care Team Providers Care Airborne Weapons Technical Manager Name Role Phone Mónica Dawkins MD Primary Care Provider [phone] Encounter Details Date Type Department Care Team (Late st Contact Info) Description 01/05/2022 Anti-coag visit [facility] Unknown, Unknown, MD Social History Tobacco Use Types Packs/Day Years [...] 8:05 AM EST Blood Draw [facility] [address] [address] Park Sauer MD [address] [facility] [address], [place] [address] [email or web address] 10/13/2025 8:00 AM EST Office Visit [facility] [address] [address] Park Sauer MD [address] [place] [address] [address] [place] [address] JYOTI@[facility] documented as of this encounter Visit Diagnoses Not on filedocumented in this encounter Care Teams Airborne Weapons Technical Manager Relationship Specialty Start Date End Date Mónica Dawkins MD [address] [place] [address] PCP - General Internal Medicine 11/11/19 documented as of this encounter Additional Source Comments The information contained in this document represents components of the legal health record. It is not the complete legal health record.[facility]
--- OUTSIDE RECORDS SUMMARY | 2025-09-22 11:14 | XMS_ITS | Encounter Summary ---
Author Organization [facility] Address [address] [facility] [address] [place] [address] Phone Care Team Providers Care Analyst Competitive Intelligence Name Role Phone Mónica Dawkins MD Primary Care Provider [phone] Encounter Details Date Type Department Care Team (Latest Contact Info) Description 01/08/2021 Ancillary Orders [facility] [address] [address] Park Suaer MD [address] [place] [address] JYOTI@[email or web address] Immunosuppressive management encounter following kidney transplant; Encounter [...] [facility] [address] [address] Park Sauer MD [address] [place] [address] [place] [address] [email or web address] 10/13/2025 8:00 AM EST Office Visit [facility] 165 [facility] [address] [place] [address] Park Sauer MD [address] [place] [address] [address] [place] [address] JYOTI@[email or web address] documented as of this encounter Visit Diagnoses Diagnosis Immunosuppressive management encounter following kidney transplant Encounter for long-term (current) use of other medications Encounter for aftercare following kidney transplant documented in this encounter Care Teams Analyst Competitive Intelligence Relationship Specialty Start Date End Date Mónica Dawkins MD [address] [place] [address] PCP - General Internal Medicine 11/11/19 documented as of this encounter Additional Source Comments The information contained in this document represents components of the legal health record. It is not the complete legal health record.[facility]
--- OUTSIDE RECORDS SUMMARY | 2025-09-22 11:14 | XMS_ITS | Encounter Summary ---
Author Organization [facility] Address [address] [facility] [address] [place] [address] Phone Care Team Providers Care Oil Mixer Name Role Phone Mónica Dawkins MD Primary Care Provider [phone] Encounter Details Date Type Department Care Team (Latest Contact Info) Description 01/05/2021 Ancillary Orders [facility] [address] [address] Park Sauer MD [address] [place] [address] [email or web address] Immunosuppressive management encounter following kidney [...] Description 10/06/2025 8:05 AM EST Blood Draw [facility] [address] [address] Park Sauer MD [address] [place] [address] [place] [address] [email or web address] 10/13/2025 8:00 AM EST Office Visit [facility] 165 [facility] [address] [place] [address] Park Sauer MD [address] [place] [address] [address] [place] [address] [email or web address] documented as of this encounter Visit Diagnoses Diagnosis Immunosuppressive management encounter following kidney transplant Encounter for long-term (current) use of other medications Encounter for aftercare following kidney transplant documented in this encounter Care Teams Oil Mixer Relationship Specialty Start Date End Date Mónica Dawkins MD [address] [place] [address] PCP - General Internal Medicine 11/11/19 documented as of this encounter Additional Source Comments The information contained in this document represents components of the legal health record. It is not the complete legal health record.[facility]
--- OUTSIDE RECORDS SUMMARY | 2025-09-22 11:14 | XMS_ITS | Encounter Summary ---
Author Organization [facility] Address [address] [facility] [address] [place] [address] Phone Care Team Providers Care Museum Specialist Name Role Phone Mónica Dawkins MD Primary Care Provider [phone] Encounter Details Date Type Department Care Team (Latest Contact Info) Description 12/22/2020 Ancillary Orders [facility] [address] [address] Park Sauer MD [address] [place] [address] JYOTI@[email or web address] Immunosuppressive management encounter following kidney [...] [facility] [address] [address] Park Sauer MD [address] [place] [address] [place] [address] JYOTI@[facility] 10/13/2025 8:00 AM EST Office Visit [facility] Trans[facility] 165 [facility] [address] [place] [address] Park Sauer MD [address] [place] [address] [address] [place] [address] JYOTI@[facility] documented as of this encounter Visit Diagnoses Diagnosis Immunosuppressive management encounter following kidney transplant Encounter for long-term (current) use of other medications Encounter for aftercare following kidney transplant documented in this encounter Care Teams Museum Specialist Relationship Specialty Start Date End Date Mónica Dawkins MD [address] [place] [address] PCP - General Internal Medicine 11/11/19 documented as of this encounter Additional Source Comments The information contained in this document represents components of the legal health record. It is not the complete legal health record.[facility]
--- OUTSIDE RECORDS SUMMARY | 2025-09-22 11:14 | XMS_ITS | Encounter Summary ---
Author Organization [facility] Address [address] [facility] [address] [place] [address] Phone Care Team Providers Care Electrical Development Engineer Name Role Phone Mónica Dawkins MD Primary Care Provider [phone] Encounter Details Date Type Department Care Team (Late st Contact Info) Description 12/14/2021 Anti-coag visit [facility] Anticoagulation Management Service 125 [facility] 765 [place] [address] Stella Perry, RN 125 [place] [address] [email or web address] Social History Tobacco Use Types [facility] 165 [facility] [address] [place] [address] Park Sauer MD 55 [facility] [address] [place] [address] JYOTI@[email or web address] 10/13/2025 8:00 AM EST Office Visit [facility] Trans[facility] [address] [place] [address] Park Sauer MD [address] [place] [address] [address] [place] [address] JYOTI@[facility] documented as of this encounter Visit Diagnoses Not on filedocumented in this encounter Care Teams Electrical Development Engineer Relationship Specialty Start Date End Date Mónica Dawkins MD [address] [place] [address] PCP - General Internal Medicine 11/11/19 documented as of this encounter Additional Source Comments The information contained in this document represents components of the legal health record. It is not the complete legal health record.[facility]
--- OUTSIDE RECORDS SUMMARY | 2025-09-22 11:14 | XMS_ITS | Encounter Summary ---
Author Organization [facility] Address [address] [facility] [address] [place] [address] Phone Care Team Providers Care Private Branch Exchange Installer Name Role Phone Mónica Dawkins MD Primary Care Provider [phone] Encounter Details Date Type Department Care Team (Latest Contact Info) Description 01/01/2021 Ancillary Orders [facility] Trans[facility] Clinic [address] [address] Park Sauer MD [address] [place] [address] JYOTI@[email or web address] Immunosuppressive management encounter following kidney transplant; [...] [facility] [address] [address] Park Sauer MD [address] [place] [address] [place] [address] JYOTI@[facility] 10/13/2025 8:00 AM EST Office Visit [facility] Trans[facility] Clinic 165 [facility] [address] [place] [address] Park Sauer MD [address] [place] [address] [address] [place] [address] JYOTI@[facility] documented as of this encounter Visit Diagnoses Diagnosis Immunosuppressive management encounter following kidney transplant Encounter for long-term (current) use of other medications Encounter for aftercare following kidney transplant documented in this encounter Care Teams Private Branch Exchange Installer Relationship Specialty Start Date End Date Mónica Dawkins MD [address] [place] [address] PCP - General Internal Medicine 11/11/19 documented as of this encounter Additional Source Comments The information contained in this document represents components of the legal health record. It is not the complete legal health record.[facility]
--- OUTSIDE RECORDS SUMMARY | 2025-09-22 11:14 | XMS_ITS | Encounter Summary ---
Author Organization [facility] Address [address] [facility] [address] [place] [address] Phone Care Team Providers Care Refining Engineer Name Role Phone Mónica Dawkins MD Primary Care Provider [phone] Encounter Details Date Type Department Care Team (Latest Contact Info) Description 12/29/2020 Ancillary Orders [facility] [address] [address] Park Sauer MD [address] [place] [address] JYOTI@[email or web address] Immunosuppressive management encounter following kidney transplant; Encounter [...] [facility] [place] [facility] [address] [address] Park Sauer MD [address] [place] [address] [place] [address] JYOTI@[facility] 10/13/2025 8:00 AM EST Office Visit [facility] 165 [facility] [address] [place] [address] Park Sauer MD [address] [place] [address] [address] [place] [address] JYOTI@[facility] documented as of this encounter Visit Diagnoses Diagnosis Immunosuppressive management encounter following kidney transplant Encounter for long-term (current) use of other medications Encounter for aftercare following kidney transplant documented in this encounter Care Teams Refining Engineer Relationship Specialty Start Date End Date Mónica Dawkins MD [address] [place] [address] PCP - General Internal Medicine 11/11/19 documented as of this encounter Additional Source Comments The information contained in this document represents components of the legal health record. It is not the complete legal health record.[facility]
--- OUTSIDE RECORDS SUMMARY | 2025-09-22 11:14 | XMS_ITS | Encounter Summary ---
Author Organization [facility] Address [address] [place] [address] Phone Care Team Providers Care Angle Dozer Operator Name Role Phone Mónica Dawkins MD Primary Care Provider [phone] Encounter Details Date Type Department Care Team (Late Contact Info) Description 11/25/2021 Anti-coag visit [facility] AMS [address] [place] [address] Germaine Cochran RN 55 [place] [address] [email or web address]@[email or web address] Social History Tobacco Use Types Packs/Day [facility] [address] [place] [address] Park Sauer MD 55 [facility] [place] [address] [place] [address] [email or web address] 10/13/2025 8:00 AM EST Office Visit [facility] [address] [place] [address] Park Sauer MD [address] [place] [address] [address] [place] [address] JYOTI@[email or web address] documented as of this encounter Visit Diagnoses Not on filedocumented in this encounter Care Teams Angle Dozer Operator Relationship Specialty Start Date End Date Mónica Dawkins MD [address] [place] [address] PCP - General Internal Medicine 11/11/19 documented as of this encounter Additional Source Comments The information contained in this document represents components of the legal health record. It is not the complete legal health record.[facility]
--- OUTSIDE RECORDS SUMMARY | 2025-09-22 11:15 | XMS_ITS | Encounter Summary ---
Author Organization [facility] Address [address] [facility] [address] [place] [address] Phone Care Team Providers Care Streetcar Motorman Name Role Phone Mónica Dawkins MD Primary Care Provider [phone] Encounter Details Date Type Department Care Team (Latest Contact Info) Description 10/16/2020 Ancillary Orders [facility] [address] [address] Park Sauer MD [address] [place] [address] JYOTI@[email or web address] Immunosuppressive management encounter following kidney transplant; [facility] [address] [address] Park Sauer MD [address] [place] [address] [place] [address] JYOTI@[facility] 10/13/2025 8:00 AM EST Office Visit [facility] 165 [facility] [address] [place] [address] Park Sauer MD [address] [place] [address] [address], [place] [address] JYOTI@[facility] documented as of this encounter Visit Diagnoses Diagnosis Immunosuppressive management encounter following kidney transplant Encounter for long-term (current) use of other medications Encounter for aftercare following kidney transplant documented in this encounter Care Teams Streetcar Motorman Relationship Specialty Start Date End Date Mónica Dawkins MD [address] [place] [address] PCP - General Internal Medicine 11/11/19 documented as of this encounter Additional Source Comments The information contained in this document represents components of the legal health record. It is not the complete legal health record.[facility]
--- OUTSIDE RECORDS SUMMARY | 2025-09-22 11:15 | XMS_ITS | Encounter Summary ---
Author Organization [facility] Address [address] [facility] [address] [place] [address] Phone Care Team Providers Care Prosthetic Dentist Name Role Phone Mónica Dawkins MD Primary Care Provider Encounter Details Date Type Department Care Team (Latest Contact Info) Description 10/22/2020 Ancillary Orders [facility] Trans[facility] Clinic [address] [address] Park Sauer MD [address] [place] [address] JYOTI@[email or web address] Immunosuppressive management encounter following kidney transplant; Encounter [...] [facility] [address] [address] Park Sauer MD [address] [place] [address] [place] [address] JYOTI@[facility] 10/13/2025 8:00 AM EST Office Visit [facility] 165 [facility] [address] [place] [address] Park Sauer MD [address] [place] [address] 100[address], [place] [address] JYOTI@[facility] documented as of this encounter Visit Diagnoses Diagnosis Immunosuppressive management encounter following kidney transplant Encounter for long-term (current) use of other medications Encounter for aftercare following kidney transplant documented in this encounter Care Teams Prosthetic Dentist Relationship Specialty Start Date End Date Mónica Dawkins MD [address] [place] [address] PCP - General Internal Medicine 11/11/19 documented as of this encounter Additional Source Comments The information contained in this document represents components of the legal health record. It is not the complete legal health record.[facility]
--- OUTSIDE RECORDS SUMMARY | 2025-09-22 11:15 | XMS_ITS | Encounter Summary ---
Author Organization [facility] Address [address] [facility] [address] [place] [address] Phone Care Team Providers Care Dinkey Brakeman Name Role Phone Mónica Dawkins MD Primary Care Provider [phone] Encounter Details Date Type Department Care Team (Latest Contact Info) Description 10/28/2020 Ancillary Orders [facility] [address] [address] Park Sauer MD [address] [place] [address] JYOTI@[facility] Immunosuppressive management encounter following kidney [...] [facility] [address] [address] Park Sauer MD [address] [place] [address] [place] [address] JYOTI@[facility] 10/13/2025 8:00 AM EST Office Visit [facility] [address] [facility] [address] [place] [address] Park Sauer MD [address] [place] [address] 100[address], [place] [address] JYOTI@[facility] documented as of this encounter Visit Diagnoses Diagnosis Immunosuppressive management encounter following kidney transplant Encounter for long-term (current) use of other medications Encounter for aftercare following kidney transplant documented in this encounter Care Teams Dinkey Brakeman Relationship Specialty Start Date End Date Mónica Dawkins MD [address] [place] [address] PCP - General Internal Medicine 11/11/19 documented as of this encounter Additional Source Comments The information contained in this document represents components of the legal health record. It is not the complete legal health record.[facility]
--- OUTSIDE RECORDS SUMMARY | 2025-09-22 11:15 | XMS_ITS | Encounter Summary ---
Author Organization [facility] Address [address] [facility] [address] [place] [address] Phone Care Team Providers Care Plumbing Installer Name Role Phone Mónica Dawkins MD Primary Care Provider [phone] Encounter Details Date Type Department Care Team (Latest Contact Info) Description 10/20/2020 Ancillary Orders [facility] [address] [address] Park Sauer MD [address] [place] [address] [email or web address] Immunosuppressive management encounter following kidney [...] [facility] [place] [facility] [address] [address] Park Sauer MD [address] [place] [address] [place] [address] JYOTI@[email or web address] 10/13/2025 8:00 AM EST Office Visit [facility] 165 [facility] [address] [place] [address] Park Sauer MD [address] [place] [address] [address] [address] JYOTI@[facility] documented as of this encounter Visit Diagnoses Diagnosis Immunosuppressive management encounter following kidney transplant Encounter for long-term (current) use of other medications Encounter for aftercare following kidney transplant documented in this encounter Care Teams Plumbing Installer Relationship Specialty Start Date End Date Mónica Dawkins MD [address] [place] [address] PCP - General Internal Medicine 11/11/19 documented as of this encounter Additional Source Comments The information contained in this document represents components of the legal health record. It is not the complete legal health record.[facility]
--- OUTSIDE RECORDS SUMMARY | 2025-09-22 11:15 | XMS_ITS | Encounter Summary ---
Author Organization [facility] Address [address] [employer] [facility] [address] [place] [address] Phone Care Team Providers Care Erecting Engineer Name Role Phone Mónica Dawkins MD Primary Care Provider [phone] Encounter Details Date Type Department Care Team (Late st Contact Info) Description 04/12/2021 Anti-coag visit [facility] Anticoagulation Management Service 125 [facility] [address] [place] [address] Gilma Brannon RN [address] [place] [address] [email or web address] Social History Tobacco [...] Description 10/06/2025 8:05 AM EST Blood Draw [facility] Transplant Clinic [address] [place] [address] Park Sauer MD 55 [facility] [address] [place] [address] JYOTI@[facility] 10/13/2025 8:00 AM EST Office Visit [facility] Trans[facility] Clinic [address] [place] [address] Park Sauer MD [address] [facility] [address] [facility] [address] [place] [address] REMEDIOSJULIANEVONNE@[facility] documented as of this encounter Visit Diagnoses Not on filedocumented in this encounter Care Teams Erecting Engineer Relationship Specialty Start Date End Date Mónica Dawkins MD [address] [place] [address] PCP - General Internal Medicine 11/11/19 documented as of this encounter Additional Source Comments The information contained in this document represents components of the legal health record. It is not the complete legal health record.[facility]
--- OUTSIDE RECORDS SUMMARY | 2025-09-22 11:15 | XMS_ITS | Encounter Summary ---
Author Organization [facility] Address [address] [facility] [address] [place] [address] Phone Care Team Providers Care Meat Carrier Name Role Phone Mónica Dawkins MD Primary Care Provider [phone] Encounter Details Date Type Department Care Team (Latest Contact Info) Description 10/15/2020 Ancillary Orders [facility] [address] [address] Park Sauer MD [address] [place] [address] JYOTI@[email or web address] Immunosuppressive management encounter following kidney [...] Description 10/06/2025 8:05 AM EST Blood Draw [facility] [address] [address] Park Sauer MD [address] [place] [address] [place] [address] JYOTI@[facility] 10/13/2025 8:00 AM EST Office Visit [facility] 165 [facility] [address] [place] [address] Park Sauer MD [address] [place] [address] [address] [address] JYOTI@[facility] documented as of this encounter Visit Diagnoses Diagnosis Immunosuppressive management encounter following kidney transplant Encounter for long-term (current) use of other medications Encounter for aftercare following kidney transplant documented in this encounter Care Teams Meat Carrier Relationship Specialty Start Date End Date Mónica Dawkins MD [address] [place] [address] PCP - General Internal Medicine 11/11/19 documented as of this encounter Additional Source Comments The information contained in this document represents components of the legal health record. It is not the complete legal health record.[facility]
--- OUTSIDE RECORDS SUMMARY | 2025-09-22 11:15 | XMS_ITS | Encounter Summary ---
Author Organization [facility] Address [address] [place] [address] Phone Care Team Providers Care Icing Mixer Name Role Phone Mónica Dawkins MD Primary Care Provider [phone] Encounter Details Date Type Department Care Team ([facility] st Contact Info) Description 07/24/2025 Anti-coag visit [facility] Anticoagulation Management Service [address] [facility] [address] [place] [address] Teodora Menendez, RN [address] [place] [address] [email or web address] Social History Tobacco Use [...] AM EST Blood Draw [facility] Transplant Clinic [address] [address] Park Sauer MD [address] [place] [address] [email or web address] 10/13/2025 8:00 AM EST Office Visit [facility] Transplant Clinic [address] [address] Park Sauer MD [address] [place] [address] [email or web address] documented as of this encounter Visit Diagnoses Not on filedocumented in this encounter Care Teams Icing Mixer Relationship Specialty Start Date End Date Mónica Dawkins MD [facility] [place] [address] PCP - General Internal Medicine 11/11/19 documented as of this encounter Additional Source Comments The information contained in this document represents components of the legal health record. It is not the complete legal health record.[facility]
--- OUTSIDE RECORDS SUMMARY | 2025-09-22 11:15 | XMS_ITS | Encounter Summary ---
Author Organization [facility] Address [address] [facility] [address] [place] [address] Phone Care Team Providers Care Instrument Designer Name Role Phone Mónica Dawkins MD Primary Care Provider [phone] Encounter Details Date Type Department Care Team (Latest Contact Info) Description 10/23/2020 Ancillary Orders [facility] [address] [address] Park Sauer MD [address] [place] [address] [email or web address] Immunosuppressive management encounter following kidney transplant; Encounter [facility] [address] [address] Park Sauer MD [address] [place] [address] [place] [address] [email or web address] 10/13/2025 8:00 AM EST Office Visit [facility] 165 [facility] [address] [place] [address] Park Sauer MD [address] [place] [address] [address] [address] [email or web address] documented as of this encounter Visit Diagnoses Diagnosis Immunosuppressive management encounter following kidney transplant Encounter for long-term (current) use of other medications Encounter for aftercare following kidney transplant documented in this encounter Care Teams Instrument Designer Relationship Specialty Start Date End Date Móncia Dawkins MD [address] [place] [address] PCP - General Internal Medicine 11/11/19 documented as of this encounter Additional Source Comments The information contained in this document represents components of the legal health record. It is not the complete legal health record.[facility]
--- OUTSIDE RECORDS SUMMARY | 2025-09-22 11:15 | XMS_ITS | Encounter Summary ---
Author Organization [facility] Address [address] [facility] [address] [place] [address] Phone Care Team Providers Care Investment Sales Assistant Name Role Phone Mónica Dawkins MD Primary Care Provider [phone] Encounter Details Date Type Department Care Team (Late st Contact Info) Description 03/08/2021 Anti-coag visit [facility] Anticoagulation Management Service 125 [facility] 765 [place] [address] Edie Zapata RN 125 [place] [address] [email or web address] Social History Tobacco Use Types Packs/Day Years [...] [facility] 165 [facility] [address] [place] [address] Park Sauer MD [address] [facility] [address] [place] [address] [email or web address] 10/13/2025 8:00 AM EST Office Visit [facility] Trans[facility] [address] [place] [address] Park Sauer MD [address] [place] [address] [address] [place] [address] [email or web address] documented as of this encounter Visit Diagnoses Not on filedocumented in this encounter Care Teams Investment Sales Assistant Relationship Specialty Start Date End Date Mónica Dawkins MD [address] [place] [address] PCP - General Internal Medicine 11/11/19 documented as of this encounter Additional Source Comments The information contained in this document represents components of the legal health record. It is not the complete legal health record.[facility]
--- OUTSIDE RECORDS SUMMARY | 2025-09-22 11:15 | XMS_ITS | Encounter Summary ---
Author Organization [facility] Address [address] [facility] [address] [place] [address] Phone Care Team Providers Care Campus Manager Name Role Phone Mónica Dawkins MD Primary Care Provider [phone] Encounter Details Date Type Department Care Team (Latest Contact Info) Description 11/02/2020 Ancillary Orders [facility] [address] [address] Park Sauer MD [address] [place] [address] [email or web address] Immunosuppressive management encounter following kidney transplant; [...] Description 10/06/2025 8:05 AM EST Blood Draw [facility] [address] [address] Park Sauer MD [address] [place] [address] [place] [address] [email or web address] 10/13/2025 8:00 AM EST Office Visit [facility] [address] [facility] [address] [place] [address] Park Sauer MD [address] [place] [address] [address] [email or web address] documented as of this encounter Visit Diagnoses Diagnosis Immunosuppressive management encounter following kidney transplant Encounter for long-term (current) use of other medications Encounter for aftercare following kidney transplant documented in this encounter Care Teams Campus Manager Relationship Specialty Start Date End Date Mónica Dawkins MD [address] [place] [address] PCP - General Internal Medicine 11/11/19 documented as of this encounter Additional Source Comments The information contained in this document represents components of the legal health record. It is not the complete legal health record.[facility]
--- OUTSIDE RECORDS SUMMARY | 2025-09-22 11:15 | XMS_ITS | Encounter Summary ---
Author Organization [facility] Address [address] [facility] [address] [place] [address] Phone Care Team Providers Care Radiologic Technology Teacher Name Role Phone Mónica Dawkins MD Primary Care Provider [phone] Encounter Details Date Type Department Care Team (Latest Contact Info) Description 10/19/2020 Ancillary Orders [facility] [address] [address] Park Sauer MD [address] [place] [address] [email or web address] Immunosuppressive management encounter following [...] 8:05 AM EST Blood Draw [facility] [address] [address] Park Sauer MD [address] [place] [address] [place] [address] [email or web address] 10/13/2025 8:00 AM EST Office Visit [facility] 165 [facility] [address] [place] [address] Park Sauer MD [address] [place] [address], [place] [address] [email or web address] documented as of this encounter Visit Diagnoses Diagnosis Immunosuppressive management encounter following kidney transplant Encounter for long-term (current) use of other medications Encounter for aftercare following kidney transplant documented in this encounter Care Teams Radiologic Technology Teacher Relationship Specialty Start Date End Date Mónica Dawkins MD [address] [place] [address] PCP - General Internal Medicine 11/11/19 documented as of this encounter Additional Source Comments The information contained in this document represents components of the legal health record. It is not the complete legal health record.[facility]
--- OUTSIDE RECORDS SUMMARY | 2025-09-22 11:15 | XMS_ITS | Encounter Summary ---
Author Organization [facility] Address [address] [facility] [address] [place] [address] Phone Care Team Providers Care Brim Cutter Name Role Phone Mónica Dawkins MD Primary Care Provider [phone] Encounter Details Date Type Department Care Team (Latest Contact Info) Description 10/21/2020 Ancillary Orders [facility] [address] [address] Park Sauer MD [address] [place] [address] [email or web address] Immunosuppressive management encounter following kidney [...] 10/06/2025 8:05 AM EST Blood Draw [facility] [address] [address] Park Sauer MD [address] [place] [address] [place] [address] [email or web address] 10/13/2025 8:00 AM EST Office Visit [facility] 165 [facility] [address] [place] [address] Park Sauer MD [address] [place] [address], [place] [address] [email or web address] documented as of this encounter Visit Diagnoses Diagnosis Immunosuppressive management encounter following kidney transplant Encounter for long-term (current) use of other medications Encounter for aftercare following kidney transplant documented in this encounter Care Teams Brim Cutter Relationship Specialty Start Date End Date Mónica Dawkins MD [address] [place] [address] PCP - General Internal Medicine 11/11/19 documented as of this encounter Additional Source Comments The information contained in this document represents components of the legal health record. It is not the complete legal health record.[facility]
--- OUTSIDE RECORDS SUMMARY | 2025-09-22 11:15 | XMS_ITS | Encounter Summary ---
Author Organization [facility] Address [address] [facility] [address] [place] [address] Phone Care Team Providers Care Design Engineer Name Role Phone Mónica Dawkins MD Primary Care Provider [phone] Encounter Details Date Type Department Care Team (Late Contact Info) Description 11/15/2022 Anti-coag visit [facility] Anticoagulation Management Service [address] [facility] [address] [place] [address] Stephanie Rojas NP 24 [place] [address] [email or web address] g Social History Tobacco Use Types [...] 8:05 AM EST Blood Draw [facility] Transplant Clinic 165 [facility] [address] [place] [address] Park Sauer MD [address] [facility] [address] [place] [address] [email or web address] 10/13/2025 8:00 AM EST Office Visit [facility] Trans[facility] Clinic [address] [facility] [address] [place] [address] Park Sauer MD [address] [place] [address] [address] [place] [address] [email or web address] documented as of this encounter Visit Diagnoses Not on filedocumented in this encounter Care Teams Design Engineer Relationship Specialty Start Date End Date Mónica Dawkins MD [address] [place] [address] PCP - General Internal Medicine 11/11/19 documented as of this encounter Additional Source Comments The information contained in this document represents components of the legal health record. It is not the complete legal health record.[facility]
--- OUTSIDE RECORDS SUMMARY | 2025-09-22 11:15 | XMS_ITS | Encounter Summary ---
Author Organization [facility] Address [address] [facility] [address] [place] [address] Phone Care Team Providers Care Fiber Design Engineer Name Role Phone Mónica Dawkins MD Primary Care Provider [phone] Encounter Details Date Type Department Care Team (Late Contact Info) Description 11/29/2022 Anti-coag visit [facility]tico[facility] 125 [facility] [address] [place] [address] Gilma Brannon RN [address] [place] [address] [email or web address] Social History Tobacco Use [facility] 165 [facility] [address] [place] [address] Park Sauer MD [address] [facility] [address] [place] [address] [email or web address] 10/13/2025 8:00 AM EST Office Visit [facility] [address] [place] [address] Park Sauer MD [address] [place] [address] [address] [place] [address] [email or web address] documented as of this encounter Visit Diagnoses Not on filedocumented in this encounter Care Teams Fiber Design Engineer Relationship Specialty Start Date End Date Mónica Dawkins MD [address] [place] [address] PCP - General Internal Medicine 11/11/19 documented as of this encounter Additional Source Comments The information contained in this document represents components of the legal health record. It is not the complete legal health record.[facility]
--- OUTSIDE RECORDS SUMMARY | 2025-09-22 11:15 | XMS_ITS | Encounter Summary ---
Author Organization [facility] Address [address] [facility] [address] [place] [address] Phone Care Team Providers Care Rotary Planer Set Up Operator Name Role Phone Mónica Dawkins MD Primary Care Provider [phone] Encounter Details Date Type Department Care Team (Latest Contact Info) Description 10/29/2020 Ancillary Orders [facility] Trans[facility] Clinic [address] [address] Park Sauer MD [address] [place] [address] [email or web address] Immunosuppressive management encounter following [...] [facility] [address] [address] Park Sauer MD [address] [place] [address] [place] [address] [email or web address] 10/13/2025 8:00 AM EST Office Visit [facility] Trans[facility] Clinic 165 [facility] [address] [place] [address] Park Sauer MD [address] [place] [address] [address] [address] [email or web address] documented as of this encounter Visit Diagnoses Diagnosis Immunosuppressive management encounter following kidney transplant Encounter for long-term (current) use of other medications Encounter for aftercare following kidney transplant documented in this encounter Care Teams Rotary Planer Set Up Operator Relationship Specialty Start Date End Date Mónica Dawkins MD [address] [place] [address] PCP - General Internal Medicine 11/11/19 documented as of this encounter Additional Source Comments The information contained in this document represents components of the legal health record. It is not the complete legal health record.[facility]
--- OUTSIDE RECORDS SUMMARY | 2025-09-22 11:15 | XMS_ITS | Clinical Summary ---
Author Organization [facility] Address [address] [address] Care Team Providers Care Manager Commercial Real Estate Name Role Phone Unavailable Primary Care Provider [...] topic Insurance (Home) [address] [place] [address] Medicare [facility]
--- OUTSIDE RECORDS SUMMARY | 2025-09-22 11:15 | XMS_ITS | Encounter Summary ---
Author Organization [facility] Address [address] [facility] [address] [place] [address] Phone Care Team Providers Care Currency Exchange Specialist Name Role Phone Mónica Dawkins MD Primary Care Provider [phone] Encounter Details Date Type Department Care Team (Latest Contact Info) Description 10/30/2020 Ancillary Orders [facility] [address] [address] Park Sauer MD [address] [place] [address] JYOTI@[email or web address] Immunosuppressive management encounter following kidney transplant[facility] [place] [facility] [address] [address] Park Sauer MD [address] [place] [address] [place] [address] JYOTI@[facility] 10/13/2025 8:00 AM EST Office Visit [facility] Trans[facility] Clinic 165 [facility] [address] [place] [address] Park Sauer MD [address] [place] [address], [place] [address] JYOTI@[facility] documented as of this encounter Visit Diagnoses Diagnosis Immunosuppressive management encounter following kidney transplant Encounter for long-term (current) use of other medications Encounter for aftercare following kidney transplant documented in this encounter Care Teams Currency Exchange Specialist Relationship Specialty Start Date End Date Mónica Dawkins MD [address] [place] [address] PCP - General Internal Medicine 11/11/19 documented as of this encounter Additional Source Comments The information contained in this document represents components of the legal health record. It is not the complete legal health record.[facility]
--- OUTSIDE RECORDS SUMMARY | 2025-09-22 11:15 | XMS_ITS | Encounter Summary ---
Author Organization [facility] Address [address] [facility] [address] [place] [address] Phone Care Team Providers Care Garment Form Assembler Name Role Phone Mónica Dawkins MD Primary Care Provider [phone] Encounter Details Date Type Department Care Team (Late st Contact Info) Description 03/22/2021 Anti-coag visit [facility] AMS [address] [place] [address] Germaine Cochran, CAMILLA 55 [place] [address] [email or web address] Social History Tobacco Use Types Packs/Day [...] [facility] [address] [place] [address] Park Sauer MD 55 [facility] [address] [place] [address] [email or web address] 10/13/2025 8:00 AM EST Office Visit [facility] Transplant Clinic [address] [place] [address] Park Sauer MD 55 [facility] [address] [facility] [address] [place] [address] [email or web address] documented as of this encounter Visit Diagnoses Not on filedocumented in this encounter Care Teams Garment Form Assembler Relationship Specialty Start Date End Date Mónica Dawkins MD [address] [place] [address] PCP - General Internal Medicine 11/11/19 documented as of this encounter Additional Source Comments The information contained in this document represents components of the legal health record. It is not the complete legal health record.[facility]
--- OUTSIDE RECORDS SUMMARY | 2025-09-22 11:15 | XMS_ITS | Encounter Summary ---
Author Organization [facility] Address [address] [place] [address] Phone Care Team Providers Care Hatchery Worker Name Role Phone Mónica Dawkins MD Primary Care Provider Encounter Details Date Type Department Care Team ([facility] st Contact Info) Description 08/08/2025 Anti-coag visit [facility] Anticoagulation Management Service 125 [facility] [address] [place] [address] Teodora Menendez, RN 125 [place] [address] [email or web address] Social History Tobacco Use Types [...] [facility] [address] [address] Park Sauer MD [address] [place] [address] [email or web address] 10/13/2025 8:00 AM EST Office Visit [facility] Transplant Clinic [address] [address] Park Sauer MD [address] [place] [address] [email or web address] documented as of this encounter Visit Diagnoses Not on filedocumented in this encounter Care Teams Hatchery Worker Relationship Specialty Start Date End Date Mónica Dawkins MD [facility] [place] [address] PCP - General Internal Medicine 11/11/19 documented as of this encounter Additional Source Comments The information contained in this document represents components of the legal health record. It is not the complete legal health record.[facility]
--- OUTSIDE RECORDS SUMMARY | 2025-09-22 11:15 | XMS_ITS | Encounter Summary ---
Author Organization [facility] Address [address] [facility] [address] [place] [address] Phone Care Team Providers Care Technology Adoption Manager Name Role Phone Mónica Dawkins MD Primary Care Provider [phone] Encounter Details Date Type Department Care Team (Latest Contact Info) Description 10/27/2020 Ancillary Orders [facility] [address] [address] Park Sauer MD [address] [place] [address] [email or web address] includes the [facility] Immunosuppressive management encounter following kidney transplant; [...] 10/06/2025 8:05 AM EST Blood Draw [facility] [address] [address] Park Sauer MD [address] [place] [address] [place] [address] [email or web address] 10/13/2025 8:00 AM EST Office Visit [facility] 165 [facility] [address] [place] [address] Park Sauer MD [address] [place] [address], [place] [address] [email or web address] documented as of this encounter Visit Diagnoses Diagnosis Immunosuppressive management encounter following kidney transplant Encounter for long-term (current) use of other medications Encounter for aftercare following kidney transplant documented in this encounter Care Teams Technology Adoption Manager Relationship Specialty Start Date End Date Mónica Dawkins MD [address] [place] [address] PCP - General Internal Medicine 11/11/19 documented as of this encounter Additional Source Comments The information contained in this document represents components of the legal health record. It is not the complete legal health record.[facility]
--- OUTSIDE RECORDS SUMMARY | 2025-09-22 11:15 | XMS_ITS | Encounter Summary ---
Author Organization [facility] Address [address] [facility] [address] [place] [address] Phone Care Team Providers Care Car Deliverer Name Role Phone Mónica Dawkins MD Primary Care Provider [phone] Encounter Details Date Type Department Care Team (Late st Contact Info) Description 10/17/2022 Anti-coag visit [facility] [address] [facility] [address] [place] [address] Beata Seay RN [email or web address] Social History Tobacco [facility] [address] [place] [address] Park Sauer MD [address] [facility] [address] [place] [address] [email or web address] 10/13/2025 8:00 AM EST Office Visit [facility] [address] [place] [address] Park Sauer MD 55 [facility] [address] [place] [address] [email or web address] documented as of this encounter Visit Diagnoses Not on filedocumented in this encounter Care Teams Car Deliverer Relationship Specialty Start Date End Date Mónica Dawkins MD [address] [place] [address] PCP - General Internal Medicine 11/11/19 documented as of this encounter Additional Source Comments The information contained in this document represents components of the legal health record. It is not the complete legal health record.[facility]
--- OUTSIDE RECORDS SUMMARY | 2025-09-22 11:15 | XMS_ITS | Encounter Summary ---
Author Organization [facility] Address [address] [employer] [address] [place] [address] Phone Care Team Providers Care Standpipe Tender Name Role Phone Mónica Dawkins MD Primary Care Provider [phone] Encounter Details Date Type Department Care Team ([facility] st Contact Info) Description 07/08/2025 Anti-coag visit [facility]tico[facility] [address] [facility] [address] [place] [address] Teodora Menendez, RN [address] [place] [address] [email or web address] Social History Tobacco Use Types [...] [facility] [address] [address] Park Sauer MD [address] [place] [address] JYOTI@[facility] 10/13/2025 8:00 AM EST Office Visit [facility] [address] [address] Park Sauer MD [address] [place] [address] [email or web address] documented as of this encounter Visit Diagnoses Not on filedocumented in this encounter Care Teams Standpipe Tender Relationship Specialty Start Date End Date Mónica Dawknis MD [facility] [place] [address] PCP - General Internal Medicine 11/11/19 documented as of this encounter Additional Source Comments The information contained in this document represents components of the legal health record. It is not the complete legal health record.[facility]
--- OUTSIDE RECORDS SUMMARY | 2025-09-22 11:15 | XMS_ITS | Encounter Summary ---
Author Organization [facility] Address [address] [facility] [address] [place] [address] Phone Care Team Providers Care Pacs Administrator Name Role Phone Mónica Dawkins MD Primary Care Provider [phone] Encounter Details Date Type Department Care Team (Latest Contact Info) Description 10/26/2020 Ancillary Orders [facility] Trans[facility] [address] [address] Park Sauer MD [address] [place] [address] [email or web address] Immunosuppressive management encounter following kidney [...] [facility] [address] [address] Park Sauer MD [address] [place] [address] [place] [address] JYOTI@[facility] 10/13/2025 8:00 AM EST Office Visit [facility] 165 [facility] [address] [place] [address] Park Sauer MD [address] [place] [address], [place] [address] JYOTI@[facility] documented as of this encounter Visit Diagnoses Diagnosis Immunosuppressive management encounter following kidney transplant Encounter for long-term (current) use of other medications Encounter for aftercare following kidney transplant documented in this encounter Care Teams Pacs Administrator Relationship Specialty Start Date End Date Mónica Dawkins MD [address] [place] [address] PCP - General Internal Medicine 11/11/19 documented as of this encounter Additional Source Comments The information contained in this document represents components of the legal health record. It is not the complete legal health record.[facility]
--- OUTSIDE RECORDS SUMMARY | 2025-09-22 11:16 | XMS_ITS | Encounter Summary ---
Author Organization [facility] Address [address] [facility] [address] [place] [address] Phone Care Team Providers Care Quantitative Strategy Analyst Name Role Phone Mónica Dawkins MD Primary Care Provider [phone] Encounter Details Date Type Department Care Team (Latest Contact Info) Description 11/06/2020 Ancillary Orders [facility] [address] [address] Park Sauer MD [address] [place] [address] JYOTI@[email or web address] Immunosuppressive management encounter following kidney [...] [facility] [address] [address] Park Sauer MD [address] [place] [address] [place] [address] JYOTI@[facility] 10/13/2025 8:00 AM EST Office Visit [facility] 165 [facility] [address] [place] [address] Park Sauer MD [address] [place] [address] [address] JYOTI@[facility] documented as of this encounter Visit Diagnoses Diagnosis Immunosuppressive management encounter following kidney transplant Encounter for long-term (current) use of other medications Encounter for aftercare following kidney transplant documented in this encounter Care Teams Quantitative Strategy Analyst Relationship Specialty Start Date End Date Mónica Dawkins MD [address] [place] [address] PCP - General Internal Medicine 11/11/19 documented as of this encounter Additional Source Comments The information contained in this document represents components of the legal health record. It is not the complete legal health record.[facility]
--- OUTSIDE RECORDS SUMMARY | 2025-09-22 11:16 | XMS_ITS | Encounter Summary ---
Author Organization [facility] Address [address] [facility] [address] [place] [address] Phone Care Team Providers Care Economic Forecaster Name Role Phone Mónica Dawkins MD Primary Care Provider [phone] Encounter Details Date Type Department Care Team (Latest Contact Info) Description 01/28/2021 Ancillary Orders [facility] Trans[facility] [address] [address] Park Sauer MD [address] [place] [address] JYOTI@[email or web address] Immunosuppressive management encounter following kidney [...] [facility] [address] [address] Park Sauer MD [address] [place] [address] [place] [address] JYOTI@[email or web address] 10/13/2025 8:00 AM EST Office Visit [facility] Trans[facility] [address] [facility] [address] [place] [address] Park Sauer MD [address] [place] [address] [address] [place] [address] JYOTI@[facility] documented as of this encounter Visit Diagnoses Diagnosis Immunosuppressive management encounter following kidney transplant Encounter for long-term (current) use of other medications Encounter for aftercare following kidney transplant documented in this encounter Care Teams Economic Forecaster Relationship Specialty Start Date End Date Mónica Dawkins MD [address] [place] [address] PCP - General Internal Medicine 11/11/19 documented as of this encounter Additional Source Comments The information contained in this document represents components of the legal health record. It is not the complete legal health record.[facility]
--- OUTSIDE RECORDS SUMMARY | 2025-09-22 11:16 | XMS_ITS | Encounter Summary ---
Author Organization [facility] Address [address] [facility] [address] [place] [address] Phone Care Team Providers Care Multimedia Project Manager Name Role Phone Mónica Dawkins MD Primary Care Provider [phone] Encounter Details Date Type Department Care Team (Latest Contact Info) Description 01/27/2021 Ancillary Orders [facility] [address] [address] Park Sauer MD [address] [place] [address] JYOTI@[email or web address] Immunosuppressive [...] [facility] [address] [address] Park Sauer MD [address] [place] [address] [place] [address] JYOTI@[facility] 10/13/2025 8:00 AM EST Office Visit [facility] 165 [facility] [address] [place] [address] Park Sauer MD [address] [place] [address] [address] [place] [address] JYOTI@[facility] documented as of this encounter Visit Diagnoses Diagnosis Immunosuppressive management encounter following kidney transplant Encounter for long-term (current) use of other medications Encounter for aftercare following kidney transplant documented in this encounter Care Teams Multimedia Project Manager Relationship Specialty Start Date End Date Mónica Dawkins MD [address] [place] [address] PCP - General Internal Medicine 11/11/19 documented as of this encounter Additional Source Comments The information contained in this document represents components of the legal health record. It is not the complete legal health record.[facility]
--- OUTSIDE RECORDS SUMMARY | 2025-09-22 11:16 | XMS_ITS | Encounter Summary ---
Author Organization [facility] Address [address] [facility] [address] [place] [address] Phone Care Team Providers Care Sack Keeper Name Role Phone Mónica Dawkins MD Primary Care Provider [phone] Encounter Details Date Type Department Care Team (Latest Contact Info) Description 11/05/2020 Ancillary Orders [facility] [place] [place] [facility] [address] [place] [address] [address] Park Sauer MD [address] [place] [address] [email or web address] Immunosuppressive management encounter following kidney [...] Description 10/06/2025 8:05 AM EST Blood Draw [facility] [place] [place] [facility] [address] [address] Park Sauer MD [address] [place] [address] [place] [address] JYOTI@[facility] 10/13/2025 8:00 AM EST Office Visit [facility] [place] [place] [facility] 165 [facility] [address] [place] [address] Park Sauer MD [address] [place] [address], [place] [address] JYOTI@[facility] documented as of this encounter Visit Diagnoses Diagnosis Immunosuppressive management encounter following kidney transplant Encounter for long-term (current) use of other medications Encounter for aftercare following kidney transplant documented in this encounter Care Teams Sack Keeper Relationship Specialty Start Date End Date Mónica Dawkins MD [address] [place] [address] PCP - General Internal Medicine 11/11/19 documented as of this encounter Additional Source Comments The information contained in this document represents components of the legal health record. It is not the complete legal health record.[facility]
--- OUTSIDE RECORDS SUMMARY | 2025-09-22 11:16 | XMS_ITS | Encounter Summary ---
Author Organization [facility] Address [address] [facility] [address] [place] [address] Phone Care Team Providers Care Purchasing Buyer Name Role Phone Mónica Dawkins MD Primary Care Provider [phone] Encounter Details Date Type Department Care Team (Late st Contact Info) Description 02/12/2021 Anti-coag visit [facility] Antico[facility] Management Service [address] [facility] [address] [place] [address] Johana Madrid RN 125 [place] [address] [email or web address] Social History Tobacco [...] 10/06/2025 8:05 AM EST Blood Draw [facility] 165 [facility] [address] [place] [address] Park Sauer MD [facility] [address] [place] [address] JYOTI@[facility] 10/13/2025 8:00 AM EST Office Visit [facility] [address] [place] [address] Park Sauer MD [address] [place] [address] [address] [place] [address] JYOTI@[facility] documented as of this encounter Visit Diagnoses Not on filedocumented in this encounter Care Teams Purchasing Buyer Relationship Specialty Start Date End Date Mónica Dawkins MD [address] [place] [address] PCP - General Internal Medicine 11/11/19 documented as of this encounter Additional Source Comments The information contained in this document represents components of the legal health record. It is not the complete legal health record.[facility]
--- OUTSIDE RECORDS SUMMARY | 2025-09-22 11:16 | XMS_ITS | Encounter Summary ---
Author Organization [facility] Address [address] [facility] [address] [place] [address] Phone Care Team Providers Care Data Collector Name Role Phone Mónica Dawkins MD Primary Care Provider [phone] Encounter Details Date Type Department Care Team (Latest Contact Info) Description 11/04/[address] [facility] [address] [address] Park Sauer MD [address] [place] [address] JYOTI@[email or web address] Immunosuppressive management [...] [facility] [address] [address] Park Sauer MD [address] [place] [address] [place] [address] JYOTI@[facility] 10/13/2025 8:00 AM EST Office Visit [facility] 165 [facility] [address] [place] [address] Park Sauer MD [address] [place] [address] 100[address], [place] [address] JYOTI@[facility] documented as of this encounter Visit Diagnoses Diagnosis Immunosuppressive management encounter following kidney transplant Encounter for long-term (current) use of other medications Encounter for aftercare following kidney transplant documented in this encounter Care Teams Data Collector Relationship Specialty Start Date End Date Mónica Dawkins MD [address] [place] [address] PCP - General Internal Medicine 11/11/19 documented as of this encounter Additional Source Comments The information contained in this document represents components of the legal health record. It is not the complete legal health record.[facility]
--- OUTSIDE RECORDS SUMMARY | 2025-09-22 11:16 | XMS_ITS | Encounter Summary ---
Author Organization [facility] Address [address] [facility] [address] [place] [address] Phone Care Team Providers Care Contact And Service Clerks Supervisor Name Role Phone Mónica Dawkins MD Primary Care Provider Encounter Details Date Type Department Care Team (Latest Contact Info) Description 01/26/2021 Ancillary Orders [facility] [address] [address] Park Sauer MD [address] [place] [address] JYOTI@[email or web address] includes the [facility] Immunosuppressive [...] [facility] [address] [address] Park Sauer MD [address] [place] [address] [place] [address] JYOTI@[facility] 10/13/2025 8:00 AM EST Office Visit [facility] 165 [facility] [address] [place] [address] Park Sauer MD [address] [place] [address] [address] [place] [address] JYOTI@[facility] documented as of this encounter Visit Diagnoses Diagnosis Immunosuppressive management encounter following kidney transplant Encounter for long-term (current) use of other medications Encounter for aftercare following kidney transplant documented in this encounter Care Teams Contact And Service Clerks Supervisor Relationship Specialty Start Date End Date Mónica Dawkins MD [address] [place] [address] PCP - General Internal Medicine 11/11/19 documented as of this encounter Additional Source Comments The information contained in this document represents components of the legal health record. It is not the complete legal health record.[facility]
--- OUTSIDE RECORDS SUMMARY | 2025-09-22 11:16 | XMS_ITS | Encounter Summary ---
Author Organization [facility] Address [address] [facility] [address] [place] [address] Phone Care Team Providers Care Delivery And Mail Sorter Name Role Phone Mónica Dawkins MD Primary Care Provider [phone] Encounter Details Date Type Department Care Team (Latest Contact Info) Description 11/09/2020 Ancillary Orders [facility] [address] [address] Park Sauer MD [address] [place] [address] JYOTI@[facility] Immunosuppressive management encounter following kidney transplant; [facility] [place] [address] [address] Park Sauer MD [address] [place] [address] [place] [address] JYOTI@[facility] 10/13/2025 8:00 AM EST Office Visit [facility] 165 [facility] [address] [place] [address] Park Sauer MD [address] [place] [address] [address] JYOTI@[facility] documented as of this encounter Visit Diagnoses Diagnosis Immunosuppressive management encounter following kidney transplant Encounter for long-term (current) use of other medications Encounter for aftercare following kidney transplant documented in this encounter Care Teams Delivery And Mail Sorter Relationship Specialty Start Date End Date Mónica Dawkins MD [address] [place] [address] PCP - General Internal Medicine 11/11/19 documented as of this encounter Additional Source Comments The information contained in this document represents components of the legal health record. It is not the complete legal health record.[facility]
--- OUTSIDE RECORDS SUMMARY | 2025-09-22 11:16 | XMS_ITS | Encounter Summary ---
Author Organization [facility] Address [address] [facility] [address] [place] [address] Phone Care Team Providers Care Logging Equipment Mechanic Name Role Phone Mónica Dawkins MD Primary Care Provider [phone] Encounter Details Date Type Department Care Team (Latest Contact Info) Description 11/03/2020 Ancillary Orders [facility] [address] [address] Park Sauer MD [address] [place] [phone] [email or web address] Immunosuppressive management encounter following kidney transplant; [...] [facility] [address] [address] Park Sauer MD [address] [place] [address] [place] [address] [email or web address] 10/13/2025 8:00 AM EST Office Visit [facility] [address] [facility] [address] [place] [address] Park Sauer MD [address] [place] [address] [address] [address] [email or web address] documented as of this encounter Visit Diagnoses Diagnosis Immunosuppressive management encounter following kidney transplant Encounter for long-term (current) use of other medications Encounter for aftercare following kidney transplant documented in this encounter Care Teams Logging Equipment Mechanic Relationship Specialty Start Date End Date Mónica Dawkins MD [address] [place] [address] PCP - General Internal Medicine 11/11/19 documented as of this encounter Additional Source Comments The information contained in this document represents components of the legal health record. It is not the complete legal health record.[facility]
--- OUTSIDE RECORDS SUMMARY | 2025-09-22 11:16 | XMS_ITS | Encounter Summary ---
Author Organization [facility] Address [id number] [place] [address] Phone Care Team Providers Care Packaging Line Attendant Name Role Phone Mónica Dawkins MD Primary Care Provider [phone] Encounter Details Date Type Department Care Team (Late st Contact Info) Description 01/25/2021 Anti-coag visit [facility] [place] Thoracic Surgery [address] [place] [address], [address] [place] [address] Josefa Oliva, RN [address] [place] [address] [email or web address] Social History Tobacco Use Types [...] [facility] [place] [facility] [address] [address] Park Sauer MD [address] [place] [address] [address] [place] [address] [email or web address] 10/13/2025 8:00 AM EST Office Visit [facility] [place] [facility] [address] [place] [address] Park Sauer MD [address] [place] [address] [address] [place] [address] [email or web address] documented as of this encounter Visit Diagnoses Not on filedocumented in this encounter Care Teams Packaging Line Attendant Relationship Specialty Start Date End Date Mónica Dawkins MD [address] [place] [address] PCP - General Internal Medicine 11/11/19 documented as of this encounter Additional Source Comments The information contained in this document represents components of the legal health record. It is not the complete legal health record.[facility]
--- OUTSIDE RECORDS SUMMARY | 2025-09-22 11:16 | XMS_ITS | Encounter Summary ---
Author Organization [facility] Address [address] [facility] [address] [place] [address] Phone Care Team Providers Care Community Engagement Representative Name Role Phone Mónica Dawkins MD Primary Care Provider [phone] Encounter Details Date Type Department Care Team (Late st Contact Info) Description 05/10/2021 Anti-coag visit [facility] Anticoagulation Management Service [address] [facility] [address] [place] [address] Edie Zapata RN 125 [place] [address] [email or web address] Social History Tobacco Use Types Packs/Day [...] 10/06/2025 8:05 AM EST Blood Draw [facility] [address] [facility] [address] [place] [address] Park Sauer MD [address] [facility] [address] [place] [address] [email or web address] 10/13/2025 8:00 AM EST Office Visit [facility] [address] [place] [address] Park Sauer MD [address] [place] [address] [address] [place] [address] [email or web address] documented as of this encounter Visit Diagnoses Not on filedocumented in this encounter Care Teams Community Engagement Representative Relationship Specialty Start Date End Date Mónica Dawkins MD [address] [place] [address] PCP - General Internal Medicine 11/11/19 documented as of this encounter Additional Source Comments The information contained in this document represents components of the legal health record. It is not the complete legal health record.[facility]
--- OUTSIDE RECORDS SUMMARY | 2025-09-22 11:16 | XMS_ITS | Encounter Summary ---
Author Organization [facility] Address [address] [facility] [address] [place] [address] Phone Care Team Providers Care Director Of Accreditation Name Role Phone Mónica Dawkins MD Primary Care Provider [phone] Encounter Details Date Type Department Care Team (Latest Contact Info) Description 01/25/[address] [facility] [address] [address] Park Sauer MD [address] [place] [address] [email or web address] Immunosuppressive management encounter following kidney transplant; Encounter [...] [facility] [place] [facility] [address] [address] Park Sauer MD [address] [place] [address] [place] [address] [email or web address] 10/13/2025 8:00 AM EST Office Visit [facility] [address] [facility] [address] [place] [address] Park Sauer MD [address] [place] [address] [address] [place] [address] [email or web address] documented as of this encounter Visit Diagnoses Diagnosis Immunosuppressive management encounter following kidney transplant Encounter for long-term (current) use of other medications Encounter for aftercare following kidney transplant documented in this encounter Care Teams Director Of Accreditation Relationship Specialty Start Date End Date Mónica Dawkins MD [address] [place] [address] PCP - General Internal Medicine 11/11/19 documented as of this encounter Additional Source Comments The information contained in this document represents components of the legal health record. It is not the complete legal health record.[facility]
== END 2025-09-22 16:45 | disposition home or self-care (01) ==
LOC: HO.HMCC 09:46
PROVIDERS: PCP Internal Medicine; Visit Provider Internal Medicine
DX: I10 Essential (primary) hypertension (principal); E11.9 Type 2 diabetes mellitus without complications; I48.0 Paroxysmal atrial fibrillation; G47.30 Sleep apnea, unspecified

== ENCOUNTER → 2025-09-22 09:45 | Outpatient (BNVA) | payer MEDICARE, SELFPAY | PROVIDERS: PCP Internal Medicine; Visit Provider Internal Medicine | DX: E11.9 Type 2 diabetes mellitus without complications (principal); I48.0 Paroxysmal atrial fibrillation; I10 Essential (primary) hypertension; N40.0 Benign prostatic hyperplasia without lower urinary tract symptoms; R30.0 Dysuria; G47.30 Sleep apnea, unspecified | CPT/HCPCS: 99212 ==